=== PATIENT | female | born 1970 | race Caucasian/White ===

== ENCOUNTER → 2016-08-24 | Outpatient (CLI) | payer OTHER | LOC: M LAB 10:06 | PROVIDERS: ATTEND Nurse Practitioner Family | DX: E03.9 Hypothyroidism, unspecified (principal) ==

== ENCOUNTER → 2016-10-02 | Outpatient (CLI) | payer OTHER | LOC: M LAB 10:37 | PROVIDERS: ATTEND Nurse Practitioner Family | DX: L40.9 Psoriasis, unspecified (principal) ==

== ENCOUNTER → 2016-10-08 | Outpatient (CLI) | payer OTHER ==
[~2016-10-08] MED LIST: ATEN25TA PO; DULE200A INH; GASTROGRAFIN SOLUTION 30ML (Q9963) As Ordered ONE; HYDR25T PO; ISOVUE-370 76% 100ML VIAL (Q9967) As Ordered ONE; LEVO25TA5 PO; OMEP40CA2 PO; PROA1AER INH; VITA100037 PO; [UNRECOGNIZED DRUG - CODE] PO
--- NOTE | 2016-10-09 07:54 | REP ---
Clinical: Generalized abdominal pain. Technique axial contrast enhanced images from the lung bases to the pubic symphysis using oral and 100 ml Isovue 370 intravenous contrast material with precontrast and delayed images of the abdomen as well as coronal and sagittal re-formations. Findings: Lung bases clear. Visualized heart and pericardium normal. 9 mm hypodensity in the medial segment left lobe of the liver most compatible with cyst. Spleen, pancreas, bilateral adrenal glands and kidneys are normal. Cholelithiasis noted without CT evidence for acute cholecystitis. The enteric system is without obstruction or acute inflammatory process and a normal terminal ileum and appendix are identified in the right lower quadrant. Pelvis demonstrates normal bladder and evidence for prior hysterectomy bilateral groin and left inguinal lymph nodes are prominent but otherwise nonspecific as well as few lymph nodes in the anterior left eloy pelvis adjacent to the proximal sigmoid colon. No pelvic fluid/ascites. No free air. No retroperitoneal adenopathy. Vasculature is normal. Musculoskeletal structures are intact. Impression: 1. Bilateral groin and inguinal lymph nodes including prominent lymph nodes in the anterior left eloy pelvis adjacent to the sigmoid colon are otherwise nonspecific. Follow-up should be considered. 2. Cholelithiasis. Signed by Seth Friend MD 10/09/2016 07:45 A
== END ==
LOC: M RAD 15:20
PROVIDERS: ATTEND Physician Assistant Medical
DX: R10.84 Generalized abdominal pain (principal)

== ENCOUNTER → 2016-10-15 | Outpatient (CLI) | payer OTHER ==
[~2016-10-15] VITALS: Ht 167.6 cm; Wt 72.6 kg
[~2016-10-15] MED LIST changes: -GASTROGRAFIN SOLUTION 30ML (Q9963) As Ordered ONE; -ISOVUE-370 76% 100ML VIAL (Q9967) As Ordered ONE; +LIDOCAINE 2% INJ 100 MG/5 ML SDV (FOR ANES.) As Ordered ONE; +NS 1,000 ML IV SCH; +PROPOFOL 200 MG/20 ML VIAL As Ordered ONE
--- NOTE | 2016-10-15 16:07 | ROOR ---
Patient Name: Kaylan Lee Procedure Date: 10/15/2016 3:52 PM Date of : 1970 Age: 45 Room: [facility] Gender: Female Note Status: Finalized Procedure: Upper GI endoscopy Indications: Heartburn Providers: Johny FULTON MD Referring MD: Anila FERRER NP Requesting Provider: Medicines: Monitored Anesthesia Care Complications: No immediate complications. Procedure: Pre-Anesthesia Assessment: - The heart rate, respiratory rate, oxygen saturations, blood pressure, adequacy of pulmonary ventilation, and response to care were monitored throughout the procedure. The Endoscope was introduced through the mouth, and advanced to the second part of duodenum. The upper GI endoscopy was accomplished without difficulty. The patient tolerated the procedure well. Findings: Small Hiatal Hernia. The esophagus was normal. The stomach was normal. The examined duodenum was normal. Impression: - Small Hiatal Hernia. - Normal esophagus. - Normal stomach. - Normal examined duodenum. - No specimens collected. Recommendation: - Continue present medications. - Follow an antireflux regimen. Johny Fulton MD Johny FULTON MD 10/15/2016 4:06:51 PM This report has been signed electronically. Number of Addenda: 0 Note Initiated On: 10/15/2016 3:52 PM Estimated Blood Loss: Estimated blood loss: none.
--- NOTE | 2016-10-15 16:35 | ROOR ---
Patient Name: Kaylan Lee Procedure Date: 10/15/2016 3:53 PM Date of : 1970 Age: 45 Room: [facility] Gender: Female Note Status: Finalized Procedure: Colonoscopy Indications: Screening for colorectal malignant neoplasm Providers: Johny FULTON MD Referring MD: Anila FERRER NP Requesting Provider: Medicines: Monitored Anesthesia Care Complications: No immediate complications. Procedure: Pre-Anesthesia Assessment: - The heart rate, respiratory rate, oxygen saturations, blood pressure, adequacy of pulmonary ventilation, and response to care were monitored throughout the procedure. The Colonoscope was introduced through the anus and advanced to 8 cm into the ileum. The colonoscopy was performed without difficulty. The patient tolerated the procedure well. The quality of the bowel preparation was good. Findings: The perianal and digital rectal examinations were normal. A 20 mm polyp was found in the mid sigmoid colon. The polyp was pedunculated. An endoloop was maneuvered over the polyp stalk and closed at the mucosal attachment prior to removal in order to prevent bleeding. The polyp was removed with a hot snare. Resection and retrieval were complete. Three sessile polyps were found in the distal sigmoid colon. The polyps were diminutive in size. These polyps were removed with a cold snare. Resection and retrieval were complete. Three sessile polyps were found in the descending colon and splenic flexure. The polyps were 5 to 6 mm in size. These polyps were removed with a cold snare. Resection and retrieval were complete. The exam was otherwise without abnormality on direct and retroflexion views. The terminal ileum appeared normal. Impression: - One 20 mm polyp in the mid sigmoid colon, removed with a hot snare. Resected and retrieved. - Three diminutive polyps in the distal sigmoid colon, removed with a cold snare. Resected and retrieved. - Three 5 to 6 mm polyps in the descending colon and at the splenic flexure, removed with a cold snare. Resected and retrieved. - The examination was otherwise normal on direct and retroflexion views. - The examined portion of the ileum was normal. Recommendation: - Telephone endoscopist for pathology results in 2 weeks. - Repeat colonoscopy in 3 years for surveillance. Johny Fulton MD Johny FULTON MD 10/15/2016 4:35:13 PM This report has been signed electronically. Number of Addenda: 0 Note Initiated On: 10/15/2016 3:53 PM Estimated Blood Loss: Estimated blood loss: none.
[2016-10-15 16:59] VITALS: BP 112/58
== END | disposition home or self-care (01) ==
LOC: M OPP 12:14
PROVIDERS: ATTEND Internal Medicine Gastroenterology
DX: Z12.11 Encounter for screening for malignant neoplasm of colon (principal); D12.5 Benign neoplasm of sigmoid colon; D12.4 Benign neoplasm of descending colon; D12.3 Benign neoplasm of transverse colon; R12 Heartburn; K44.9 Diaphragmatic hernia without obstruction or gangrene; I10 Essential (primary) hypertension; E05.00 Thyrotoxicosis with diffuse goiter without thyrotoxic crisis or storm; F17.200 Nicotine dependence, unspecified, uncomplicated; J44.9 Chronic obstructive pulmonary disease, unspecified; M19.90 Unspecified osteoarthritis, unspecified site; K80.20 Calculus of gallbladder without cholecystitis without obstruction; Z79.899 Other long term (current) drug therapy

== ENCOUNTER → 2016-10-18 | Outpatient (REF) | payer OTHER ==
[~2016-10-18] MED LIST changes: -LIDOCAINE 2% INJ 100 MG/5 ML SDV (FOR ANES.) As Ordered ONE; -NS 1,000 ML IV SCH; -PROPOFOL 200 MG/20 ML VIAL As Ordered ONE
== END ==
LOC: M LAB REF 16:49
PROVIDERS: ATTEND Obstetrics & Gynecology
DX: Z12.4 Encounter for screening for malignant neoplasm of cervix (principal)

== ENCOUNTER → 2016-10-25 | Outpatient (REF) | payer OTHER | LOC: M LAB REF 12:43 | PROVIDERS: ATTEND Internal Medicine Medical Oncology | DX: C54.1 Malignant neoplasm of endometrium (principal) ==

== ENCOUNTER → 2016-11-07 | Outpatient (CLI) | payer OTHER ==
--- NOTE | 2016-11-07 18:58 | REP ---
PET/CT: History: Restaging carcinoma of the cervix. The patient is status post hysterectomy and bilateral salpingo-oophorectomy in May 2015. The patient status post radiation therapy January 2016. CT study showed a nonspecific lymph nodes in the pelvis and groin. Comparisons: CT study dated 10/08/2016. TECHNIQUE: 78 minutes following the intravenous injection of a 7.5 mCi dose of F-18 FDG, three-dimensional PET scintigraphy is acquired from the skull base to the proximal thighs. Triplanar noncontrast CT scanning is acquired through the same anatomic range for attenuation correction, and image registration with scan parameters optimized to minimize radiation exposure to the patient. PET scintigraphy and CT datasets were fused and displayed on a workstation with multiplanar and projection display capability. PET/CT Findings: The patients enlarged bilateral inguinal and distal external iliac chain lymph nodes are hypermetabolic. The most avid FDG accumulation is in the bilateral inguinal lymph nodes. Maximum standard uptake value in the right inguinal lymph node group is 6.7 and the maximum standard uptake value in the left is 4.9. There is a right external iliac lymph node with hypermetabolic uptake maximum SUV 2.8. A single very slightly enlarged left external iliac lymph node has a maximum SUV 2.5. No internal iliac adenopathy or hypermetabolic uptake is seen. No retroperitoneal hypermetabolic darin uptake is seen. No other abnormal hypermetabolic uptake is seen in the abdomen or pelvis. Gallstones are noted in the gallbladder. In the chest, there is no abnormal hypermetabolic uptake. No abnormal pulmonary mass or nodule is appreciated. The head and neck soft tissues are unremarkable. No other abnormal uptake is seen. Impression: Suspicious hypermetabolic uptake is seen in bilateral distal external iliac and bilateral inguinal lymphadenopathy. Signed by Graeme Morgan MD 11/07/2016 08:01 P
== END ==
LOC: M RAD 07:11
PROVIDERS: ATTEND Internal Medicine Medical Oncology
DX: C53.9 Malignant neoplasm of cervix uteri, unspecified (principal)

== ENCOUNTER → 2016-11-12 | Outpatient (REF) | payer OTHER ==
[2016-11-12 13:15] LABS: INR 0.88
== END ==
LOC: M LAB REF 12:35
PROVIDERS: ATTEND Internal Medicine Medical Oncology
DX: C53.9 Malignant neoplasm of cervix uteri, unspecified (principal)

== ENCOUNTER → 2016-11-20 | Outpatient (CLI) | payer OTHER ==
--- NOTE | 2016-11-22 09:18 | RADONC ---
RADIATION ONCOLOGY CONSULTATION NOTE DATE: 11/20/2016 CHART NUMBER: [id number] DIAGNOSIS: Cervix cancer. STAGE: IVB, TXN1M1, recurrent. ECOG PERFORMANCE STATUS: 0 CONSULTATION NOTE: Ms. Lee is a very pleasant 45-year-old white female with the diagnosis of what appears to be a recurrence of her cervical squamous cell carcinoma now with bilateral inguinal and external iliac lymph nodes. HISTORY OF PRESENT ILLNESS: The patient was in her usual state of health and apparently underwent a laparoscopic vaginal-assisted hysterectomy with bilateral salpingo-oophorectomy on 06/03/2015. Pathology revealed a well-differentiated keratinizing squamous cell carcinoma. The stromal invasion was 1 mm. Margins were uninvolved with invasive carcinoma. The tumor was listed as a [id number], FIGO stage. Lymph vascular invasion was found. Apparently, the patient subsequently underwent on 11/07/2015, further surgery. Further excision of the left vaginal margin as well as the upper vagina were undertaken. Bilateral lymph nodes were resected in the external iliac region, the common iliac region, and the obturator regions. Pathology revealed invasive squamous cell carcinoma in the upper vagina measuring 1.1 cm arising in a background of squamous carcinoma in situ. The parametria were negative for tumor involvement. The left vaginal margin was positive for squamous cell carcinoma in situ. The external iliac nodes on the right and left were negative for malignancy. The obturator nodes bilaterally were also negative for malignancy as were periaortic lymph nodes. The patient subsequently underwent external beam radiation therapy at [address] [place] [address] Oncology. A dose of 4500 cGy was delivered from 01/11/2016 through 02/15/2016 in 25 fractions over 35 elapsed days. The pelvis and pelvic lymph nodes were treated. The patient reports that she did not have any chemotherapy or other type of systemic therapy either. Apparently, the patient did well until PET scan done 11/07/2016, which now shows hypermetabolic uptake in the inguinal regions bilaterally as well as in the external iliac lymph nodes on the right. There is very slight uptake in the left external iliac lymph nodes as well. The patient is now presenting to me for discussion of any possible external beam radiation therapy. PAST MEDICAL HISTORY: The patient's past medical history is positive for hypertension, arthritis, hypothyroidism and COPD. SOCIAL HISTORY: The patient does not abuse alcohol. She had smokes approximately one pack of cigarettes per day for the last 30 years. ALLERGIES: The patient has no known drug allergies. FAMILY HISTORY: The patient's mother was diagnosed with lung cancer. She had a grandmother with ovarian cancer. REVIEW OF SYSTEMS: The patient's review of systems is positive for some migraines as well as psoriasis and weakness in her legs. It is otherwise noncontributory. She denies nausea, vomiting, fevers, chills, night sweats, diplopia, headaches, anxiety or depression, anorexia, weight loss, visual disturbances, chest pain, urinary or bowel difficulties, bone pain, or neurological problems. PHYSICAL EXAMINATION: The patient is a well-developed, well-nourished female in no acute distress. HEENT exam is normocephalic, atraumatic. Extraocular movements are intact. There is no palpable cervical, supraclavicular, infraclavicular, axillary, or inguinal lymphadenopathy present. Lungs are clear to auscultation and percussion. Heart has a regular rate and rhythm. Abdomen is benign with no hepatosplenomegaly, masses, or tenderness. Skeletal examination reveals no tenderness to pressure or percussion of the bony skeleton. Extremities reveal no clubbing, cyanosis, or edema. Neurologic exam is grossly intact, as is the remainder of the physical examination. COLLECTIONS SPECIALIST exam deferred. ASSESSMENT: I have personally reviewed the patient's PET/CT scan done on 11/07/2016 as well as her previous radiation therapy records. Unfortunately, if all the sites of hypermetabolic activity are truly malignant, then we have stage IV disease here. The inguinal nodes qualify as distant metastases. In addition, we cannot safely deliver a radiation dose to her inguinal nodes bilaterally as well as to her external iliac nodes without overlapping the previous mike and most likely causing severe damage to the patient's small bowels and other normal structures. I do not see, at this point, any role for radiation therapy in this patient with recurrent stage IV disease. I think we would cause her more injury than we would be of any benefit. Clearly, the role in the future for this woman is palliative in nature and, at the present time, she is having no problems with these areas and, therefore, there is nothing to palliate. I have recommended that she follow the instructions and expertise of Dr. Klein. I have great andre in Dr. Klein's ability to evaluate the situation and deliver the highest quality care to this very pleasant and unfortunate woman. I have not set her up for anything at this point. Should there be any future issue that requires palliation, we would be more than happy to see this woman at anytime. Pending the results of her biopsies of the inguinal nodes which are scheduled and any further recommendations from Dr. Klein, we are more than happy to see her as well in the future. We wish this very pleasant woman the best. cc: MD Anila Castellano, ADALGISA Fulton MD
== END ==
LOC: M ONCR 14:02
PROVIDERS: ATTEND Radiology Radiation Oncology
DX: C53.9 Malignant neoplasm of cervix uteri, unspecified (principal)

== ENCOUNTER → 2016-11-26 | Outpatient (CLI) | payer OTHER ==
[~2016-11-26] MED LIST changes: +LIDOCAINE 1% MDV 20ML VIAL As Ordered ONE
--- NOTE | 2016-11-26 16:39 | REP ---
ULTRASOUND GUIDED RIGHT GROIN LYMPH NODE BIOPSY: The procedure was performed under the direct supervision of Dr. Lim. The patient has a history of bilateral distal external iliac and bilateral inguinal lymphadenopathy which were seen as hypermetabolic on a previous PET scan dated 11/07/2016. The risks and benefits of the procedure were explained to the patient and informed consent was obtained. The most hyperbolic lymph node in the right groin was localized using ultrasound guidance. The skin was prepped and draped in a sterile fashion. 1% Xylocaine was used as a local anesthetic. Using ultrasound guidance a 19/20-gauge coaxial needle biopsy system was inserted and then advanced into the lymph node. 8 core biopsy samples were obtained and sent to the lab. The patient tolerated the procedure well and there were no immediate complications. After the appropriate amount of monitored convalesce the patient was discharged from the department. Reviewed by GERTRUDE Wong 11/26/2016 04:49 PEdited and Signed by Klever Lim MD 11/27/2016 04:27 P
== END ==
LOC: M RADPRO 08:49
PROVIDERS: ATTEND Internal Medicine Medical Oncology
DX: D21.9 Benign neoplasm of connective and other soft tissue, unspecified (principal); Z85.41 Personal history of malignant neoplasm of cervix uteri; I10 Essential (primary) hypertension; J44.9 Chronic obstructive pulmonary disease, unspecified; E03.9 Hypothyroidism, unspecified; Z72.0 Tobacco use; Z79.899 Other long term (current) drug therapy

== ENCOUNTER → 2016-12-10 | Outpatient (CLI) | payer OTHER ==
[~2016-12-10] MED LIST changes: -LIDOCAINE 1% MDV 20ML VIAL As Ordered ONE
[2016-12-10 08:36] LABS: ALBUMIN 3.4 GM/DL (3.2-5.2); ALBUMIN/GLOBULIN RATIO 0.92 (1.00-1.93); ALKALINE PHOSPHATASE 115 U/L (45-117); ALT/SGPT 20 U/L (12-78); ANION GAP 5 MEQ/L (8-16); AST/SGOT 17 U/L (15-37); BILIRUBIN,TOTAL 0.3 MG/DL (0.2-1.0); BLOOD UREA NITROGEN 10 MG/DL (7-18); CALCIUM LEVEL 8.8 MG/DL (8.5-10.1); CARBON DIOXIDE LEVEL 31 MEQ/L (21-32); CHLORIDE LEVEL 103 MEQ/L (98-107); CREATININE FOR GFR 0.55 MG/DL (0.55-1.02); GLOMERULAR FILTRATION RATE > 60.0 (>58); GLUCOSE, FASTING 102 MG/DL (70-105); POTASSIUM SERUM 3.9 MEQ/L (3.5-5.1); SODIUM LEVEL 139 MEQ/L (136-145); TOTAL PROTEIN 7.1 GM/DL (6.4-8.2); TRIGLYCERIDES LEVEL 122 MG/DL (<150)
== END ==
LOC: M LAB 07:37
PROVIDERS: ATTEND Dermatology
DX: Z79.899 Other long term (current) drug therapy (principal)

== ENCOUNTER → 2016-12-25 | Outpatient (CLI) | payer OTHER ==
[~2016-12-25] MED LIST changes: +ACIT1CAP2 PO; +COMBAER6 INH; +TYLE500T78 PO
--- NOTE | 2016-12-25 19:05 | ECGEPIP ---
Stationary ECG Study [facility] Test Date: 2016-12-25 Pat Name: JOSEPH COOL Department: Room: - Gender: F C Winforms Developer: GRAY : 1970 Requested By: Teo Odonnell Order Number: [id number] Reading MD: Corky Weber Measurements Intervals [place] Rate: 70 P: 65 OK: 159 QRS: 34 QRSD: 89 T: 63 QT: 407 QTc: 440 Interpretive Statements SINUS RHYTHM SIMILAR 07/18/16 Electronically Signed On 12-25-2016 19:05:32 EDT by Corky Weber
== END ==
LOC: M EKG 10:12
PROVIDERS: ATTEND Anesthesiology
DX: Z01.818 Encounter for other preprocedural examination (principal)

== ENCOUNTER → 2016-12-26 | Day surgery (SDC) | payer OTHER ==
[~2016-12-26] VITALS: Ht 167.6 cm; Wt 71.7 kg
[~2016-12-26] MED LIST changes: +KETAMINE HCL 200 MG/20 ML VIAL As Ordered ONE; +KETOROLAC 60 MG/2 ML VIAL (J1885) As Ordered ONE; +LIDOCAINE 2% INJ 100 MG/5 ML SDV (FOR ANES.) As Ordered ONE; +LIDOCAINE W/EPINEPHRINE 1% 20ML VIAL As Ordered ONE; +LR 1,000 ML IV ONE; +MIDAZOLAM INJ 2 MG/2 ML VIAL (J2250) As Ordered ONE; +NORCO, ANEXSIA 5/325MG TABLET (HYDROcodone/ACETAMINOPHEN) PO PRN; +ONDANSETRON 4MG/2ML VIAL (J2405) As Ordered ONE; +PROPOFOL 200 MG/20 ML VIAL As Ordered ONE; +fentaNYL 100 MCG/2 ML INJECTION (J3010) As Ordered ONE
[2016-12-26 13:45] VITALS: BP 105/71
--- NOTE | 2016-12-28 12:10 | RO ---
DATE OF PROCEDURE: 12/26/2016 PREOPERATIVE DIAGNOSIS: Right groin lymphadenopathy. POSTOPERATIVE DIAGNOSIS: Right groin lymphadenopathy. PROCEDURES: Right groin lymph node dissection. SURGEON: Dr. Nicole INDUSTRIAL PHOTOGRAPHER: None. ESTIMATED BLOOD LOSS: 5 mL. COMPLICATIONS: None. INDICATIONS FOR PROCEDURE: Patient is 46-year-old female with a history of cervical cancer found to have enlarged lymph nodes on CT scan that were confirmed to have increased activity on PET scan. She had a needle biopsy of the right groin lymph node that was negative; however, due to her history they recommended excision for further diagnosis. Recommendation was to proceed with excisional right groin lymph node biopsy. Risks and procedure, not limited, but including bleeding, infection, seroma and need for further procedures were discussed in detail with the patient. Informed consent was obtained and procedure was planned. DESCRIPTION OF PROCEDURE: The patient brought back to operating room #3. After sufficient sedation, the right groin was sterilely prepped and draped with Betadine. Next, a time-out was done to confirm proper patient and proper procedure. Following that, a 4 cm incision was made in the inguinal crease. Using combination of blunt and sharp dissection, the right groin was carefully dissected down to the level of the lymph nodes. There was a one large palpable lymph node just over a centimeter in size that was easily palpable. This was carefully dissected circumferentially and then it was elevated. #0 Vicryl suture was placed around the base of it to ligate the lymphatic ducts. It was then amputated using Metzenbaum scissors and sent for biopsy. The subcutaneous tissues were then reapproximated using #3-0 Vicryl interrupted sutures. Skin incision closed with #3-0 nylon interrupted sutures. The area was then cleaned and dried, 4x4 and tape were applied thus ending procedure.
== END | disposition home or self-care (01) ==
LOC: M SDC 09:12
PROVIDERS: ATTEND Surgery
DX: R59.0 Localized enlarged lymph nodes (principal); I10 Essential (primary) hypertension; J44.9 Chronic obstructive pulmonary disease, unspecified; E03.9 Hypothyroidism, unspecified; E05.00 Thyrotoxicosis with diffuse goiter without thyrotoxic crisis or storm; K21.9 Gastro-esophageal reflux disease without esophagitis; I45.19 Other right bundle-branch block; R29.898 Other symptoms and signs involving the musculoskeletal system; M12.9 Arthropathy, unspecified; L40.9 Psoriasis, unspecified; G43.909 Migraine, unspecified, not intractable, without status migrainosus; R06.83 Snoring; R06.09 Other forms of dyspnea; F17.290 Nicotine dependence, other tobacco product, uncomplicated; Z90.710 Acquired absence of both cervix and uterus; Z92.21 Personal history of antineoplastic chemotherapy; Z92.3 Personal history of irradiation
CPT/HCPCS: 38500; 88305; J0690; J1885; J2250; J2405; J3010

== ENCOUNTER → 2017-02-04 | Outpatient (CLI) | payer OTHER ==
[~2017-02-04] MED LIST changes: -KETAMINE HCL 200 MG/20 ML VIAL As Ordered ONE; -KETOROLAC 60 MG/2 ML VIAL (J1885) As Ordered ONE; -LIDOCAINE 2% INJ 100 MG/5 ML SDV (FOR ANES.) As Ordered ONE; -LIDOCAINE W/EPINEPHRINE 1% 20ML VIAL As Ordered ONE; -LR 1,000 ML IV ONE; -MIDAZOLAM INJ 2 MG/2 ML VIAL (J2250) As Ordered ONE; -NORCO, ANEXSIA 5/325MG TABLET (HYDROcodone/ACETAMINOPHEN) PO PRN; -ONDANSETRON 4MG/2ML VIAL (J2405) As Ordered ONE; -PROPOFOL 200 MG/20 ML VIAL As Ordered ONE; -fentaNYL 100 MCG/2 ML INJECTION (J3010) As Ordered ONE
[2017-02-04 09:23] LABS: ALBUMIN 3.5 GM/DL (3.2-5.2); ALBUMIN/GLOBULIN RATIO 1.13 (1.00-1.93); ALKALINE PHOSPHATASE 139 U/L (45-117); ALT/SGPT 22 U/L (12-78); ANION GAP 6 MEQ/L (8-16); AST/SGOT 15 U/L (15-37); BILIRUBIN,TOTAL 0.3 MG/DL (0.2-1.0); BLOOD UREA NITROGEN 14 MG/DL (7-18); CALCIUM LEVEL 8.4 MG/DL (8.5-10.1); CARBON DIOXIDE LEVEL 26 MEQ/L (21-32); CHLORIDE LEVEL 110 MEQ/L (98-107); CREATININE FOR GFR 0.66 MG/DL (0.55-1.02); GLOMERULAR FILTRATION RATE > 60.0 (>58); GLUCOSE, FASTING 97 MG/DL (70-105); SODIUM LEVEL 142 MEQ/L (136-145); TOTAL PROTEIN 6.6 GM/DL (6.4-8.2); TRIGLYCERIDES LEVEL 181 MG/DL (<150)
== END ==
LOC: M LAB 08:22
PROVIDERS: ATTEND Dermatology
DX: Z51.81 Encounter for therapeutic drug level monitoring (principal); Z79.899 Other long term (current) drug therapy

== ENCOUNTER → 2017-02-20 | Outpatient (REF) | payer OTHER ==
[~2017-02-20] MED LIST changes: +HYDR-3363 PO; -HYDR25T PO; -PROA1AER INH; +PROAAER10 INH; -VITA100037 PO; +VITA100067 PO
[2017-02-20 14:52] LABS: FREE T4 1.09 NG/DL (0.76-1.46)
== END ==
LOC: M LAB REF 12:28
PROVIDERS: ATTEND Nurse Practitioner Family
DX: E89.0 Postprocedural hypothyroidism (principal)

== ENCOUNTER → 2017-03-06 | Outpatient (REF) | payer OTHER | LOC: M LAB REF 13:32 | PROVIDERS: ATTEND Internal Medicine Medical Oncology | DX: C53.9 Malignant neoplasm of cervix uteri, unspecified (principal) ==

== ENCOUNTER → 2017-06-06 | Outpatient (REF) | payer OTHER | LOC: M LAB REF 13:42 | PROVIDERS: ATTEND Internal Medicine Medical Oncology | DX: C53.9 Malignant neoplasm of cervix uteri, unspecified (principal) ==

== ENCOUNTER → 2017-06-12 | Outpatient (CLI) | payer OTHER ==
--- NOTE | 2017-06-12 15:11 | REP ---
Whole body PET CT scan for restaging of cervical cancer. Comparison is the PET scan dated 11/07/2016. Whole-body scanning is performed from skull base to the upper thighs, as previously. Neck and supraclavicular areas: There is artifactual uptake in the vocal cords. There is artifactual uptake in lymphoid and salivary tissues. No hypermetabolic foci. Chest: There are no hypermetabolic foci. Abdomen, pelvis and upper thighs: There is uptake in external iliac nodes and in inguinal nodes bilaterally, similar to the prior study. There is uptake in a single right inguinal node with the maximal standard uptake value of 4.9. There is uptake in two left inguinal nodes with the maximal standard uptake value of the more posterior node measuring 4,7, and of the more anterior node 4.7. There is uptake in a single right external iliac node with a maximal standard uptake value of 3.6. There is uptake in a single left external iliac node with a maximal standard uptake value of 2.9. There is a new focus of intense uptake in the skin of the anterior abdominal wall to the right of midline just above the level of the umbilicus measuring approximate 2.5 cm in diameter with a maximal standard uptake value of 87. Impression: There is uptake in bilateral external iliac nodes and bilateral inguinal nodes, similar to the prior study. There is a new focus of intense uptake in the skin of the anterior abdominal wall to the right of midline just above the level of the umbilicus The study is performed with 10 mCi of F 18 FDG. Signed by Klever Gottlieb MD 06/12/2017 03:02 P
== END ==
LOC: M PLARAD 10:15
PROVIDERS: ATTEND Internal Medicine Medical Oncology
DX: R59.9 Enlarged lymph nodes, unspecified (principal); C53.9 Malignant neoplasm of cervix uteri, unspecified
CPT/HCPCS: 78815; A9552

== ENCOUNTER → 2017-07-30 | Outpatient (CLI) | payer OTHER ==
--- NOTE | 2017-07-30 13:37 | REPMRS ---
Patient History The patient states she has not had a clinical breast exam in over a year. Patient has history of endometrial cancer at age 44. Family history of ovarian cancer in maternal grandmother. Taking unspecified hormones. Digital Mammo Screening Bilat: July 30, 2017 - Exam #: [id number] Bilateral CC and MLO view(s) were taken. Technologist: Nithya Pederson, Technologist Prior study comparison: July 18, 2016, bilateral digital mammo screening bilat performed at [facility]. FINDINGS: There are scattered fibroglandular densities. There has been no change in the appearance of the mammogram from the prior studies. There is a mild amount of residual fibroglandular tissue which is fairly symmetric. There is no interval development of dominant mass, architectural distortion, or clustered microcalcification suggestive of malignancy. ASSESSMENT: BI-RADS/ACR category 1 mammogram. Negative. Recommendation Routine screening mammogram in 1 year (for women over age 40). This mammogram was interpreted with the aid of an FDA-approved computer-aided dectection system. Electronically Signed By: Klever Lim MD 07/30/17 [id number]
== END ==
LOC: M RAD 10:41
PROVIDERS: ATTEND Internal Medicine Medical Oncology
DX: Z12.31 Encounter for screening mammogram for malignant neoplasm of breast (principal); Z79.890 Hormone replacement therapy

== ENCOUNTER → 2017-08-16 | Outpatient (CLI) | payer OTHER ==
[2017-08-16 08:56] LABS: BASO # 0.1 10^3/uL (0.0-0.2); BASO % 1.2 % (0.0-1.0); EOS # 0.3 10^3/uL (0.0-0.50); EOS % 5.2 % (0.0-3.0); IMMATURE GRANULOCYTE % 0.2 % (0-0); LYMPH # 0.6 10^3/uL (1.5-4.5); LYMPH % 9.8 % (24.0-44.0); MEAN CORPUSCULAR HGB CONC 33.3 g/dl (32.0-36.5); MEAN CORPUSCULAR VOLUME 93.2 fl (80.0-96.0); MONO # 0.5 10^3/uL (0.0-0.8); MONO % 7.7 % (0.0-5.0); NEUTROPHILS # 4.5 10^3/uL (1.8-7.7); NEUTROPHILS % 75.9 % (36.0-66.0); PLATELET COUNT, AUTOMATED 316 10^3/uL (150-450); RED CELL DISTRIBUTION WIDTH 14.2 % (11.5-14.5); WHITE BLOOD COUNT 5.9 10^3/uL (4.0-10.0)
== END ==
LOC: M RAD 07:01
DX: Z13.89 Encounter for screening for other disorder (principal)
CPT/HCPCS: 76705

== ENCOUNTER → 2017-09-19 | Outpatient (CLI) | payer OTHER | LOC: M SMT 10:28 | DX: J44.9 Chronic obstructive pulmonary disease, unspecified (principal) | CPT/HCPCS: 71046 ==

== ENCOUNTER → 2017-10-02 | Outpatient (REF) | payer OTHER ==
[2017-10-02 18:05] LABS: CHOLESTEROL LEVEL 256 MG/DL (<200); CHOLESTEROL RISK RATIO 4.654 (<5); HDL CHOLESTEROL 55 MG/DL (>40); NON-HDL-C 201 MG/DL; TRIGLYCERIDES LEVEL 130 MG/DL (<150)
[2017-10-02 18:25] LABS: ESTIMATED AVERAGE GLUCOSE 114 MG/DL (60-110); HEMOGLOBIN A1c 5.6 %
== END ==
LOC: M LAB REF 16:43
DX: R07.9 Chest pain, unspecified (principal)

== ENCOUNTER → 2017-10-25 | Outpatient (REF) | payer OTHER, MEDICARE ==
[2017-10-25 14:26] LABS: CA 125 8.9 U/ML (<30.2)
== END ==
LOC: M LAB REF 13:20
DX: C53.9 Malignant neoplasm of cervix uteri, unspecified (principal)

== ENCOUNTER → 2017-11-14 | Outpatient (CLI) | payer OTHER ==
[2017-11-14 18:17] LABS: BASO % 0.6 % (0.0-1.0); EOS # 0.2 10^3/uL (0.0-0.50); EOS % 2.8 % (0.0-3.0); HEMATOCRIT 43.2 % (36.0-47.0); HEMOGLOBIN 14.5 g/dl (12.0-15.5); IMMATURE GRANULOCYTE % 0.4 % (0-3.0); LYMPH # 0.6 10^3/uL (1.5-4.5); LYMPH % 8.2 % (24.0-44.0); MEAN CORPUSCULAR HEMOGLOBIN 31.3 pg (27.0-33.0); MEAN CORPUSCULAR HGB CONC 33.6 g/dl (32.0-36.5); MEAN CORPUSCULAR VOLUME 93.3 fl (80.0-96.0); MONO # 0.4 10^3/uL (0.0-0.8); MONO % 6.2 % (0.0-5.0); NEUTROPHILS # 5.8 10^3/uL (1.8-7.7); NEUTROPHILS % 81.8 % (36.0-66.0); PLATELET COUNT, AUTOMATED 278 10^3/uL (150-450); RED BLOOD COUNT 4.63 10^6/uL (4.00-5.40); RED CELL DISTRIBUTION WIDTH 14.5 % (11.5-14.5); WHITE BLOOD COUNT 7.1 10^3/uL (4.0-10.0)
[2017-11-14 18:41] LABS: ALBUMIN 3.8 GM/DL (3.2-5.2); ALBUMIN/GLOBULIN RATIO 1.09 (1.00-1.93); ALKALINE PHOSPHATASE 122 U/L (45-117); ALT/SGPT 24 U/L (12-78); ANION GAP 8 MEQ/L (8-16); AST/SGOT 17 U/L (7-37); BILIRUBIN,TOTAL 0.4 MG/DL (0.2-1.0); BLOOD UREA NITROGEN 16 MG/DL (7-18); CALCIUM LEVEL 8.6 MG/DL (8.5-10.1); CARBON DIOXIDE LEVEL 26 MEQ/L (21-32); CHLORIDE LEVEL 104 MEQ/L (98-107); GLOMERULAR FILTRATION RATE > 60.0 (>58); GLUCOSE, FASTING 89 MG/DL (70-100); POTASSIUM SERUM 3.9 MEQ/L (3.5-5.1); RHEUMATOID FACTOR QUANT < 10.0 IU/ML (<15.0); SODIUM LEVEL 138 MEQ/L (136-145); TOTAL PROTEIN 7.3 GM/DL (6.4-8.2)
[2017-11-14 19:11] LABS: ERYTHROCYTE SEDIMENTATION RATE 5 mm/hr (0-20)
[2017-11-15 11:04] LABS: HEPATITIS B SURFACE ANTIGEN NEGATIVE (NEGATIVE)
[2017-11-15 11:16] LABS: HEPATITIS B CORE ANTIBODY IGM NEGATIVE (NEGATIVE)
[2017-11-15 14:45] LABS: HEPATITIS A ANTIBODY IGM INCONCLUSIVE (NEGATIVE)
[2017-11-16 15:19] LABS: QUANTIFERON GOLD TB Negative (Negative); TB Test (QFT) Antigen 0.03 IU/mL (.); TB Test (QFT) Antigen Minus Ni 0.01 IU/mL (.); TB Test (QFT) Mitogen 5.89 IU/mL (.); TB Test (QFT) Nil 0.02 IU/mL (.)
== END ==
LOC: M SMT 12:43
DX: L40.0 Psoriasis vulgaris (principal); L40.50 Arthropathic psoriasis, unspecified
CPT/HCPCS: 80053

== ENCOUNTER 2017-11-15 09:19 | Day surgery (SDC) | payer OTHER, MEDICAID ==
[2017-11-15] MEDS ORDERED: LIDOCAINE 1% MDV 20ML VIAL SQ (09:30)
[2017-11-15] MEDS: LR 1,000 ML IV ×2 (10:30→13:10)
[2017-11-15] MEDS ORDERED: ROCURONIUM BROMIDE 50 MG/5 ML VIAL As Ordered (11:17)
[2017-11-15] MEDS ORDERED: LIDOCAINE 2% INJ 100 MG/5 ML SDV (FOR ANES.) As Ordered (11:17)
[2017-11-15] MEDS ORDERED: fentaNYL 250 MCG/5 ML INJECTION (J3010) As Ordered (11:17)
[2017-11-15] MEDS ORDERED: PROPOFOL 200 MG/20 ML VIAL As Ordered (11:17)
[2017-11-15] MEDS ORDERED: MIDAZOLAM INJ 2 MG/2 ML VIAL (J2250) As Ordered (11:17)
[2017-11-15] MEDS ORDERED: BUPIVACAINE/EPIN 0.5% 30 ML VIAL As Ordered (11:48)
[2017-11-15] MEDS ORDERED: NEOSTIGMINE 10 MG/10 ML VIAL (J2710) As Ordered (12:32)
[2017-11-15] MEDS ORDERED: GLYCOPYRROLATE INJ 0.2 MG/ML 2 ML VIAL As Ordered (12:32)
[2017-11-15] MEDS ORDERED: ONDANSETRON 4MG/2ML VIAL (J2405) As Ordered (12:32)
[2017-11-15] MEDS ORDERED: dexameTHASONE 4 MG/ML 1ML VIAL (J1100) As Ordered ×2 (12:33)
[2017-11-15] MEDS ORDERED: KETOROLAC 60 MG/2 ML VIAL (J1885) As Ordered (12:33)
[2017-11-15] MEDS ORDERED: fentaNYL 100 MCG/2 ML INJECTION (J3010) IV (13:30)
[2017-11-15] MEDS ORDERED: NORCO, ANEXSIA 5/325MG TABLET (HYDROcodone/ACETAMINOPHEN) PO (13:30)
[2017-11-15] MEDS ORDERED: ONDANSETRON 4MG/2ML VIAL (J2405) IV (13:30)
[2017-11-15] MEDS ORDERED: ACETAMINOPHEN TAB 650MG DOSE (2X325MG) As Ordered (13:33)
[2017-11-15] MEDS: ACETAMINOPHEN TAB 650MG DOSE (2X325MG) PO (13:35)
== END 2017-11-15 16:55 | disposition home or self-care (01) ==
LOC: M SDC 09:19
DX: K80.12 Calculus of gallbladder with acute and chronic cholecystitis without obstruction (principal); I10 Essential (primary) hypertension; E05.00 Thyrotoxicosis with diffuse goiter without thyrotoxic crisis or storm; F41.9 Anxiety disorder, unspecified; F32.9 Major depressive disorder, single episode, unspecified; J44.9 Chronic obstructive pulmonary disease, unspecified; K21.9 Gastro-esophageal reflux disease without esophagitis; I45.10 Unspecified right bundle-branch block; E78.00 Pure hypercholesterolemia, unspecified; E03.9 Hypothyroidism, unspecified; M19.90 Unspecified osteoarthritis, unspecified site; L40.9 Psoriasis, unspecified; Z86.73 Personal history of transient ischemic attack (TIA), and cerebral infarction without residual deficits; Z85.41 Personal history of malignant neoplasm of cervix uteri; Z85.42 Personal history of malignant neoplasm of other parts of uterus; Z92.3 Personal history of irradiation; Z79.899 Other long term (current) drug therapy; Z79.51 Long term (current) use of inhaled steroids
CPT/HCPCS: 47562

== ENCOUNTER → 2018-01-09 | Outpatient (CLI) | payer OTHER ==
[2018-01-09 17:41] LABS: BASO % 0.5 % (0.0-1.0); EOS # 0.2 10^3/uL (0.0-0.50); EOS % 2.4 % (0.0-3.0); HEMATOCRIT 44.9 % (36.0-47.0); HEMOGLOBIN 15.1 g/dl (12.0-15.5); IMMATURE GRANULOCYTE % 0.3 % (0-3.0); LYMPH # 0.5 10^3/uL (1.5-4.5); LYMPH % 8.5 % (24.0-44.0); MEAN CORPUSCULAR HEMOGLOBIN 31.5 pg (27.0-33.0); MEAN CORPUSCULAR HGB CONC 33.6 g/dl (32.0-36.5); MEAN CORPUSCULAR VOLUME 93.5 fl (80.0-96.0); MONO # 0.4 10^3/uL (0.0-0.8); MONO % 5.6 % (0.0-5.0); NEUTROPHILS # 5.1 10^3/uL (1.8-7.7); NEUTROPHILS % 82.7 % (36.0-66.0); PLATELET COUNT, AUTOMATED 328 10^3/uL (150-450); RED CELL DISTRIBUTION WIDTH 14.1 % (11.5-14.5); WHITE BLOOD COUNT 6.2 10^3/uL (4.0-10.0)
[2018-01-09 17:46] LABS: ALBUMIN 3.7 GM/DL (3.2-5.2); ALT/SGPT 27 U/L (12-78); AST/SGOT 21 U/L (7-37); C REACTIVE PROTEIN QUANTITATIV 0.61 MG/DL (0.00-0.30); CREATININE FOR GFR 0.67 MG/DL (0.55-1.30); GLOMERULAR FILTRATION RATE > 60.0 (>58)
[2018-01-09 19:57] LABS: ERYTHROCYTE SEDIMENTATION RATE 6 mm/hr (0-20)
== END ==
LOC: M SMT 13:25
DX: Z51.81 Encounter for therapeutic drug level monitoring (principal); Z79.899 Other long term (current) drug therapy; L40.9 Psoriasis, unspecified; R59.1 Generalized enlarged lymph nodes
CPT/HCPCS: 86140

== ENCOUNTER → 2018-01-09 | Outpatient (CLI) | payer OTHER ==
[2018-01-09 17:50] LABS: ALBUMIN 3.7 GM/DL (3.2-5.2); ALBUMIN/GLOBULIN RATIO 0.97 (1.00-1.93); ALKALINE PHOSPHATASE 120 U/L (45-117); ALT/SGPT 26 U/L (12-78); ANION GAP 8 MEQ/L (8-16); AST/SGOT 19 U/L (7-37); BILIRUBIN,TOTAL 0.4 MG/DL (0.2-1.0); BLOOD UREA NITROGEN 13 MG/DL (7-18); CALCIUM LEVEL 8.4 MG/DL (8.5-10.1); CARBON DIOXIDE LEVEL 28 MEQ/L (21-32); CHLORIDE LEVEL 103 MEQ/L (98-107); CHOLESTEROL LEVEL 211 MG/DL (<200); CHOLESTEROL RISK RATIO 4.795 (<5); CREATININE FOR GFR 0.68 MG/DL (0.55-1.30); GLOMERULAR FILTRATION RATE > 60.0 (>58); GLUCOSE, FASTING 101 MG/DL (70-100); HDL CHOLESTEROL 44 MG/DL (>40); LDL CHOLESTEROL 140.8 MG/DL (<100); NON-HDL-C 167 MG/DL; SODIUM LEVEL 139 MEQ/L (136-145); TOTAL PROTEIN 7.5 GM/DL (6.4-8.2); TRIGLYCERIDES LEVEL 131 MG/DL (<150)
== END ==
LOC: M SMT 13:28
DX: I10 Essential (primary) hypertension (principal)
CPT/HCPCS: 84443

== ENCOUNTER → 2018-01-27 | Outpatient (REF) | payer OTHER, MEDICAID ==
[2018-01-28 08:57] LABS: CA 125 10.7 U/ML (<30.2)
== END ==
LOC: M LAB REF 13:32
DX: C53.9 Malignant neoplasm of cervix uteri, unspecified (principal)
CPT/HCPCS: 86304

== ENCOUNTER → 2018-01-28 | Outpatient (CLI) | payer OTHER ==
[~2018-01-28] MED LIST changes: -ACIT1CAP2 PO; -ATEN25TA PO; -COMBAER6 INH; -DULE200A INH; +GASTROGRAFIN SOLUTION 30ML (Q9963) As Ordered; -HYDR-3363 PO; +ISOVUE-370 76% 100ML VIAL (Q9967) As Ordered; -LEVO25TA5 PO; -OMEP40CA2 PO; -PROAAER10 INH; -TYLE500T78 PO; -VITA100067 PO; -[UNRECOGNIZED DRUG - CODE] PO
== END ==
LOC: M RAD 15:57
DX: C53.9 Malignant neoplasm of cervix uteri, unspecified (principal)
CPT/HCPCS: Q9963

== ENCOUNTER → 2018-05-15 | Outpatient (REF) | payer OTHER ==
[2018-05-16 10:51] LABS: CA 125 7.4 U/ML (<30.2)
== END ==
LOC: M LAB REF 13:37
DX: D53.9 Nutritional anemia, unspecified (principal)

== ENCOUNTER → 2018-05-26 | Outpatient (CLI) | payer OTHER | LOC: M RAD 12:30 | DX: M54.9 Dorsalgia, unspecified (principal); C53.9 Malignant neoplasm of cervix uteri, unspecified | CPT/HCPCS: 72110 ==

== ENCOUNTER → 2018-08-28 | Outpatient (CLI) | payer OTHER ==
[~2018-08-28] MED LIST changes: +ACIT1CAP2 PO; +ANOR1AER INH; +ARNU1INH3 INH; +ATEN25TA PO; +ATOR1TAB19 PO; +COMBAER6 INH; +DULE200A INH; -GASTROGRAFIN SOLUTION 30ML (Q9963) As Ordered; +GASTROGRAFIN SOLUTION 30ML (Q9963) As Ordered ONE; +HYDR-3363 PO; -ISOVUE-370 76% 100ML VIAL (Q9967) As Ordered; +ISOVUE-370 76% 100ML VIAL (Q9967) As Ordered ONE; +K-TA1TAB PO; +LEVO25TA5 PO; +METO1TAB7 PO; +OMEP40CA2 PO; +PROAAER10 INH; +TOPR100T13 PO; +TRIA1CR80 TOP; +TYLE500T78 PO; +VENTAER; +VITA100067 PO; +[UNRECOGNIZED DRUG - CODE] PO
--- NOTE | 2018-08-29 06:01 | REP ---
Clinical: History of cervical carcinoma. Technique: Axial contrast enhanced images from the lung bases to the pubic symphysis using oral (per protocol) and 100 ml Isovue 370 intravenous contrast material with precontrast and delayed images of the abdomen as well as coronal and sagittal re-formations. Comparison: 01/28/2018. Findings: Lung bases are clear. Visualized heart and pericardium normal. Subcentimeter hepatic cyst is again identified and unchanged. Liver, spleen, pancreas, bilateral adrenal glands and kidneys are otherwise normal. The enteric system is without obstruction or acute inflammatory process. Normal terminal ileum identified in the right lower quadrant. Pelvis demonstrates collapsed bladder and evidence of prior hysterectomy. Bilateral inguinal adenopathy is again noted and similar to prior examination. No ascites. No intraperitoneal or retroperitoneal adenopathy. No free air. No obvious recurrence or focal mass lesion. Abdominal aorta and vasculature without aneurysm or dissection. Osseous structures without focal abnormality. Small fat containing midline epigastric ventral hernia and periumbilical hernia again identified and essentially stable. Impression: 1. Evidence of prior cholecystectomy, hysterectomy and appendectomy. 2. Small fat containing epigastric ventral hernia and periumbilical hernia remains stable. 3. No acute abdominopelvic pathology appreciated. 4. Stable bilateral inguinal lymph nodes. Electronically Signed by Seth Friend MD 08/29/2018 05:52 A
--- NOTE | 2018-08-29 06:05 | REP ---
Clinical: History of cervical carcinoma with shortness of breath. Technique: Axial contrast enhanced images from the thoracic inlet to the upper abdomen with coronal and sagittal re-formations using 100 ml Isovue 370 intravenous contrast material. Comparison: None. (PET-CT dated 11/07/2016). Findings: The bilateral lung mike demonstrate few scattered predominate by apical bullae and blebs along with minimal parenchymal scarring. No acute consolidation, significant nodule, or mass lesion. No pleural effusion or pneumothorax. Tracheobronchial tree is patent. No adenopathy. Mediastinum demonstrates normal thoracic aorta, pulmonary vasculature and heart/pericardium. No pericardial effusion. Surrounding musculoskeletal structures are intact. Impression: Mild chronic changes primarily involving the bilateral apices. No acute mediastinal or pleuroparenchymal process. No evidence for metastatic disease. Electronically Signed by Seth Friend MD 08/29/2018 05:56 A
== END ==
LOC: M RAD 07:53
PROVIDERS: ATTEND Internal Medicine Medical Oncology
DX: K43.9 Ventral hernia without obstruction or gangrene (principal); K42.9 Umbilical hernia without obstruction or gangrene; Z85.41 Personal history of malignant neoplasm of cervix uteri; R06.02 Shortness of breath
CPT/HCPCS: 71260; 74177; Q9963; Q9967

== ENCOUNTER 2018-10-29 19:02 | Emergency (ER) | payer OTHER ==
[~2018-10-29] VITALS: Ht 167.6 cm; Wt 86.4 kg
[~2018-10-29 19:02] MED LIST changes: -GASTROGRAFIN SOLUTION 30ML (Q9963) As Ordered ONE; -ISOVUE-370 76% 100ML VIAL (Q9967) As Ordered ONE
--- NOTE | 2018-10-29 19:48 | REP ---
LEFT ELBOW COMPLETE: 10/29/2018. Clinical history: Trauma. Comparison left forearm today. Findings: Four views are provided. There is soft tissue swelling over the antecubital region and elbow. I do not see a definite joint effusion on the lateral view. The radial head shows a cortical step off on the lateral view with joint effusion difficult to identified. The olecranon and distal humerus are without fracture or avulsion. Impression: 1. There is soft tissue swelling about the elbow with cortical step off of the radial head representing acute fracture. Electronically Signed by Raman Nash MD 10/29/2018 07:40 P
--- NOTE | 2018-10-29 19:58 | REP ---
LEFT FOREARM SERIES, COMPLETE: 10/29/2018. Clinical history: Trauma. Comparison: Elbow series this date. Findings: AP and lateral views shows a cortical step off fracture of the radial head. I do not see other fracture or focal lesion. There is prominent soft tissue swelling in the antecubital fossa. Impression: 1. Intra-articular cortical step off radial head with the fracture seen on the AP view. Of interest, on the dedicated elbow series in the same projection that fracture is not visible although it is seen on the lateral view of the elbow series but not on this forearm series. Electronically Signed by Raman Nash MD 10/29/2018 10:09 P
[2018-10-29] MEDS ORDERED: NORCOTAB PO (21:11)
[2018-10-29] MEDS ORDERED: NORCO 5/325MG TABLET (BULK FOR ED) PO ONE (21:15)
[2018-10-29 21:19] VITALS: BP 142/86
== END 2018-10-29 21:26 | disposition home or self-care (01) ==
LOC: M ED 19:02
DX: S52.122A Displaced fracture of head of left radius, initial encounter for closed fracture (principal); W19.XXXA Unspecified fall, initial encounter; Y92.099 Unspecified place in other non-institutional residence as the place of occurrence of the external cause; Y93.9 Activity, unspecified; Y99.9 Unspecified external cause status; I10 Essential (primary) hypertension; E07.9 Disorder of thyroid, unspecified; L30.9 Dermatitis, unspecified; Z87.891 Personal history of nicotine dependence; Z79.899 Other long term (current) drug therapy; Z88.8 Allergy status to other drugs, medicaments and biological substances

== ENCOUNTER → 2018-11-18 | Outpatient (REF) | payer OTHER ==
[~2018-11-18] MED LIST changes: +HYDR-3715 PO; +TOPR100T PO; -TOPR100T13 PO
[2018-11-18 19:43] LABS: APPEARANCE, URINE HAZY (CLEAR); BACTERIA, URINE AUTO 1+ (NEGATIVE); BILIRUBIN, URINE AUTO NEGATIVE (NEGATIVE); BLOOD, URINE BLOOD 1+ (NEGATIVE); COLOR, URINE YELLOW (YELLOW); GLUCOSE, URINE (UA) AUTO NEGATIVE (NEGATIVE); KETONE, URINE AUTO NEGATIVE (NEGATIVE); LEUKOCYTE ESTERASE, URINE AUTO 1+ (NEGATIVE); NITRITE, URINE AUTO NEGATIVE (NEGATIVE); PROTEIN, URINE AUTO 1+ mg/dL (NEGATIVE); RBC, URINE AUTO 4 /HPF (0-3); SPECIFIC GRAVITY URINE AUTO 1.012 (1.002-1.035); SQUAMOUS EPITHELIAL CELL UR AU 1 /HPF (0-6); UROBILINOGEN, URINE AUTO 0.2 mg/dL (0.0-2.0); WBC, URINE AUTO 5 /HPF (0-3)
[2018-11-18 19:47] LABS: BASO # 0.1 10^3/uL (0.0-0.2); EOS # 0.3 10^3/uL (0.0-0.50); EOS % 5.2 % (0.0-3.0); HEMATOCRIT 44.5 % (36.0-47.0); HEMOGLOBIN 14.7 g/dl (12.0-15.5); LYMPH # 0.8 10^3/uL (1.5-4.5); LYMPH % 15.2 % (24.0-44.0); MEAN CORPUSCULAR HEMOGLOBIN 31.5 pg (27.0-33.0); MEAN CORPUSCULAR VOLUME 95.3 fl (80.0-96.0); MONO # 0.2 10^3/uL (0.0-0.8); MONO % 4.8 % (0.0-5.0); NEUTROPHILS # 3.7 10^3/uL (1.8-7.7); NEUTROPHILS % 73.6 % (36.0-66.0); PLATELET COUNT, AUTOMATED 307 10^3/uL (150-450); RED BLOOD COUNT 4.67 10^6/uL (4.00-5.40)
[2018-11-18 20:00] LABS: ALBUMIN 3.9 GM/DL (3.2-5.2); ALT/SGPT 22 U/L (12-78); BILIRUBIN,TOTAL 0.3 MG/DL (0.2-1.0); BLOOD UREA NITROGEN 7 MG/DL (7-18); CALCIUM LEVEL 8.6 MG/DL (8.5-10.1); CARBON DIOXIDE LEVEL 28 MEQ/L (21-32); CHLORIDE LEVEL 105 MEQ/L (98-107); CHOLESTEROL LEVEL 224 MG/DL (<200); CHOLESTEROL RISK RATIO 4.666 (<5); CREATININE FOR GFR 0.55 MG/DL (0.55-1.30); FREE T4 1.07 NG/DL (0.76-1.46); GLOMERULAR FILTRATION RATE > 60.0 (>58); GLUCOSE, FASTING 89 MG/DL (70-100); HDL CHOLESTEROL 48 MG/DL (>40); LDL CHOLESTEROL 141 MG/DL (<100); NON-HDL-C 176 MG/DL; POTASSIUM SERUM 3.1 MEQ/L (3.5-5.1); SODIUM LEVEL 141 MEQ/L (136-145); TOTAL 25(OH) VITAMIN D 14.1 NG/ML (30.0-100.0); TOTAL PROTEIN 7.7 GM/DL (6.4-8.2); TRIGLYCERIDES LEVEL 173 MG/DL (<150)
[2018-11-18 20:03] LABS: HEMOGLOBIN A1c 5.7 %
[2018-11-18 22:23] LABS: CHLAMYDIA DNA AMPLIFICATION NEGATIVE (NEGATIVE); GC DNA AMPLIFICATION NEGATIVE (NEGATIVE)
[2018-11-19 10:18] LABS: HEPATITIS B SURFACE ANTIGEN NEGATIVE (NEGATIVE)
[2018-11-19 10:44] LABS: HEPATITIS C VIRUS ABY INDEX 0.1 INDEX (<0.8)
[2018-11-19 10:45] LABS: HEPATITIS B CORE ANTIBODY IGM NEGATIVE (NEGATIVE)
[2018-11-19 10:46] LABS: HIV 1&2 SCREEN CENTAUR NEGATIVE (NEGATIVE)
[2018-11-19 14:20] LABS: HEPATITIS A ANTIBODY IGM EQUIVOCAL (NEGATIVE)
[2018-11-21 00:06] LABS: HSV IgM TYPES 1&2 <0.91 Ratio (0.00-0.90)
== END ==
LOC: M LAB REF 18:59
PROVIDERS: ATTEND Family Medicine
DX: Z11.3 Encounter for screening for infections with a predominantly sexual mode of transmission (principal); Z13.228 Encounter for screening for other metabolic disorders; Z20.5 Contact with and (suspected) exposure to viral hepatitis

== ENCOUNTER → 2018-12-11 | Outpatient (CLI) | payer OTHER ==
[~2018-12-11] MED LIST changes: +HUMI40KI2; +MOBI4TAB PO; +POTA1TAB14 PO; +VITA50005 PO
--- NOTE | 2018-12-11 10:03 | REPMRS ---
Patient History The patient states she has not had a clinical breast exam in over a year. Patient has history of endometrial cancer at age 44. Family history of ovarian cancer in maternal grandmother. Taking unspecified hormones for 10 years. 3D TOMOSYNTHESIS WAS PERFORMED. Digital Mammo Screening Bilat: December 11, 2018 - Exam #: [id number] Bilateral CC and MLO view(s) were taken. Technologist: Nithya Pederson, Technologist Prior study comparison: July 30, 2017, bilateral digital mammo screening bilat performed at [facility]. July 18, 2016, bilateral digital mammo screening bilat performed at [facility]. FINDINGS: There are scattered fibroglandular densities. There has been no change in the appearance of the mammogram from the prior studies. There is a mild amount of residual fibroglandular tissue which is fairly symmetric. There is no interval development of dominant mass, architectural distortion, or clustered microcalcification suggestive of malignancy. Assessment: BI-RADS/ACR category 1 mammogram. Negative Mammogram. Recommendation Routine screening mammogram in 1 year (for women over age 40). This mammogram was interpreted with the aid of an FDA-approved computer-aided dectection system. Electronically Signed By: Klever Lim MD 12/11/18 1002
== END ==
LOC: M RAD 09:02
PROVIDERS: ATTEND Family Medicine
DX: Z12.31 Encounter for screening mammogram for malignant neoplasm of breast (principal); Z79.890 Hormone replacement therapy; Z85.42 Personal history of malignant neoplasm of other parts of uterus

== ENCOUNTER → 2019-01-05 | Outpatient (REF) | payer OTHER ==
[~2019-01-05] MED LIST changes: +FLUC10TA PO
[2019-01-07 10:16] LABS: HEPATITIS B SURFACE ANTIBODY NEGATIVE (POSITIVE); HEPATITIS B SURFACE ANTIGEN NEGATIVE (NEGATIVE); HEPATITIS C VIRUS ABY INDEX 0.1 INDEX (<0.8); HIV 1&2 SCREEN CENTAUR NEGATIVE (NEGATIVE)
== END ==
LOC: M SFHCPLAZ 11:39
PROVIDERS: ATTEND Dermatology
DX: Z79.899 Other long term (current) drug therapy (principal)

== ENCOUNTER → 2019-01-12 | Outpatient (CLI) | payer OTHER ==
[2019-01-16 00:06] LABS: CHROMOGRANIN A <1 nmol/L (0-5); GASTRIN 51 pg/mL (0-115); TISSUE TRANSGLUTAMINASE IgA <2 U/mL (0-3)
== END ==
LOC: M LAB 07:47
PROVIDERS: ATTEND Internal Medicine Gastroenterology
DX: R19.7 Diarrhea, unspecified (principal)

== ENCOUNTER → 2019-01-20 | Outpatient (CLI) | payer OTHER ==
--- NOTE | 2019-01-22 16:30 | REP ---
HISTORY: History of cervical carcinoma. COMPARISON: PET scan 06/12/2017, 11/07/2016. Comparison CT exams, chest 08/28/2018, abdomen and pelvis 08/28/2018. After the intravenous administration of 9.08 mCi of FDG-18 triplane whole body PET/CT was performed from the skull base to the mid thigh. There is inguinal and pelvic sidewall adenopathy. These nodes show increased avidity for FDG-18, however, only a single enlarged right inguinal lymph node is borderline hypermetabolic with a maximal SUV of 2.46 (2.5 and greater being hypermetabolic). By size criteria alone, there has been improvement in the adenopathy compared to the CT of 08/28/2018. There has also been improvement from a metabolic criteria as multiple inguinal and pelvis sidewall lymph nodes were hypermetabolic. There are no new abnormal areas of abnormal hypermetabolic activity seen in the neck, chest, abdomen or pelvis. The focus of hypermetabolic activity seen along the skin surface of the right abdominal wall is no longer present. That likely represented an artifact on that prior exam. IMPRESSION: Improvement as described above. Electronically Signed by Billy Whyte DO 01/22/2019 04:55 P
== END ==
LOC: M PLARAD 12:17
PROVIDERS: ATTEND Internal Medicine Hematology & Oncology
DX: C53.9 Malignant neoplasm of cervix uteri, unspecified (principal); R63.4 Abnormal weight loss
CPT/HCPCS: 78815; A9552

== ENCOUNTER → 2019-01-26 | Outpatient (CLI) | payer OTHER ==
[~2019-01-26] MED LIST changes: +E-Z-PAQUE 96% w/w SUSP 176GM BTL As Ordered ONE
--- NOTE | 2019-01-26 11:36 | REP ---
SMALL BOWEL SERIES: [employer] Food [employer] Member film of the abdomen and pelvis is unremarkable. There are metallic clips in the right upper quadrant. Single contrast barium was ingested. Multiple images are obtained to visualize the small bowel. The stomach is well distended with no gross abnormality. Duodenal bulb demonstrates no contour abnormality or evidence of significant mucosal abnormality. The duodenum, jejunum and ileum display normal mucosal folds with no stricture or filling defect. There is normal passage through the small bowel into the colon. There is no abnormal displacement of small bowel loops. Terminal ileum appears normal. IMPRESSION: Negative small bowel series. 0.4 minutes fluoroscopy time utilized. Electronically Signed by Klever Lim MD 01/27/2019 11:32 A
== END ==
LOC: M RAD 08:05
PROVIDERS: ATTEND Internal Medicine Gastroenterology
DX: R19.7 Diarrhea, unspecified (principal)

== ENCOUNTER 2019-02-13 08:45 | Outpatient (RCR) | payer OTHER ==
[~2019-02-13 08:45] MED LIST changes: -E-Z-PAQUE 96% w/w SUSP 176GM BTL As Ordered ONE
[2019-02-16] MEDS ORDERED: STIO1AER INH (15:44)
[2019-02-16] MEDS ORDERED: VITAD1000T PO (15:44)
== END 2019-02-15 ==
LOC: M PT 08:45
PROVIDERS: ATTEND Dermatology
DX: L40.9 Psoriasis, unspecified (principal)

== ENCOUNTER 2019-02-21 03:00 | Emergency (ER) | payer OTHER ==
[~2019-02-21] VITALS: Ht 167.6 cm; Wt 68.2 kg
[~2019-02-21 03:00] MED LIST changes: +STIO1AER INH; +VITAD1000T PO
[2019-02-21 03:26] LABS: BASO % 0.8 % (0.0-1.0); EOS # 0.2 10^3/uL (0.0-0.50); HEMATOCRIT 44.4 % (36.0-47.0); LYMPH # 0.8 10^3/uL (1.5-4.5); LYMPH % 15.6 % (24.0-44.0); MEAN CORPUSCULAR HEMOGLOBIN 32.3 pg (27.0-33.0); MEAN CORPUSCULAR HGB CONC 33.8 g/dl (32.0-36.5); MEAN CORPUSCULAR VOLUME 95.7 fl (80.0-96.0); MONO # 0.3 10^3/uL (0.0-0.8); MONO % 6.4 % (0.0-5.0); PLATELET COUNT, AUTOMATED 267 10^3/uL (150-450); RED BLOOD COUNT 4.64 10^6/uL (4.00-5.40); WHITE BLOOD COUNT 5.3 10^3/uL (4.0-10.0)
[2019-02-21] MEDS ORDERED: KETOROLAC 30 MG/ML VIAL (J1885) IV ONE (03:45)
[2019-02-21] MEDS ORDERED: dexameTHASONE 20 MG/5 ML VIAL (J1100) IV ONE (03:45)
[2019-02-21 03:51] LABS: BLOOD UREA NITROGEN 13 MG/DL (7-18); CALCIUM LEVEL 8.2 MG/DL (8.5-10.1); CARBON DIOXIDE LEVEL 32 MEQ/L (21-32); CHLORIDE LEVEL 106 MEQ/L (98-107); CK-MB VALUE MASS 1.7 NG/ML (<3.6); CPK CREATINE PHOSPHOKINASE 124 U/L (26-192); CREATININE FOR GFR 0.76 MG/DL (0.55-1.30); GLOMERULAR FILTRATION RATE > 60.0 (>58); GLUCOSE, FASTING 141 MG/DL (70-100); MB/CK RELATIVE INDEX 1.37 (< OR =4); SODIUM LEVEL 144 MEQ/L (136-145); TROPONIN I < 0.02 NG/ML (< 0.10)
[2019-02-21] MEDS ORDERED: ISOVUE-370 76% 100ML VIAL (Q9967) As Ordered ONE (04:42)
[2019-02-21] MEDS ORDERED: POTASSIUM CHLORIDE 10 MEQ SR TABLET PO ONE (04:45)
--- NOTE | 2019-02-21 05:25 | REPVR ---
EXAM: CT Angiography Chest With Contrast EXAM DATE/TIME: 02/21/2019 4:36 AM CLINICAL HISTORY: 48 years old, female; Chest pain; Type not specified; Additional info: Cp TECHNIQUE: Imaging protocol: Axial computed tomographic angiography images of the chest with intravenous contrast using CT angiography protocol. Coronal and sagittal reformatted images were created and reviewed. 3D rendering: MIP reconstructed images were created and reviewed. Radiation optimization: All CT scans at this facility use at least one of these dose optimization techniques: automated exposure control; mA and/or kV adjustment per patient size (includes targeted exams where dose is matched to clinical indication); or iterative reconstruction. Contrast material: ISO; Contrast volume: 75 ml; Contrast route: AC; COMPARISON: CT Chest with contrast 08/28/2018 9:11 AM FINDINGS: Pulmonary arteries: Normal. No pulmonary emboli. Aorta: Unremarkable. No aortic aneurysm. No aortic dissection. Lungs: Paraseptal emphysematous changes seen in the upper lobes with multiple pleural-based blebs and bullae. Mild centrilobular cement changes are also seen. There is bronchial wall thickening with minimal atelectatic changes in the right lung base. Pleural space: Unremarkable. No pneumothorax. No pleural effusion. Heart: Unremarkable. No cardiomegaly. No pericardial effusion. Lymph nodes: There is an enlarged right hilar lymph node measuring 1.8 x 1.6 cm (axial image 88). Bones/joints: There is thoracic spine scoliosis. Soft tissues: Unremarkable. IMPRESSION: 1. No CT evidence of pulmonary embolism or right heart strain. 2. Paraseptal and centrilobular emphysematous changes. 3. Bronchial bolton thickening with minimal right basilar atelectatic changes suggestive of bronchitis. 4. 1.8 x 1.6 cm right hilar lymph node possibly reactive however followup is recommended. Electronically signed by: Ad Galan On 02/21/2019 05:24:41 AM
[2019-02-21 06:15] VITALS: BP 134/75
[2019-02-21] MEDS ORDERED: KETO10TAB PO (06:29)
[2019-02-21] MEDS ORDERED: PRED20TA PO (06:29)
--- NOTE | 2019-02-21 07:07 | REP ---
Clinical: Chest pain. Comparison: 09/19/2017 Findings: Mediastinum and cardiac silhouette normal. Lung mike clear and without consolidation, effusion, or pneumothorax. Skeletal structures intact. Impression: No acute cardiopulmonary process appreciated. Electronically Signed by Seth Friend MD 02/21/2019 06:58 A
--- NOTE | 2019-02-21 11:20 | ECGEPIP ---
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
--- NOTE | 2019-02-23 13:18 | ED PDOC ---
Post-Departure Follow-Up dr gastelum faxed formal report of cta chest for fu Randy Hutchinson MD Feb 23, 2019 13:18
== END 2019-02-21 06:37 | disposition home or self-care (01) ==
LOC: M ED 03:00
DX: J42 Unspecified chronic bronchitis (principal); I10 Essential (primary) hypertension; J44.9 Chronic obstructive pulmonary disease, unspecified; K21.9 Gastro-esophageal reflux disease without esophagitis; L40.9 Psoriasis, unspecified; Z79.899 Other long term (current) drug therapy; Z88.2 Allergy status to sulfonamides; Z88.8 Allergy status to other drugs, medicaments and biological substances; F17.210 Nicotine dependence, cigarettes, uncomplicated
CPT/HCPCS: 71045; 71275; 80048; 82550; 82553; 85025; 93005; 93041; 94760; 96374; 96375; 99285; J1100; J1885; Q9967

== ENCOUNTER 2019-03-02 08:54 | Day surgery (SDC) | payer OTHER ==
[~2019-03-02] VITALS: Ht 165.1 cm; Wt 75.7 kg
[~2019-03-02 08:54] MED LIST changes: +KETO10TAB PO; +LIDOCAINE 2% INJ 100 MG/5 ML SDV (FOR ANES.) As Ordered ONE; +NS 1,000 ML IV ONE; +PRED20TA PO; +PROPOFOL 200 MG/20 ML VIAL As Ordered ONE
--- NOTE | 2019-03-02 10:04 | ROOR ---
Patient Name: Kaylan Lee Procedure Date: 03/02/2019 9:52 AM Date of : 1970 Age: 48 Room: [facility] Gender: Female Note Status: Finalized Procedure: Upper GI endoscopy Indications: Diarrhea, Weight loss Providers: Johny FULTON MD Referring MD: Johny SHARMA MD Requesting Provider: Medicines: Monitored Anesthesia Care Complications: No immediate complications. Procedure: Pre-Anesthesia Assessment: - The heart rate, respiratory rate, oxygen saturations, blood pressure, adequacy of pulmonary ventilation, and response to care were monitored throughout the procedure. The Endoscope was introduced through the mouth, and advanced to the second part of duodenum. The upper GI endoscopy was accomplished without difficulty. The patient tolerated the procedure well. Findings: The examined esophagus was normal. Small Hiatal Hernia. The entire examined stomach was normal. The examined duodenum was normal. Biopsies for histology were taken with a cold forceps for evaluation of celiac disease. Impression: - Normal esophagus. - Small Hiatal Hernia. - Normal stomach. - Normal examined duodenum. Biopsied. Recommendation: - Await pathology results. - Telephone endoscopist for pathology results in 2 weeks. Johny Fulton MD Johny FULTON MD 03/02/2019 10:04:03 AM Electronically signed by Johny FULTON MD Number of Addenda: 0 Note Initiated On: 03/02/2019 9:52 AM Estimated Blood Loss: Estimated blood loss: none.
[2019-03-02] MEDS ORDERED: PROPOFOL 200 MG/20 ML VIAL As Ordered ONE (10:30)
--- NOTE | 2019-03-02 10:37 | ROOR ---
Patient Name: Kaylan Lee Procedure Date: 03/02/2019 9:55 AM Date of : 1970 Age: 48 Room: [facility] Gender: Female Note Status: Finalized Procedure: Colonoscopy Indications: Chronic diarrhea Providers: Johny FULTON MD Referring MD: Johny SHARMA MD Requesting Provider: Medicines: Monitored Anesthesia Care Complications: No immediate complications. Procedure: Pre-Anesthesia Assessment: - The heart rate, respiratory rate, oxygen saturations, blood pressure, adequacy of pulmonary ventilation, and response to care were monitored throughout the procedure. The Colonoscope was introduced through the anus and advanced to 15 cm into the ileum. The colonoscopy was performed without difficulty. The patient tolerated the procedure well. The quality of the bowel preparation was fair. Findings: The perianal and digital rectal examinations were normal. Small Internal Hemorrhoids. A single erosion was found at the ileocecal valve. This was biopsied with a cold forceps for histology. Two sessile polyps were found in the sigmoid colon. The polyps were diminutive in size. These polyps were removed with a cold snare. Resection and retrieval were complete. The mucosa vascular pattern in the entire colon was diffusely decreased. Biopsies for histology were taken with a cold forceps from the entire colon for evaluation of microscopic colitis. Impression: - Preparation of the colon was fair. - Small Internal Hemorrhoids. - The terminal ileum for 15 cm was normal. - A single 5 mm erosion at the ileocecal valve. Biopsied. - Two diminutive polyps in the sigmoid colon, removed with a cold snare. Resected and retrieved. - Decreased mucosa vascular pattern in the entire examined colon. - Biopsies were taken with a cold forceps from the entire colon for evaluation of microscopic colitis. Recommendation: - Await pathology results. - Telephone endoscopist for pathology results in 2 weeks. - start Imodium 2 tablets three times a day. - Discontinue Questran (cholestyramine). - Repeat colonoscopy in 2 years because the bowel preparation was suboptimal. Johny Fulton MD Johny FULTON MD 03/02/2019 10:37:09 AM Electronically signed by Johny FULTON MD Number of Addenda: 0 Note Initiated On: 03/02/2019 9:55 AM Estimated Blood Loss: Estimated blood loss: none.
[2019-03-02 10:55] VITALS: BP 131/88
== END 2019-03-02 10:50 | disposition home or self-care (01) ==
LOC: M OPP 08:54
PROVIDERS: ATTEND Internal Medicine Gastroenterology
DX: K63.3 Ulcer of intestine (principal); D12.5 Benign neoplasm of sigmoid colon; R63.4 Abnormal weight loss; R19.7 Diarrhea, unspecified; K46.9 Unspecified abdominal hernia without obstruction or gangrene; Z79.899 Other long term (current) drug therapy; Z88.8 Allergy status to other drugs, medicaments and biological substances

== ENCOUNTER 2019-03-16 09:22 | Outpatient (RCR) | payer OTHER ==
[~2019-03-16 09:22] MED LIST changes: -LIDOCAINE 2% INJ 100 MG/5 ML SDV (FOR ANES.) As Ordered ONE; -NS 1,000 ML IV ONE; -PROPOFOL 200 MG/20 ML VIAL As Ordered ONE
== END 2019-03-18 ==
LOC: M PT 09:22
PROVIDERS: ATTEND Dermatology
DX: L40.9 Psoriasis, unspecified (principal)

== ENCOUNTER → 2019-03-17 | Outpatient (REF) | payer OTHER, MEDICAID ==
[2019-03-17 12:03] LABS: BASO % 0.9 % (0.0-1.0); EOS # 0.2 10^3/uL (0.0-0.50); EOS % 4.1 % (0.0-3.0); LYMPH # 0.4 10^3/uL (1.5-4.5); LYMPH % 9.8 % (24.0-44.0); MEAN CORPUSCULAR HEMOGLOBIN 32.1 pg (27.0-33.0); MEAN CORPUSCULAR HGB CONC 33.3 g/dl (32.0-36.5); MEAN CORPUSCULAR VOLUME 96.4 fl (80.0-96.0); MONO # 0.3 10^3/uL (0.0-0.8); MONO % 5.7 % (0.0-5.0); NEUTROPHILS # 3.5 10^3/uL (1.8-7.7); NEUTROPHILS % 79.3 % (36.0-66.0); PLATELET COUNT, AUTOMATED 280 10^3/uL (150-450); RED BLOOD COUNT 4.98 10^6/uL (4.00-5.40); WHITE BLOOD COUNT 4.4 10^3/uL (4.0-10.0)
[2019-03-17 12:26] LABS: ALBUMIN 3.8 GM/DL (3.2-5.2); ALT/SGPT 19 U/L (12-78); BILIRUBIN,TOTAL 0.4 MG/DL (0.2-1.0); BLOOD UREA NITROGEN 20 MG/DL (7-18); CALCIUM LEVEL 9.2 MG/DL (8.5-10.1); CARBON DIOXIDE LEVEL 29 MEQ/L (21-32); CHLORIDE LEVEL 104 MEQ/L (98-107); CHOLESTEROL LEVEL 235 MG/DL (<200); CHOLESTEROL RISK RATIO 4.795 (<5); CREATININE FOR GFR 0.55 MG/DL (0.55-1.30); FREE T4 1.07 NG/DL (0.76-1.46); GLOMERULAR FILTRATION RATE > 60.0 (>58); GLUCOSE, FASTING 101 MG/DL (70-100); HDL CHOLESTEROL 49 MG/DL (>40); LDL CHOLESTEROL 160 MG/DL (<100); NON-HDL-C 186 MG/DL; POTASSIUM SERUM 3.9 MEQ/L (3.5-5.1); SODIUM LEVEL 141 MEQ/L (136-145); TOTAL 25(OH) VITAMIN D 49.1 NG/ML (30.0-100.0); TOTAL PROTEIN 7.3 GM/DL (6.4-8.2); TRIGLYCERIDES LEVEL 132 MG/DL (<150)
[2019-03-17 12:49] LABS: HEMOGLOBIN A1c 5.9 %
[2019-03-18 11:34] LABS: HEPATITIS B SURFACE ANTIGEN NEGATIVE (NEGATIVE)
[2019-03-18 12:01] LABS: HEPATITIS B CORE ANTIBODY IGM NEGATIVE (NEGATIVE); HEPATITIS C VIRUS ABY INDEX 0.1 INDEX (<0.8)
[2019-03-18 12:03] LABS: HIV 1&2 SCREEN CENTAUR NEGATIVE (NEGATIVE)
[2019-03-18 13:24] LABS: HEPATITIS A ANTIBODY IGM EQUIVOCAL (NEGATIVE)
[2019-03-19 00:06] LABS: HSV IgM TYPES 1&2 <0.91 Ratio (0.00-0.90)
== END ==
LOC: M LAB REF 11:40
PROVIDERS: ATTEND Family Medicine
DX: Z20.5 Contact with and (suspected) exposure to viral hepatitis (principal); Z13.228 Encounter for screening for other metabolic disorders

== ENCOUNTER → 2019-06-22 | Outpatient (REF) | payer OTHER, MEDICAID ==
[~2019-06-22] MED LIST changes: +ALBU83IN INH; +AUGM0.0534; +CHOL100029 PO; -OMEP40CA2 PO; +OMEP40CA97 PO; -VITAD1000T PO
[2019-06-22 14:15] LABS: ALBUMIN 3.7 GM/DL (3.2-5.2); ALT/SGPT 21 U/L (12-78); BILIRUBIN,TOTAL 0.3 MG/DL (0.2-1.0); BLOOD UREA NITROGEN 20 MG/DL (7-18); CALCIUM LEVEL 8.9 MG/DL (8.5-10.1); CARBON DIOXIDE LEVEL 30 MEQ/L (21-32); CHLORIDE LEVEL 101 MEQ/L (98-107); CHOLESTEROL LEVEL 183 MG/DL (<200); CREATININE FOR GFR 0.58 MG/DL (0.55-1.30); GLOMERULAR FILTRATION RATE > 60.0 (>58); GLUCOSE, FASTING 103 MG/DL (70-100); HDL CHOLESTEROL 57 MG/DL (>40); LDL CHOLESTEROL 110 MG/DL (<100); NON-HDL-C 126 MG/DL; POTASSIUM SERUM 3.8 MEQ/L (3.5-5.1); SODIUM LEVEL 140 MEQ/L (136-145); TOTAL PROTEIN 7.1 GM/DL (6.4-8.2); TRIGLYCERIDES LEVEL 79 MG/DL (<150)
[2019-06-22 15:25] LABS: HEMOGLOBIN A1c 5.9 %
== END ==
LOC: M LAB REF 12:39
PROVIDERS: ATTEND Family Medicine
DX: R73.03 Prediabetes (principal); E78.5 Hyperlipidemia, unspecified; E89.0 Postprocedural hypothyroidism

== ENCOUNTER → 2019-06-29 | Outpatient (REF) | payer OTHER, MEDICAID | LOC: M LAB REF 14:55 | PROVIDERS: ATTEND Family Medicine | DX: M25.50 Pain in unspecified joint (principal); L40.52 Psoriatic arthritis mutilans ==

== ENCOUNTER → 2019-07-17 | Outpatient (CLI) | payer OTHER, MEDICAID ==
--- NOTE | 2019-07-17 09:30 | REP ---
Clinical: Psoriasis. Technique: Single AP weightbearing view of the right and left knee. Findings: Osseous structures, joint spaces, and surrounding soft tissues are symmetric and normal. Impression: Normal weightbearing view of the right and left knee. Electronically Signed by Seth Friend MD 07/17/2019 09:22 A
--- NOTE | 2019-07-17 09:30 | REP ---
Clinical: Psoriasis. Technique: AP, lateral, bilateral oblique views of the right and left hand. Findings: Osseous structures, joint spaces, and surrounding soft tissues are essentially normal for age and symmetric. No overt osteoarthritic or inflammatory arthritic degenerative changes are appreciated. No acute fracture dislocation. Surrounding soft tissues unremarkable. Impression: Symmetric age-appropriate bilateral hand radiograph series. Electronically Signed by Seth Friend MD 07/17/2019 09:21 A
== END ==
LOC: M RAD 08:46
PROVIDERS: ATTEND Internal Medicine Rheumatology
DX: L40.9 Psoriasis, unspecified (principal)

== ENCOUNTER 2019-09-01 03:43 | Emergency (ER) | payer OTHER ==
[~2019-09-01] VITALS: Ht 167.6 cm; Wt 75.0 kg
[2019-09-01] MEDS ORDERED: TOBROPO OD (04:21)
[2019-09-01] MEDS ORDERED: NICOINH INH (04:21)
[2019-09-01] MEDS ORDERED: TOBRSUS8 OD (04:21)
[2019-09-01 05:14] LABS: BASO % 0.7 % (0.0-1.0); EOS # 0.2 10^3/uL (0.0-0.5); EOS % 3.4 % (0.0-3.0); HEMATOCRIT 48.2 % (36.0-47.0); HEMOGLOBIN 15.6 g/dl (12.0-15.5); LYMPH # 0.5 10^3/uL (1.5-5.0); LYMPH % 8.8 % (24.0-44.0); MEAN CORPUSCULAR HEMOGLOBIN 31.2 pg (27.0-33.0); MEAN CORPUSCULAR HGB CONC 32.4 g/dl (32.0-36.5); MEAN CORPUSCULAR VOLUME 96.4 fl (80.0-96.0); MONO # 0.4 10^3/uL (0.0-0.8); MONO % 7.1 % (0.0-5.0); NEUTROPHILS # 4.7 10^3/uL (1.5-8.5); NEUTROPHILS % 79.7 % (36.0-66.0); PLATELET COUNT, AUTOMATED 269 10^3/uL (150-450); WHITE BLOOD COUNT 5.9 10^3/uL (4.0-10.0)
--- NOTE | 2019-09-01 05:28 | REPVR ---
PROCEDURE INFORMATION: Exam: CT Head Without Contrast Exam date and time: 09/01/2019 4:31 AM Age: 48 years old Clinical indication: Injury or trauma; Fall; Initial encounter; Concussion / head injury; Consciousness not specified; Additional info: Syncope TECHNIQUE: Imaging protocol: Computed tomography of the head without contrast. Radiation optimization: All CT scans at this facility use at least one of these dose optimization techniques: automated exposure control; mA and/or kV adjustment per patient size (includes targeted exams where dose is matched to clinical indication); or iterative reconstruction. COMPARISON: No relevant prior studies available. FINDINGS: Brain: There is no evidence of intracranial hemorrhage. The cortical/white matter interfaces are preserved throughout the brain. Ventricles: The ventricular system is normal in size and configuration. Bones/joints: No acute fractures of the skull are identified. Sinuses: The visualized paranasal sinuses are clear. Mastoid air cells: The mastoid air cells are clear. Soft tissues: The soft tissues appear unremarkable. IMPRESSION: No evidence of acute intracranial injury. Electronically signed by: Nithya Enciso On 09/01/2019 05:28:05 AM
--- NOTE | 2019-09-01 05:32 | REPVR ---
PROCEDURE INFORMATION: Exam: CT Maxillofacial Without Contrast Exam date and time: 09/01/2019 4:31 AM Age: 48 years old Clinical indication: Injury or trauma; Fall; Initial encounter; Concussion /head injury; Loss of consciousness not known; Additional info: Trauma/syncope TECHNIQUE: Imaging protocol: Computed tomography images of the face without contrast. Radiation optimization: All CT scans at this facility use at least one of these dose optimization techniques: automated exposure control; mA and/or kV adjustment per patient size (includes targeted exams where dose is matched to clinical indication); or iterative reconstruction. COMPARISON: No relevant prior studies available. FINDINGS: Orbits: The globes are intact bilaterally. The intraconal fat and extraocular muscles appear normal bilaterally. The orbital rims are intact. Mastoid air cells: The mastoid air cells are clear. Sinuses: There is mild mucoperiosteal thickening in the base of the right maxillary sinus and there may be a trace of fluid in the right maxillary sinus as well. The paranasal sinuses are otherwise clear. Bones/joints: No suspicious osseous lesions. No acute fractures or dislocations. Dental: The patient is edentulous. Soft tissues: The soft tissues appear unremarkable. IMPRESSION: 1. No acute fractures identified. 2. Mild mucoperiosteal thickening with a possible trace of fluid in the right maxillary sinus, most consistent with mild sinusitis. Electronically signed by: Nithya Enciso On 09/01/2019 05:32:10 AM
--- NOTE | 2019-09-01 05:38 | REPVR ---
PROCEDURE INFORMATION: Exam: CT Cervical Spine Without Contrast Exam date and time: 09/01/2019 4:31 AM Age: 48 years old Clinical indication: Injury or trauma; Fall; Initial encounter; Concussion /head injury; Additional info: Syncope TECHNIQUE: Imaging protocol: Computed tomography images of the cervical spine without contrast. Radiation optimization: All CT scans at this facility use at least one of these dose optimization techniques: automated exposure control; mA and/or kV adjustment per patient size (includes targeted exams where dose is matched to clinical indication); or iterative reconstruction. COMPARISON: CR Spine, Cervical 06/18/2017 10:56 AM FINDINGS: Vertebrae: There is normal alignment of the visualized spine. Vertebral body heights are normal. There are mild facet degenerative changes. There is no evidence of acute fracture. Discs/Spinal canal/Neural foramina: There are disc space narrowing and endplate spurs at the C5-C6 level, and to a lesser extent at C6-C7. There is no significant central canal stenosis or foraminal stenosis. Prevertebral Space: The prevertebral soft tissues appear normal. Soft tissues: The paraspinous soft tissues appear unremarkable. Lungs: There is evidence of paraseptal emphysema in the visualized lung apices. IMPRESSION: 1. No acute fractures or subluxations. 2. Mild degenerative disc disease at C5-C6 and C6-C7. Electronically signed by: Nithya Enciso On 09/01/2019 05:38:22 AM
[2019-09-01 05:45] LABS: BLOOD UREA NITROGEN 14 MG/DL (7-18); CALCIUM LEVEL 8.3 MG/DL (8.5-10.1); CARBON DIOXIDE LEVEL 28 MEQ/L (21-32); CHLORIDE LEVEL 106 MEQ/L (98-107); CK-MB VALUE MASS 2.1 NG/ML (<3.6); CPK CREATINE PHOSPHOKINASE 119 U/L (26-192); CREATININE FOR GFR 0.73 MG/DL (0.55-1.30); ETHYL ALCOHOL (ETHANOL) < 0.003 % (0.000-0.010); GLOMERULAR FILTRATION RATE > 60.0 (>58); GLUCOSE, FASTING 87 MG/DL (70-100); MB/CK RELATIVE INDEX 1.76 (< OR =4); POTASSIUM SERUM 3.4 MEQ/L (3.5-5.1); SODIUM LEVEL 141 MEQ/L (136-145); TROPONIN I < 0.02 NG/ML (< 0.10)
[2019-09-01] MEDS ORDERED: LIDOCAINE 1% MDV 20ML VIAL SC ONE (07:30)
[2019-09-01] MEDS ORDERED: IPRATROPIUM 0.5MG/ALBUTEROL 2.5MG INH SOL UD 3ML (DUONEB)(J7620) NEB ONE (07:45)
[2019-09-01 11:47] LABS: CK-MB VALUE MASS 1.6 NG/ML (<3.6); CPK CREATINE PHOSPHOKINASE 102 U/L (26-192); MB/CK RELATIVE INDEX 1.57 (< OR =4); TROPONIN I < 0.02 NG/ML (< 0.10)
[2019-09-01 12:00] VITALS: BP 128/79
--- NOTE | 2019-09-02 09:58 | ECGEPIP ---
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
--- NOTE | 2019-09-02 10:00 | ECGEPIP ---
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
--- NOTE | 2019-09-02 10:03 | ECGEPIP ---
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
== END 2019-09-01 12:22 | disposition short-term general hospital (02) ==
LOC: M ED 03:43
DX: R55 Syncope and collapse (principal); J44.9 Chronic obstructive pulmonary disease, unspecified; I10 Essential (primary) hypertension; E78.5 Hyperlipidemia, unspecified; L40.9 Psoriasis, unspecified; Z79.899 Other long term (current) drug therapy; Z88.2 Allergy status to sulfonamides; Z88.8 Allergy status to other drugs, medicaments and biological substances; Z87.891 Personal history of nicotine dependence
CPT/HCPCS: 36415; 70450; 70486; 72125; 80048; 82550; 82553; 84443; 85025; 93005; 93041; 94640; 94760; 99285; G0480

== ENCOUNTER 2019-09-17 08:52 | Outpatient (RCR) | payer OTHER ==
[~2019-09-17 08:52] MED LIST changes: +NICOINH INH; +TOBROPO OD; +TOBRSUS8 OD
== END 2019-09-18 ==
LOC: M PT 08:52
PROVIDERS: ATTEND Dermatology
DX: L40.9 Psoriasis, unspecified (principal)

== ENCOUNTER 2019-10-15 09:30 | Outpatient (RCR) | payer OTHER | END 2019-10-17 | LOC: M PT 09:30 | PROVIDERS: ATTEND Dermatology | DX: L40.9 Psoriasis, unspecified (principal) ==

== ENCOUNTER → 2019-10-26 | Outpatient (CLI) | payer OTHER ==
[~2019-10-26] MED LIST changes: +AMIT-253 PO; +ARNU1INH3 PO; +GASTROGRAFIN SOLUTION 30ML (Q9963) As Ordered ONE; +ISOVUE-370 76% 100ML VIAL (Q9967) As Ordered ONE
--- NOTE | 2019-10-27 03:39 | REP ---
Clinical: History of cervical carcinoma. Restaging. Technique: Axial contrast enhanced images from the lung bases to the pubic symphysis using oral (per protocol) and 100 ml Isovue 370 intravenous contrast material. Precontrast and delayed images of the abdomen obtained along with coronal and sagittal re-formations. Comparison: 08/28/2018. Findings: Bilateral inguinal and anterior pelvic adenopathy appears relatively stable as compared to prior examination dated 08/28/2018. Liver includes stable 1 cm medial left lobe cyst without further acute process. Spleen, pancreas, bilateral adrenal glands and kidneys are normal. Evidence of prior cholecystectomy. The enteric system is without obstruction or acute inflammatory process. Pelvis demonstrates normal bladder and evidence for prior hysterectomy. No ascites. Abdominal aorta and vasculature appear normal. No retroperitoneal adenopathy noted. Lung bases demonstrate chronic-appearing changes without focal consolidation, nodule or effusion. Impression: 1. Relatively stable bilateral inguinal and anterior pelvic adenopathy as compared with prior examination. Correlation and continued follow up should be considered. 2. No new acute process appreciated. Electronically Signed by Seth Friend MD 10/27/2019 03:30 A
== END ==
LOC: M RAD 11:05
PROVIDERS: ATTEND Internal Medicine Hematology & Oncology
DX: R59.0 Localized enlarged lymph nodes (principal); C53.9 Malignant neoplasm of cervix uteri, unspecified
CPT/HCPCS: 74178; Q9963; Q9967

== ENCOUNTER → 2019-11-25 | Outpatient (REF) | payer OTHER ==
[~2019-11-25] MED LIST changes: -GASTROGRAFIN SOLUTION 30ML (Q9963) As Ordered ONE; -ISOVUE-370 76% 100ML VIAL (Q9967) As Ordered ONE
[2019-11-25 16:37] LABS: BASO % 0.6 % (0.0-1.0); EOS # 0.2 10^3/uL (0.0-0.5); EOS % 2.6 % (0.0-3.0); HEMATOCRIT 41.5 % (36.0-47.0); HEMOGLOBIN 14.1 g/dl (12.0-15.5); LYMPH # 0.6 10^3/uL (1.5-5.0); LYMPH % 8.8 % (24.0-44.0); MEAN CORPUSCULAR HEMOGLOBIN 32.3 pg (27.0-33.0); MONO # 0.4 10^3/uL (0.0-0.8); MONO % 5.9 % (0.0-5.0); NEUTROPHILS # 5.1 10^3/uL (1.5-8.5); NEUTROPHILS % 81.9 % (36.0-66.0); PLATELET COUNT, AUTOMATED 240 10^3/uL (150-450); RED BLOOD COUNT 4.37 10^6/uL (4.00-5.40); WHITE BLOOD COUNT 6.3 10^3/uL (4.0-10.0)
[2019-11-25 17:52] LABS: ERYTHROCYTE SEDIMENTATION RATE 7 mm/hr (0-20)
[2019-11-25 19:40] LABS: ALBUMIN 3.4 GM/DL (3.2-5.2); ALT/SGPT 20 U/L (12-78); BILIRUBIN,TOTAL 0.3 MG/DL (0.2-1.0); BLOOD UREA NITROGEN 13 MG/DL (7-18); C REACTIVE PROTEIN QUANTITATIV 0.51 MG/DL (0.00-0.30); CALCIUM LEVEL 8.8 MG/DL (8.5-10.1); CARBON DIOXIDE LEVEL 25 MEQ/L (21-32); CHLORIDE LEVEL 106 MEQ/L (98-107); CREATININE FOR GFR 0.62 MG/DL (0.55-1.30); GLOMERULAR FILTRATION RATE > 60.0 (>58); GLUCOSE, FASTING 97 MG/DL (70-100); POTASSIUM SERUM 3.8 MEQ/L (3.5-5.1); SODIUM LEVEL 140 MEQ/L (136-145); TOTAL PROTEIN 6.8 GM/DL (6.4-8.2)
== END ==
LOC: M SFHCRHEU 13:00
PROVIDERS: ATTEND Internal Medicine
DX: L40.0 Psoriasis vulgaris (principal)

== ENCOUNTER → 2019-11-26 | Outpatient (REF) | payer OTHER, MEDICAID ==
[2019-11-26 18:20] LABS: POTASSIUM RANDOM URINE 20.6 MEQ/L
== END ==
LOC: M LAB REF 16:47
PROVIDERS: ATTEND Family Medicine
DX: E87.6 Hypokalemia (principal)

== ENCOUNTER → 2019-12-08 | Outpatient (CLI) | payer OTHER ==
[2019-12-08 12:55] LABS: ALBUMIN 3.5 GM/DL (3.2-5.2); ALT/SGPT 22 U/L (12-78); BILIRUBIN,TOTAL 0.3 MG/DL (0.2-1.0); BLOOD UREA NITROGEN 15 MG/DL (7-18); CALCIUM LEVEL 8.9 MG/DL (8.5-10.1); CARBON DIOXIDE LEVEL 28 MEQ/L (21-32); CHLORIDE LEVEL 104 MEQ/L (98-107); CORTISOL AM 7.6 UG/DL (4.3-22.4); CREATININE FOR GFR 0.58 MG/DL (0.55-1.30); FREE T4 1.12 NG/DL (0.76-1.46); GLOMERULAR FILTRATION RATE > 60.0 (>51); GLUCOSE, FASTING 94 MG/DL (70-100); SODIUM LEVEL 138 MEQ/L (136-145); TOTAL PROTEIN 7.2 GM/DL (6.4-8.2); TOTAL T3 74.3 NG/DL (60.0-181.0)
== END ==
LOC: M LAB 10:41
PROVIDERS: ATTEND Family Medicine
DX: E87.6 Hypokalemia (principal)

== ENCOUNTER 2019-12-24 17:16 | Emergency (ER) | payer OTHER ==
[~2019-12-24] VITALS: Ht 162.6 cm; Wt 79.1 kg
[2019-12-24] MEDS ORDERED: SPIR-10 (17:32)
[2019-12-24] MEDS ORDERED: PRED10TA2 (17:32)
[2019-12-24 17:46] LABS: BASO % 0.2 % (0.0-1.0); EOS % 0.1 % (0.0-3.0); HEMATOCRIT 44.2 % (36.0-47.0); HEMOGLOBIN 14.6 g/dl (12.0-15.5); LYMPH # 0.4 10^3/uL (1.5-5.0); LYMPH % 3.5 % (24.0-44.0); MEAN CORPUSCULAR HEMOGLOBIN 31.3 pg (27.0-33.0); MEAN CORPUSCULAR VOLUME 94.6 fl (80.0-96.0); MONO # 0.2 10^3/uL (0.0-0.8); MONO % 1.8 % (0.0-5.0); NEUTROPHILS # 11.4 10^3/uL (1.5-8.5); NEUTROPHILS % 93.6 % (36.0-66.0); PLATELET COUNT, AUTOMATED 286 10^3/uL (150-450); RED BLOOD COUNT 4.67 10^6/uL (4.00-5.40); WHITE BLOOD COUNT 12.1 10^3/uL (4.0-10.0)
--- NOTE | 2019-12-24 18:07 | REP ---
Clinical: Chest pain . Comparison: 02/21/2019 . Findings: The mediastinum and cardiac silhouette are stable and within normal limits for portable technique. The no obvious consolidation although mild left basilar atelectasis cannot definitively be excluded. No effusion. No pneumothorax. Skeletal structures intact. Impression: No focal consolidation or effusion. Cannot exclude subtle left basilar atelectasis. Electronically Signed by Seth Friend MD 12/24/2019 05:58 P
[2019-12-24] MEDS ORDERED: KETOROLAC 30 MG/ML 1ML VIAL IV ONE (18:45)
--- NOTE | 2019-12-24 22:12 | ECGEPIP ---
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
[2019-12-24 23:01] VITALS: BP 129/60
--- NOTE | 2019-12-26 00:58 | ECGEPIP ---
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 RSR in V1/[address]/T abnormality Compared to prior tracings in the system, no significant changes Electronically Signed on 12-26-2019 0:58:11 EDT by Linus Morris
== END 2019-12-24 23:28 | disposition home or self-care (01) ==
LOC: M ED 17:16 → EDBD 17:16 → M ED 23:28
DX: R07.89 Other chest pain (principal); I10 Essential (primary) hypertension; J44.9 Chronic obstructive pulmonary disease, unspecified; E05.90 Thyrotoxicosis, unspecified without thyrotoxic crisis or storm; E78.5 Hyperlipidemia, unspecified; L40.9 Psoriasis, unspecified; K21.9 Gastro-esophageal reflux disease without esophagitis; M19.90 Unspecified osteoarthritis, unspecified site; M79.7 Fibromyalgia; Z79.899 Other long term (current) drug therapy; Z79.890 Hormone replacement therapy; Z88.2 Allergy status to sulfonamides; Z88.8 Allergy status to other drugs, medicaments and biological substances; Z87.891 Personal history of nicotine dependence
CPT/HCPCS: 71045; 85025; 93005; 93041; 94760; 96374; 99285; J1885

== ENCOUNTER → 2020-01-06 | Outpatient (REF) | payer OTHER ==
[~2020-01-06] MED LIST changes: +PRED10TA2; +SPIR-10
== END ==
LOC: M LAB REF 11:37
PROVIDERS: ATTEND Internal Medicine Gastroenterology
DX: K52.839 Microscopic colitis, unspecified (principal)

== ENCOUNTER 2020-02-01 09:58 | Outpatient (CLI) | payer OTHER ==
[2020-02-01] VITALS (9 sets, daily range): BP systolic 112–135; BP diastolic 58–78
[~2020-02-01] VITALS: Ht 166.4 cm; Wt 81.0 kg
[~2020-02-01 09:58] MED LIST changes: -SPIR-10; +SPIR-10 PO
[2020-02-01] MEDS ORDERED: diphenhydrAMINE 50MG/ML VIAL (J1200) IV PRN (10:15)
[2020-02-01] MEDS ORDERED: diphenhydrAMINE 25MG PO PRIOR TO INFUSION PO ONE (10:15)
[2020-02-01] MEDS ORDERED: INFLIXIMAB BIOSIMILAR 400 MG in NS 210 ML IV ONE (10:15)
[2020-02-01] MEDS ORDERED: EPINEPHrine INJ 1 MG/ML 1ML AMP IM PRN (10:15)
[2020-02-01] MEDS ORDERED: ALBUTEROL SULFATE 2.5 MG/0.5 ML INH NEB SOLN INH PRN (10:15)
[2020-02-01] MEDS ORDERED: ACETAMINOPHEN 650MG PO PRIOR TO INFUSION PO ONE (10:15)
[2020-02-01] MEDS ORDERED: methylPREDNISolone 125MG 2ML VIAL IV PRN (10:15)
[2020-02-01] MEDS ORDERED: INFL100I IV (10:31)
[2020-04-29] MEDS ORDERED: MIRT1TAB16 PO (11:13)
[2020-04-29] MEDS ORDERED: TOPI100T9 PO (11:13)
[2020-04-29] MEDS ORDERED: BUDE180INH INH (11:13)
[2020-06-22] MEDS ORDERED: FOLI1TAB11 PO (10:43)
[2020-06-22] MEDS ORDERED: METH2.5T48 PO (10:43)
[2020-06-22] MEDS ORDERED: TOPI200T7 PO (10:43)
== END 2020-02-01 13:00 | disposition home or self-care (01) ==
LOC: M INFU 09:58
PROVIDERS: ATTEND Internal Medicine
DX: L40.50 Arthropathic psoriasis, unspecified (principal)
CPT/HCPCS: 96413; 96415; Q5103

== ENCOUNTER 2020-02-12 15:48 | Emergency (ER) | payer OTHER ==
[~2020-02-12] VITALS: Ht 167.6 cm; Wt 77.4 kg
[2020-02-12] MEDS ORDERED: POTASSIUM CHLORIDE 10 MEQ SR TABLET PO ONE (17:45)
[2020-02-12 18:20] VITALS: BP 137/82
--- NOTE | 2020-02-12 20:54 | ECGEPIP ---
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
== END 2020-02-12 18:25 | disposition home or self-care (01) ==
LOC: M ED 15:48
DX: E83.51 Hypocalcemia (principal); E87.6 Hypokalemia; I10 Essential (primary) hypertension; J44.9 Chronic obstructive pulmonary disease, unspecified; E78.5 Hyperlipidemia, unspecified; K21.9 Gastro-esophageal reflux disease without esophagitis; L40.50 Arthropathic psoriasis, unspecified; Z79.899 Other long term (current) drug therapy; Z79.890 Hormone replacement therapy; Z88.2 Allergy status to sulfonamides; Z88.8 Allergy status to other drugs, medicaments and biological substances; F17.210 Nicotine dependence, cigarettes, uncomplicated

== ENCOUNTER → 2020-02-12 | Outpatient (CLI) | payer OTHER ==
[~2020-02-12] MED LIST changes: +INFL100I IV; +SPIR-10; -SPIR-10 PO
[2020-02-12 14:37] LABS: BASO # 0.1 10^3/uL (0.0-0.2); BASO % 0.9 % (0.0-1.0); EOS # 0.2 10^3/uL (0.0-0.5); EOS % 2.8 % (0.0-3.0); HEMATOCRIT 42.8 % (36.0-47.0); HEMOGLOBIN 14.3 g/dl (12.0-15.5); LYMPH % 16.1 % (24.0-44.0); MEAN CORPUSCULAR HEMOGLOBIN 31.3 pg (27.0-33.0); MEAN CORPUSCULAR HGB CONC 33.4 g/dl (32.0-36.5); MEAN CORPUSCULAR VOLUME 93.7 fl (80.0-96.0); MONO # 0.5 10^3/uL (0.0-0.8); MONO % 7.6 % (0.0-5.0); NEUTROPHILS # 4.7 10^3/uL (1.5-8.5); NEUTROPHILS % 72.3 % (36.0-66.0); PLATELET COUNT, AUTOMATED 247 10^3/uL (150-450); RED BLOOD COUNT 4.57 10^6/uL (4.00-5.40); WHITE BLOOD COUNT 6.5 10^3/uL (4.0-10.0)
[2020-02-12 15:14] LABS: ALBUMIN 3.5 GM/DL (3.2-5.2); ALT/SGPT 17 U/L (12-78); BILIRUBIN,TOTAL 0.3 MG/DL (0.2-1.0); BLOOD UREA NITROGEN 13 MG/DL (7-18); C REACTIVE PROTEIN QUANTITATIV < 0.30 MG/DL (0.00-0.30); CARBON DIOXIDE LEVEL 32 MEQ/L (21-32); CHLORIDE LEVEL 104 MEQ/L (98-107); CREATININE FOR GFR 0.65 MG/DL (0.55-1.30); GLOMERULAR FILTRATION RATE > 60.0 (>51); GLUCOSE, FASTING 101 MG/DL (70-100); POTASSIUM SERUM 2.9 MEQ/L (3.5-5.1); SODIUM LEVEL 140 MEQ/L (136-145); TOTAL PROTEIN 6.8 GM/DL (6.4-8.2)
[2020-02-12 15:19] LABS: ERYTHROCYTE SEDIMENTATION RATE 4 mm/hr (0-30)
== END ==
LOC: M LAB 13:36
PROVIDERS: ATTEND Internal Medicine
DX: L40.50 Arthropathic psoriasis, unspecified (principal)

== ENCOUNTER → 2020-02-22 | Outpatient (REF) | payer OTHER ==
[~2020-02-22] MED LIST changes: +BUDE180INH INH; +FOLI1TAB11 PO; +METH2.5T48 PO; +MIRT1TAB16 PO; -SPIR-10; +SPIR-10 PO; +TOPI100T9 PO; +TOPI200T7 PO
[2020-02-22 18:04] LABS: ALBUMIN 3.7 GM/DL (3.2-5.2); ALT/SGPT 18 U/L (12-78); BILIRUBIN,TOTAL 0.5 MG/DL (0.2-1.0); BLOOD UREA NITROGEN 10 MG/DL (7-18); CALCIUM LEVEL 8.4 MG/DL (8.5-10.1); CARBON DIOXIDE LEVEL 31 MEQ/L (21-32); CHLORIDE LEVEL 104 MEQ/L (98-107); CREATININE FOR GFR 0.56 MG/DL (0.55-1.30); GLOMERULAR FILTRATION RATE > 60.0 (>51); GLUCOSE, FASTING 72 MG/DL (70-100); POTASSIUM SERUM 3.8 MEQ/L (3.5-5.1); SODIUM LEVEL 143 MEQ/L (136-145); TOTAL PROTEIN 7.2 GM/DL (6.4-8.2)
[2020-02-22 18:12] LABS: TOTAL 25(OH) VITAMIN D 23.8 NG/ML (30.0-100.0)
== END ==
LOC: M LAB REF 16:37
PROVIDERS: ATTEND Family Medicine Addiction Medicine
DX: E87.6 Hypokalemia (principal); E83.51 Hypocalcemia

== ENCOUNTER 2020-02-29 10:17 | Outpatient (CLI) | payer OTHER ==
[2020-02-29] VITALS (7 sets, daily range): BP systolic 115–149; BP diastolic 59–82
[~2020-02-29] VITALS: Ht 166.4 cm; Wt 81.0 kg
[~2020-02-29 10:17] MED LIST changes: -BUDE180INH INH; -FOLI1TAB11 PO; -METH2.5T48 PO; -MIRT1TAB16 PO; -TOPI100T9 PO; -TOPI200T7 PO
[2020-02-29] MEDS ORDERED: NS 1,000 ML IV SCH (10:30)
[2020-02-29] MEDS ORDERED: INFLIXIMAB BIOSIMILAR 400 MG in NS 210 ML IV ONE (10:30)
[2020-02-29] MEDS ORDERED: ACETAMINOPHEN 650MG PO PRIOR TO INFUSION PO ONE (10:30)
[2020-02-29] MEDS ORDERED: diphenhydrAMINE 25MG PO PRIOR TO INFUSION PO ONE (10:30)
[2020-02-29] MEDS ORDERED: ALBUTEROL SULFATE 2.5 MG/0.5 ML INH NEB SOLN INH PRN (10:45)
[2020-02-29] MEDS ORDERED: diphenhydrAMINE 50MG/ML VIAL (J1200) IV PRN (10:45)
[2020-02-29] MEDS ORDERED: methylPREDNISolone 125MG 2ML VIAL IV PRN (10:45)
[2020-02-29] MEDS ORDERED: EPINEPHrine INJ 1 MG/ML 1ML AMP IM PRN (10:45)
[2020-04-29] MEDS ORDERED: MIRT1TAB16 PO (11:13)
[2020-04-29] MEDS ORDERED: BUDE180INH INH (11:13)
[2020-04-29] MEDS ORDERED: TOPI100T9 PO (11:13)
[2020-06-22] MEDS ORDERED: TOPI200T7 PO (10:43)
[2020-06-22] MEDS ORDERED: METH2.5T48 PO (10:43)
[2020-06-22] MEDS ORDERED: FOLI1TAB11 PO (10:43)
== END 2020-02-29 13:24 | disposition home or self-care (01) ==
LOC: M INFU 10:17
PROVIDERS: ATTEND Internal Medicine
DX: L40.50 Arthropathic psoriasis, unspecified (principal)
CPT/HCPCS: 96413; 96415; Q5103

== ENCOUNTER → 2020-04-13 | Outpatient (CLI) | payer OTHER ==
[~2020-04-13] MED LIST changes: +BUDE180INH INH; +FOLI1TAB11 PO; +METH2.5T48 PO; +MIRT1TAB16 PO; +TOPI100T9 PO; +TOPI200T7 PO
--- NOTE | 2020-04-14 07:23 | REPMRS ---
Patient History The patient states she had a clinical breast exam in March 2020.Family history of ovarian cancer in maternal grandmother. Taking unspecified hormones for 10 years. Digital Woman Screen Mammo: April 13, 2020 - Exam #: [id number] Bilateral CC and MLO view(s) were taken. Technologist: Nithya Pederson, Technologist Prior study comparison: December 11, 2018, bilateral digital mammo screening bilat, performed at [facility]. July 30, 2017, bilateral digital mammo screening bilat, performed at [facility]. July 18, 2016, bilateral digital mammo screening bilat, performed at [facility]. FINDINGS: There are scattered fibroglandular densities. The Volpara volumetric breast density category is:B. There has been no change in the appearance of the mammogram from the prior studies. There is a mild amount of scattered fibroglandular density which is fairly symmetric. There is no interval development of dominant mass, architectural distortion, or grouped microcalcification suggestive of malignancy. 3-D tomosynthesis shows no additional findings. Assessment: BI-RADS/ACR category 1 mammogram. Negative Mammogram. Recommendation Routine screening mammogram of both breasts in 1 year (for women over age 40). This patient's Lifetime Breast Cancer Risk is estimated at 10.2 %. This mammogram was interpreted with the aid of an FDA-approved computer-aided dectection system. Electronically Signed By: Carlos Alberto Morgan MD 04/14/20 0723
== END ==
LOC: M WHC 07:59
PROVIDERS: ATTEND Family Medicine Addiction Medicine
DX: Z12.31 Encounter for screening mammogram for malignant neoplasm of breast (principal); Z92.29 Personal history of other drug therapy

== ENCOUNTER 2020-04-26 09:54 | Outpatient (CLI) | payer OTHER ==
[~2020-04-26] VITALS: Ht 165.1 cm; Wt 81.0 kg
[2020-04-26] VITALS (7 sets, daily range): BP systolic 126–144; BP diastolic 68–82
[~2020-04-26 09:54] MED LIST changes: -BUDE180INH INH; -FOLI1TAB11 PO; -METH2.5T48 PO; -MIRT1TAB16 PO; -TOPI100T9 PO; -TOPI200T7 PO
[2020-04-26] MEDS ORDERED: diphenhydrAMINE 50MG/ML VIAL (J1200) IV PRN (10:00)
[2020-04-26] MEDS ORDERED: NS 1,000 ML IV SCH (10:00)
[2020-04-26] MEDS ORDERED: methylPREDNISolone 125MG 2ML VIAL IV PRN (10:00)
[2020-04-26] MEDS ORDERED: INFLIXIMAB BIOSIMILAR 400 MG in NS 210 ML IV ONE (10:00)
[2020-04-26] MEDS ORDERED: diphenhydrAMINE 25MG PO PRIOR TO INFUSION PO ONE (10:00)
[2020-04-26] MEDS ORDERED: ACETAMINOPHEN 650MG PO PRIOR TO INFUSION PO ONE (10:00)
[2020-04-26] MEDS ORDERED: EPINEPHrine INJ 1 MG/ML 1ML AMP IM PRN (10:00)
[2020-04-26] MEDS ORDERED: ALBUTEROL SULFATE 2.5 MG/0.5 ML INH NEB SOLN INH PRN (10:00)
[2020-04-26] MEDS ORDERED: diphenhydrAMINE 25MG CAP As Ordered ONE (10:22)
[2020-04-26] MEDS ORDERED: ACETAMINOPHEN TAB 650MG DOSE (2X325MG) As Ordered ONE (10:22)
[2020-04-29] MEDS ORDERED: TOPI100T9 PO (11:13)
[2020-04-29] MEDS ORDERED: MIRT1TAB16 PO (11:13)
[2020-04-29] MEDS ORDERED: BUDE180INH INH (11:13)
[2020-06-22] MEDS ORDERED: TOPI200T7 PO (10:43)
[2020-06-22] MEDS ORDERED: METH2.5T48 PO (10:43)
[2020-06-22] MEDS ORDERED: FOLI1TAB11 PO (10:43)
== END 2020-04-26 13:35 | disposition home or self-care (01) ==
LOC: M INFU 09:54
PROVIDERS: ATTEND Internal Medicine
DX: L40.50 Arthropathic psoriasis, unspecified (principal)
CPT/HCPCS: 96413; 96415; Q5103

== ENCOUNTER → 2020-04-27 | Outpatient (REF) | payer OTHER ==
[~2020-04-27] MED LIST changes: +BUDE180INH INH; +FOLI1TAB11 PO; +METH2.5T48 PO; +MIRT1TAB16 PO; +TOPI100T9 PO; +TOPI200T7 PO
[2020-04-27 20:12] LABS: CREATININE,RANDOM URINE 38.8 MG/DL; POTASSIUM RANDOM URINE 34.7 MEQ/L
== END ==
LOC: M LAB REF 16:46
PROVIDERS: ATTEND Internal Medicine Nephrology
DX: E87.6 Hypokalemia (principal)

== ENCOUNTER → 2020-05-02 | Outpatient (CLI) | payer OTHER ==
[~2020-05-02] MED LIST changes: +GASTROGRAFIN SOLUTION 30ML (Q9963) As Ordered ONE; +ISOVUE-370 76% 100ML VIAL As Ordered ONE
--- NOTE | 2020-05-02 13:15 | REPVR ---
PROCEDURE INFORMATION: Exam: CT Abdomen And Pelvis With Contrast Exam date and time: 05/02/2020 12:14 PM Age: 49 years old Clinical indication: Abdominal pain; Generalized; Additional info: Cervical CA TECHNIQUE: Imaging protocol: Computed tomography of the abdomen and pelvis with intravenous contrast. Radiation optimization: All CT scans at this facility use at least one of these dose optimization techniques: automated exposure control; mA and/or kV adjustment per patient size (includes targeted exams where dose is matched to clinical indication); or iterative reconstruction. Contrast material: ISOVUE 370; Contrast volume: 100 ml; Contrast route: INTRAVENOUS (IV); COMPARISON: CT ABD PELVIS W/O FOL BY WIT 10/26/2019 1:35 PM FINDINGS: Pleural space: Interstitial prominence without significant airspace or pleural disease. Liver: Fatty infiltration of the liver and stable 8 mm hepatic cyst. Gallbladder and bile ducts: Status post cholecystectomy. Pancreas: No pancreatic mass or ductal dilatation. Spleen: No splenomegaly. 12 mm accessory spleen. Adrenals: Unremarkable adrenals. Kidneys and ureters: Normal renal morphology. No hydronephrosis. Stomach and bowel: Mild gastric wall thickening. Mild jejunal dilatation without a focal transition zone. Prominent stool. Appendix: Appendix not visualized. Intraperitoneal space: No free fluid. Vasculature: Normal caliber of the abdominal aorta. Vascular calcification. Lymph nodes: Interval resolution of previously visualized pelvic lymphadenopathy, with remaining subcentimeter lymph nodes. Bladder: Normal bladder morphology. Reproductive: Status post hysterectomy. Soft tissue prominence in the cervical region, warranting correlation with gynecologic examination. Bones/joints: Osteopenia mild degenerative change. Soft tissues: Small fat containing umbilical hernia. IMPRESSION: 1. Soft tissue prominence in the cervical region, warranting correlation with gynecologic examination. 2. Interval resolution of previously visualized pelvic lymphadenopathy, with remaining subcentimeter lymph nodes. 3. Additional findings as described above. Electronically signed by: Ezekiel Kathleen On 05/02/2020 13:14:55 PM
== END ==
LOC: M RAD 10:33
PROVIDERS: ATTEND Internal Medicine Medical Oncology
DX: C53.9 Malignant neoplasm of cervix uteri, unspecified (principal)
CPT/HCPCS: 74177; Q9963; Q9967

== ENCOUNTER → 2020-05-16 | Outpatient (CLI) | payer OTHER ==
[~2020-05-16] MED LIST changes: -GASTROGRAFIN SOLUTION 30ML (Q9963) As Ordered ONE; -ISOVUE-370 76% 100ML VIAL As Ordered ONE
[2020-05-16 09:26] LABS: BASO % 0.6 % (0.0-1.0); EOS # 0.1 10^3/uL (0.0-0.5); HEMATOCRIT 47.9 % (36.0-47.0); HEMOGLOBIN 16.3 g/dl (12.0-15.5); LYMPH # 0.6 10^3/uL (1.5-5.0); LYMPH % 12.3 % (24.0-44.0); MEAN CORPUSCULAR HEMOGLOBIN 32.2 pg (27.0-33.0); MEAN CORPUSCULAR VOLUME 94.7 fl (80.0-96.0); MONO # 0.4 10^3/uL (0.0-0.8); NEUTROPHILS # 3.8 10^3/uL (1.5-8.5); NEUTROPHILS % 76.7 % (36.0-66.0); PLATELET COUNT, AUTOMATED 221 10^3/uL (150-450); RED BLOOD COUNT 5.06 10^6/uL (4.00-5.40); WHITE BLOOD COUNT 4.9 10^3/uL (4.0-10.0)
[2020-05-16 09:46] LABS: ERYTHROCYTE SEDIMENTATION RATE 3 mm/hr (0-30)
[2020-05-16 10:14] LABS: ALBUMIN 3.8 GM/DL (3.2-5.2); ALT/SGPT 27 U/L (12-78); BILIRUBIN,TOTAL 0.4 MG/DL (0.2-1.0); BLOOD UREA NITROGEN 16 MG/DL (7-18); C REACTIVE PROTEIN QUANTITATIV 0.64 MG/DL (0.00-0.30); CALCIUM LEVEL 9.2 MG/DL (8.5-10.1); CARBON DIOXIDE LEVEL 33 MEQ/L (21-32); CHLORIDE LEVEL 104 MEQ/L (98-107); CREATININE FOR GFR 0.68 MG/DL (0.55-1.30); GLOMERULAR FILTRATION RATE > 60.0 (>51); GLUCOSE, FASTING 103 MG/DL (70-100); POTASSIUM SERUM 3.8 MEQ/L (3.5-5.1); SODIUM LEVEL 139 MEQ/L (136-145); TOTAL PROTEIN 7.1 GM/DL (6.4-8.2)
== END ==
LOC: M LAB 08:52
PROVIDERS: ATTEND Internal Medicine
DX: L40.0 Psoriasis vulgaris (principal)

== ENCOUNTER 2020-06-27 10:25 | Outpatient (CLI) | payer OTHER ==
[~2020-06-27] VITALS: Ht 166.4 cm; Wt 82.0 kg
[2020-06-27] VITALS (7 sets, daily range): BP systolic 108–148; BP diastolic 54–75
[2020-06-27] MEDS ORDERED: diphenhydrAMINE 50MG/ML VIAL (J1200) IV PRN (10:30)
[2020-06-27] MEDS ORDERED: ACETAMINOPHEN 650MG PO PRIOR TO INFUSION PO ONE (10:30)
[2020-06-27] MEDS ORDERED: INFLIXIMAB BIOSIMILAR 400 MG in NS 210 ML IV ONE (10:30)
[2020-06-27] MEDS ORDERED: EPINEPHrine INJ 1 MG/ML 1ML AMP IM PRN (10:30)
[2020-06-27] MEDS ORDERED: methylPREDNISolone 125MG 2ML VIAL IV PRN (10:30)
[2020-06-27] MEDS ORDERED: ALBUTEROL SULFATE 2.5 MG/0.5 ML INH NEB SOLN INH PRN (10:30)
[2020-06-27] MEDS ORDERED: diphenhydrAMINE 25MG PO PRIOR TO INFUSION PO ONE (10:30)
[2020-06-27] MEDS ORDERED: NS 1,000 ML IV SCH (10:30)
== END 2020-06-27 13:10 | disposition home or self-care (01) ==
LOC: M INFU 10:25
PROVIDERS: ATTEND Internal Medicine
DX: L40.50 Arthropathic psoriasis, unspecified (principal); Z88.2 Allergy status to sulfonamides
CPT/HCPCS: 96365; 96366; Q5103

== ENCOUNTER → 2020-07-19 | Outpatient (CLI) | payer OTHER ==
[2020-07-19 10:08] LABS: BASO % 0.6 % (0.0-1.0); EOS # 0.2 10^3/uL (0.0-0.5); EOS % 3.1 % (0.0-3.0); HEMOGLOBIN 15.5 g/dl (12.0-15.5); LYMPH # 0.7 10^3/uL (1.5-5.0); LYMPH % 13.5 % (24.0-44.0); MEAN CORPUSCULAR HEMOGLOBIN 31.4 pg (27.0-33.0); MEAN CORPUSCULAR HGB CONC 32.3 g/dl (32.0-36.5); MEAN CORPUSCULAR VOLUME 97.4 fl (80.0-96.0); MONO # 0.5 10^3/uL (0.0-0.8); MONO % 9.2 % (0.0-5.0); NEUTROPHILS # 3.9 10^3/uL (1.5-8.5); NEUTROPHILS % 73.4 % (36.0-66.0); PLATELET COUNT, AUTOMATED 237 10^3/uL (150-450); RED BLOOD COUNT 4.93 10^6/uL (4.00-5.40); WHITE BLOOD COUNT 5.2 10^3/uL (4.0-10.0)
[2020-07-19 10:31] LABS: ALBUMIN 3.8 GM/DL (3.2-5.2); ALT/SGPT 18 U/L (12-78); BILIRUBIN,TOTAL 0.3 MG/DL (0.2-1.0); BLOOD UREA NITROGEN 14 MG/DL (7-18); CALCIUM LEVEL 8.9 MG/DL (8.5-10.1); CARBON DIOXIDE LEVEL 33 MEQ/L (21-32); CHLORIDE LEVEL 107 MEQ/L (98-107); CREATININE FOR GFR 0.73 MG/DL (0.55-1.30); GLOMERULAR FILTRATION RATE > 60.0 (>51); GLUCOSE, FASTING 93 MG/DL (70-100); POTASSIUM SERUM 3.9 MEQ/L (3.5-5.1); SODIUM LEVEL 142 MEQ/L (136-145); TOTAL PROTEIN 7.1 GM/DL (6.4-8.2)
[2020-07-19 10:42] LABS: ERYTHROCYTE SEDIMENTATION RATE 3 mm/hr (0-30)
== END ==
LOC: M LAB 09:17
PROVIDERS: ATTEND Internal Medicine
DX: L40.50 Arthropathic psoriasis, unspecified (principal)

== ENCOUNTER 2020-08-22 09:50 | Outpatient (CLI) | payer OTHER ==
[~2020-08-22] VITALS: Ht 166.4 cm; Wt 82.0 kg
[~2020-08-22 09:50] MED LIST changes: +ACETAMINOPHEN TAB 650MG DOSE (2X325MG) PO ONE; +ALBUTEROL SULFATE 2.5 MG/0.5 ML INH NEB SOLN INH PRN; +EPINEPHrine INJ 1 MG/ML 1ML AMP IM PRN; +diphenhydrAMINE 50MG/ML VIAL (J1200) IV PRN; +methylPREDNISolone 125MG 2ML VIAL IV PRN
[2020-08-22] MEDS ORDERED: diphenhydrAMINE 25MG PO PRIOR TO INFUSION PO ONE (10:00)
[2020-08-22] MEDS ORDERED: NS 1,000 ML IV SCH (10:00)
[2020-08-22] MEDS ORDERED: INFLIXIMAB BIOSIMILAR 400 MG in NS 210 ML IV ONE (10:00)
[2020-08-22] MEDS ORDERED: ACETAMINOPHEN TAB 650MG DOSE (2X325MG) PO ONE (10:15)
[2020-08-22 10:35] VITALS: BP 133/73
[2020-08-22 10:50] VITALS: BP 111/60
[2020-08-22 11:47] VITALS: BP 122/71
== END 2020-08-22 11:52 | disposition home or self-care (01) ==
LOC: M INFU 09:50
PROVIDERS: ATTEND Internal Medicine
DX: L40.50 Arthropathic psoriasis, unspecified (principal); Z88.8 Allergy status to other drugs, medicaments and biological substances
CPT/HCPCS: 96365; Q5103

== ENCOUNTER → 2020-08-30 | Outpatient (CLI) | payer OTHER ==
[~2020-08-30] MED LIST changes: -ACETAMINOPHEN TAB 650MG DOSE (2X325MG) PO ONE; -ALBUTEROL SULFATE 2.5 MG/0.5 ML INH NEB SOLN INH PRN; -EPINEPHrine INJ 1 MG/ML 1ML AMP IM PRN; +GASTROGRAFIN SOLUTION 30ML (Q9963) As Ordered ONE; +ISOVUE-370 76% 100ML VIAL As Ordered ONE; -diphenhydrAMINE 50MG/ML VIAL (J1200) IV PRN; -methylPREDNISolone 125MG 2ML VIAL IV PRN
--- NOTE | 2020-08-30 21:29 | REP ---
INDICATION: CERVICAL CA FOLLOW UP. COMPARISON: Multiple examinations between 05/02/2020 and 08/28/2018 TECHNIQUE: Axial contrast-enhanced images from the lung bases to the pubic symphysis using 100 cc Isovue 370 intravenous contrast material. Delayed images of the abdomen obtained along with coronal and sagittal reformations. This CT examination was performed using the following dose reduction techniques: Automated exposure control, adjustment of mA and/or kv according to the patient's size, and the use of iterative reconstruction technique. FINDINGS: Liver, spleen, pancreas, bilateral adrenal glands and left kidney are essentially normal. Two incidental benign hepatic cysts measuring 1 cm identified within the left lobe. Suggestion for 1.2 cm lower pole right renal cyst. The enteric system including stomach, small, and large bowel appears normal. No evidence for obstruction or acute inflammatory process. Normal terminal ileum and appendix are identified in the right lower quadrant. Pelvis demonstrates normal bladder and evidence for prior hysterectomy with prominent cervical tissue essentially unchanged from prior examination. Bilateral inguinal lymph nodes and few bilateral pelvic sidewall lymph nodes along the distal external iliac chain continue to be prominent and measure up to 14-15 mm but have progressively decreased in size when compared with multiple examinations dating through 08/28/2018. No new pelvic, retroperitoneal or intraperitoneal adenopathy is otherwise appreciated. No ascites. No free air. No mass lesion. Abdominal aorta and vasculature appear normal. Musculoskeletal structures are intact and without acute osseous abnormality. IMPRESSION: No acute abdominopelvic pathology appreciated. Stable hepatic and right renal cysts. Bilateral inguinal and anterior pelvic sidewall lymph nodes remain prominent but progressively decreased in size through the previous examinations. No new adenopathy, evidence for recurrence or metastatic disease otherwise noted. <Electronically signed by Seth Friend > 08/30/20 [id number]
== END ==
LOC: M RAD 10:46
PROVIDERS: ATTEND Internal Medicine Medical Oncology
DX: C53.9 Malignant neoplasm of cervix uteri, unspecified (principal)
CPT/HCPCS: 74177; Q9963; Q9967

== ENCOUNTER → 2020-10-07 | Outpatient (CLI) | payer OTHER ==
[~2020-10-07] MED LIST changes: -GASTROGRAFIN SOLUTION 30ML (Q9963) As Ordered ONE; -ISOVUE-370 76% 100ML VIAL As Ordered ONE
[2020-10-07 09:42] LABS: BASO % 0.4 % (0.0-1.0); EOS # 0.1 10^3/uL (0.0-0.5); HEMATOCRIT 47.2 % (36.0-47.0); HEMOGLOBIN 15.8 g/dl (12.0-15.5); LYMPH # 0.4 10^3/uL (1.5-5.0); LYMPH % 17.8 % (24.0-44.0); MEAN CORPUSCULAR HEMOGLOBIN 32.2 pg (27.0-33.0); MEAN CORPUSCULAR HGB CONC 33.5 g/dl (32.0-36.5); MEAN CORPUSCULAR VOLUME 96.1 fl (80.0-96.0); MONO # 0.2 10^3/uL (0.0-0.8); MONO % 9.7 % (2.0-8.0); NEUTROPHILS # 1.7 10^3/uL (1.5-8.5); NEUTROPHILS % 67.7 % (36.0-66.0); PLATELET COUNT, AUTOMATED 219 10^3/uL (150-450); RED BLOOD COUNT 4.91 10^6/uL (4.00-5.40); WHITE BLOOD COUNT 2.5 10^3/uL (4.0-10.0)
[2020-10-07 10:05] LABS: ERYTHROCYTE SEDIMENTATION RATE 5 mm/hr (0-30)
[2020-10-07 10:18] LABS: ALBUMIN 3.6 GM/DL (3.2-5.2); ALT/SGPT 27 U/L (12-78); BILIRUBIN,TOTAL 0.3 MG/DL (0.2-1.0); BLOOD UREA NITROGEN 13 MG/DL (7-18); C REACTIVE PROTEIN QUANTITATIV 0.72 MG/DL (0.00-0.30); CALCIUM LEVEL 8.9 MG/DL (8.5-10.1); CARBON DIOXIDE LEVEL 30 MEQ/L (21-32); CHLORIDE LEVEL 104 MEQ/L (98-107); CREATININE FOR GFR 0.61 MG/DL (0.55-1.30); GLOMERULAR FILTRATION RATE > 60.0 (>51); GLUCOSE, FASTING 94 MG/DL (70-100); SODIUM LEVEL 139 MEQ/L (136-145)
== END ==
LOC: M LAB 08:56
PROVIDERS: ATTEND Internal Medicine
DX: L40.9 Psoriasis, unspecified (principal)

== ENCOUNTER 2020-10-24 09:48 | Outpatient (CLI) | payer OTHER ==
[~2020-10-24] VITALS: Ht 165.1 cm; Wt 81.8 kg
[~2020-10-24 09:48] MED LIST changes: +ALBUTEROL SULFATE 2.5 MG/0.5 ML INH NEB SOLN INH PRN; +EPINEPHrine INJ 1 MG/ML 1ML AMP IM PRN; +diphenhydrAMINE 50MG/ML VIAL (J1200) IV PRN; +methylPREDNISolone 125MG 2ML VIAL IV PRN
[2020-10-24 09:50] VITALS: BP 165/78
[2020-10-24] MEDS ORDERED: diphenhydrAMINE 25MG PO PRIOR TO INFUSION PO ONE (10:00)
[2020-10-24] MEDS ORDERED: ACETAMINOPHEN 650MG PO PRIOR TO INFUSION PO ONE (10:00)
[2020-10-24] MEDS ORDERED: INFLIXIMAB BIOSIMILAR 400 MG in NS 210 ML IV ONE (10:00)
[2020-10-24 10:45] VITALS: BP 123/90
[2020-10-24 10:52] VITALS: BP 165/78
[2020-10-24 11:40] VITALS: BP 123/69
== END 2020-10-24 12:15 | disposition home or self-care (01) ==
LOC: M INFU 09:48
PROVIDERS: ATTEND Internal Medicine
DX: L40.50 Arthropathic psoriasis, unspecified (principal); Z88.8 Allergy status to other drugs, medicaments and biological substances
CPT/HCPCS: 96365; Q5103

== ENCOUNTER → 2020-10-26 | Outpatient (CLI) | payer OTHER ==
[~2020-10-26] MED LIST changes: -ALBUTEROL SULFATE 2.5 MG/0.5 ML INH NEB SOLN INH PRN; -EPINEPHrine INJ 1 MG/ML 1ML AMP IM PRN; -diphenhydrAMINE 50MG/ML VIAL (J1200) IV PRN; -methylPREDNISolone 125MG 2ML VIAL IV PRN
[2020-10-26 10:33] LABS: BASO % 0.8 % (0.0-1.0); EOS # 0.2 10^3/uL (0.0-0.5); EOS % 3.3 % (0.0-3.0); HEMATOCRIT 46.1 % (36.0-47.0); HEMOGLOBIN 15.4 g/dl (12.0-15.5); LYMPH # 0.7 10^3/uL (1.5-5.0); LYMPH % 15.2 % (24.0-44.0); MEAN CORPUSCULAR HEMOGLOBIN 32.3 pg (27.0-33.0); MEAN CORPUSCULAR HGB CONC 33.4 g/dl (32.0-36.5); MEAN CORPUSCULAR VOLUME 96.6 fl (80.0-96.0); MONO # 0.6 10^3/uL (0.0-0.8); MONO % 11.5 % (2.0-8.0); NEUTROPHILS # 3.3 10^3/uL (1.5-8.5); NEUTROPHILS % 68.8 % (36.0-66.0); PLATELET COUNT, AUTOMATED 253 10^3/uL (150-450); RED BLOOD COUNT 4.77 10^6/uL (4.00-5.40); WHITE BLOOD COUNT 4.8 10^3/uL (4.0-10.0)
[2020-10-26 11:00] LABS: ERYTHROCYTE SEDIMENTATION RATE 5 mm/hr (0-30)
[2020-10-26 12:42] LABS: ALBUMIN 3.6 GM/DL (3.2-5.2); ALT/SGPT 23 U/L (12-78); BILIRUBIN,TOTAL 0.3 MG/DL (0.2-1.0); BLOOD UREA NITROGEN 10 MG/DL (7-18); CALCIUM LEVEL 8.5 MG/DL (8.5-10.1); CARBON DIOXIDE LEVEL 31 MEQ/L (21-32); CHLORIDE LEVEL 107 MEQ/L (98-107); GLOMERULAR FILTRATION RATE > 60.0 (>51); GLUCOSE, FASTING 89 MG/DL (70-100); POTASSIUM SERUM 5.1 MEQ/L (3.5-5.1); SODIUM LEVEL 140 MEQ/L (136-145); TOTAL PROTEIN 6.8 GM/DL (6.4-8.2)
== END ==
LOC: M LAB 09:50
PROVIDERS: ATTEND Internal Medicine
DX: L40.9 Psoriasis, unspecified (principal)

== ENCOUNTER → 2020-11-02 | Outpatient (REF) | payer OTHER | LOC: M SFHCWAGY 10:30 | PROVIDERS: ATTEND Obstetrics & Gynecology | DX: Z12.72 Encounter for screening for malignant neoplasm of vagina (principal) ==

== ENCOUNTER 2020-12-05 11:45 | Outpatient (CLI) | payer OTHER ==
[~2020-12-05] VITALS: Ht 166.4 cm; Wt 81.2 kg
[~2020-12-05 11:45] MED LIST changes: +ALBUTEROL SULFATE 2.5 MG/0.5 ML INH NEB SOLN INH PRN; +EPINEPHrine INJ 1 MG/ML 1ML AMP IM PRN; +diphenhydrAMINE 50MG/ML VIAL (J1200) IV PRN; +methylPREDNISolone 125MG 2ML VIAL IV PRN
[2020-12-05] MEDS ORDERED: LEFL1TAB4 PO (11:57)
[2020-12-05] MEDS ORDERED: ROPI0.253 PO (11:57)
[2020-12-05] MEDS ORDERED: diphenhydrAMINE 25MG PO PRIOR TO INFUSION PO ONE (12:00)
[2020-12-05] MEDS ORDERED: ACETAMINOPHEN 650MG PO PRIOR TO INFUSION PO ONE (12:00)
[2020-12-05] MEDS ORDERED: NS 1,000 ML IV SCH (12:00)
[2020-12-05] MEDS ORDERED: INFLIXIMAB BIOSIMILAR 400 MG in NS 210 ML IV ONE (12:00)
[2020-12-05 12:22] VITALS: BP 146/70
[2020-12-05 12:37] VITALS: BP 132/72
[2020-12-05 13:35] VITALS: BP 143/85
== END 2020-12-05 13:35 | disposition home or self-care (01) ==
LOC: M INFU 11:45
PROVIDERS: ATTEND Internal Medicine
DX: L40.50 Arthropathic psoriasis, unspecified (principal)
CPT/HCPCS: 96365; Q5103

== ENCOUNTER → 2020-12-12 | Outpatient (REF) | payer OTHER ==
[~2020-12-12] MED LIST changes: -ALBUTEROL SULFATE 2.5 MG/0.5 ML INH NEB SOLN INH PRN; -EPINEPHrine INJ 1 MG/ML 1ML AMP IM PRN; +LEFL1TAB4 PO; +ROPI0.253 PO; -diphenhydrAMINE 50MG/ML VIAL (J1200) IV PRN; -methylPREDNISolone 125MG 2ML VIAL IV PRN
[2020-12-12 13:51] LABS: HEMOGLOBIN A1c 5.4 %
[2020-12-12 14:26] LABS: ALBUMIN 3.8 GM/DL (3.2-5.2); ALT/SGPT 22 U/L (12-78); BILIRUBIN,TOTAL 0.5 MG/DL (0.2-1.0); BLOOD UREA NITROGEN 13 MG/DL (7-18); CALCIUM LEVEL 9.1 MG/DL (8.5-10.1); CARBON DIOXIDE LEVEL 29 MEQ/L (21-32); CHLORIDE LEVEL 108 MEQ/L (98-107); CREATININE FOR GFR 0.63 MG/DL (0.55-1.30); GLOMERULAR FILTRATION RATE > 60.0 (>51); GLUCOSE, FASTING 98 MG/DL (70-100); POTASSIUM SERUM 3.9 MEQ/L (3.5-5.1); SODIUM LEVEL 142 MEQ/L (136-145); TOTAL PROTEIN 7.3 GM/DL (6.4-8.2)
== END ==
LOC: M LAB REF 12:06
PROVIDERS: ATTEND Family Medicine Addiction Medicine
DX: E55.9 Vitamin D deficiency, unspecified (principal); R73.03 Prediabetes; E03.9 Hypothyroidism, unspecified

== ENCOUNTER → 2021-01-03 | Outpatient (CLI) | payer OTHER ==
[2021-01-03 10:18] LABS: BASO # 0.1 10^3/uL (0.0-0.2); BASO % 1.6 % (0.0-1.0); EOS # 0.2 10^3/uL (0.0-0.5); EOS % 5.7 % (0.0-3.0); HEMATOCRIT 52.1 % (36.0-47.0); HEMOGLOBIN 17.1 g/dl (12.0-15.5); LYMPH # 0.5 10^3/uL (1.5-5.0); LYMPH % 16.6 % (24.0-44.0); MEAN CORPUSCULAR HEMOGLOBIN 31.8 pg (27.0-33.0); MEAN CORPUSCULAR HGB CONC 32.8 g/dl (32.0-36.5); MEAN CORPUSCULAR VOLUME 96.8 fl (80.0-96.0); MONO # 0.4 10^3/uL (0.0-0.8); MONO % 13.7 % (2.0-8.0); NEUTROPHILS % 62.1 % (36.0-66.0); PLATELET COUNT, AUTOMATED 238 10^3/uL (150-450); RED BLOOD COUNT 5.38 10^6/uL (4.00-5.40); WHITE BLOOD COUNT 3.1 10^3/uL (4.0-10.0)
[2021-01-03 10:42] LABS: ALBUMIN 3.9 GM/DL (3.2-5.2); ALT/SGPT 30 U/L (12-78); BILIRUBIN,TOTAL 0.4 MG/DL (0.2-1.0); BLOOD UREA NITROGEN 12 MG/DL (7-18); CALCIUM LEVEL 8.6 MG/DL (8.5-10.1); CARBON DIOXIDE LEVEL 32 MEQ/L (21-32); CHLORIDE LEVEL 104 MEQ/L (98-107); CREATININE FOR GFR 0.59 MG/DL (0.55-1.30); GLOMERULAR FILTRATION RATE > 60.0 (>51); GLUCOSE, FASTING 81 MG/DL (70-100); SODIUM LEVEL 141 MEQ/L (136-145); TOTAL PROTEIN 7.6 GM/DL (6.4-8.2)
== END ==
LOC: M LAB 08:45
PROVIDERS: ATTEND Internal Medicine
DX: L40.50 Arthropathic psoriasis, unspecified (principal)

== ENCOUNTER → 2021-01-10 | Outpatient (REF) | payer OTHER ==
[2021-01-10 17:54] LABS: PHOSPHORUS LEVEL 4.1 MG/DL (2.5-4.9)
== END ==
LOC: M SFHCRHEU 11:57
PROVIDERS: ATTEND Internal Medicine
DX: M79.7 Fibromyalgia (principal); L40.50 Arthropathic psoriasis, unspecified

== ENCOUNTER 2021-01-17 13:27 | Outpatient (CLI) | payer OTHER ==
[~2021-01-17] VITALS: Ht 166.4 cm; Wt 81.2 kg
[~2021-01-17 13:27] MED LIST changes: +ALBUTEROL SULFATE 2.5 MG/0.5 ML INH NEB SOLN INH PRN; +EPINEPHrine INJ 1 MG/ML 1ML AMP IM PRN; +diphenhydrAMINE 50MG/ML VIAL (J1200) IV PRN; +methylPREDNISolone 125MG 2ML VIAL IV PRN
[2021-01-17] MEDS ORDERED: INFLIXIMAB BIOSIMILAR 400 MG in NS 210 ML IV ONE (14:00)
[2021-01-17] MEDS ORDERED: ACETAMINOPHEN 650MG PO PRIOR TO INFUSION PO ONE (14:00)
[2021-01-17] MEDS ORDERED: NS 1,000 ML IV SCH (14:00)
[2021-01-17] MEDS ORDERED: diphenhydrAMINE 25MG PO PRIOR TO INFUSION PO ONE (14:00)
[2021-01-17 14:01] VITALS: BP 138/81
[2021-01-17 14:15] VITALS: BP 131/84
[2021-01-17 15:00] VITALS: BP 138/83
== END 2021-01-17 15:20 | disposition home or self-care (01) ==
LOC: M INFU 13:27
PROVIDERS: ATTEND Internal Medicine
DX: L40.50 Arthropathic psoriasis, unspecified (principal); Z88.8 Allergy status to other drugs, medicaments and biological substances
CPT/HCPCS: 96365; Q5103

== ENCOUNTER → 2021-02-22 | Outpatient (CLI) | payer OTHER ==
[~2021-02-22] MED LIST changes: -ALBUTEROL SULFATE 2.5 MG/0.5 ML INH NEB SOLN INH PRN; -EPINEPHrine INJ 1 MG/ML 1ML AMP IM PRN; +OMEP40CA4 PO; -OMEP40CA97 PO; -diphenhydrAMINE 50MG/ML VIAL (J1200) IV PRN; -methylPREDNISolone 125MG 2ML VIAL IV PRN
--- NOTE | 2021-02-23 14:49 | SLEEPHOME ---
DATE: 02/22/2021 ORDERED BY: Dr. Emilia Alonso, rheumatology Diagnostic home sleep testing was performed due to concern for the obstructive sleep apnea syndrome in this patient with a history of fatigue. For testing, a nocturnal T3 respiratory monitoring device was used. Continuous record was made of pulse, oxygen saturation, air flow, chest and abdominal strain, and body position. There was 10 hours and 45 minutes of data reviewed. There was 7 hours and 57 minutes marked as time in bed. During the interval marked time in bed, there were 93 respiratory events identified of 10 seconds in duration or greater for a respiratory event index of 11.7. The events were primarily obstructive. Eleven mixed and central apneas were seen. Baseline pulse rate 78. Pulse rate ranged 56-114. Baseline saturation was 90%. Saturations fell to 69%, and testing was performed in both the supine and nonsupine positions. IMPRESSION: Abnormal home sleep testing with repetitive respiratory events and oxygen desaturations to 69% with a respiratory event index of 11.7 is consistent with the obstructive sleep apnea syndrome. RECOMMENDATION: The patient should be encouraged to undergo formal sleep evaluation. MTDD
== END ==
LOC: M SLEEP HO 10:32
PROVIDERS: ATTEND Internal Medicine
DX: R53.83 Other fatigue (principal)

== ENCOUNTER 2021-02-28 12:00 | Outpatient (CLI) | payer OTHER ==
[~2021-02-28] VITALS: Ht 165.1 cm; Wt 81.2 kg
[~2021-02-28 12:00] MED LIST changes: +ACETAMINOPHEN 650MG PO PRIOR TO INFUSION PO ONE; +ALBUTEROL SULFATE 2.5 MG/0.5 ML INH NEB SOLN INH PRN; +EPINEPHrine INJ 1 MG/ML 1ML AMP IM PRN; +INFLIXIMAB BIOSIMILAR 400 MG in NS 210 ML IV ONE; +NS 1,000 ML IV SCH; +diphenhydrAMINE 25MG PO PRIOR TO INFUSION PO ONE; +diphenhydrAMINE 50MG/ML VIAL (J1200) IV PRN; +methylPREDNISolone 125MG 2ML VIAL IV PRN
[2021-02-28 12:47] VITALS: BP 107/73
[2021-02-28 13:19] VITALS: BP 107/73
[2021-02-28 14:10] VITALS: BP 135/73
== END 2021-02-28 14:10 | disposition home or self-care (01) ==
LOC: M INFU 12:00
PROVIDERS: ATTEND Internal Medicine
DX: L40.50 Arthropathic psoriasis, unspecified (principal); Z88.5 Allergy status to narcotic agent; Z88.8 Allergy status to other drugs, medicaments and biological substances
CPT/HCPCS: 96365; Q5103

== ENCOUNTER 2021-04-11 12:36 | Outpatient (CLI) | payer OTHER ==
[~2021-04-11] VITALS: Ht 152.4 cm; Wt 81.2 kg
[~2021-04-11 12:36] MED LIST changes: -NS 1,000 ML IV SCH
[2021-04-11 12:47] VITALS: BP 138/80
[2021-04-11 15:00] VITALS: BP 137/85
== END 2021-04-11 15:00 | disposition home or self-care (01) ==
LOC: M INFU 12:36
PROVIDERS: ATTEND Internal Medicine
DX: L40.50 Arthropathic psoriasis, unspecified (principal); Z88.8 Allergy status to other drugs, medicaments and biological substances
CPT/HCPCS: 96365; 96366; Q5103

== ENCOUNTER → 2021-04-17 | Outpatient (REF) | payer OTHER ==
[~2021-04-17] MED LIST changes: -ACETAMINOPHEN 650MG PO PRIOR TO INFUSION PO ONE; -ALBUTEROL SULFATE 2.5 MG/0.5 ML INH NEB SOLN INH PRN; -EPINEPHrine INJ 1 MG/ML 1ML AMP IM PRN; -INFLIXIMAB BIOSIMILAR 400 MG in NS 210 ML IV ONE; -diphenhydrAMINE 25MG PO PRIOR TO INFUSION PO ONE; -diphenhydrAMINE 50MG/ML VIAL (J1200) IV PRN; -methylPREDNISolone 125MG 2ML VIAL IV PRN
[2021-04-17 16:44] LABS: HEMOGLOBIN 14.8 g/dl (12.0-15.5); MEAN CORPUSCULAR HEMOGLOBIN 31.8 pg (27.0-33.0); MEAN CORPUSCULAR HGB CONC 32.9 g/dl (32.0-36.5); MEAN CORPUSCULAR VOLUME 96.8 fl (80.0-96.0); PLATELET COUNT, AUTOMATED 296 10^3/uL (150-450); RED BLOOD COUNT 4.65 10^6/uL (4.00-5.40); WHITE BLOOD COUNT 5.8 10^3/uL (4.0-10.0)
[2021-04-17 17:11] LABS: ALBUMIN 3.4 GM/DL (3.2-5.2); ALT/SGPT 20 U/L (12-78); BILIRUBIN,DIRECT < 0.1 MG/DL (0.0-0.2); BILIRUBIN,TOTAL 0.3 MG/DL (0.2-1.0); BLOOD UREA NITROGEN 10 MG/DL (7-18); C REACTIVE PROTEIN QUANTITATIV 4.95 MG/DL (0.00-0.30); CARBON DIOXIDE LEVEL 33 MEQ/L (21-32); CHLORIDE LEVEL 100 MEQ/L (98-107); CREATININE FOR GFR 0.53 MG/DL (0.55-1.30); GLOMERULAR FILTRATION RATE > 60.0 (>51); GLUCOSE, FASTING 80 MG/DL (70-100); POTASSIUM SERUM 4.2 MEQ/L (3.5-5.1); SODIUM LEVEL 137 MEQ/L (136-145); TOTAL PROTEIN 7.5 GM/DL (6.4-8.2)
[2021-04-17 17:12] LABS: TOTAL 25(OH) VITAMIN D 60.2 NG/ML (30.0-100.0)
[2021-04-17 17:29] LABS: BASOPHILS 1 % (0-1); EOSINOPHILS 2 % (0-3); LYMPHOCYTES 15 % (16-44); MONOCYTES 6 % (0-5); NEUTROPHILS 76 % (28-66)
[2021-04-17 17:30] LABS: PLATELET ESTIMATE NORMAL (NORMAL)
[2021-04-17 18:58] LABS: ERYTHROCYTE SEDIMENTATION RATE 20 mm/hr (0-30)
== END ==
LOC: M SFHCRHEU 12:10
PROVIDERS: ATTEND Internal Medicine
DX: L40.50 Arthropathic psoriasis, unspecified (principal); E55.9 Vitamin D deficiency, unspecified

== ENCOUNTER → 2021-04-26 | Outpatient (CLI) | payer OTHER ==
--- NOTE | 2021-04-26 15:38 | REP ---
INDICATION: TROCHANTERIC BURSITIS, TENDONITIS. COMPARISON: None. TECHNIQUE: Three views of the right shoulder are provided. FINDINGS: The right glenohumeral and acromioclavicular joints are normally aligned. Periarticular soft tissues are unremarkable. No soft tissue calcification is seen. No bony erosive changes seen. The visualized right rib cage is intact. There are surgical clips at the base of the neck bilaterally just above the thoracic inlet. IMPRESSION: Negative radiographs of the right shoulder. <Electronically signed by Carlos Alberto Morgan > 04/26/21 [id number]
--- NOTE | 2021-04-26 15:41 | REP ---
INDICATION: TROCHANTERIC BURSITIS, TENDONITIS. COMPARISON: Comparison study September 11, 2011. TECHNIQUE: AP view of the pelvis and AP and frogleg views of each hip are provided. Five views total. FINDINGS: Bony pelvic ring is intact. Sacrum and SI joints are unremarkable. The symphysis pubis is intact. There is mild right hip joint osteoarthritis with acetabular sclerosis and spur formation. There is femoral head spurring. There is also mild the left-sided osteophyte formation. The left hip is unchanged from the 07/08 prior exam. The right hip osteoarthritic changes are more pronounced. There is a soft tissue calcification adjacent to the greater trochanter of the left hip consistent with calcific tendinitis change. No erosive or destructive lesion seen. IMPRESSION: Bilateral hip osteoarthritis right greater than left. Right sided spurring more prominent than on 2012 prior studies. A Marcie trochanteric calcification is seen adjacent to the left greater trochanter. <Electronically signed by Carlos Alberto Morgan > 04/26/21 [id number]
== END ==
LOC: M RAD 14:43
PROVIDERS: ATTEND Internal Medicine
DX: M75.81 Other shoulder lesions, right shoulder (principal); M70.60 Trochanteric bursitis, unspecified hip; M16.0 Bilateral primary osteoarthritis of hip

== ENCOUNTER → 2021-04-26 | Outpatient (CLI) | payer OTHER ==
--- NOTE | 2021-05-01 11:28 | REP ---
INDICATION: OTHER MICROSCOPIC COLITIS OTHER RAD FROM OTHER DOCTOR. COMPARISON: None. TECHNIQUE: Single KUB identify Sitz markers FINDINGS: There are 2 Sitz markers in the left mid abdomen. The intestinal gas pattern is nonspecific. The organ silhouettes insofar as delineated are unremarkable. The osseous structures are within normal limits. There are bilateral hip chronic changes. IMPRESSION: Sitz markers as described above. <Electronically signed by Billy Whyte > 05/01/21 0768
== END ==
LOC: M RAD 14:37
PROVIDERS: ATTEND Internal Medicine Gastroenterology
DX: K52.838 Other microscopic colitis (principal)

== ENCOUNTER 2021-05-23 13:56 | Outpatient (CLI) | payer OTHER ==
[~2021-05-23] VITALS: Ht 165.1 cm; Wt 80.4 kg
[~2021-05-23 13:56] MED LIST changes: +ACETAMINOPHEN 650MG PO PRIOR TO INFUSION PO ONE; +ALBUTEROL SULFATE 2.5 MG/0.5 ML INH NEB SOLN INH PRN; +EPINEPHrine INJ 1 MG/ML 1ML AMP IM PRN; +INFLIXIMAB BIOSIMILAR 400 MG in NS 210 ML IV ONE; +diphenhydrAMINE 25MG PO PRIOR TO INFUSION PO ONE; +diphenhydrAMINE 50MG/ML VIAL (J1200) IV PRN; +methylPREDNISolone 125MG 2ML VIAL IV PRN
[2021-05-23 14:12] VITALS: BP 147/75
[2021-05-23 15:50] VITALS: BP 128/79
== END 2021-05-23 16:00 | disposition home or self-care (01) ==
LOC: M INFU 13:56
PROVIDERS: ATTEND Internal Medicine
DX: L40.50 Arthropathic psoriasis, unspecified (principal); Z88.8 Allergy status to other drugs, medicaments and biological substances; Z88.6 Allergy status to analgesic agent
CPT/HCPCS: 96365; Q5103

== ENCOUNTER → 2021-06-21 | Outpatient (CLI) | payer OTHER ==
[~2021-06-21] MED LIST changes: -ACETAMINOPHEN 650MG PO PRIOR TO INFUSION PO ONE; -ALBUTEROL SULFATE 2.5 MG/0.5 ML INH NEB SOLN INH PRN; -EPINEPHrine INJ 1 MG/ML 1ML AMP IM PRN; -INFLIXIMAB BIOSIMILAR 400 MG in NS 210 ML IV ONE; -diphenhydrAMINE 25MG PO PRIOR TO INFUSION PO ONE; -diphenhydrAMINE 50MG/ML VIAL (J1200) IV PRN; -methylPREDNISolone 125MG 2ML VIAL IV PRN
--- NOTE | 2021-06-21 08:59 | REP ---
INDICATION: NICOTINE DEP. COMPARISON: Multiple the latest 02/21/[address] angio chest TECHNIQUE: Axial noncontrast images from the thoracic inlet to the upper abdomen using low-dose lung screening technique (LDCT). As per the protocol only lung window images were sent to the read station for interpretation FINDINGS: There is biapical pleuroparenchymal scarring status quo. There are emphysematous changes status quo. There is Marcie bronchiolar wall thickening status quo. There is cylindrical bronchiectasis status quo. There is a new 5 mm size nodule in the right lower lobe. Grossly, the mediastinum and pulmonary vicente are unchanged. Grossly, the imaged upper abdomen and imaged osseous structures are unchanged. IMPRESSION: There is a new 5 mm size nodule in the right lower lobe. According to the revised Fleischner society criteria this represents a lung rads category 3 lesion for which a six-month follow-up CT is recommended. <Electronically signed by Billy Whyte > 06/21/21 [id number]
== END ==
LOC: M RAD 08:01
PROVIDERS: ATTEND Internal Medicine Pulmonary Disease
DX: R91.8 Other nonspecific abnormal finding of lung field (principal); F17.218 Nicotine dependence, cigarettes, with other nicotine-induced disorders

== ENCOUNTER → 2021-07-03 | Outpatient (REF) | payer OTHER | LOC: M SFHCRHEU 11:27 | PROVIDERS: ATTEND Internal Medicine | DX: Z53.20 Procedure and treatment not carried out because of patient's decision for unspecified reasons (principal) ==

== ENCOUNTER 2021-07-04 11:53 | Outpatient (CLI) | payer OTHER ==
[~2021-07-04] VITALS: Ht 170.2 cm; Wt 80.2 kg
[~2021-07-04 11:53] MED LIST changes: +ALBUTEROL SULFATE 2.5 MG/0.5 ML INH NEB SOLN INH PRN; +EPINEPHrine INJ 1 MG/ML 1ML AMP IM PRN; +diphenhydrAMINE 50MG/ML VIAL (J1200) IV PRN; +methylPREDNISolone 125MG 2ML VIAL IV PRN
[2021-07-04 12:20] VITALS: BP 146/67
[2021-07-04 12:30] LABS: HEMATOCRIT 46.6 % (36.0-47.0); HEMOGLOBIN 15.8 g/dl (12.0-15.5); MEAN CORPUSCULAR HEMOGLOBIN 31.7 pg (27.0-33.0); MEAN CORPUSCULAR HGB CONC 33.9 g/dl (32.0-36.5); MEAN CORPUSCULAR VOLUME 93.4 fl (80.0-96.0); PLATELET COUNT, AUTOMATED 298 10^3/uL (150-450); RED BLOOD COUNT 4.99 10^6/uL (4.00-5.40)
[2021-07-04] MEDS ORDERED: ACETAMINOPHEN 650MG PO PRIOR TO INFUSION PO ONE (12:30)
[2021-07-04] MEDS ORDERED: INFLIXIMAB BIOSIMILAR 400 MG in NS 210 ML IV ONE (12:30)
[2021-07-04] MEDS ORDERED: diphenhydrAMINE 25MG PO PRIOR TO INFUSION PO ONE (12:30)
[2021-07-04 12:57] LABS: ALBUMIN 3.4 GM/DL (3.2-5.2); ALT/SGPT 24 U/L (12-78); BILIRUBIN,DIRECT 0.1 MG/DL (0.0-0.2); BILIRUBIN,TOTAL 0.3 MG/DL (0.2-1.0); BLOOD UREA NITROGEN 12 MG/DL (7-18); C REACTIVE PROTEIN QUANTITATIV 1.72 MG/DL (0.00-0.30); CALCIUM LEVEL 9.2 MG/DL (8.5-10.1); CARBON DIOXIDE LEVEL 29 MEQ/L (21-32); CHLORIDE LEVEL 104 MEQ/L (98-107); CREATININE FOR GFR 0.65 MG/DL (0.55-1.30); GLOMERULAR FILTRATION RATE > 60.0 (>51); GLUCOSE, FASTING 100 MG/DL (70-100); POTASSIUM SERUM 4.2 MEQ/L (3.5-5.1); SODIUM LEVEL 137 MEQ/L (136-145); TOTAL PROTEIN 7.1 GM/DL (6.4-8.2)
[2021-07-04 13:19] LABS: ATYPICAL LYMPH 6 % (0-5); LYMPHOCYTES 11 % (16-44); MONOCYTES 7 % (0-5); NEUTROPHILS 76 % (28-66)
[2021-07-04 13:20] LABS: PLATELET ESTIMATE NORMAL (NORMAL)
[2021-07-04 13:53] VITALS: BP 117/77
[2021-07-04 15:35] LABS: ERYTHROCYTE SEDIMENTATION RATE 9 mm/hr (0-30)
== END 2021-07-04 13:50 | disposition home or self-care (01) ==
LOC: M INFU 11:53
PROVIDERS: ATTEND Internal Medicine
DX: L40.50 Arthropathic psoriasis, unspecified (principal); Z88.5 Allergy status to narcotic agent; Z88.2 Allergy status to sulfonamides
CPT/HCPCS: 36592; 80048; 80076; 85025; 85652; 86140; 96365; Q5103

== ENCOUNTER → 2021-07-17 | Outpatient (CLI) | payer OTHER ==
[~2021-07-17] MED LIST changes: -ALBUTEROL SULFATE 2.5 MG/0.5 ML INH NEB SOLN INH PRN; -EPINEPHrine INJ 1 MG/ML 1ML AMP IM PRN; +LEVO50TA5 PO; -VENTAER; +VENTAER INH; -diphenhydrAMINE 50MG/ML VIAL (J1200) IV PRN; -methylPREDNISolone 125MG 2ML VIAL IV PRN
== END ==
LOC: M LABSMTC 09:45
PROVIDERS: ATTEND Anesthesiology
DX: Z01.812 Encounter for preprocedural laboratory examination (principal); Z11.52 Encounter for screening for COVID-19

== ENCOUNTER 2021-07-21 08:47 | Day surgery (SDC) | payer OTHER ==
[~2021-07-21] VITALS: Ht 167.6 cm; Wt 87.9 kg
[~2021-07-21 08:47] MED LIST changes: +NS 1,000 ML IV ONE
--- OUTSIDE RECORDS SUMMARY | 2021-07-21 08:53 | CCD ---
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 Role Phone Emilia Alonso Unavailable PROBLEMS Type Condition ICD9-CM Code [id number] Code Onset Dates Condition S tatus W/U Status Risk SNOMED Code Notes Problem Psoriasis L40.9 Active confirmed 2575823 Problem Fibromyalgia M79.7 Active confirmed 0104680 05 Problem Psoriatic arthritis L40.50 Active confirmed 806745680 Problem Obstructive sleep apnea G47.33 Active confirmed 96151315 Problem High risk medication use Z79.899 Active confirmed 071397505311071 Problem Osteoarthritis of hip, unspe cified laterality, unspecified osteoarthritis type M16.9 Active confirmed 823229554 Problem Plaque psoriasis L40.0 Active confirmed 200 871859 Problem Leukopenia, unspecified type D72.819 Active confirm ed 18399714 Problem Osteoarthritis of hand, unsp ecified laterality, unspecified osteoarthritis type M19.049 Active confirmed 09450735 Problem Vitamin D deficiency E55.9 Active confirmed 87723936 ALLERGIES Allergen (clinical drug ingredient) Drug/Non Drug Allergy do cumented on EMR Reaction Allergy Type Onset Date Status Codeine Phosphate (For Allergies Use Only) Hives Drug Allergy Active methotrexate Methotrexate(ND Code:[address]-47) swelling Drug All ergy Active sulfasalazine Sulfasalazine(ND Code:[address]-21) Unknown Drug A llergy Active ENCOUNTERS from 1969 to 2021-07-04 Encounter Location Date Provider Diagnosis [facility] Rheumatology [address] [place] [address] [place] [address] 15 Jun, 2021 Emiliacandice Alonso Psoriatic arthritis L40.50 IMMUNIZATIONS Vaccine Route Administration Date Status Pneumococcal 0.5mL Prevnar 13 IM Intramuscular Jul 03, 2012 A dministered Influenza 6mo & up Fluzone IM Intramuscular Jul 03, 2012 Admi nistered SOCIAL HISTORY Tobacco Use: Social History Observation Description Date Details (start date - stop date) Current Smoker Sex Assigned At : Social History Observation Description Sex Assigned At Unknown Alcohol Screening: Question Answer Notes Did you have a drink containing alcohol in the past year? No Points 0 Interpretation Negative Tobacco Use: Question Answer Notes Are you a: current smoker How many cigarettes a day do you smoke? 5 or less Are you interested in quitting? Ready to quit REASON FOR REFERRAL No Information VITAL SIGNS Weight 193.2 lbs Jun, Weight-kg 87.63 kg Jun, Height 65.5 in Jun, BMI 31.66 kg/m2 Jun, MEDICATIONS Medication SIG (Take, Route, Frequency, Duration) Notes Start Da te End Date Status Stiolto Respimat 2.5-2.5 MCG/ACT 2 puffs Inhalation twice daily Active Triamcinolone Acetonide 0.1 % 1 application Externally Once a day to affected areas of trunk and extremities for 14 days Active Potassium Chloride ER 20 MEQ 1 capsule with food Orally Once a day for 7 day(s) Jan, Not-Taking Nicotrol 10 MG 1 cartridge as needed Inhalation 16 time(s) a day Active Budesonide 0.5 MG/2ML as directed Inhalation Active rOPINIRole HCl 0.25 MG TAKE ONE TABLET BY MOUTH AT BEDTIME FOR 1 WEEK THEN TAKE TWO TABLETS BY MOUTH AT BEDTIME Oral for 30 Active Folic Acid 1 MG 1 tablet Orally Once a day for 30 day(s) 0 1 May, 2020 Not-Taking Vitamin D (Ergocalciferol) 1.25 MG (06159 UT) 1 capsul e Orally Weekly for 30 day(s) December, Active Benadryl 25 MG 1 tablet Orally 30 minutes prior to Infusion Nov, Active Remicade 100 MG as directed Intravenous Active Albuterol Sulfate (2.5 MG/3ML) 0.083% as directed Inhalation twice da hipolito Active Fluocinonide 0.05 % 1 application Externally Twice a day for 14 days May, Active Voltaren 1 % apply 4 g of 1% gel to affec romy area Transdermal four times daily as needed for 30 days Active Omeprazole 40 mg 1 capsule Orally Once a day Nov, Active Topiramate 200 MG 1 tablet Orally Once a day Active hydrOXYzine HCl 25 MG TAKE ONE TABLET BY MOUTH NEEDED NIGHTLY Active Ventolin HFA 108 (90 Base) MCG/ACT 2 puffs Inhalation Once a day Active Acetaminophen 325 MG 2 tablets before infusion Orally 13 A 2019 Active Mirtazapine 30 MG 1 tablet at bedtime Orally Active Ketoconazole 2 % USE EVERY OTHER DAY TO LATHE R, THEN LET IT SIT THEN RINSE for 30 Active Atorvastatin Calcium 10 MG 1 tablet Orally Once a day for 30 day (s) Apr, Active Calcipotriene 0.005 % apply one application once a day to affected areas of body topically Externally Twice a day to affected area of trunk and extremities for 30 days Active Metoprolol Succinate ER 50 MG 1 tablet Orally Once a day Active Levothyroxine Sodium 50 MCG 1 tablet on an empty stoma ch in the morning Orally Once a day for 30 day(s) Active Betamethasone Dipropionate Aug 0.05 % 1 application to affected area Externally Twice a day to affected areas on scalp for 30 days Not-Taking Spironolactone 25 MG 1 tablet Orally Once a day Not-Taking Arnuity Ellipta 200 MCG/ACT 1 puff Inhalation twice daily Active PROCEDURES No Information RESULTS No Results REASON FOR VISIT [facility] Infusion Order MEDICAL (GENERAL) HISTORY Type Description Date Medical History COPD Medical History Hypertension Medical History Hypothyroidism Medical History GERD Medical History Rheumatoid arthritis Medical History Psoriasis Medical History Cervical cancer Medical History Chronic kidney disease Surgical History Thyroidectomy 2007 Surgical History BTL 2001 Surgical History 1987 Surgical History Cholecystectomy 2018 Surgical History Complete Hysterectomy 2014, 2015 Surgical History Endoscopy Surgical History Lymph node biopsy/removal Hospitalization History Surgery related Goals Section No Information Health Concerns No Information MEDICAL EQUIPMENT No Information MENTAL STATUS No Information FUNCTIONAL STATUS No Information ASSESSMENTS Encounter Date Diagnosis Assessment Notes Treatment Notes Treatm ent Clinical Notes Jun, Psoriatic arthritis (ICD-10 - L40.50) Give Acetaminophen Tablet, 325 mg, 2 tablets before infusion, orally Give Benadryl Tablet, 25 mg, 1 tablet 30 minutes prior to infusion, orally PLAN OF TREATMENT Treatment Notes Assessment Notes Clinical Notes Psoriatic arthritis Give Acetaminophen T ablet, 325 mg, 2 tablets before infusion, orallyGive Benadryl Tablet, 25 mg, 1 tablet 30 minutes prior to infusion, orally Next Appt Details Provider Name:Emilia Duc Alonso, 2021-10-03 09:45:00 AM, [address] [facility], , [place], [address], Provider Name:Michelle Juarez, 2021-12-04 09:15:00 AM, [address] [facility], , [place], [address], Insurance Providers Payer Name Payer Address Payer Phone Insured Name Patient Relati onship to Insured Coverage Start Date Coverage End Date [facility] [employer] [address] [facility] [phone] JOSEPH [employer]OL self
--- OUTSIDE RECORDS SUMMARY | 2021-07-21 08:53 | CCD ---
Author Author [facility] Organization 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 Role Phone Emilia Alonso Unavailable PROBLEMS Type Condition ICD9-CM Code RBH40-NS Code Onset Dates Condition S tatus W/U Status Risk SNOMED Code Notes Problem Psoriasis L40.9 Active confirmed 0194945 Problem Fibromyalgia M79.7 Active confirmed 2352588 05 Problem Psoriatic arthritis L40.50 Active confirmed 490432628 Problem Obstructive sleep apnea G47.33 Active confirmed 31668930 Problem High risk medication use Z79.899 Active confirmed 546989054484583 Problem Osteoarthritis of hip, unspe cified laterality, unspecified osteoarthritis type M16.9 Active confirmed 011597226 Problem Plaque psoriasis L40.0 Active confirmed 200 493310 Problem Leukopenia, unspecified type D72.819 Active confirm ed 14289037 Problem Osteoarthritis of hand, unsp ecified laterality, unspecified osteoarthritis type M19.049 Active confirmed 35991514 Problem Vitamin D deficiency E55.9 Active confirmed 32345637 ALLERGIES Allergen (clinical drug ingredient) Drug/Non Drug Allergy do cumented on EMR Reaction Allergy Type Onset Date Status Codeine Phosphate (For Allergies Use Only) Hives Drug Allergy Active methotrexate Methotrexate(ND Code:[address]-76) swelling Drug All ergy Active sulfasalazine Sulfasalazine(ND Code:[address]-94) Unknown Drug A llergy Active ENCOUNTERS from 1969 to 2021-07-04 Encounter Location Date Provider Diagnosis [facility] Rheumatology [address] [place] [address] [place] [address] 15 Jun, 2021 Emilia Alonso IMMUNIZATIONS Vaccine Route Administration Date Status Pneumococcal [...] REASON FOR REFERRAL No Information VITAL SIGNS No information MEDICATIONS Medication SIG (Take, Route, Frequency, Duration) [...] 2020 Not-Taking Vitamin D (Ergocalciferol) 1.25 MG (78339 UT) 1 capsul e Orally Weekly for [...] 2007 Surgical History BTL 2001 Surgical History 1986 Surgical History Cholecystectomy 2017 Surgical History Complete Hysterectomy 2014, 2015 Surgical History Endoscopy Surgical History Lymph node biopsy/removal Hospitalization History Surgery related Goals Section No Information Health Concerns No Information MEDICAL EQUIPMENT No Information MENTAL STATUS No Information FUNCTIONAL STATUS No Information ASSESSMENTS No Information PLAN OF TREATMENT Next Appt Details Provider Name:Emilia Alonso, 2021-10-03 09:45:00 AM, [address] [facility], , [place], [address], Provider Name:Michelle Juarez, 2021-12-04 09:15:00 AM, [address] [facility], [place], [place], [facility], Insurance Providers Payer Name Payer Address Payer Phone Insured Name Patient Relati onship to Insured Coverage Start Date Coverage End Date [facility] [address] [facility] [phone] JOSEPH [employer]OL self
--- OUTSIDE RECORDS SUMMARY | 2021-07-21 08:53 | CCD ---
Author Author [facility] Organization [facility] Address Unknown Phone Unavailable Care Team Providers Care Physical Therapy Manager Name Role Phone Emilia Alonso Unavailable PROBLEMS Type Condition ICD9-CM Code [id number] Code Onset Dates Condition S tatus W/U Status Risk SNOMED Code Notes Problem Psoriasis L40.9 Active confirmed 8601851 Problem Fibromyalgia M79.7 Active confirmed 4313700 05 Problem Psoriatic arthritis L40.50 Active confirmed 645371120 Problem Obstructive sleep apnea G47.33 Active confirmed 19165382 Problem High risk medication use Z79.899 Active confirmed [id number] Problem Osteoarthritis of hip, unspe cified laterality, unspecified osteoarthritis type M16.9 Active confirmed 155074910 Problem Plaque psoriasis L40.0 Active confirmed 200 637155 Problem Leukopenia, unspecified type D72.819 Active confirm ed 08600088 Problem Osteoarthritis of hand, unsp ecified laterality, unspecified osteoarthritis type M19.049 Active confirmed 17398221 Problem Vitamin D deficiency E55.9 Active confirmed 24127228 ALLERGIES Allergen (clinical drug ingredient) Drug/Non Drug Allergy do cumented on EMR Reaction Allergy Type Onset Date Status Codeine Phosphate (For Allergies Use Only) Hives Drug Allergy Active methotrexate Methotrexate(ND Code:[address]-78) swelling Drug All ergy Active sulfasalazine Sulfasalazine(ND Code:[address]-64) Unknown Drug A llergy Active ENCOUNTERS from 1969 to 2021-07-18 Encounter Location Date Provider Diagnosis [facility] Rheumatology [address] [place] [address] [place] [address] 15 Jun, 2021 Emilia Alonso Psoriatic arthritis L40.50 ; Osteoarthritis of hand, unspecified laterality, unspecified osteoarthritis type M19.049 ; Osteoarthritis of hip, unspecified laterality, unspecified osteoarthritis type M16.9 ; Right rotator cuff tendinitis M75.81 ; Trochanteric bursitis, unspecified laterality M70.60 ; Vitamin D deficiency E55.9 ; Obstructive sleep apnea G47.33 ; Psoriasis L40.9 and High risk medication use Z79.899 IMMUNIZATIONS Vaccine Route Administration Date Status Pneumococcal [...] quitting? Ready to quit REASON FOR REFERRAL from 1969 to 2021-07-18 Reason PT referral has been deferr ed to Primary Care Provider, given the insurance requirements Diagnosis 1 Right rotator cuff tendiniti s (M75.81) Diagnosis 2 Trochanteric bursitis, unspe cified laterality (M70.60) Referral Organization [facility] Rheumatology Referring Provider First Name Emilia Referring Provider Last Name Gavin Referring Provider Specialty Rheumatology Referred Provider [facility]) Referred Provider Specialty Physical Therapist Referral Priority Routine General Notes Emilia Alonso 07/18/2021 10: 45:26 AM > Will await the referral from the primary care provider, per insurance requirements Clinical Notes Emilia Alonso 07/18/2021 10: 38:33 AM > Please evaluate and treat right rotator cuff tendinitis and trochanteric bursitis, in need of strengthening and conditioning to improve the symptomatology. VITAL SIGNS Weight 193.2 lbs Jun, Weight-kg 87.63 kg Jun, Height 65.5 in Jun, BMI 31.66 kg/m2 Jun, Heart Rate 116 /min Jun, Respiratory Rate 20 /min Jun, Temperature 98.4 degrees Fahrenheit Jun, Oximetry 96 Jun, Blood pressure systolic 112 mm Hg Jun, Blood pressure diastolic 80 mm Hg Jun, MEDICATIONS Medication SIG (Take, Route, Frequency, Duration) Notes Start Da te End Date Status Folic Acid 1 MG 1 tablet Orally Once a day for 30 day(s) 0 1 May, 2020 Not-Taking Triamcinolone Acetonide 0.1 % 1 application Externally Once a day to affected areas of trunk and extremities for 14 days Active Stiolto Respimat 2.5-2.5 MCG/ACT 2 puffs Inhalation twice daily Active Nicotrol 10 MG 1 cartridge as needed Inhalation 16 time(s) a day Active Budesonide 0.5 MG/2ML as directed Inhalation Active rOPINIRole HCl 0.25 MG TAKE ONE TABLET BY MOUTH AT BEDTIME FOR 1 WEEK THEN TAKE TWO TABLETS BY MOUTH AT BEDTIME Oral for 30 Active hydrOXYzine HCl 25 MG TAKE ONE TABLET BY MOUTH EVERY NIGHT NEEDE D for 30 Active Vitamin D (Ergocalciferol) 1.25 MG (56287 UT) 1 capsul e Orally Weekly for 30 day(s) December, Active Benadryl 25 MG 1 tablet Orally 30 minutes prior to Infusion Nov, Active Remicade 100 MG as directed Intravenous Active Ventolin HFA 108 (90 Base) MCG/ACT 2 puffs Inhalation Once a day Active Albuterol Sulfate (2.5 MG/3ML) 0.083% as directed Inhalation twice da hipolito Active Voltaren 1 % apply 4 g of 1% gel to affec romy area Transdermal four times daily as needed for 30 days Active Atorvastatin Calcium 10 MG 1 tablet Orally Once a day for 30 day (s) Apr, Active Topiramate 200 MG 1 tablet Orally Once a day Active Calcipotriene 0.005 % apply one application once a day to affected areas of body topically Externally Twice a day to affected area of trunk and extremities for 30 days Active Omeprazole 40 mg 1 capsule Orally Once a day Nov, Active Acetaminophen 325 MG 2 tablets before infusion Orally 13 A 2019 Active Mirtazapine 30 MG 1 tablet at bedtime Orally Active Ketoconazole 2 % USE EVERY OTHER DAY TO LATHE R, THEN LET IT SIT THEN RINSE for 30 Active Potassium Chloride ER 20 MEQ 1 capsule with food Orally Once a day for 7 day(s) Jan, Not-Taking Fluocinonide 0.05 % 1 application Externally Twice a day for 14 days May, Active Metoprolol Succinate ER 50 MG 1 [...] twice daily Active PROCEDURES No Information RESULTS Component Value Reference Range CBC with Differential Reviewed date:07/11/2021 00:06:26 Interpretation: Performing Lab:[facility] [address] [place] [id number] , ,[place] [address] WHITE BLOOD COUNT 6.0 4.0-10.0 RED BLOOD COUNT 4.99 4.00-5.40 HEMOGLOBIN 15.8 12.0-15.5 HEMATOCRIT 46.6 36.0-47.0 MEAN CORPUSCULAR VOLUME 93.4 80.0-96.0 MEAN CORPUSCULAR HEMOGLOBIN 31.7 27.0-33.0 MEAN CORPUSCULAR HGB CONC 33.9 32.0-36.5 RED CELL DISTRIBUTION WIDTH 14.1 11.5-14.5 PLATELET COUNT, AUTOMATED 298 150-450 C REACTIVE PROTEIN QUANTITATIV (At [facility]) Reviewed date:07/11/2021 00:06:26 Interpretation: Performing Lab:[facility] [address] [place] [id number] , ,[place] [address] C REACTIVE PROTEIN QUANTITATIV 1.72 0.00-0.30 ERYTHROCYTE SEDIMENTATION RATE Reviewed date:07/11/2021 00:06:26 Interpretation: Performing Lab:[facility] [address] [facility] [address] , ,[place] [address] ERYTHROCYTE SEDIMENTATION RATE 9 0-30 LIVER PROFILE Reviewed date:07/11/2021 00:06:26 Interpretation: Performing Lab:[facility] [address] [place] [address] , ,[place] [address] AST/SGOT 18 7-37 ALT/SGPT 24 12-78 ALKALINE PHOSPHATASE 135 45-117 BILIRUBIN,TOTAL 0.3 0.2-1.0 BILIRUBIN,DIRECT 0.1 0.0-0.2 TOTAL PROTEIN 7.1 6.4-8.2 ALBUMIN 3.4 3.2-5.2 ALBUMIN/GLOBULIN RATIO 0.9 1.2-2.2 Basic Metabolic Profile (BMP) Reviewed date:07/11/2021 00:06:26 Interpretation: Performing Lab:[facility], [facility] [address] [facility] [id number] , ,[place] [address] GLUCOSE, FASTING 100 70-100 BLOOD UREA NITROGEN 12 7-18 CREATININE FOR GFR 0.65 0.55-1.30 GLOMERULAR FILTRATION RATE > 60.0 >51 SODIUM LEVEL 137 136-145 POTASSIUM SERUM 4.2 3.5-5.1 CHLORIDE LEVEL 104 98-107 CARBON DIOXIDE LEVEL 29 21-32 CALCIUM LEVEL 9.2 8.5-10.1 REASON FOR VISIT C/o bilateral knee and elbow pain aand stiffness. C/o joint pain in multiple sit es MEDICAL (GENERAL) HISTORY Type Description Date Medical [...] Notes Jun, Psoriatic arthritis (ICD-10 - L40.50) Clinical presentation consistent with Psoriatic Arthritis (psoriasis, synovitis, negative RF/CCP) in stable condition. - Informed the patient that we will perform labs to monitor medication toxicity today. - Continue Inflectra therapy - 400 mg every 6 weeks - no changes to the regimen, at this time. - Discussed the importance of a healthy, well balanced life style and making healthy choices. - Strongly encouraged lifestyle modifications (adequate sleep hygiene, well balanced diet/nutrition, physical activity and exercise (additional exercises provided, recommended starting to walk in place consistently), good mental health, emotional stability, stress management). - Will monitor the CBC w/ diff, LFT, BMP, and inflammatory markers (ESR, CRP). - She was agreeable and expressed understanding of the plan. All questions and concerns were addressed. Jun, Osteoarthritis of hand, unsp ecified laterality, unspecified osteoarthritis type (ICD-10 - M19.049) Clinical presentation consistent with bilateral osteoarthritis of the hands. Counseling provided on the disease course and symptomatology of the hand osteoarthritis. Information on hand exercises provided to the patient for further education. Recommended the performance of the hand exercises for 10 minutes daily and the use of voltaren gel OTC - four times/daily as needed (prescription printed and [employer] coupon provided for a discount). Jun, Osteoarthritis of hip, unspe cified laterality, unspecified osteoarthritis type (ICD-10 - M16.9) Symptomatic osteoarthritis is present in multiple joints. Counseling provided on the disease course, symptomatology, complications, and prognosis of osteoarthritis. Recommend participation in a consistent exercise regimen and weight management for pain relief associated with osteoarthritis, focusing on improvement in quality of life for pain relief associated with osteoarthritis. Reviewed the imaging (hips and pelvis x-rays) consistent w/ osteoarthritis of the hips. Expect improvement with a healthy, well balanced life style and making healthy choices. She was agreeable and expressed understanding of the plan. All questions and concerns were addressed. Jun, Right rotator cuff tendinitis (ICD-10 - M75.81) Right shoulder pain consistent w/ rotator cuff tendinitis. Exercises previously provided for home exercise program. The patient has failed the home exercise program. Reviewed x-rays of the right shoulder, which were unremarkable. Will proceed w/ physical therapy for strengthening, conditioning, and increased range of motion of joints in a supervised environment. Jun, Trochanteric bursitis, unspecified laterality (I CD-10 - M70.60) Clinical presentation consistent w/ trochanteric bursitis of the bilateral hips, with ongoing symptomatology. The patient has failed the home exercise program. Reviewed the x-rays of the hips and pelvis consistent w/ osteoarthritis of the hips (right more than left). Will proceed w/ physical therapy for improvement in the symptomatology. Jun, Vitamin D deficiency (ICD-10 - E55.9) 04/17/2021 Vitamin D 60.2 ng/mL (30-100) - improvement in vitamin D Deficiency s/p supplement vitamin D 50,000 units x 12 weeks. No change in therapy, at this time. Jun, Obstructive sleep apnea (ICD-10 - G47.33) The home sleep study was consistent with obstructive sleep apnea (abnormal home sleep testing with repetitive respiratory events and oxygen desaturations to 69% with a respiratory event index of *11.7 is consistent with the obstructive sleep apnea syndrome). Will defer to sleep medicine for further evaluation of the positive home sleep study. Jun, Psoriasis (ICD-10 - L40.9) Will coordinate with dermatology to optimize the patient's care. Jun, High risk medication use (ICD-10 - Z79.899) Inflectra: This medication is an immunosuppressant and considered a high risk medication, as there is increased potential for adverse reaction and significant toxicity. PLAN OF TREATMENT Medication Medication Name Sig Start Date Stop Date hydrOXYzine HCl 25 MG TAKE ONE TABLET BY MOUTH EVERY NIGHT NE EDED for 30 Treatment Notes Assessment Notes Clinical Notes Psoriatic arthritis Clinical presentatio n consistent with Psoriatic Arthritis (psoriasis, synovitis, negative RF/CCP) in stable condition.- Informed the patient that we will perform labs to monitor medication toxicity today.- Continue Inflectra therapy - 400 mg every 6 weeks - no changes to the regimen, at this time.- Discussed the importance of a healthy, well balanced life style and making healthy choices.- Strongly encouraged lifestyle modifications (adequate sleep hygiene, well balanced diet/nutrition, physical activity and exercise (additional exercises provided, recommended starting to walk in place consistently), good mental health, emotional stability, stress management).- Will monitor the CBC w/ diff, LFT, BMP, and inflammatory markers (ESR, CRP).- She was agreeable and expressed understanding of the plan. All questions and concerns were addressed. Osteoarthritis of hand, unspecified laterality, unspec ified osteoarthritis type Clinical presentation consistent with bi lateral osteoarthritis of the hands. Counseling provided on the disease course and symptomatology of the hand osteoarthritis. Information on hand exercises provided to the patient for further education. Recommended the performance of the hand exercises for 10 minutes daily and the use of voltaren gel OTC - four times/daily as needed (prescription printed and [employer] coupon provided for a discount). Osteoarthritis of hip, unspecified laterality, unspeci fied osteoarthritis type Symptomatic osteoarthritis is present in multiple joints. Counseling provided on the disease course, symptomatology, complications, and prognosis of osteoarthritis. Recommend participation in a consistent exercise regimen and weight management for pain relief associated with osteoarthritis, focusing on improvement in quality of life for pain relief associated with osteoarthritis. Reviewed the imaging (hips and pelvis x-rays) consistent w/ osteoarthritis of the hips. Expect improvement with a healthy, well balanced life style and making healthy choices. She was agreeable and expressed understanding of the plan. All questions and concerns were addressed. Right rotator cuff tendinitis Right shou lder pain consistent w/ rotator cuff tendinitis. Exercises previously provided for home exercise program. The patient has failed the home exercise program. Reviewed x-rays of the right shoulder, which were unremarkable. Will proceed w/ physical therapy for strengthening, conditioning, and increased range of motion of joints in a supervised environment. Trochanteric bursitis, unspecified laterality Clinical presentation consistent w/ trochanteric bursitis of the bilateral hips, with ongoing symptomatology. The patient has failed the home exercise program. Reviewed the x-rays of the hips and pelvis consistent w/ osteoarthritis of the hips (right more than left). Will proceed w/ physical therapy for improvement in the symptomatology. Vitamin D deficiency 04/17/2021 Vitamin D 60.2 ng/mL (30-100) - improvement in vitamin D Deficiency s/p supplement vitamin D 50,000 units x 12 weeks. No change in therapy, at this time. Obstructive sleep apnea The home sleep s tudy was consistent with obstructive sleep apnea (abnormal home sleep testing with repetitive respiratory events and oxygen desaturations to 69% with a respiratory event index of *11.7 is consistent with the obstructive sleep apnea syndrome). Will defer to sleep medicine for further evaluation of the positive home sleep study. Psoriasis Will coordinate with dermatology to optimize the patient's care. High risk medication use Inflectra: This medication is an immunosuppressant and considered a high risk medication, as there is increased potential for adverse reaction and significant toxicity. Referrals Referral Date Details PT referral has been deferr ed to Primary Care Provider, given the insurance requirements, Physical Therapy ([facility] Next Appt Details Provider Name:Emilia M Alonso, 2021-10-03 09:45:00 AM, [address] [place] [address], , [place], [address], Provider Name:Michelle Juarez, 2021-12-04 09:15:00 AM, [address] [facility], , [place], [address], Insurance Providers Payer Name Payer Address Payer Phone Insured Name Patient Relati onship to Insured Coverage Start Date Coverage End Date [facility] [address] [facility] [address] [phone] JOSEPH COOL self
--- OUTSIDE RECORDS SUMMARY | 2021-07-21 08:54 | CCD ---
Author Author [facility] Organization [facility] Address Unknown Phone Unavailable Care Team Providers Care Diagnostic Technologist Name Role Phone Emilia Alonso Unavailable PROBLEMS Type Condition ICD9-CM Code ICA49-UA Code Onset Dates Condition S tatus W/U Status Risk SNOMED Code Notes Problem High risk medication use Z79.899 Active confirmed [id number] Problem Psoriasis L40.9 Active confirmed 9784188 Problem Fibromyalgia M79.7 Active confirmed 6386263 05 Problem Vitamin D deficiency E55.9 Active confirmed 06690217 Problem Obstructive sleep apnea G47.33 Active confirmed 66542813 Problem Psoriatic arthritis L40.50 Active confirmed 689543798 Problem Plaque psoriasis L40.0 Active confirmed 200 934489 Problem Leukopenia, unspecified type D72.819 Active confirm ed 68263873 Problem Osteoarthritis of hand, unsp ecified laterality, unspecified osteoarthritis type M19.049 Active confirmed 93682918 ALLERGIES Allergen (clinical drug ingredient) Drug/Non Drug Allergy do cumented on EMR Reaction Allergy Type Onset Date Status Codeine Phosphate (For Allergies Use Only) Hives Drug Allergy Active methotrexate Methotrexate(NDC Code:[address]-01) swelling Drug All ergy Active sulfasalazine Sulfasalazine(ND Code:[address]-70) Unknown Drug A llergy Active ENCOUNTERS from 1970 to 2021-05-02 Encounter Location Date Provider Diagnosis [facility] Rheumatology [address] [place] [address] [place] [address] Apr, Emilia Alonso IMMUNIZATIONS Vaccine Route Administration Date [...] Notes Start Da te End Date Status rOPINIRole HCl 0.25 MG TAKE ONE TABLET BY MOUTH AT BEDTIME FOR 1 WEEK THEN TAKE TWO TABLETS BY MOUTH AT BEDTIME Oral for 30 Active Levothyroxine Sodium 50 MCG 1 tablet on an empty stoma ch in the morning Orally Once a day for 30 day(s) Active Benadryl 25 MG 1 tablet Orally 30 minutes prior to Infusion Nov, Active Voltaren 1 % apply 4 g of 1% gel to affec romy area Transdermal four times daily as needed for 30 days Active Budesonide 0.5 MG/2ML as directed Inhalation Active Calcipotriene 0.005 % APPLY ONE APPLICATION ONCE A DAY TO AFFECTED AREAS OF BODY TOPICALLY Externally Twice a day for 30 days Active Remicade 100 MG as directed Intravenous Active Metoprolol Succinate ER 50 MG 1 tablet Orally Once a day Active Triamcinolone Acetonide 0.1 % 1 application Externally Once a day to affected areas of trunk and extremities for 14 days Active Albuterol Sulfate (2.5 MG/3ML) 0.083% as directed Inhalation twice da hipolito Active Nicotrol 10 MG 1 cartridge as needed Inhalation 16 time(s) a day Active Potassium Chloride ER 20 MEQ 1 capsule with food Orally Once a day for 7 day(s) Jan, Not-Taking Acetaminophen 325 MG 2 tablets before infusion Orally 13 A 2019 Active Ketoconazole 2 % 5 ml Externally QOD, lather and let sit then rinse for 30 days Jan, Active Folic Acid 1 MG 1 tablet Orally Once a day for 30 day(s) 0 1 May, 2020 Not-Taking Ventolin HFA 108 (90 Base) MCG/ACT 2 puffs Inhalation Once a day Active hydrOXYzine HCl 25 MG TAKE ONE TABLET BY MOUTH NEEDED NIGHTLY for 30 Active Vitamin D (Ergocalciferol) 1.25 MG (45176 UT) 1 capsul e Orally Weekly for 30 day(s) December, Active Arnuity Ellipta 200 MCG/ACT 1 puff Inhalation twice daily Active Topiramate 200 MG 1 tablet Orally Once a day Active Mirtazapine 30 MG 1 tablet at bedtime Orally Active Stiolto Respimat 2.5-2.5 MCG/ACT 2 puffs Inhalation twice daily Active Omeprazole 40 mg 1 capsule Orally Once a day Nov, Active Atorvastatin Calcium 10 MG 1 tablet Orally Once a day for 30 day (s) Apr, Active Betamethasone Dipropionate Aug 0.05 % 1 application to affected area Externally Twice a day to affected areas on scalp for 30 days Not-Taking Spironolactone 25 MG 1 tablet Orally Once a day Not-Taking PROCEDURES No Information RESULTS No Results REASON FOR VISIT Vitamin D request from pharmacy MEDICAL (GENERAL) HISTORY Type Description Date Medical History COPD Medical History Hypertension Medical History Hypothyroidism Medical History GERD Medical History Rheumatoid arthritis Medical History Psoriasis Medical History Cervical cancer Medical History Chronic kidney disease Surgical History Thyroidectomy 2006 Surgical History BTL 2001 Surgical History 1986 Surgical History Cholecystectomy 2017 Surgical History Complete Hysterectomy 2014, 2015 Surgical History Endoscopy Surgical History Lymph node biopsy/removal Hospitalization History Surgery related Goals Section No Information Health Concerns No Information MEDICAL EQUIPMENT No Information MENTAL STATUS No Information FUNCTIONAL STATUS No Information ASSESSMENTS No Information PLAN OF TREATMENT Medication Medication Name Sig Start Date Stop Date Voltaren 1 % apply 4 g of 1% gel to affec romy area Transdermal four times daily as needed for 30 days Next Appt Details Provider Name:Michelle Juarez, 2021-06-05 08:15:00 AM, [address] [facility], , [place], [address], Provider Name:Emilia Alonso, 2021-07-03 10:15:00 AM, [address] [facility], , [place], [address], Insurance Providers Payer Name Payer Address Payer Phone Insured Name Patient Relati onship to Insured Coverage Start Date Coverage End Date REPLACED BY [facility] [address] [facility] [phone] JOSEPH COOL self
--- OUTSIDE RECORDS SUMMARY | 2021-07-21 08:54 | CCD | Continuity of Care Document ---
Author Organization Unknown Address Unknown Phone Unavailable Care Team Providers Care Lap Winding Machine Operator Name Role Phone Feroz Gutierrez MD AUTM [phone] Shayna Klein MD AUTM [phone] Marita De La Fuente MD AUTM [phone] Niko Watson MD AUTM [phone] Klever Nicole DO AUTM [phone] Breanna Lima AUTM [phone] Waldo Elizalde MD AUTM [phone] Roz Neumann MD AUTM [phone] Edenilson Campos MD AUTM [phone] Johny Fulton MD AUTM [phone] Problems Active Problems Provider Date Syncope and collapse KRISHNA Wade Onset: 09/10/2019 Essential hypertension KRISHNA Wade Onset: 0 Overweight KRISHAN Wade Onset: 09/10/2019 Dietary management surveillance KRISHNA Wade Onset: 09/10/2019 Electrocardiogram abnormal KRISHNA Ochoa Onset: 12/2020 Precordial pain KRISHNA Wade Onset: 04/15/2020 Dyspnea KRISHNA Wade Onset: 04/15/2020 Social History Type Date Description Comments Sex Unknown ETOH Use Does not consume alcohol Tobacco Use Start: Unknown Patient is a current smoker, smo kes every day currently 5 cigarettes daily; prior use of up to 1 ppd since age 15 Smoking Status Reviewed: 11/21/20 Patient is a current smoker, smokes every day currently 5 cigarettes daily; prior use of up to 1 ppd since age 15 Exercise Type/Frequency Does housework sporadica lly Exercise Limitations Shortness Of Breath Exercise Limitations Joint Pain Allergies and adverse reactions Active Allergies Criticality Reaction | Severity Comments Date Sulfasalazine Unable to assess criticality 09/09/2019 Methotrexate Unable to assess criticality 09/09/2019 Inactive Allergies NKDA Unable to assess criticality 10/09/2017 Medications Active Medications SIG Qnty Indications Ordering Provide r Date Leflunomide 10mg Tablets 1 by mouth every day Roz Neumann MD 11/20/2020 Remicade 100mg Solution Rec infuse 400 mg every 6 weeks via iv Roz Neumann MD 04/14 Mirtazapine 30mg Tablets 1 by mouth every night at bedtime Edenilson Campos MD 04/14/2020 Topiramate ER 200mg CS24 1 by mouth every day at bedtime Edenilson Campos MD 04/14/2020 Budesonide ER 9mg Tablets ER 24HR 1 by mouth daily Johny Fulton MD 04/14/2020 Metoprolol Succinate ER 50mg Tablets ER 24HR 1 by mouth every day 90tabs Haris Gutierrez MD 0 09/10/2019 Stiolto Respimat 2.5-2.5mcg/Act Ae rosol 1 puff twice daily Niko Watson MD 09/09/2019 Ipratropium [place]/Albuterol Sulfate 0.5-2.5(3)mg/3ML Solution 1 nebulizer treatment 4 times a day (wit h each meal and bedtime). Niko Watson MD 09/09/[address] 1 by mouth every day Johny Aleman MD 09/09/2019 Betamethasone Dipropionate 0.05% C ream apply to affected area twice a day Josep Elizalde MD 09/09/2019 Nicotrol 10mg Inhaler inhale 6-16 cartridges per day and gradually taper over 6-12 weeks Johny Aleman MD 09/09/2019 Atorvastatin Calcium 10mg Tablets Take One Tablet By Mouth AT Bedtime 30tabs E78.00 Johny Evangelista MD 10/11/2017 Levothyroxine Sodium 50mcg Tablets 1 by mouth every day Unknown 10/08/2017 Arnuity Ellipta 200mcg/Act Aerosol 1 puff daily Unknown 10/08/2017 Ventolin HFA 108(90Base) mcg/Act A erosol 2 puffs as needed Unknown 10/08/2017 Immunizations Description No Information Available Vital Signs Date Vital Result Comment 11/21/2020 1:07pm Weight 176.00 lb Height 66 inches 5'6" BMI (Body Mass Index) 28.4 kg/m2 Heart Rate 74 /min BP Systolic Sitting 128 mmHg Ra, large cuff BP Diastolic Sitting 80 mmHg Ra, large cuff 04/15/2020 1:46pm Weight 172.00 lb Height 66 inches 5'6" BMI (Body Mass Index) 27.8 kg/m2 Heart Rate 76 /min BP Systolic Sitting 104 mmHg large cuff, Ra BP Diastolic Sitting 70 mmHg large cuff, Ra Results Test Acquired Date Facility Test Result H/L Range Note Laboratory test finding 01/10/2021 [facility] - not interf aced (315)- - Magnesium Level 2.0 1.8-2.4 CBC without Differential 01/03/2021 [facility] - not inter faced (315)- - White Blood Count 3.1 Low 5.0-10.0 Red Blood Count 5.38 4.00-5.40 Platelets 238 172-450 Hemoglobin 17.1 Hematocrit 52.1 CMP 01/03/2021 [facility] - not interfaced (315)- - Albumin Serum/Plasma 3.9 Alt - SGPT 30 Calcium Ser/Plasma Mass/Vol 8.6 Carbon Dioxide Ser/Plasm 32 Chloride Serum/Plasma 104 Alkaline Phosphatase 125 Potassium 4.0 Protein Total 7.6 Sodium 141 Ast - Sgot 22 BUN - Urea Nitrogen 12 Glucose 81 Low 83-110 Creatinine For GFR 0.59 Procedures Date Code Description Status 11/21/2020 39983 Office/Outpatient Established Mo d MDM 30-39 Min Completed 11/21/2020 49796 ECG 12-Lead Completed Medical Devices Description No Information Available Encounters Type Date Location Provider Dx Diagnosis Office Visit 11/21/2020 1:00p Main Office KRISHNA Ochoa I10 Essential (primary) hypertension R55 Syncope and collapse R06.02 Shortness of breath R94.31 Abnormal electrocardiogram [ ECG] [EKG] E66.3 Overweight Z71.3 Dietary counseling and surve illance Assessments Date Code Description Provider 11/21/2020 I10 Essential (primary) hypertension KRISHNA Ochoa 11/21/2020 R55 Syncope and collapse KRISHNA Chandler 11/21/2020 R06.02 Shortness of breath KRISHNA Ochoa 11/21/2020 R94.31 Abnormal electrocardiogram [ECG] [EKG] KRISHNA Ochoa 11/21/2020 E66.3 Overweight KRISHNA Olea Cha, se 11/21/2020 Z71.3 Dietary counseling and surveilla nce KRISHNA Ochoa Plan of Treatment Future Appointment(s):* 05/23/2021 11:15 am - KRISHNA Ochoa at Main Office 11/21/2020 - KRISHNA Ochoa* I10 Essential (primary) hypertension* Recommendations:* Continue metoprolol at the current dosage Advised patient to please monitor blood pressures at home and to alert our office for readings > 140/>90 or <110/<60 * R55 Syncope and collapse* Recommendations:* No further evaluation is needed at this time * R06.02 Shortness of breath* Recommendations:* Continue inhalers and nebulizer as directed Advised patient to please seek medical attention with any worsening shortness of breath * R94.31 Abnormal electrocardiogram [ECG] [EKG]* Recommendations:* No further evaluation is needed at this time. * E66.3 Overweight * Z71.3 Dietary counseling and surveillance* Recommendations:* Recommended for patient to follow a more whole food diet. Advised patient to avoid overly processed foods and packaged foods. Advised patient to avoid sodas, juices and other liquid calories. Recommended at least 30 minutes of exercise 3 days a week. * All * Follow up:* Follow up in 6 months Functional Status Functional Condition Comment Date Status Independent with all ADL's Activ e Mental Status Description No Information Available Referrals Description No Information Available
--- OUTSIDE RECORDS SUMMARY | 2021-07-21 08:54 | CCD | Continuity of Care Document ---
Author Author Kaylan HANKS MD Organization Unknown Address [address] [place] [address] Phone [phone] Care Team Providers Care Photo Offset Printer Name Role Phone Feroz Gutierrez M.D. AUTM [phone] Emilia Alonso M.D. AUTM [phone] Problems Active Problems Provider Date Essential hypertension Cata Contreras, NISREEN-Kenji Onset: Eliza Nicole DO Onset: 09/12/2017 Social History Type Date Description Comments Sex Unknown ETOH Use Denies alcohol use Recreational Drug Use Denies Drug Use Tobacco Use Start: Unknown Patient is a current smoker, smo kes every day 1/2 ppd; down to 5 cigarettes daily Smoking Status Reviewed: 05/23/21 Patient is a current smoker, smokes every day 1/2 ppd; down to 5 cigarettes daily Exercise Type/Frequency Does not exercise Allergies and adverse reactions Active Allergies Criticality Reaction | Severity Comments Date Methotrexate Unable to assess criticality 04/28/2018 Inactive Allergies NKDA Unable to assess criticality 09/10/2016 Medications Active Medications SIG Qnty Indications Ordering Provide r Date Prednisone 10mg Tablets 40mg po qd x 4 days then 30mg qd x 4 days then 20mg qd x 4 days then 10mg qd x 4 days and stop 40tabs Niko Hanks MD 05/23/2021 Magnesium Citrate 1.745GM/30ML Yulia ution one 10 oz bottle green or clear only, use for additional prep at 2-3 days before procedure 296ml K52.838 Johny Fulton MD 04/12/2021 Miralax 17GM/Scoop Powder use as directed see dr fulton colon preparation instructions 510gm K52.838 Donta candice Fulton MD 04/12/2021 Albuterol Sulfate (2 .5mg/3ML) 0.083% Nebulizer Inhale 1 Vial Via Nebulizer Four Times A Day as Needed 375units Niko Hanks MD 01/02/2021 Budesonide 0.5mg/2ML Suspension Inhale 1 Vial Via Nebulizer Two Times A Day 120unnina perez MD 08/02/2020 Albuterol Sulfate HFA 108(90Base) mcg/Act Aerosol Inhale Two Puffs By Mouth Four Times A Day as Needed 18unnina Hanks MD 06/13/2020 Imodium A-D 2mg Tablets 2 tabs twice a day for diarrhea. You may ncrease to three times a day if necessary 180tabs Johny Fulton MD 03/02/2019 Stiolto Respimat 2.5-2.5mcg/Act Ae rosol Inhale 2 Puffs By Mouth Daily 4units Duc Alexander 04/28/2018 Arnuity Ellipta 200mcg/Act Aerosol Inhale One puff By Mouth Every Day 30units Niko Hanks MD 09/19/2017 Benadryl Allergy 25mg Tablets hs Unknown Remicade 100mg Solution Rec (psoriatic arthritis) Unknown Mirtazapine 30mg Tablets Dispers 1 hs Unknown Topiramate 50mg Tablets 4 tabs by mouth at bedtime Unknown Atorvastatin Calcium 10mg Tablets 1 tab by mouth everyday Unknown Ventolin HFA 108(90Base) mcg/Act A erosol inhale two puffs by mouth four times a day as needed 18unnina Hanks MD Metoprolol Succinate ER 50mg Tablets ER 24HR 1 tab by mouth every day Unknown Tylenol Extra Strength 500mg Table ts as needed Unknown Omeprazole 40mg Capsules DR 1 by mouth every day Unknown Levothyroxine Sodium 50mcg Tablets 1 by mouth every day Unknown Immunizations Description No Information Available Vital Signs Date Vital Result Comment 05/23/2021 9:19am BP Systolic 110 mmHg BP Diastolic 74 mmHg Heart Rate 97 /min O2 % BldC Oximetry 92 % Respiratory Rate 18 /min Height 66 inches 5'6" Weight 192.38 lb BMI (Body Mass Index) 31.0 kg/m2 [place] Body Weight 130 lb Weight 87.261 kg BSA (Body Surface Area) 1.97 m2 04/12/2021 9:03am BP Systolic 135 mmHg BP Diastolic 76 mmHg Height 66 inches 5'6" Weight 187.00 lb BMI (Body Mass Index) 30.2 kg/m2 [place] Body Weight 130 lb Weight 84.823 kg BSA (Body Surface Area) 1.94 m2 Results Test Acquired Date Facility Test Result H/L Range Note FVL/Irvin 05/23/2021 [facility] SEE IMAGE FVC-Pred 3.77 L FVC-Pre 1.97 L FVC-%Pred-Pre 52 L FVC-LLN 3.03 L Fev1-Pred 2.98 L Fev1-Pre 1.13 L Fev1-%Pred-Pre 37 L Fev1-LLN 2.35 L Fev6-Pred 3.66 L Fev6-Pre 1.95 L Fev6-%Pred-Pre 53 L Fev6-LLN 2.94 L Ldn1len-Cpro 80 % Hsm4czp-Xdu 57 % Pvl9jeb-%Pred-Pre 71 % Pet7jxx-PQE 70 % Aqe1kgg-Nwlh 97 % Pqr2gox-Dlv 99 % Gny7buz-%Pred-Pre 101 % FEFMax-Pred 7.01 L/E/sec FEFMax-Pre 2.76 L/E/sec FEFMax-%Pred-Pre 39 L/E/sec FEFMax-LLN 5.19 L/E/sec Duv7175-Ntsl 2.84 L/E/sec Jir3918-Sbj 0.56 L/E/sec Dds8880-%Pred-Pre 19 L/E/sec Uxz9319-FZT 1.52 L/E/sec ExpTime-Pre 8.66 sec Gii2vyb3-Ccpt 82 % Pow8eaz1-Jsp 58 % Nvk8pcc3-%Pred-Pre 70 % Cbp7ctn3-OHW 73 % Procedures Date Code Description Status 04/12/2021 45996 Office/Outpatient Established Mo d MDM 30-39 Min Completed Medical Devices Description No Information Available Encounters Type Date Location Provider Dx Diagnosis Office Visit 04/12/2021 9:00a [facility] Gastroenterology Pra ctice Johny Fulton MD K52.838 Other microscopic colitis R19.4 Change in bowel habit R14.0 Abdominal distension (gaseou s) Assessments Date Code Description Provider 05/23/2021 G47.33 Obstructive sleep apnea (adult) (pediatric) Niko Hanks MD 05/23/2021 J43.1 Panlobular emphysema Niko pompa MD 05/23/2021 J44.9 Chronic obstructive pulmonary di sease, unspecified Niko Hanks MD 05/23/2021 F17.218 Nicotine dependence, cigarettes, with other nicotine-induced disorders Niko Hanks MD 05/23/2021 Z79.899 Other chcf (current) drug t herapy Niko Hanks MD 04/12/2021 K52.838 Other microscopic colitis Johny Fulton MD 04/12/2021 R19.4 Change in bowel habit Johny duque MD 04/12/2021 R14.0 Abdominal distension (gaseous) D sherri Fulton MD Plan of Treatment Future Appointment(s):* 09/25/2021 9:30 am - Niko Hanks MD at [facility] Pulmonary/Thoracic * 08/01/2021 9:30 am - Niko Hanks MD at [facility] Pulmonary/Thoracic * 07/21/2021 2:00 am - Johny Fulton MD at [facility] Gastroenterology Practice 05/23/2021 - Niko Hanks MD* G47.33 Obstructive sleep apnea (adult) (pediatric) * J43.1 Panlobular emphysema * J44.9 Chronic obstructive pulmonary disease, unspecified * F17.218 Nicotine dependence, cigarettes, with other nicotine-induced disorders * Z79.899 Other rat exterminator (current) drug therapy * * New Orders:* New CPAP, Heated Humidifier, Ordered: 05/23/21 * Comments:* ~ At this point, given her insurance, we can get her an autotitratable for home. We will get her APAP 4-20 via full face mask. I will see her per protocol with a download.~ Will consider a noc ox in view of her oxygen desaturations as well.~ She warrants a prednisone taper. ~ She clearly needs to stop smoking, but I am not optimistic.~ She qualifies for low-dose CT scanning for lung cancer screening, and I will make those arrangements as well.~ She is up to date on her other medications.~ I will see her in return as outlined above and call her the results of her CT scan. She is to keep us apprised of any other changes in the interim. We await her return. * Follow up:* APAP 4-20...f/u per protocol LDCT...will call results 4 months with fvl Functional Status Description No Information Available Mental Status Description No Information Available Referrals Refer to Reason for Referral Status Appt Date Niko Hanks M.D. NORTH G47.33 Scheduled [facility] [address] [place], [place] [address] [phone] Johny Fulton M.D. K59.00-CONSTIPATION, UNSPECIFIED Scheduled 04/12/2021 [facility], Gastroenterology [address], [address] [place] [address] [phone]
--- OUTSIDE RECORDS SUMMARY | 2021-07-21 08:54 | CCD | Continuity of Care Document ---
Author Organization Unknown Address Unknown Phone Unavailable Care Team Providers Care Information Security Specialist Name Role Phone Feroz Gutierrez MD AUTM [phone] Shayna Klein MD AUTM [phone] Marita De La Fuente MD AUTM [phone] Niko Watson MD AUTM [phone] Klever Nicole DO AUTM [phone] Breanna Lima AUTM [phone] Waldo Elizalde MD AUTM [phone] Roz Neumann MD AUTM [phone] Edenilson Campos MD AUTM [phone] Johny Fulton MD AUTM [phone] Problems Active Problems Provider Date Syncope and collapse KRISHNA Wade Onset: 09/10/2019 Essential hypertension KRISHNA Wade Onset: 0 Overweight KRISHNA Wade Onset: 09/10/2019 Dietary management surveillance KRISHNA [...] twice daily Niko Watson MD 09/09/2019 Ipratropium [place]/Albuterol Sulfate 0.5-2.5(3)mg/3ML Solution 1 nebulizer treatment 4 [...] Date Facility Test Result H/L Range Note CBC without Differential 04/17/2021 [facility] - not inter faced (315)- - White Blood Count 5.8 5.0-10.0 Red Blood Count 4.65 4.00-5.40 Platelets 296 172-450 Hemoglobin 14.8 Hematocrit 45.0 CMP 04/17/2021 [facility] - not interfaced (315)- - Albumin Serum/Plasma 3.4 Alt - SGPT 20 Calcium Ser/Plasma Mass/Vol 9.0 Carbon Dioxide Ser/Plasm 33 Chloride Serum/Plasma 100 Alkaline Phosphatase 125 Potassium 4.2 Protein Total 7.5 Sodium 137 Ast - Sgot 11 BUN - Urea Nitrogen 10 Glucose 80 Low 83-110 Creatinine For GFR 0.53 Laboratory test finding 01/10/2021 [facility] - not interf aced (315)- - Magnesium Level 2.0 1.8-2.4 CBC without Differential 01/03/2021 [facility] - not inter faced (315)- - White Blood Count 3.1 Low 5.0-10.0 Red Blood Count 5.38 4.00-5.40 Platelets 238 172-450 Hemoglobin 17.1 Hematocrit 52.1 CMP 01/03/2021 [facility] - not interfaced (315)- - Albumin Serum/Plasma 3.9 Alt - SGPT 30 Calcium Ser/Plasma Mass/Vol 8.6 Carbon Dioxide Ser/Plasm 32 Chloride Serum/Plasma 104 Alkaline Phosphatase 125 Potassium 4.0 Protein Total 7.6 Sodium 141 Ast - Sgot 22 BUN - Urea Nitrogen 12 Glucose 81 Low 83-110 Creatinine For GFR 0.59 Procedures Date Code Description Status 11/21/2020 58353 Office/Outpatient Established Mo d MDM 30-39 Min Completed 11/21/2020 83942 ECG 12-Lead Completed Medical Devices Description No [...]
--- OUTSIDE RECORDS SUMMARY | 2021-07-21 08:54 | CCD | Continuity of Care Document ---
Author Author Kaylan HANKS MD Organization Unknown Address [address] [place] [address] Phone [phone] Care Team Providers Care Drupal Architect Name Role Phone Feroz Gutierrez M.D. AUTM [phone] Emilia Alonso M.D. AUTM [phone] Problems Active Problems Provider Date Essential hypertension [...] lb BMI (Body Mass Index) 31.0 kg/m2 [place] Body Weight 130 lb Weight 87.261 kg BSA (Body Surface Area) 1.97 m2 04/12/2021 9:03am BP Systolic 135 mmHg BP Diastolic 76 mmHg Height 66 inches 5'6" Weight 187.00 lb BMI (Body Mass Index) 30.2 kg/m2 [place] Body Weight 130 lb Weight 84.823 kg [...] L Fev6-%Pred-Pre 53 L Fev6-LLN 2.94 L Vtv4qmm-Rxqg 80 % Esh9iwk-Qhx 57 % Zfv1con-%Pred-Pre 71 % Yth8dex-BAQ 70 % Rwg5paq-Rxtk 97 % Kzy3wpw-Oar 99 % Mmb0mbw-%Pred-Pre 101 % FEFMax-Pred 7.01 L/E/sec FEFMax-Pre 2.76 L/E/sec FEFMax-%Pred-Pre 39 L/E/sec FEFMax-LLN 5.19 L/E/sec Iok4788-Tjnw 2.84 L/E/sec Mdj7371-Bjl 0.56 L/E/sec Wbf6559-%Pred-Pre 19 L/E/sec Agw3905-KEM 1.52 L/E/sec ExpTime-Pre 8.66 sec Xja9uex8-Hrhs 82 % Nts7tym1-Soj 58 % Dny7oqa5-%Pred-Pre 70 % Vxg5buh1-LGM 73 % Procedures Date Code Description Status 05/23/2021 22868 Office/Outpatient Established Mo d MDM 30-39 Min Completed 05/23/2021 05336 Spirometry Completed 04/12/2021 62019 Office/Outpatient Established Mo d MDM 30-39 Min Completed Medical Devices Description No Information Available Encounters Type Date Location Provider Dx Diagnosis Office Visit 05/23/2021 9:30a [facility] Pulmonary/Thoracic Lawrandres Hanks MD G47.33 Obstructive sleep apnea (adult) (pediatr ic) J43.1 Panlobular emphysema F17.218 Nicotine dependence, cigaret sarah beth, w oth disorders Z79.899 Other continuous churn buttermaker (current) dr ankit therapy Office Visit 04/12/2021 9:00a [facility] Gastroenterology Pra ctice Johny Fulton MD K52.838 Other microscopic colitis R19.4 Change in bowel habit R14.0 Abdominal distension (gaseou s) Assessments Date Code Description Provider 05/23/2021 G47.33 Obstructive sleep apnea (adult) (pediatric) Niko Hanks MD 05/23/2021 J43.1 Panlobular emphysema Niko pompa MD 05/23/2021 F17.218 Nicotine dependence, cigarettes, with other nicotine-induced disorders Niko Hanks MD 05/23/2021 Z79.899 Other continuous churn buttermaker (current) drug t herapy Niko Hanks MD 04/12/2021 K52.838 Other microscopic colitis Johny Fulton MD 04/12/2021 R19.4 Change in bowel habit Johny duque MD 04/12/2021 R14.0 Abdominal distension (gaseous) D sherri Fulton MD Plan of Treatment Future Appointment(s):* 09/25/2021 9:30 am - Niko Hanks MD at [facility] Pulmonary/Thoracic * 08/01/2021 9:30 am - Niko Hanks MD at [facility] Pulmonary/Thoracic * 07/21/2021 2:00 am - Johny Fulton MD at [facility] Gastroenterology Practice 05/23/2021 - Niko Hanks MD* G47.33 Obstructive sleep apnea (adult) (pediatric) * J43.1 Panlobular emphysema * F17.218 Nicotine dependence, cigarettes, with other nicotine-induced disorders * Z79.899 Other chcf (current) drug therapy * * New Orders:* [...] Date Niko Hanks M.D. NORTH G47.33 Scheduled [facility] [address] [place], [place] [address] [phone] Johny Fulton M.D. K59.00-CONSTIPATION, UNSPECIFIED Scheduled 04/12/2021 [facility], Gastroenterology [address], [address] [place] [address] [phone]
--- OUTSIDE RECORDS SUMMARY | 2021-07-21 08:54 | CCD | Continuity of Care Document ---
Author Author Kaylan HANKS MD Organization Unknown Address [address] [place] [address] Phone [phone] Care Team Providers Care Eyelet Operator Name Role Phone Feroz Gutierrez M.D. AUTM [phone] Emilia Alonso M.D. AUTM [phone] Problems Active Problems Provider Date Essential hypertension [...] Via Nebulizer Two Times A Day 120unnina preez MD 08/02/2020 Albuterol Sulfate HFA 108(90Base) mcg/Act [...] lb BMI (Body Mass Index) 31.0 kg/m2 [place] Body Weight 130 lb Weight 87.261 kg BSA (Body Surface Area) 1.97 m2 04/12/2021 9:03am BP Systolic 135 mmHg BP Diastolic 76 mmHg Height 66 inches 5'6" Weight 187.00 lb BMI (Body Mass Index) 30.2 kg/m2 [place] Body Weight 130 lb Weight 84.823 kg [...] L Fev6-%Pred-Pre 53 L Fev6-LLN 2.94 L Ege6uuc-Kjlo 80 % Ghd8bgp-Vli 57 % Ccl4wlf-%Pred-Pre 71 % Xqv5ncq-UKV 70 % Ulw1jyk-Wyvu 97 % Sjn5hyc-Hwx 99 % Mtx8ehy-%Pred-Pre 101 % FEFMax-Pred 7.01 L/E/sec FEFMax-Pre 2.76 L/E/sec FEFMax-%Pred-Pre 39 L/E/sec FEFMax-LLN 5.19 L/E/sec Qbc2000-Bqmd 2.84 L/E/sec Yjy7063-Jak 0.56 L/E/sec Uks7639-%Pred-Pre 19 L/E/sec Bke8866-GNH 1.52 L/E/sec ExpTime-Pre 8.66 sec Ngf4xbl4-Bgki 82 % Yzk6jzq8-Qyy 58 % Ckj2uee9-%Pred-Pre 70 % Nji2bmk9-FUB 73 % Procedures Date Code Description Status 04/12/2021 64430 Office/Outpatient Established Mo d MDM 30-39 Min Completed Medical Devices Description No Information Available Encounters Type Date Location Provider Dx Diagnosis Office Visit 04/12/2021 9:00a [facility] Gastroenterology Pra ctice Johny Fulton MD [...] disorders Niko Hanks MD 05/23/2021 Z79.899 Other retirement (current) drug t herapy Niko Hanks MD 04/12/2021 K52.838 Other microscopic colitis Johny Fulton MD 04/12/2021 R19.4 Change in bowel habit Johny duque MD 04/12/2021 R14.0 Abdominal distension (gaseous) D sherri Fulton MD Plan of Treatment Future Appointment(s):* 09/25/2021 9:30 am - Niko Hanks MD at [facility] Pulmonary/Thoracic * 08/01/2021 9:30 am - Niko Hanks MD at [facility] Pulmonary/Thoracic * 07/21/2021 2:00 am - Johny Fulton MD at [facility] Gastroenterology Practice 05/23/2021 - Niko Hanks MD* G47.33 Obstructive sleep apnea (adult) (pediatric) * J43.1 Panlobular emphysema * J44.9 Chronic obstructive pulmonary disease, unspecified * F17.218 Nicotine dependence, cigarettes, with other nicotine-induced disorders * Z79.899 Other terminal manager (current) drug therapy * * New Orders:* [...] Date Niko Hanks M.D. NORTH G47.33 Scheduled [facility] [address] [place], [place] [address] [phone] Johny Fulton M.D. K59.00-CONSTIPATION, UNSPECIFIED Scheduled 04/12/2021 [facility], Gastroenterology [address], [address] [place] [address] [phone]
--- OUTSIDE RECORDS SUMMARY | 2021-07-21 08:54 | CCD ---
Author Author [facility] Organization [facility] Address Unknown Phone Unavailable Care Team Providers Care Tieing Machine Operator Name Role Phone Michelle Juarez Unavailable PROBLEMS Type Condition ICD9-CM Code AQI90-SD Code Onset Dates Condition S tatus W/U Status Risk SNOMED Code Notes Problem High risk medication use Z79.899 Active confirmed 411099323446305 Problem Psoriasis L40.9 Active confirmed 4109116 Problem Fibromyalgia M79.7 Active confirmed 1974081 05 Problem Vitamin D deficiency E55.9 Active confirmed 56267017 Problem Obstructive sleep apnea G47.33 Active confirmed 03865714 Problem Psoriatic arthritis L40.50 Active confirmed 374648320 Problem Plaque psoriasis L40.0 Active confirmed 200 123429 Problem Leukopenia, unspecified type D72.819 Active confirm ed 76144969 Problem Osteoarthritis of hand, unsp ecified laterality, unspecified osteoarthritis type M19.049 Active confirmed 00070293 ALLERGIES Allergen (clinical drug ingredient) Drug/Non Drug Allergy do cumented on EMR Reaction Allergy Type Onset Date Status Codeine Phosphate (For Allergies Use Only) Hives Drug Allergy Active methotrexate Methotrexate(NDC Code:[address]-00) swelling Drug All ergy Active sulfasalazine Sulfasalazine(ND Code:[address]-90) Unknown Drug A llergy Active ENCOUNTERS from 1969 to 2021-06-06 Encounter Location Date Provider Diagnosis [facility] Dermatology [address] [place] [address] [place] [address] 18 May, 2021 Michelle Juarez Psoriasis L40.9 and Psoriati c arthritis L40.50 IMMUNIZATIONS Vaccine Route Administration Date [...] FOR REFERRAL No Information VITAL SIGNS Weight 196.6 lbs May, Weight-kg 89.18 kg May, Height 65.5 in May, BMI 32.21 kg/m2 May, Blood pressure systolic 120 mm Hg May, Blood pressure diastolic 84 mm Hg May, MEDICATIONS Medication SIG (Take, Route, Frequency, Duration) Notes Start Da te End Date Status Atorvastatin Calcium 10 MG 1 tablet Orally Once a day for 30 day (s) Apr, Active Levothyroxine Sodium 50 MCG 1 tablet on an empty stoma ch in the morning Orally Once a day for 30 day(s) Active Calcipotriene 0.005 % apply one application once a day to affected areas of body topically Externally Twice a day to affected area of trunk and extremities for 30 days Active Betamethasone Dipropionate Aug 0.05 % 1 application to affected area Externally Twice a day to affected areas on scalp for 30 days Not-Taking hydrOXYzine HCl 25 MG TAKE ONE TABLET BY MOUTH NEEDED NIGHTLY Active Arnuity Ellipta 200 MCG/ACT 1 puff Inhalation twice daily Active Fluocinonide 0.05 % 1 application Externally Twice a day for 14 days May, Active Spironolactone 25 MG 1 tablet Orally Once a day Not-Taking Omeprazole 40 mg 1 capsule Orally Once a day Nov, Active Folic Acid 1 MG 1 tablet Orally Once a day for 30 day(s) 0 1 May, 2020 Not-Taking Ketoconazole 2 % USE EVERY OTHER DAY TO LATHE R, THEN LET IT SIT THEN RINSE for 30 Active Mirtazapine 30 MG 1 tablet at bedtime Orally Active Acetaminophen 325 MG 2 tablets before infusion Orally 13 A 2019 Active Potassium Chloride ER 20 MEQ 1 capsule with food Orally Once a day for 7 day(s) Jan, Not-Taking Voltaren 1 % apply 4 g of 1% gel to affec romy area Transdermal four times daily as needed for 30 days Active Budesonide 0.5 MG/2ML as directed Inhalation Active Stiolto Respimat 2.5-2.5 MCG/ACT 2 puffs Inhalation twice daily Active Ventolin HFA 108 (90 Base) MCG/ACT 2 puffs Inhalation Once a day Active Metoprolol Succinate ER 50 MG 1 tablet Orally Once a day Active Benadryl 25 MG 1 tablet Orally 30 minutes prior to Infusion Nov, Active Triamcinolone Acetonide 0.1 % 1 application Externally Once a day to affected areas of trunk and extremities for 14 days Active Nicotrol 10 MG 1 cartridge as needed Inhalation 16 time(s) a day Active Topiramate 200 MG 1 tablet Orally Once a day Active rOPINIRole HCl 0.25 MG TAKE ONE TABLET BY MOUTH AT BEDTIME FOR 1 WEEK THEN TAKE TWO TABLETS BY MOUTH AT BEDTIME Oral for 30 Active Vitamin D (Ergocalciferol) 1.25 MG (72219 UT) 1 capsul e Orally Weekly for 30 day(s) December, Active Remicade 100 MG as directed Intravenous Active Albuterol Sulfate (2.5 MG/3ML) 0.083% as directed Inhalation twice da hipolito Active PROCEDURES No Information RESULTS No Results REASON FOR VISIT psoriasis f/u MEDICAL (GENERAL) HISTORY Type Description Date Medical History COPD Medical History Hypertension Medical History Hypothyroidism Medical History GERD Medical History Rheumatoid arthritis Medical History Psoriasis Medical History Cervical cancer Medical History Chronic kidney disease Surgical History Thyroidectomy 2007 Surgical History BTL 2001 Surgical History 1987 Surgical History Cholecystectomy 2017 Surgical History Complete Hysterectomy 2014, 2015 Surgical History Endoscopy Surgical History Lymph node biopsy/removal Hospitalization History Surgery related Goals Section No Information Health Concerns No Information MEDICAL EQUIPMENT No Information MENTAL STATUS No Information FUNCTIONAL STATUS No Information ASSESSMENTS Encounter Date Diagnosis Assessment Notes Treatment Notes Treatm ent Clinical Notes May, Psoriasis (ICD-10 - L40.9) May, Psoriatic arthritis (ICD-10 - L40.50) PLAN OF TREATMENT Medication Medication Name Sig Start Date Stop Date Triamcinolone Acetonide 0.1 % 1 application Externally Once a day to affected areas of trunk and extremities for 14 days Ketoconazole 2 % USE EVERY OTHER DAY TO LATHE R, THEN LET IT SIT THEN RINSE for 30 Fluocinonide 0.05 % 1 application Externally Twice a day for 14 days May, Calcipotriene 0.005 % apply one application once a day to affected areas of body topically Externally Twice a day to affected area of trunk and extremities for 30 days hydrOXYzine HCl 25 MG TAKE ONE TABLET BY MOUTH NEEDED NIGHTLY Next Appt Details 6 Months Reason:psoriasis f/u Provider Name:Emilia Alonso, 2021-07-03 10:15:00 AM, [address] [facility], , [place], [place], [facility], Provider Name:Michelle Juarez, 2021-12-04 09:15:00 AM, [address] [facility], , [place], [place], [facility], Follow Up:6 Monthspsoriasis f/u Insurance Providers Payer Name Payer Address Payer Phone Insured Name Patient Relati onship to Insured Coverage Start Date Coverage End Date [facility] COMMUN[facility] PLAN [facility] [address] [facility] [phone] JOSEPH COOL self
--- OUTSIDE RECORDS SUMMARY | 2021-07-21 08:54 | CCD | Continuity of Care Document ---
Author Organization Unknown Address Unknown Phone Unavailable Care Team Providers Care Wood Panel Inspector Name Role Phone Feroz Gutierrez MD AUTM [phone] Shayna Klein MD AUTM [phone] Marita De La Fuente MD AUTM [phone] Niko Watson MD AUTM [phone] Klever Nicole DO AUTM [phone] Breanna Lima AUTM [phone] Waldo Elizalde MD AUTM [phone] Roz Neumann MD AUTM [phone] Edenilson Campos MD AUTM [phone] Johny Fulton MD AUTM [phone] Problems Active Problems Provider Date Syncope and [...] twice daily Niko Watson MD 09/09/2019 Ipratropium [place]/Albuterol Sulfate 0.5-2.5(3)mg/3ML Solution 1 nebulizer treatment 4 [...] Result H/L Range Note CBC without Differential 01/03/2021 [facility] - not inter faced (315)- - White Blood Count 3.1 Low 5.0-10.0 Red Blood Count 5.38 4.00-5.40 Platelets 238 172-450 Hemoglobin 17.1 Hematocrit 52.1 CMP 01/03/2021 [facility] - not interfaced (315)- - Albumin Serum/Plasma 3.9 Alt - SGPT 30 Calcium Ser/Plasma Mass/Vol 8.6 Carbon Dioxide Ser/Plasm 32 Chloride Serum/Plasma 104 Alkaline Phosphatase 125 Potassium 4.0 Protein Total 7.6 Sodium 141 Ast - Sgot 22 BUN - Urea Nitrogen 12 Glucose 81 Low 83-110 Creatinine For GFR 0.59 Procedures Date Code Description Status 11/21/2020 60366 Office/Outpatient Established Mo d MDM 30-39 Min Completed 11/21/2020 46091 ECG 12-Lead Completed Medical Devices Description No [...] se 11/21/2020 Z71.3 Dietary counseling and surveilla jamiee KRISHNA Ochoa Plan of Treatment Future Appointment(s):* [...]
--- OUTSIDE RECORDS SUMMARY | 2021-07-21 08:54 | CCD | Continuity of Care Document ---
Author Author Kaylan SANCHEZ PA Organization Unknown Address [address] [place] [address] [place] [address] Phone [phone] Care Team Providers Care Die Welder Name Role Phone Feroz Gutierrez MD AUTM [phone] Shayna Klein MD AUTM [phone] Marita De La Fuente MD AUTM [phone] Niko Watson MD AUTM [phone] Klever Nicole DO AUTM [phone] Breanna Lima AUTM [phone] Waldo Elizalde MD AUTM [phone] Roz Neumann MD AUTM [phone] Edenilson Campos MD AUTM [phone] Johny Fulton MD AUTM [phone] Problems Active Problems Provider Date Syncope and [...] ppd since age 15 Smoking Status Reviewed: 05/23/21 Patient is a [...] SIG Qnty Indications Ordering Provide r Date Remicade 100mg Solution Rec infuse 400 mg [...] twice daily Niko Watson MD 09/09/2019 Ipratropium [place]/Albuterol Sulfate 0.5-2.5(3)mg/3ML Solution 1 nebulizer treatment 4 [...] Vital Signs Date Vital Result Comment 05/23/2021 11:19am Weight 186.00 lb Height 66 inches 5'6" BMI (Body Mass Index) 30.0 kg/m2 Heart Rate 91 /min BP Systolic Sitting 116 mmHg Ra, medium cuff BP Diastolic Sitting 72 mmHg Ra, medium cuff 11/21/2020 1:07pm Weight 176.00 lb Height 66 inches 5'6" BMI (Body Mass Index) 28.4 kg/m2 Heart Rate 74 /min BP Systolic Sitting 128 mmHg Ra, large cuff BP Diastolic Sitting 80 mmHg Ra, large cuff Results Test Acquired Date Facility Test Result H/L Range Note CBC without Differential 04/17/2021 [facility] - not inter faced (315)- - White Blood Count 5.8 5.0-10.0 Red Blood Count 4.65 4.00-5.40 Platelets 296 172-450 Hemoglobin 14.8 Hematocrit 45.0 CMP 04/17/2021 [facility] - not interfaced (315)- - Albumin Serum/Plasma 3.4 Alt - SGPT 20 Calcium Ser/Plasma Mass/Vol 9.0 Carbon Dioxide Ser/Plasm 33 Chloride Serum/Plasma 100 Alkaline Phosphatase 125 Potassium 4.2 Protein Total 7.5 Sodium 137 Ast - Sgot 11 BUN - Urea Nitrogen 10 Glucose 80 Low 83-110 Creatinine For GFR 0.53 Laboratory test finding 01/10/2021 [facility] - not interf aced (315)- - Magnesium Level 2.0 1.8-2.4 CBC without Differential 01/03/2021 [facility] - not inter faced (315)- - White Blood Count 3.1 Low 5.0-10.0 Red Blood Count 5.38 4.00-5.40 Platelets 238 172-450 Hemoglobin 17.1 Hematocrit 52.1 CMP 01/03/2021 [facility] - not interfaced (315)- - Albumin Serum/Plasma 3.9 Alt - SGPT 30 Calcium Ser/Plasma Mass/Vol 8.6 Carbon Dioxide Ser/Plasm 32 Chloride Serum/Plasma 104 Alkaline Phosphatase 125 Potassium 4.0 Protein Total 7.6 Sodium 141 Ast - Sgot 22 BUN - Urea Nitrogen 12 Glucose 81 Low 83-110 Creatinine For GFR 0.59 Procedures Date Code Description Status 05/23/2021 05690 Office/Outpatient Established Mo d MDM 30-39 Min Completed 05/23/2021 79369 ECG 12-Lead Completed Medical Devices Description No Information Available Encounters Type Date Location Provider Dx Diagnosis Office Visit 05/23/2021 11:15a Main Office KRISHNA Ochoa R06 .02 Shortness of breath R55 Syncope and collapse I10 Essential (primary) hyperten amadou R94.31 Abnormal electrocardiogram [ ECG] [EKG] Z71.3 Dietary counseling and surve illance Assessments Date Code Description Provider 05/23/2021 R06.02 Shortness of breath KRISHNA Ochoa 05/23/2021 R55 Syncope and collapse KRISHNA Chandler 05/23/2021 I10 Essential (primary) hypertension KRISHNA Ochoa 05/23/2021 R94.31 Abnormal electrocardiogram [ECG] [EKG] KRISHNA Ochoa 05/23/2021 Z71.3 Dietary counseling and surveilla nce KRISHNA Ochoa Plan of Treatment Future Appointment(s):* 11/22/2021 9:45 am - KRISHNA Ochoa at Main Office 05/23/2021 - KRISHNA Ochoa* R06.02 Shortness of breath* Recommendations:* Continue inhalers and nebulizer as directed Advised patient to please seek medical attention with any worsening shortness of breath * R55 Syncope and collapse* Recommendations:* No further evaluation is needed at this time Advised patient to seek medical attention with the onset of any additional episodes of syncope * I10 Essential (primary) hypertension* Recommendations:* Continue metoprolol at the current dosage Advised patient to please monitor blood pressures at home and to alert our office for readings >140/>90 or <110/<60 * R94.31 Abnormal electrocardiogram [ECG] [EKG]* Recommendations:* No further evaluation is needed at this time. * Z71.3 Dietary counseling and surveillance* Recommendations:* [...]
--- OUTSIDE RECORDS SUMMARY | 2021-07-21 08:54 | CCD ---
Author Author [facility] Organization [facility] Address Unknown Phone Unavailable Care Team Providers Care Law Clerk Name Role Phone Gavin, Emilia Unavailable PROBLEMS Type Condition ICD9-CM Code TPV19-AL Code Onset Dates Condition S tatus W/U Status Risk SNOMED Code Notes Problem High risk medication use Z79.899 Active confirmed 470446507591343 Problem Psoriasis L40.9 Active confirmed 7897578 Problem Fibromyalgia M79.7 Active confirmed 6443349 05 Problem Vitamin D deficiency E55.9 Active confirmed 11884827 Problem Obstructive sleep apnea G47.33 Active confirmed 99058358 Problem Psoriatic arthritis L40.50 Active confirmed 243680974 Problem Plaque psoriasis L40.0 Active confirmed 200 997457 Problem Leukopenia, unspecified type D72.819 Active confirm ed 80156598 Problem Osteoarthritis of hand, unsp ecified laterality, unspecified osteoarthritis type M19.049 Active confirmed 84183166 ALLERGIES Allergen (clinical drug ingredient) Drug/Non Drug Allergy do cumented on EMR Reaction Allergy Type Onset Date Status Codeine Phosphate (For Allergies Use Only) Hives Drug Allergy Active methotrexate Methotrexate(NDC Code:[address]-50) swelling Drug All ergy Active sulfasalazine Sulfasalazine(ND Code:[address]-60) Unknown Drug A llergy Active ENCOUNTERS from 1970 to 2021-04-28 Encounter Location Date Provider Diagnosis [facility] Rheumatology [address] [place] [address] [place] [address] Apr, Emilia Alonso IMMUNIZATIONS Vaccine Route Administration [...] 30 Active Vitamin D (Ergocalciferol) 1.25 MG (77450 UT) 1 capsul e Orally Weekly for [...] Information RESULTS No Results REASON FOR VISIT PA Diclofenac Sodium 1% gel MEDICAL (GENERAL) HISTORY Type Description Date Medical [...] Provider Name:Michelle Juarez, 2021-06-05 08:15:00 AM, [address] [facility], , [place], [address], Provider Name:Emilia Alonso, 2021-07-03 10:15:00 AM, [address] [facility], , [place], [address], Insurance Providers Payer Name Payer Address Payer Phone Insured Name Patient Relati onship to Insured Coverage Start Date Coverage End Date [facility] COMMUNITY PLAN [facility] [address] [facility] [phone] JOSEPH COOL self
--- OUTSIDE RECORDS SUMMARY | 2021-07-21 08:54 | CCD ---
Author Author [facility] Organization [facility] Address Unknown Phone Unavailable Care Team Providers Care Almond Grinder Name Role Phone Orly Alberto Unavailable PROBLEMS Type Condition ICD9-CM Code BRQ93-UW Code Onset Dates Condition S tatus W/U Status Risk SNOMED Code Notes Problem High risk medication use Z79.899 Active confirmed 227824315558250 Problem Psoriasis L40.9 Active confirmed 9289190 Problem Fibromyalgia M79.7 Active confirmed 7670311 05 Problem Vitamin D deficiency E55.9 Active confirmed 05022883 Problem Obstructive sleep apnea G47.33 Active confirmed 35611091 Problem Psoriatic arthritis L40.50 Active confirmed 823043152 Problem Plaque psoriasis L40.0 Active confirmed 200 976073 Problem Leukopenia, unspecified type D72.819 Active confirm ed 07073118 Problem Osteoarthritis of hand, unsp ecified laterality, unspecified osteoarthritis type M19.049 Active confirmed 97260515 ALLERGIES Allergen (clinical drug ingredient) Drug/Non Drug Allergy do cumented on EMR Reaction Allergy Type Onset Date Status Codeine Phosphate (For Allergies Use Only) Hives Drug Allergy Active methotrexate Methotrexate(NDC Code:[address]-01) swelling Drug All ergy Active sulfasalazine Sulfasalazine(NDC Code:[address]-97) Unknown Drug A llergy Active ENCOUNTERS from 1969 to 2021-05-16 Encounter Location Date Provider Diagnosis [facility] Rheumatology [address] [place] [address] [place] [id number] 28 Apr, 2021 Orly Alberto IMMUNIZATIONS Vaccine Route Administration Date Status Pneumococcal [...] 30 Active Vitamin D (Ergocalciferol) 1.25 MG (02785 UT) 1 capsul e Orally Weekly for [...] Information RESULTS No Results REASON FOR VISIT Mistake TE MEDICAL (GENERAL) HISTORY Type Description Date Medical History COPD Medical History Hypertension Medical History Hypothyroidism Medical History GERD Medical History Rheumatoid arthritis Medical History Psoriasis Medical History Cervical cancer Medical History Chronic kidney disease Surgical History Thyroidectomy 2006 Surgical History BTL 2001 Surgical History 1986 Surgical History Cholecystectomy 2017 Surgical History Complete Hysterectomy 2015 Surgical History Endoscopy Surgical History Lymph [...] Provider Name:Michelle Juarez, 2021-06-05 08:15:00 AM, [address] [facility], , [place], [address], Provider Name:Emilia Alonso, 2021-07-03 10:15:00 AM, [address] [facility], , [place], [address], Insurance Providers Payer Name Payer Address Payer Phone Insured Name Patient Relati onship to Insured Coverage Start Date Coverage End Date [facility] [employer] PLAN [facility] [address] [facility] [phone] JOSEPH COOL self
--- OUTSIDE RECORDS SUMMARY | 2021-07-21 08:54 | CCD ---
Author Organization Unknown Address [address] [place] [address] Phone [phone] Care Team Providers Care Instructor Bridge Name Role Phone [facility] 114 [phone] Allergies Code Code System Name Reaction Severity Status Onset 284594 RxNorm Chantix Active 11/27/2016 Medications Name Status Start Date Stop Date albuterol sulfate 2.5 mg/3 mL (0.083 %) solution for nebulization INHALE 1 VIAL VIA NEBULIZER FOUR TIMES A DAY NEEDED Active Not available albuterol sulfate HFA 90 mcg/actuation a erosol inhaler INHALE TWO PUFFS BY MOUTH FOUR TIMES A DAY NEEDED Active Not available Arnuity Ellipta 200 mcg/actuation powder for inhalation INHALE ONE PUFF BY MOUTH EVERY DAY Active Not available atorvastatin 10 mg tablet Active Not av ailable betamethasone, augmented 0.05 % topical cream APPLY TO BODY RASH TWO TIMES A DAY Active Not available betamethasone, augmented 0.05 % topical gel Active Not available betamethasone, augmented 0.05 % topical ointment APPLY TO AFFECTED AREA S WITH RASH TWO TIMES A DAY Active Not available budesonide 0.5 mg/2 mL suspension for nebulization Active Not available budesonide DR-ER 9 mg tablet,delayed and extended release Active Not available calcipotriene 0.005 % topical cream APPLY TOPICALLY TO AFFECTED AREA S TWO TIMES A DAY Active Not available ergocalciferol (vitamin D2) 1,250 mcg (5 0,000 unit) capsule TAKE ONE CAPSULE BY MOUTH ONCE WEEKLY Active N ot available folic acid 1 mg tablet TAKE ONE TABLET BY MOUTH EVERY DAY Completed 11/2020 hydroxyzine HCl 25 mg tablet TAKE ONE TABLET BY MOUTH EVERY NIGHT NEEDED Active Not available ketoconazole 2 % shampoo USE EVERY OTHER DAY TO LATHER THEN LET IT SIT THEN RINSE Active Not available leflunomide 10 mg tablet TAKE ONE TABLET BY MOUTH EVERY DAY Active Not available levothyroxine 50 mcg tablet TAKE ONE TABLET BY MOUTH ONCE A DAY ON AN EMPTY STOMACH Active Not available magnesium citrate oral solution USE FOR ADDITIONAL PREP AT 2 3 DAYS BEFORE PROCEDURE DIRECTED Active Not available methotrexate sodium 2.5 mg tablet TAKE FOUR TABLETS BY MOUTH ONCE WEEKLY DIRECTED Completed 12/20/2020 metoprolol succinate ER 50 mg tablet,ext ended release 24 hr TAKE ONE TABLET BY MOUTH EVERY DAY Active Not available mirtazapine 30 mg tablet Active Not ana rosa ilable Nicotrol 10 mg inhalation cartridge UAD Active Not available omeprazole 40 mg capsule,delayed release TAKE ONE CAPSULE BY MOUTH EVERY DAY 30 MINUTES BEFORE DINNER Active Not available polyethylene glycol 3350 17 gram/dose or al powder USE DIRECTED PER DR PALAFOX COLON PREPARATION INSTRUCTIONS Active Not available potassium chloride ER 20 mEq tablet,extended release Completed 12/20/2020 ropinirole 0.25 mg tablet Active Not av ailable spironolactone 25 mg tablet TAKE ONE TABLET BY MOUTH EVERY DAY Completed 11/2020 Stiolto Respimat 2.5 mcg-2.5 mcg/actuation solution for inhalati on Active Not available topiramate 200 mg tablet Active Not ana rosa ilable topiramate 50 mg tablet Completed 07/27/20 20 triamcinolone acetonide 0.1 % topical cr eam APPLY TO AFFECTED AREA S ONCE A DAY TO TRUNK AND EXTREMITIES FOR 14 DAYS Active Not available Problems Name Status Onset Date Source Malignant Tumor of Cervix Active 07/09/2016 Histor y Postoperative Hypothyroidism Active 07/09/2016 His tory Nicotine Dependence Active 07/09/2016 History Hypertensive Disorder Active 07/09/2016 History Right Bundle Branch Block Active 07/09/2016 Histor y Chronic Obstructive Lung Disease Active 07/09/2016 History Psoriasis Active 07/09/2016 History Screening for Disorder Active 07/09/2016 History Tobacco Use and Exposure - Finding Active 07/09/2016 History Finding of Esophagus Active 07/09/2016 History Procedure by Method Active 07/09/2016 History Breast Neoplasm Screening Status Active 07/09/2016 History Inflammatory Disorder of Digestive Tract Active 016 History Vitamin D Deficiency Active 07/23/2016 History Finding of Body Region Active 09/24/2016 History Bacterial Pneumonia Active 06/14/2017 History On Examination - Gallbladder Active 07/16/2017 His tory Chest Pain Active 10/02/2017 History Hypokalemia Active 11/18/2017 History Exposure to Viral Hepatitis Active 11/18/2018 Hist ory Endocrine/metabolic Screening Active 11/18/2018 Hi story Syphilis Test Finding Active 11/18/2018 History 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 tory Epithelial Ovarian Tumor, 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 History Hyperlipidemia Active 03/24/2019 History Acute Bronchitis Unknown 03/24/2019 History Prediabetes Active 03/24/2019 History Syncope and Collapse Active 09/03/2019 History Injury of Head Active 09/03/2019 History Pain in Thoracic Spine Active 10/02/2019 History Lumbosacral Radiculopathy Active 10/02/2019 Histor y Finding of Neck Region Active 10/02/2019 History Low Back Pain Active 11/26/2019 History Hypocalcemia Active 02/22/2020 History Hypothyroidism Active 07/27/2020 Procedures Date Name Performed by 05/22/2021 MAMMO, Screening, Digital, Bilateral Inf ormation not available Notes: Hysterectomy-may 2015, thyroidect jovanny-2005, needle bx and lymph node removal-11/02. , cholecystectomy october 2017 Results Lab Results Date Name Specimen Result Interpretation Description Value Range Status Address 01/03/2021 CMP, Serum or Plasma Normal Glucose, Fastin g 81 mg/dL 70-100 mg/dL [facility]: [address] 0 [facility] Normal Blood Urea Nitrogen 12 mg/dL 7-18 mg /dL [facility]: [address] [facility] Normal Creatinine for GFR 0.59 mg/dL 0.55-1 .30 mg/dL [facility]: [address] [facility] Normal Glomerular Filtration Rate > 60.0 >5 1 [facility]: [address] [facility] Normal Sodium Level 141 mEq/L 136-145 mEq/L [facility]: [address] [facility] Normal Potassium Serum 4.0 mEq/L 3.5-5.1 mE q/L [facility]: [address] [facility] Normal Chloride Level 104 mEq/L 98-107 mEq/ L [facility]: [address] [facility] Normal Carbon Dioxide Level 32 mEq/L 21-32 mEq/L [facility]: [address] [facility] Low Anion Gap 5 mEq/L 8-16 mEq/L [facility]: 0 [facility] Normal Calcium Level 8.6 mg/dL 8.5-10.1 mg/ dL [facility]: [address] [facility] Normal AST/SGOT 22 U/L 7-37 U/L [facility]: [address] [facility] Normal ALT/SGPT 30 U/L 12-78 U/L [facility]: 0 [facility] High Alkaline Phosphatase 125 U/L 45-117 U/L [facility]: 0 [facility] Normal Bilirubin,total 0.4 mg/dL 0.2-1.0 mg /dL [facility]: [address] [place] [address] Normal Total Protein 7.6 gm/dL 6.4-8.2 gm/d L [facility]: 0 [facility] Normal Albumin 3.9 gm/dL 3.2-5.2 gm/dL [facility]: 0 [facility] Low Albumin/globulin Ratio 1.1 1.2-2. 2 [facility]: [address] [place] [address] 01/03/2021 CBC W/ Auto Diff Low White Blood Count 3.1 10 4.0-10.0 10 [facility]: [address] [place] [address] Normal Red Blood Count 5.38 10 4.00-5.40 10 [facility]: [address] [place] [address] High Hemoglobin 17.1 g/dL 12.0-15.5 g/dL [facility]: [address] [place] [address] High Hematocrit 52.1 % 36.0-47.0 % [facility]: [address] [place] [address] High Mean Corpuscular Volume 96.8 fL 80.0 -96.0 fL [facility]: [address] [place] [address] Normal Mean Corpuscular Hemoglobin 31.8 pg 27.0-33.0 pg [facility]: [address] [place] [address] Normal Mean Corpuscular HGB Conc 32.8 g/dL 32.0-36.5 g/dL Final [facility]: [address] [facility] Normal Red Cell Distribution Width 13.2 % 1 1.5-14.5 % Final [facility]: [address] [place] [address] Normal Platelet Count, Automated 238 10 150 -450 10 [facility]: [address] [facility] Normal Neutrophils % 62.1 % 36.0-66.0 % [facility]: [address] [facility] Low Lymph % 16.6 % 24.0-44.0 % Final [facility]: [address] [facility] High [place] % 13.7 % 2.0-8.0 % Final [facility]: [address] [place] [address] High Eos % 5.7 % 0.0-3.0 % Final [facility]: [address] [place] [address] High Baso % 1.6 % 0.0-1.0 % Final [facility]: [address] [facility] Normal Immature Granulocyte % 0.3 % 0-3.0 % [facility]: 0 [facility] Normal Nucleated Red Blood Cell % 0.0 % 0- 0 % [facility]: [address] [facility] Normal Neutrophils # 2.0 10 1.5-8.5 10 [facility]: [address] [facility] Low Lymph # 0.5 10 1.5-5.0 10 [facility]: [address] [facility] Normal [place] # 0.4 10 0.0-0.8 10 [facility]: [address] [place] [address] Normal Eos # 0.2 10 0.0-0.5 10 Final [facility]: 0 [facility] Normal Baso # 0.1 10 0.0-0.2 10 [facility]: [address] [place] [address] 12/12/2020 HbA1C (Hemoglobin a1C), Blood Blood venous Normal Hemoglobin a1C 5.4 % [facility]: [address] [place] [address] Blood venous Normal Estimated Average Glucose 108 mg/dL 60-110 mg/dL [facility]: [address] [place] [address] 12/12/2020 CMP, Serum or Plasma Blood venous Normal Glu cose, Fasting 98 mg/dL 70-100 mg/dL [facility] nter: [address] [place] [address] Blood venous Normal Blood Urea Nitrogen 13 mg/dL 7-18 mg/dL [facility]: [address] [place] [address] Blood venous Normal Creatinine for GFR 0.63 mg/dL 0.55-1.30 mg/dL [facility]: [address] [place] [address] Blood venous Normal Glomerular Filtration Rate > 60.0 >51 [facility]: [address] [place] [address] Blood venous Normal Sodium Level 142 mEq/L 136-14 5 mEq/L [facility]: [address] [place] [address] Blood venous Normal Potassium Serum 3.9 mEq/L 3.5 -5.1 mEq/L [facility]: [address] [place] [address] Blood venous High Chloride Level 108 mEq/L 98-1 07 mEq/L [facility]: [address] [place] [address] Blood venous Normal Carbon Dioxide Level 29 mEq/L 21-32 mEq/L [facility]: [address] [place] [address] Blood venous Low Anion Gap 5 mEq/L 8-16 mEq/L [facility]: [address] [place] [address] Blood venous Normal Calcium Level 9.1 mg/dL 8.5-1 0.1 mg/dL [facility]: 0 [facility] Blood venous Normal AST/SGOT 19 U/L 7-37 U/L [facility]: [address] [place] [address] Blood venous Normal ALT/SGPT 22 U/L 12-78 U/L [facility]: [address] [place] [address] Blood venous High Alkaline Phosphatase 121 U/L 45-117 U/L [facility]: [address] [place] [address] Blood venous Normal Bilirubin,total 0.5 mg/dL 0.2 -1.0 mg/dL [facility]: [address] [place] [address] Blood venous Normal Total Protein 7.3 gm/dL 6.4-8 .2 gm/dL [facility]: [address] [place] [address] Blood venous Normal Albumin 3.8 gm/dL 3.2-5.2 gm/ dL [facility]: [address] [place] [address] Blood venous Low Albumin/globulin Ratio 1.1 1.2-2.2 [facility]: [address] [place] [address] 12/12/2020 TSH, Serum or Plasma Blood venous Normal Thyroid Stimulating Hormone 1.610 uIU/mL 0.358-3.740 uIU/mL [facility]: [address] [place] [address] 12/12/2020 Vitamin D, 25-Hydroxy, Total, Serum Blood venous Low Total 25(Oh) Vitamin D 19.0 NG/mL 30.0-100.0 NG/mL [facility]: [address] [place] [address] 10/26/2020 CBC W/ Auto Diff Normal White Blood Count 4.8 10 4.0-10.0 10 [facility]: [address] [place] [address] Normal Red Blood Count 4.77 10 4.00-5.40 10 [facility]: [address] [place] [address] Normal Hemoglobin 15.4 g/dL 12.0-15.5 g/dL [facility]: [address] [place] [address] Normal Hematocrit 46.1 % 36.0-47.0 % [facility]: [address] [place] [address] High Mean Corpuscular Volume 96.6 fL 80.0 -96.0 fL [facility]: [address] [place] [address] Normal Mean Corpuscular Hemoglobin 32.3 pg 27.0-33.0 pg [facility]: [address] [place] [address] Normal Mean Corpuscular HGB Conc 33.4 g/dL 32.0-36.5 g/dL [facility]: [address] [facility] Normal Red Cell Distribution Width 13.4 % 1 1.5-14.5 % [facility]: 0 [facility] Normal Platelet Count, Automated 253 10 150 -450 10 [facility]: [address] [facility] High Neutrophils % 68.8 % 36.0-66.0 % [facility]: [address] [facility] Low Lymph % 15.2 % 24.0-44.0 % Final [facility]: [address] [facility] High [place] % 11.5 % 2.0-8.0 % Final [facility]: [address] [place] [address] High Eos % 3.3 % 0.0-3.0 % [facility]: [address] [place] [address] Normal Baso % 0.8 % 0.0-1.0 % Final [facility]: [address] [place] [address] Normal Immature Granulocyte % 0.4 % 0-3.0 % [facility]: [address] [place] [address] Normal Nucleated Red Blood Cell % 0.0 % 0- 0 % [facility]: [address] [place] [address] Normal Neutrophils # 3.3 10 1.5-8.5 10 [facility]: 0 [facility] Low Lymph # 0.7 10 1.5-5.0 10 [facility]: 0 [facility] Normal [place] # 0.6 10 0.0-0.8 10 [facility]: 0 [facility] Normal Eos # 0.2 10 0.0-0.5 10 [facility]: [address] [place] [address] Normal Baso # 0.0 10 0.0-0.2 10 [facility]: [address] [place] [address] 10/26/2020 ESR (Erythrocyte Sedimentation Rate), Blood Nor mal Erythrocyte Sedimentation Rate 5 mm/HR 0-30 mm/HR Final [facility]: [address] [place] [address] 10/26/2020 CMP, Serum or Plasma Normal Glucose, Fastin g 89 mg/dL 70-100 mg/dL [facility]: 83 0 [facility] Normal Blood Urea Nitrogen 10 mg/dL 7-18 mg /dL [facility]: [address] [facility] Normal Creatinine for GFR 0.60 mg/dL 0.55-1 .30 mg/dL [facility]: [address] [facility] Normal Glomerular Filtration Rate > 60.0 >5 1 [facility]: [address] [facility] Normal Sodium Level 140 mEq/L 136-145 mEq/L [facility]: [address] [facility] Normal Potassium Serum 5.1 mEq/L 3.5-5.1 mE q/L [facility]: [address] [facility] Normal Chloride Level 107 mEq/L 98-107 mEq/ L [facility]: [address] [facility] Normal Carbon Dioxide Level 31 mEq/L 21-32 mEq/L [facility]: [address] [facility] Low Anion Gap 2 mEq/L 8-16 mEq/L [facility]: [address] [facility] Normal Calcium Level 8.5 mg/dL 8.5-10.1 mg/ dL [facility]: [address] [facility] Normal AST/SGOT 36 U/L 7-37 U/L [facility]: [address] [facility] Normal ALT/SGPT 23 U/L 12-78 U/L [facility]: [address] [facility] High Alkaline Phosphatase 119 U/L 45-117 U/L [facility]: [address] [facility] Normal Bilirubin,total 0.3 mg/dL 0.2-1.0 mg /dL [facility]: [address] [facility] Normal Total Protein 6.8 gm/dL 6.4-8.2 gm/d L [facility]: [address] [facility] Normal Albumin 3.6 gm/dL 3.2-5.2 gm/dL Rea l [facility]: [address] [place] [address] Low Albumin/globulin Ratio 1.1 1.2-2. 2 [facility]: [address] [place] [address] 10/26/2020 C Reactive Protein, QN, Serum or Plasma Normal C Reactive Protein Quantitativ 0.30 mg/dL 0.00-0.30 mg/dL [facility]: [address] [place] [address] 10/07/2020 CBC W/ Auto Diff Low White Blood Count 2.5 10 4.0-10.0 10 [facility]: [address] [place] [address] Normal Red Blood Count 4.91 10 4.00-5.40 10 [facility]: [address] [place] [address] High Hemoglobin 15.8 g/dL 12.0-15.5 g/dL [facility]: [address] [place] [address] High Hematocrit 47.2 % 36.0-47.0 % [facility]: [address] [place] [address] High Mean Corpuscular Volume 96.1 fL 80.0 -96.0 fL [facility]: [address] [place] [address] Normal Mean Corpuscular Hemoglobin 32.2 pg 27.0-33.0 pg [facility]: [address] [place] [address] Normal Mean Corpuscular HGB Conc 33.5 g/dL 32.0-36.5 g/dL [facility]: 0 [facility] Normal Red Cell Distribution Width 13.6 % 1 1.5-14.5 % [facility]: 0 [facility] Normal Platelet Count, Automated 219 10 150 -450 10 [facility]: 0 [facility] High Neutrophils % 67.7 % 36.0-66.0 % [facility]: 0 [facility] Low Lymph % 17.8 % 24.0-44.0 % [facility]: 0 [facility] High [place] % 9.7 % 2.0-8.0 % [facility]: [address] [facility] High Eos % 4.0 % 0.0-3.0 % [facility]: [address] [facility] Normal Baso % 0.4 % 0.0-1.0 % [facility]: [address] [facility] Normal Immature Granulocyte % 0.4 % 0-3.0 % [facility]: [address] [facility] Normal Nucleated Red Blood Cell % 0.0 % 0- 0 % [facility]: [address] [facility] Normal Neutrophils # 1.7 10 1.5-8.5 10 [facility]: [address] [facility] Low Lymph # 0.4 10 1.5-5.0 10 [facility]: [address] [facility] Normal [place] # 0.2 10 0.0-0.8 10 [facility]: [address] [facility] Normal Eos # 0.1 10 0.0-0.5 10 [facility]: [address] [facility] Normal Baso # 0.0 10 0.0-0.2 10 [facility]: [address] [facility] 10/07/2020 ESR (Erythrocyte Sedimentation Rate), Blood Nor mal Erythrocyte Sedimentation Rate 5 mm/HR 0-30 mm/HR [facility]: [address] [facility] 10/07/2020 CMP, Serum or Plasma Normal Glucose, Fastin g 94 mg/dL 70-100 mg/dL [facility]: 83 0 [facility] Normal Blood Urea Nitrogen 13 mg/dL 7-18 mg /dL [facility]: 0 [facility] Normal Creatinine for GFR 0.61 mg/dL 0.55-1 .30 mg/dL [facility]: 0 [facility] Normal Glomerular Filtration Rate > 60.0 >5 1 [facility]: [address] [facility] Normal Sodium Level 139 mEq/L 136-145 mEq/L [facility]: [address] [facility] Normal Potassium Serum 4.0 mEq/L 3.5-5.1 mE q/L [facility]: [address] [facility] Normal Chloride Level 104 mEq/L 98-107 mEq/ L [facility]: 0 [facility] Normal Carbon Dioxide Level 30 mEq/L 21-32 mEq/L [facility]: 0 [facility] Low Anion Gap 5 mEq/L 8-16 mEq/L [facility]: [address] [facility] Normal Calcium Level 8.9 mg/dL 8.5-10.1 mg/ dL [facility]: 0 [facility] Normal AST/SGOT 17 U/L 7-37 U/L [facility]: [address] [facility] Normal ALT/SGPT 27 U/L 12-78 U/L [facility]: 0 [facility] Normal Alkaline Phosphatase 112 U/L 45-117 U/L [facility]: 0 [facility] Normal Bilirubin,total 0.3 mg/dL 0.2-1.0 mg /dL [facility]: 0 [facility] Normal Total Protein 7.0 gm/dL 6.4-8.2 gm/d L [facility]: 0 [facility] Normal Albumin 3.6 gm/dL 3.2-5.2 gm/dL [facility]: [address] [place] [address] Low Albumin/globulin Ratio 1.1 1.2-2. 2 [facility]: [address] [place] [address] 10/07/2020 C Reactive Protein, QN, Serum or Plasma High C Reactive Protein Quantitativ 0.72 mg/dL 0.00-0.30 mg/dL [facility]: [address] [place] [address] 08/22/2020 CBC W/ Auto Diff Normal White Blood Count 5.6 10 4.0-10.0 10 [facility]: 0 [facility] Normal Red Blood Count 4.68 10 4.00-5.40 10 [facility]: [address] [facility] Normal Hemoglobin 14.9 g/dL 12.0-15.5 g/dL [facility]: [address] [facility] Normal Hematocrit 45.7 % 36.0-47.0 % [facility]: [address] [facility] High Mean Corpuscular Volume 97.6 fL 80.0 -96.0 fL [facility]: [address] [facility] Normal Mean Corpuscular Hemoglobin 31.8 pg 27.0-33.0 pg [facility]: [address] [facility] Normal Mean Corpuscular HGB Conc 32.6 g/dL 32.0-36.5 g/dL [facility]: 0 [facility] Normal Red Cell Distribution Width 14.5 % 1 1.5-14.5 % [facility]: [address] [facility] Normal Platelet Count, Automated 230 10 150 -450 10 [facility]: [address] [facility] High Neutrophils % 72.5 % 36.0-66.0 % [facility]: [address] [facility] Low Lymph % 13.3 % 24.0-44.0 % [facility]: [address] [facility] High [place] % 9.5 % 0.0-5.0 % [facility]: [address] [facility] High Eos % 3.4 % 0.0-3.0 % [facility]: [address] [facility] Normal Baso % 0.9 % 0.0-1.0 % [facility]: 0 [facility] Normal Immature Granulocyte % 0.4 % 0-3.0 % [facility]: [address] [facility] Normal Nucleated Red Blood Cell % 0.0 % 0- 0 % [facility]: 0 [facility] Normal Neutrophils # 4.1 10 1.5-8.[address] [facility]: [address] [facility] Low Lymph # 0.7 10 1.5-5.0 10 [facility]: [address] [facility] Normal [place] # 0.5 10 0.0-0.8 10 [facility]: [address] [facility] Normal Eos # 0.2 10 0.0-0.5 10 [facility]: [address] [facility] Normal Baso # 0.1 10 0.0-0.2 10 [facility]: [address] [facility] 08/22/2020 CMP, Serum or Plasma Normal Glucose, Fastin g 91 mg/dL 70-100 mg/dL [facility]: 83 0 [facility] Normal Blood Urea Nitrogen 13 mg/dL 7-18 mg /dL [facility]: 0 [facility] Normal Creatinine for GFR 0.63 mg/dL 0.55-1 .30 mg/dL [facility]: [address] [facility] Normal Glomerular Filtration Rate > 60.0 >5 1 [facility]: [address] [facility] Normal Sodium Level 140 mEq/L 136-145 mEq/L [facility]: 0 [facility] Normal Potassium Serum 4.1 mEq/L 3.5-5.1 mE q/L [facility]: [address] [facility] Normal Chloride Level 107 mEq/L 98-107 mEq/ L [facility]: [address] [facility] Normal Carbon Dioxide Level 28 mEq/L 21-32 mEq/L [facility]: [address] [facility] Low Anion Gap 5 mEq/L 8-16 mEq/L [facility]: 0 [facility] Low Calcium Level 8.4 mg/dL 8.5-10.1 mg/ dL [facility]: [address] [facility] Normal AST/SGOT 17 U/L 7-37 U/L [facility]: [address] [facility] Normal ALT/SGPT 21 U/L 12-78 U/L [facility]: [address] [place] [address] High Alkaline Phosphatase 132 U/L 45-117 U/L [facility]: [address] [place] [address] Normal Bilirubin,total 0.2 mg/dL 0.2-1.0 mg /dL [facility]: [address] [place] [address] Normal Total Protein 6.9 gm/dL 6.4-8.2 gm/d L [facility]: [address] [place] [address] Normal Albumin 3.7 gm/dL 3.2-5.2 gm/dL Rea l [facility]: [address] [place] [address] Normal Albumin/globulin Ratio 1.2 1.2-2. 2 [facility]: [address] [place] [address] 08/22/2020 Ca 125, Serum Normal Ca 125 7.8 U/mL <30.2 U/m L [facility]: [address] [place] [address] 06/22/2020 CBC W/ Auto Diff Normal White Blood Count 5.4 10 4.0-10.0 10 [facility]: [address] [place] [address] Normal Red Blood Count 4.67 10 4.00-5.40 10 [facility]: [address] [place] [address] Normal Hemoglobin 14.5 g/dL 12.0-15.5 g/dL [facility]: [address] [place] [address] Normal Hematocrit 44.6 % 36.0-47.0 % [facility]: [address] [place] [address] Normal Mean Corpuscular Volume 95.5 fL 80.0 -96.0 fL [facility]: [address] [place] [address] Normal Mean Corpuscular Hemoglobin 31.0 pg 27.0-33.0 pg [facility]: [address] [place] [address] Normal Mean Corpuscular HGB Conc 32.5 g/dL 32.0-36.5 g/dL [facility]: [address] [place] [address] Normal Red Cell Distribution Width 13.4 % 1 1.5-14.5 % [facility]: [address] [facility] Normal Platelet Count, Automated 308 10 150 -450 10 [facility]: [address] [facility] High Neutrophils % 74.6 % 36.0-66.0 % [facility]: [address] [facility] Low Lymph % 12.5 % 24.0-44.0 % Final [facility]: [address] [facility] High [place] % 8.5 % 0.0-5.0 % Final [facility]: [address] [facility] High Eos % 3.1 % 0.0-3.0 % [facility]: [address] [facility] Normal Baso % 0.6 % 0.0-1.0 % [facility]: [address] [facility] Normal Immature Granulocyte % 0.7 % 0-3.0 % [facility]: [address] [facility] Normal Nucleated Red Blood Cell % 0.0 % 0- 0 % [facility]: [address] [facility] Normal Neutrophils # 4.1 10 1.5-8.5 10 [facility]: [address] [facility] Low Lymph # 0.7 10 1.5-5.0 10 [facility]: [address] [facility] Normal [place] # 0.5 10 0.0-0.8 10 [facility]: [address] [facility] Normal Eos # 0.2 10 0.0-0.5 10 [facility]: [address] [facility] Normal Baso # 0.0 10 0.0-0.2 10 [facility]: 0 [facility] 06/22/2020 CMP, Serum or Plasma High Glucose, Fastin g 102 mg/dL 70-100 mg/dL [facility]: 83 [address] [facility] Normal Blood Urea Nitrogen 11 mg/dL 7-18 mg /dL [facility]: [address] [place] [address] Normal Creatinine for GFR 0.58 mg/dL 0.55-1 .30 mg/dL [facility]: [address] [place] [address] Normal Glomerular Filtration Rate > 60.0 >5 1 [facility]: [address] [place] [address] Normal Sodium Level 138 mEq/L 136-145 mEq/L [facility]: [address] [place] [address] Normal Potassium Serum 3.9 mEq/L 3.5-5.1 mE q/L [facility]: [address] [place] [address] Normal Chloride Level 104 mEq/L 98-107 mEq/ L [facility]: [address] [place] [address] Normal Carbon Dioxide Level 28 mEq/L 21-32 mEq/L [facility]: [address] [place] [address] Low Anion Gap 6 mEq/L 8-16 mEq/L [facility]: [address] [place] [address] Normal Calcium Level 9.1 mg/dL 8.5-10.1 mg/ dL [facility]: [address] [place] [address] Normal AST/SGOT 15 U/L 7-37 U/L [facility]: [address] [place] [address] Normal ALT/SGPT 19 U/L 12-78 U/L [facility]: [address] [place] [address] Normal Alkaline Phosphatase 107 U/L 45-117 U/L [facility]: [address] [place] [address] Normal Bilirubin,total 0.3 mg/dL 0.2-1.0 mg /dL [facility]: [address] [facility] Normal Total Protein 7.0 gm/dL 6.4-8.2 gm/d L [facility]: [address] [place] [address] Normal Albumin 3.4 gm/dL 3.2-5.2 gm/dL [facility]: [address] [place] [address] Low Albumin/globulin Ratio 0.9 1.2-2. 2 [facility]: [address] [place] [address] 06/22/2020 Ca 125, Serum Normal Ca 125 13.4 U/mL <30.2 U/ mL Final [facility]: [address] [facility] Past Encounters 05/22/2021 Breast Neoplasm Screening Status; Bilateral Hip Joint Pain; Pain of Right Shoulder Joint; Nicotine Dependence Feroz Gutierrez MD: [address] [place] [phone], Ph. 12/20/2020 Psoriatic Arthritis Mutilans; Chronic Obstructive Lung Disease Feroz Gutierrez MD: [address] [place] [phone], Ph. 12/12/2020 Feroz Gutierrez MD: [address] [place] [phone], Ph. 07/27/2020 Psoriatic Arthritis Mutilans; Chronic Obstructive Lung Disease; Hypokalemia; Hypothyroidism Feroz Gutierrez MD: [address] [place] [phone], Ph. Social History Tobacco Smoking Status Former Smoker Vaccine List None recorded. Plan of Care Reminders Provider Appointments None recorded. Lab None recorded. Referral None recorded. Procedures None recorded. Surgeries None recorded. Imaging None recorded. Vitals 05/22/2021 10:40AM ESTABLISHED [id number] Height Weight BMI Blood Pressure 66 in 192 lbs 6 oz 31 kg/m2 119/84 mm[Hg] 12/20/2020 01:20PM ESTABLISHED [id number] Height Weight BMI Blood Pressure 66 in 174 lbs 2 oz 28.1 kg/m2 114/80 mm[Hg] 12/12/2020 08:30AM NURSE LAB COLLECTION Height 66 in 07/27/2020 11:40AM TELEHEALTH 20 Height 66 in 03/24/2020 Height Weight BMI Blood Pressure 66 in 173 lbs 2.08 oz 28.04 kg/m2 114/77 mm[H g] 02/22/2020 Height Weight BMI Blood Pressure 66 in 172 lbs 27.86 kg/m2 151/105 mm[Hg] 12/11/2019 Height 66 in 11/26/2019 Height Weight BMI Blood Pressure 66 in 181 lbs 29.32 kg/m2 138/87 mm[Hg] 10/21/2019 Height Weight BMI Blood Pressure 66 in 176 lbs 28.51 kg/m2 142/97 mm[Hg] 10/02/2019 Height Weight BMI Blood Pressure 66 in 174 lbs 28.19 kg/m2 138/70 mm[Hg] 09/03/2019 Height Weight BMI Blood Pressure 66 in 178 lbs 12.8 oz 28.96 kg/m2 127/86 mm[H g] 06/29/2019 Height Weight BMI Blood Pressure 66 in 175 lbs 28.35 kg/m2 103/70 mm[Hg] 03/24/2019 Height Weight BMI Blood Pressure 66 in 165 lbs 7.04 oz 26.80 kg/m2 134/81 mm[H g] 12/22/2018 Height Weight BMI Blood Pressure 66 in 182 lbs 4 oz 29.52 kg/m2 141/87 mm[Hg] 11/18/2018 Height Weight BMI Blood Pressure 66 in 187 lbs 30.29 kg/m2 167/98 mm[Hg]
--- OUTSIDE RECORDS SUMMARY | 2021-07-21 08:54 | CCD | Continuity of Care Document ---
Author Author Kaylan SANCHEZ PA Organization Unknown Address [address] [place] [address] [place] [address] Phone [phone] Care Team Providers Care Quality Control Tester Name Role Phone Feroz Gutierrez MD AUTM [phone] Shayna Klein MD AUTM [phone] Marita De La Fuente MD AUTM [phone] Niko Watson MD AUTM [phone] Klever Nicole DO AUTM [phone] Breanna Lima AUTM [phone] Waldo Elizalde MD AUTM [phone] Roz Neumann MD AUTM [phone] Edenilson Campos MD AUTM [phone] Johny Fulton MD AUTM [phone] Problems Active Problems Provider Date Syncope and [...] twice daily Niko Watson MD 09/09/2019 Ipratropium Evangeline/Albuterol Sulfate 0.5-2.5(3)mg/3ML Solution 1 nebulizer treatment 4 times a day (wit h each meal and bedtime). Niko Watson MD 09/09/[address] 1 by mouth every day Johny Aleamn MD 09/09/2019 Betamethasone Dipropionate 0.05% C ream [...] Index) 30.0 kg/m2 Heart Rate 91 /min 11/21/2020 1:07pm Weight 176.00 lb Height 66 inches 5'6" BMI (Body Mass Index) 28.4 kg/m2 Heart Rate 74 /min BP Systolic Sitting 128 mmHg Ra, large cuff BP Diastolic Sitting 80 mmHg Ra, large cuff Results Test Acquired Date Facility Test Result H/L Range Note CBC without Differential 04/17/2021 [facility] - not inter faced (315)- - White Blood Count 5.8 5.0-10.0 Red Blood Count 4.65 4.00-5.40 Platelets 296 172-450 Hemoglobin 14.8 Hematocrit 45.0 CMP 04/17/2021 [facility] - not interfaced (315)- - Albumin Serum/Plasma 3.4 Alt - SGPT 20 Calcium Ser/Plasma Mass/Vol 9.0 Carbon Dioxide Ser/Plasm 33 Chloride Serum/Plasma 100 Alkaline Phosphatase 125 Potassium 4.2 Protein Total 7.5 Sodium 137 Ast - Sgot 11 BUN - Urea Nitrogen 10 Glucose 80 Low 83-110 Creatinine For GFR 0.53 Laboratory test finding 01/10/2021 [facility] - not interf aced (315)- - Magnesium Level 2.0 1.8-2.4 CBC without Differential 01/03/2021 [facility] - not inter faced (315)- - White Blood Count 3.1 Low 5.0-10.0 Red Blood Count 5.38 4.00-5.40 Platelets 238 172-450 Hemoglobin 17.1 Hematocrit 52.1 CMP 01/03/2021 [facility] - not interfaced (315)- - Albumin Serum/Plasma 3.9 Alt - SGPT 30 Calcium Ser/Plasma Mass/Vol 8.6 Carbon Dioxide Ser/Plasm 32 Chloride Serum/Plasma 104 Alkaline Phosphatase 125 Potassium 4.0 Protein Total 7.6 Sodium 141 Ast - Sgot 22 BUN - Urea Nitrogen 12 Glucose 81 Low 83-110 Creatinine For GFR 0.59 Procedures Date Code Description Status 05/23/2021 74344 Office/Outpatient Established Mo d MDM 30-39 Min Completed 05/23/2021 89488 ECG 12-Lead Completed Medical Devices Description No [...] 05/23/2021 - KRISHNA Ochoa* R06.02 Shortness of breath * R55 Syncope and collapse* [...]
--- OUTSIDE RECORDS SUMMARY | 2021-07-21 08:54 | CCD | Continuity of Care Document ---
Author Author Kaylan HANKS MD Organization Unknown Address [address] [place] [address] Phone [phone] Care Team Providers Care Bdr Name Role Phone Feroz Gutierrez M.D. AUTM [phone] Emilia Alonso M.D. AUTM [phone] Problems Active Problems Provider Date Essential hypertension [...] lb BMI (Body Mass Index) 31.0 kg/m2 [place] Body Weight 130 lb Weight 87.261 kg BSA (Body Surface Area) 1.97 m2 04/12/2021 9:03am BP Systolic 135 mmHg BP Diastolic 76 mmHg Height 66 inches 5'6" Weight 187.00 lb BMI (Body Mass Index) 30.2 kg/m2 [place] Body Weight 130 lb Weight 84.823 kg [...] L Fev6-%Pred-Pre 53 L Fev6-LLN 2.94 L Aiy8pta-Culc 80 % Dcl2xuj-Mkf 57 % Rpo8vsr-%Pred-Pre 71 % Hck7nfm-DKT 70 % Vqm7ykz-Ghql 97 % Abt9dku-Lgd 99 % Yhs1wnv-%Pred-Pre 101 % FEFMax-Pred 7.01 L/E/sec FEFMax-Pre 2.76 L/E/sec FEFMax-%Pred-Pre 39 L/E/sec FEFMax-LLN 5.19 L/E/sec Vcy0829-Hmsv 2.84 L/E/sec Jgj5274-Ytp 0.56 L/E/sec Ldt6705-%Pred-Pre 19 L/E/sec Niz5245-JJU 1.52 L/E/sec ExpTime-Pre 8.66 sec Qiu4xge3-Iido 82 % Azq2rld8-Iri 58 % Fkm5mft3-%Pred-Pre 70 % Nhv4uiy5-VMI 73 % Procedures Date Code Description Status 05/23/2021 16612 Office/Outpatient Established Mo d MDM 30-39 Min Completed 05/23/2021 61264 Spirometry Completed 04/12/2021 99150 Office/Outpatient Established Mo d MDM 30-39 Min Completed Medical Devices Description No Information Available Encounters Type Date Location Provider Dx Diagnosis Office Visit 05/23/2021 9:30a [facility] Pulmonary/Thoracic Lawradnres Hanks MD G47.33 Obstructive sleep apnea (adult) (pediatr ic) J43.1 Panlobular emphysema F17.218 Nicotine dependence, cigaret sarah beth, w oth disorders 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 Office Visit 04/12/2021 9:00a [facility] Gastroenterology Pra ctice Johny Fulton MD K52.838 Other microscopic colitis R19.4 Change in bowel habit R14.0 Abdominal distension (gaseou s) Assessments Date Code Description Provider 05/23/2021 G47.33 Obstructive sleep apnea (adult) (pediatric) Niko Hanks MD 05/23/2021 J43.1 Panlobular emphysema Niko pompa MD 05/23/2021 F17.218 Nicotine dependence, cigarettes, with other nicotine-induced disorders Niko Hanks MD 05/23/2021 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.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 NORTH G47.33 Scheduled [facility] [address] [place], [place] [address] [phone] Johny Fulton M.D. K59.00-CONSTIPATION, UNSPECIFIED Scheduled 04/12/2021 [facility], Gastroenterology [address], [address] [place] [address] [phone]
--- OUTSIDE RECORDS SUMMARY | 2021-07-21 08:55 | CCD | Continuity of Care Document ---
Author Author Kaylan FULTON MD Organization Unknown Address [address] [place] [phone] Phone [phone] Care Team Providers Care It Engineer Name Role Phone Feroz Gutierrez M.D. AUTM [phone] Emilia Alonso M.D. AUTM [phone] Problems Active Problems Provider Date Essential hypertension TI Leon Onset: Eliza Nicole DO Onset: 09/12/2017 Social History Type Date Description Comments Sex Unknown ETOH Use Denies alcohol use Recreational Drug Use Denies Drug Use Tobacco Use Start: Unknown Patient is a current smoker, smo kes every day 1/2 ppd; down to 5 cigarettes daily Smoking Status Reviewed: 11/07/20 Patient is a current smoker, smokes every day 1/2 ppd; down to 5 cigarettes daily Exercise Type/Frequency Does not exercise Allergies, Adverse Reactions, Alerts Active Allergies Criticality Reaction | Severity Comments Date Methotrexate Unable to assess criticality 04/28/2018 Inactive Allergies NKDA Unable to assess criticality 09/10/2016 Medications Active Medications SIG Qnty Indications Ordering Provide r Date Miralax 17GM/Scoop Powder use as directed see dr fulton colon preparation instructions 510gm K52.838 Donta candice Fulton MD 04/12/2021 Magnesium Citrate 1.745GM/30ML Yulia ution one 10 oz bottle green or clear only, use for additional prep at 2-3 days before procedure 296ml K52.838 Johny Fulton MD 04/12/2021 Albuterol Sulfate (2 .5mg/3ML) 0.083% Nebulizer Inhale 1 Vial Via Nebulizer Four Times A Day as Needed 375units Niko Watson MD 01/02/2021 Budesonide 0.5mg/2ML Suspension Inhale 1 Vial Via Nebulizer Two Times A Day 120units Grisel44.9 Niko perez MD 08/02/2020 Albuterol Sulfate HFA 108(90Base) mcg/Act Aerosol Inhale Two Puffs By Mouth Four Times A Day as Needed 18units J44.9 Niko Watson MD 06/13/2020 Imodium A-D 2mg Tablets 2 tabs twice a day for diarrhea. You may ncrease to three times a day if necessary 180tabs Johny Fulton MD 03/02/2019 Stiolto Respimat 2.5-2.5mcg/Act Ae rosol Inhale 2 Puffs By Mouth Daily 4units Duc Alexander 04/28/2018 Arnuity Ellipta 200mcg/Act Aerosol Inhale One puff By Mouth Every Day 30units Niko Watson MD 09/19/2017 Benadryl Allergy 25mg Tablets hs Unknown Remicade 100mg Solution Rec (psoriatic arthritis) Unknown Mirtazapine 30mg Tablets Dispers 1 hs Unknown Topiramate 50mg Tablets 4 tabs by mouth at bedtime Unknown Atorvastatin Calcium 10mg Tablets 1 tab by mouth everyday Unknown Ventolin HFA 108(90Base) mcg/Act A erosol inhale two puffs by mouth four times a day as needed 18units Niko Watson MD Metoprolol Succinate ER 100mg Tablets ER 24HR 1/2 tab by mouth everyday Unknown Tylenol Extra Strength 500mg Table ts as needed Unknown Omeprazole 40mg Capsules DR 1 by mouth every day Unknown Levothyroxine Sodium 50mcg Tablets 1 by mouth every day Unknown Immunizations Description No Information Available Vital Signs Date Vital Result Comment 04/12/2021 9:03am BP Systolic 135 mmHg BP Diastolic 76 mmHg Height 66 inches 5'6" Weight 187.00 lb BMI (Body Mass Index) 30.2 kg/m2 [place] Body Weight 130 lb Weight 84.823 kg BSA (Body Surface Area) 1.94 m2 11/07/2020 9:52am BP Systolic 110 mmHg BP Diastolic 78 mmHg Heart Rate 93 /min O2 % BldC Oximetry 98 % Room Air Height 66 inches 5'6" Weight 180.00 lb BMI (Body Mass Index) 29.0 kg/m2 [place] Body Weight 130 lb Weight 81.648 kg BSA (Body Surface Area) 1.91 m2 Results Test Acquired Date Facility Test Result H/L Range Note FVL/[place] 11/07/2020 [employer] PDFReport SEE IMAGE FVC-Pred 3.79 L FVC-Pre 2.04 L FVC-%Pred-Pre 53 L FVC-LLN 3.05 L Fev1-Pred 3.00 L Fev1-Pre 1.33 L Fev1-%Pred-Pre 44 L Fev1-LLN 2.37 L Fev6-Pred 3.69 L Fev6-Pre 2.04 L Fev6-%Pred-Pre 55 L Fev6-LLN 2.96 L Dqv6baj-Zcwr 80 % Bqy2fks-Rru 65 % Ijx0iqq-%Pred-Pre 81 % Xwm2jbv-VJB 70 % Ipn8fel-Euha 97 % Yus5lny-Dpw 100 % Haw9geb-%Pred-Pre 102 % FEFMax-Pred 7.05 L/E/sec FEFMax-Pre 2.66 L/E/sec FEFMax-%Pred-Pre 37 L/E/sec FEFMax-LLN 5.22 L/E/sec Nmx6677-Ontd 2.88 L/E/sec Rvh9125-Mtn 0.78 L/E/sec Apj7792-%Pred-Pre 27 L/E/sec Nst4858-SRE 1.56 L/E/sec ExpTime-Pre 5.61 sec Ilj6hum3-Irbj 82 % Fyr0ctv7-Okc 65 % Qkf4avi2-%Pred-Pre 78 % Orn6dik1-KAL 73 % Procedures Date Code Description Status 04/12/2021 41196 Office/Outpatient Established Mo d MDM 30-39 Min Completed 11/07/2020 92625 Office/Outpatient Established Mo d MDM 30-39 Min Completed 11/07/2020 62664 Spirometry Completed Medical Devices Description No Information Available Encounters Type Date Location Provider Dx Diagnosis Office Visit 04/12/2021 9:00a [facility] Gastroenterology Pra ctice Johny Fulton MD K52.838 Other microscopic colitis R19.4 Change in bowel habit R14.0 Abdominal distension (gaseou s) Office Visit 11/07/2020 10:00a [facility] Pulmonary/Thoracic Marietta Watson MD J43.1 Panlobular emphysema F17.218 Nicotine dependence, cigaret sarah beth, w oth disorders Z79.899 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 Assessments Date Code Description Provider 04/12/2021 K52.838 Other microscopic colitis Johny Fulton MD 04/12/2021 R19.4 Change in bowel habit Johny duque MD 04/12/2021 R14.0 Abdominal distension (gaseous) D sherri Fulton MD 11/07/2020 J43.1 Panlobular emphysema Niko pompa MD 11/07/2020 F17.218 Nicotine dependence, cigarettes, with other nicotine-induced Niko Watson MD 11/07/2020 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 needs repeat colonoscopyHer symptoms of bloating and loose foul stools persist. She will need repeat biopsy as well. not clear if her sx are related, or has other causes such as her numerous meds as cause.I have been assuming her bloating/diarrhea/symptoms are related to her possible colitis, however interesting is her poor prep for colonoscopy, her previous CT showing prominent stool--(i.e. she may not have a "diarrhea issue"...but may have constipation with overflow issue)---consideration may be given to a trial on a laxative(I note she is on remicade for her psoriatic arthritis) * Recommendations:* 1) colonoscopy--additional prep due to previous suboptimal prep. 2) will do a sitzmark test to assess her transit Functional Status Description No Information Available Mental Status Description No Information Available Referrals Refer to Reason for Referral Status Appt Date Niko Watson M.D. NORTH G47.33 Scheduled [facility] [address] [place], [place] [address] [phone] Johny Fulton M.D. K59.00-CONSTIPATION, UNSPECIFIED Scheduled 04/12/2021 [facility], Gastroenterology [address], [address] [place] [address] [phone]
--- OUTSIDE RECORDS SUMMARY | 2021-07-21 08:55 | CCD ---
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 Name Role Phone Emilia Alonso Unavailable PROBLEMS Type Condition ICD9-CM Code JPG18-CP Code Onset Dates Condition S tatus W/U Status Risk SNOMED Code Notes Problem High risk medication use Z79.899 Active confirmed 354556082878887 Problem Psoriasis L40.9 Active confirmed 9414501 Problem Fibromyalgia M79.7 Active confirmed 1775008 05 Problem Vitamin D deficiency E55.9 Active confirmed 84195594 Problem Obstructive sleep apnea G47.33 Active confirmed 84808492 Problem Psoriatic arthritis L40.50 Active confirmed 977320065 Problem Plaque psoriasis L40.0 Active confirmed 200 779766 Problem Leukopenia, unspecified type D72.819 Active confirm ed 56708512 Problem Osteoarthritis of hand, unsp ecified laterality, unspecified osteoarthritis type M19.049 Active confirmed 79595189 ALLERGIES Allergen (clinical drug ingredient) Drug/Non Drug Allergy do cumented on EMR Reaction Allergy Type Onset Date Status Codeine Phosphate (For Allergies Use Only) Hives Drug Allergy Active methotrexate Methotrexate(NDC Code:[address]-27) swelling Drug All ergy Active sulfasalazine Sulfasalazine(NDC Code:[address]-78) Unknown Drug A llergy Active ENCOUNTERS from 1969 to 2021-04-25 Encounter Location Date Provider Diagnosis [facility] Rheumatology [address] [place] [address] [place] [address] Mar, Emilia Alonso Psoriatic arthritis L40.50 ; Trochanteric bursitis, unspecified laterality M70.60 ; Right rotator cuff tendinitis M75.81 ; Vitamin D deficiency E55.9 ; Osteoarthritis of hand, unspecified laterality, unspecified osteoarthritis type M19.049 ; Obstructive sleep apnea G47.33 ; Fatigue, unspecified type R53.83 ; Fibromyalgia M79.7 ; Psoriasis L40.9 and High risk medication [...] quit REASON FOR REFERRAL from 1969 to 2021-04-25 Reason Please evaluate and treat ri ght rotator tendinitis and bilateral trochanteric bursitis Diagnosis 1 Right rotator cuff tendiniti s (M75.81) Diagnosis 2 Trochanteric bursitis, unspe cified laterality (M70.60) Referral Organization [facility] Rheumatology Referring Provider First Name Emilia Referring Provider Last Name Gavin Referring Provider Specialty Rheumatology Referred Provider [facility],Physical Therapy ([facility]) Referred Provider Specialty Physical Therapist Referral Priority Routine General Notes Rodolfo Duke 04/17/2021 3:57:54 PM > Referral has been fax with attachments.Orly Brown 04/21/2021 1:03:08 PM > Due to patient insurance being [employer], referral was rerouted to PCP. Clinical Notes Emilia Alonso 04/17/2021 12:0 3:02 PM > Please evaluate and treat right rotator tendinitis and bilateral trochanteric bursitis, in need of strengthening and conditioning. VITAL SIGNS Weight 183.4 lbs Mar, Weight-kg 83.19 kg Mar, Height 65.5 in Mar, BMI 30.05 kg/m2 Mar, Heart Rate 101 /min Mar, Respiratory Rate 20 /min Mar, Temperature 97.6 degrees Fahrenheit Mar, Oximetry 95 Mar, Blood pressure systolic 114 mm Hg Mar, Blood pressure diastolic 86 mm Hg Mar, MEDICATIONS Medication SIG (Take, Route, Frequency, Duration) [...] 30 Active Vitamin D (Ergocalciferol) 1.25 MG (11337 UT) 1 capsul e Orally Weekly for [...] a day Not-Taking PROCEDURES No Information RESULTS Component Value Reference Range CBC with Differential Reviewed date:04/20/2021 23:18:29 Interpretation: Performing Lab:[facility] [address] [address] , ,[place] [id number] WHITE BLOOD COUNT 5.8 4.0-10.0 RED BLOOD COUNT 4.65 4.00-5.40 HEMOGLOBIN 14.8 12.0-15.5 HEMATOCRIT 45.0 36.0-47.0 MEAN CORPUSCULAR VOLUME 96.8 80.0-96.0 MEAN CORPUSCULAR HEMOGLOBIN 31.8 27.0-33.0 MEAN CORPUSCULAR HGB CONC 32.9 32.0-36.5 RED CELL DISTRIBUTION WIDTH 13.3 11.5-14.5 PLATELET COUNT, AUTOMATED 296 150-450 C REACTIVE PROTEIN QUANTITATIV (At [facility]) Reviewed date:04/20/2021 23:18:29 Interpretation: Performing Lab:[facility] [address] [address] , ,[place] [address] C REACTIVE PROTEIN QUANTITATIV 4.95 0.00-0.30 ERYTHROCYTE SEDIMENTATION RATE Reviewed date:04/20/2021 23:18:29 Interpretation: Performing Lab:[facility] [address] [address] , ,[place] [address] ERYTHROCYTE SEDIMENTATION RATE 20 0-30 LIVER PROFILE Reviewed date:04/20/2021 23:18:29 Interpretation: Performing Lab:[facility] [address] [address] , ,[place] [address] AST/SGOT 11 7-37 ALT/SGPT 20 12-78 ALKALINE PHOSPHATASE 125 45-117 BILIRUBIN,TOTAL 0.3 0.2-1.0 BILIRUBIN,DIRECT < 0.1 0.0-0.2 TOTAL PROTEIN 7.5 6.4-8.2 ALBUMIN 3.4 3.2-5.2 ALBUMIN/GLOBULIN RATIO 0.8 1.2-2.2 Basic Metabolic Profile (BMP) Reviewed date:04/20/2021 23:18:29 Interpretation: Performing Lab:[facility] [address] [address] , ,[place] [address] GLUCOSE, FASTING 80 70-100 BLOOD UREA NITROGEN 10 7-18 CREATININE FOR GFR 0.53 0.55-1.30 GLOMERULAR FILTRATION RATE > 60.0 >51 SODIUM LEVEL 137 136-145 POTASSIUM SERUM 4.2 3.5-5.1 CHLORIDE LEVEL 100 98-107 CARBON DIOXIDE LEVEL 33 21-32 CALCIUM LEVEL 9.0 8.5-10.1 VITAMIN D 25-HYDROXY Reviewed date:04/20/2021 23:18:29 Interpretation: Performing Lab:[facility] [address] [id number] , ,[place] [address] TOTAL 25([place]) VITAMIN D 60.2 30.0-100.0 REASON FOR VISIT C/o joint pain and aches in multiple sites MEDICAL (GENERAL) HISTORY Type Description Date Medical History COPD Medical History Hypertension Medical History Hypothyroidism Medical History GERD Medical History Rheumatoid arthritis Medical History Psoriasis Medical History Cervical cancer Medical History Chronic kidney disease Surgical History Thyroidectomy 2006 Surgical History BTL 2001 Surgical History 1987 Surgical History Cholecystectomy 2017 Surgical History Complete Hysterectomy 2014, 2015 Surgical History Endoscopy Surgical History Lymph node biopsy/removal Hospitalization History Surgery related Goals Section No Information Health Concerns No Information MEDICAL EQUIPMENT No Information MENTAL STATUS No Information FUNCTIONAL STATUS No Information ASSESSMENTS Encounter Date Diagnosis Assessment Notes Treatment Notes Treatm ent Clinical Notes Mar, Psoriatic arthritis (ICD-10 - L40.50) Clinical presentation consistent with Psoriatic Arthritis (psoriasis, synovitis, negative RF/CCP) in stable condition. - Informed the patient that we will perform labs to monitor medication toxicity today. - Continue Inflectra therapy - 400 mg every 6 weeks - no changes to the regimen, at this time. Called the infusion center and addended the order, instructed no fast infusion rates, given the adverse side effects. - Discussed the importance of a healthy, well balanced life style and making healthy choices. - Strongly encouraged lifestyle modifications (adequate sleep hygiene, well balanced diet/nutrition, physical activity and exercise (additional exercises provided, recommended starting to walk in place consistently), good mental health, emotional stability, stress management). Mar, Trochanteric bursitis, unspecified laterality (I CD-10 - M70.60) Clinical presentation consistent w/ trochanteric bursitis of the bilateral hips, with ongoing symptomatology. The patient has failed the home exercise program. Will obtain x-rays of the hips and pelvis and proceed w/ physical therapy for improvement in the symptomatology. Mar, Right rotator cuff tendinitis (ICD-10 - M75.81) Right shoulder pain consistent w/ rotator cuff tendinitis. Exercises previously provided for home exercise program. The patient has failed the home exercise program. Will obtain x-rays of the right shoulder and proceed w/ physical therapy for strengthening, conditioning, and increased range of motion of joints in a supervised environment. Mar, Vitamin D deficiency (ICD-10 - E55.9) Vitamin D Deficiency is contributing to the fatigue s/p supplement vitamin D 50,000 units x 12 weeks. Will repeat the vitamin D level today. Discussed increasing food intake with high vitamin D levels (information will be provided). Mar, Osteoarthritis of hand, unsp ecified laterality, unspecified [...] four times/daily as needed (prescription printed and [employer] coupon provided for a discount). Mar, Obstructive sleep apnea (ICD-10 - G47.33) The home sleep study was consistent with obstructive sleep apnea (abnormal home sleep testing with repetitive respiratory events and oxygen desaturations to 69% with a respiratory event index of *11.7 is consistent with the obstructive sleep apnea syndrome). Will defer to sleep medicine for further evaluation of the positive home sleep study. Mar, Fatigue, unspecified type (ICD-10 - R53.83) Given the chronic fatigue and sleep symptomatology, the home sleep study was consistent with obstructive sleep apnea; expect improvement in fatigue with the treatment of NORTH. Mar, Fibromyalgia (ICD-10 - M79.7) Expect improvement the myalgia with the vitamin D deficiency and treatment of obstructive sleep apnea. Mar, Psoriasis (ICD-10 - L40.9) Will coordinate with dermatology to optimize the patient's care. Mar, High risk medication use (ICD-10 - Z79.899) Inflectra: This medication is an immunosuppressant and considered a high risk medication, as there is increased potential for adverse reaction and significant toxicity. Mar, Other Please perform the exercises for 10 minutes - 3x/week. The total time spent on the date of the encounter: 87 minutes PLAN OF TREATMENT Medication Medication Name Sig Start Date Stop Date Voltaren 1 % apply 4 g of 1% gel to affec romy area Transdermal four times daily as needed for 30 days Treatment Notes Assessment Notes Clinical Notes Psoriatic arthritis Clinical presentatio n consistent with Psoriatic Arthritis (psoriasis, synovitis, negative RF/CCP) in stable condition.- Informed the patient that we will perform labs to monitor medication toxicity today.- Continue Inflectra therapy - 400 mg every 6 weeks - no changes to the regimen, at this time. Called the infusion center and addended the order, instructed no fast infusion rates, given the adverse side effects.- Discussed the importance of a healthy, well balanced life style and making healthy choices.- Strongly encouraged lifestyle modifications (adequate sleep hygiene, well balanced diet/nutrition, physical activity and exercise (additional exercises provided, recommended starting to walk in place consistently), good mental health, emotional stability, stress management). Trochanteric bursitis, unspecified laterality Clinical presentation consistent w/ trochanteric bursitis of the bilateral hips, with ongoing symptomatology. The patient has failed the home exercise program. Will obtain x-rays of the hips and pelvis and proceed w/ physical therapy for improvement in the symptomatology. Right rotator cuff tendinitis Right shou lder pain consistent w/ rotator cuff tendinitis. Exercises previously provided for home exercise program. The patient has failed the home exercise program. Will obtain x-rays of the right shoulder and proceed w/ physical therapy for strengthening, conditioning, and increased range of motion of joints in a supervised environment. Vitamin D deficiency Vitamin D Deficienc y is contributing to the fatigue s/p supplement vitamin D 50,000 units x 12 weeks. Will repeat the vitamin D level today. Discussed increasing food intake with high vitamin D levels (information will be provided). Osteoarthritis of hand, unspecified laterality, unspec ified [...] four times/daily as needed (prescription printed and [employer] coupon provided for a discount). Obstructive sleep apnea The home sleep s tudy was consistent with obstructive sleep apnea (abnormal home sleep testing with repetitive respiratory events and oxygen desaturations to 69% with a respiratory event index of *11.7 is consistent with the obstructive sleep apnea syndrome). Will defer to sleep medicine for further evaluation of the positive home sleep study. 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 Fibromyalgia Expect improvement t he myalgia with the vitamin D deficiency and treatment of obstructive sleep apnea. Psoriasis Will coordinate with dermatology to optimize the patient's care. High risk medication use Inflectra: This medication is an immunosuppressant and considered a high risk medication, as there is increased potential for adverse reaction and significant toxicity. Treatment Notes Test Name Order Date [facility] HIPS BILAT 2 VIEW W/AP PELVIS 2021-04-17 [facility] Shoulder, complete 2021-04-17 Referrals Referral Date Details Please evaluate and treat ri ght rotator tendinitis and bilateral trochanteric bursitis, Physical Therapy ([place]) [facility] Next Appt Details Provider Name:Michelle Juarez, 2021-06-05 08:15:00 AM, [address] [facility], , [place], [address], Provider Name:Emilia Alonso, 2021-07-03 10:15:00 AM, [address] [facility], , [place], [address], Insurance Providers Payer Name Payer Address Payer Phone Insured Name Patient Relati onship to Insured Coverage Start Date Coverage End Date ON LICENSE OF [facility]AN [facility] [place] [address] [facility] [phone] JOSEPH COOL self
--- OUTSIDE RECORDS SUMMARY | 2021-07-21 08:55 | CCD ---
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 Name Role Phone Emilia Alonso Unavailable PROBLEMS Type Condition ICD9-CM Code MIU20-HU Code Onset Dates Condition S tatus W/U Status Risk SNOMED Code Notes Problem High risk medication use Z79.899 Active confirmed 433464187803097 Problem Psoriasis L40.9 Active confirmed 4379909 Problem Fibromyalgia M79.7 Active confirmed 9999756 05 Problem Vitamin D deficiency E55.9 Active confirmed 04476432 Problem Obstructive sleep apnea G47.33 Active confirmed 89851350 Problem Psoriatic arthritis L40.50 Active confirmed 252782685 Problem Plaque psoriasis L40.0 Active confirmed 200 386391 Problem Leukopenia, unspecified type D72.819 Active confirm ed 89211100 Problem Osteoarthritis of hand, unsp ecified laterality, unspecified osteoarthritis type M19.049 Active confirmed 79419559 ALLERGIES Allergen (clinical drug ingredient) Drug/Non Drug Allergy do cumented on EMR Reaction Allergy Type Onset Date Status Codeine Phosphate (For Allergies Use Only) Hives Drug Allergy Active methotrexate Methotrexate(NDC Code:[address]-98) swelling Drug All ergy Active sulfasalazine Sulfasalazine(ND Code:[address]-92) Unknown Drug A llergy Active ENCOUNTERS from 1970 to 2021-04-21 Encounter Location Date Provider Diagnosis [facility] Rheumatology [address] [place] [address] [place] [address] Apr, Emilia Alonso IMMUNIZATIONS Vaccine Route Administration [...] 30 Active Vitamin D (Ergocalciferol) 1.25 MG (80200 UT) 1 capsul e Orally Weekly for [...] Information RESULTS No Results REASON FOR VISIT [facility] Referral MEDICAL (GENERAL) HISTORY Type Description Date Medical [...] Provider Name:Michelle Juarez, 2021-06-05 08:15:00 AM, [address] [facility], , [place], [address], Provider Name:Emilia Alonso, 2021-07-03 10:15:00 AM, [address] [facility], , [place], [address], Insurance Providers Payer Name Payer Address Payer Phone Insured Name Patient Relati onship to Insured Coverage Start Date Coverage End Date [facility] [employer]AN [facility] [address] [facility] [phone] JOSEPH COOL self
--- OUTSIDE RECORDS SUMMARY | 2021-07-21 08:57 | CCD ---
Author Author [facility] Organization [facility] Address Unknown Phone Unavailable Care Team Providers Care Truss Builder Name Role Phone Abrahan Gutierrez MD Unavailable Unavailable Abrahan Gutierrez MD Unavailable Unavailable Abrahan Gutierrez MD Unavailable Unavailable Abrahan Gutierrez MD Unavailable Unavailable Abrahan Gutierrez MD Unavailable Unavailable Abrahan Gutierrez MD Unavailable Unavailable Abrahan Gutierrez MD Unavailable Unavailable Abrahan Gutierrez MD Unavailable Unavailable Abrahan Gutierrez MD Unavailable Unavailable Abrahan Gutierrez MD Unavailable Unavailable Abrahan Gutierrez MD Unavailable Unavailable Abrahan Gutierrez MD Unavailable Unavailable Abrahan Gutierrez MD Unavailable Unavailable Abrahan Gutierrez MD Unavailable Unavailable Abrahan Gutierrez MD Unavailable Unavailable Abrahan Gutierrez MD Unavailable Unavailable Abrahan Gutierrez MD Unavailable Unavailable Abrahan Gutierrez MD Unavailable Unavailable Abrahan Gutierrez MD Unavailable Unavailable Abrahan Gutierrez MD Unavailable Unavailable Abrahan Gutierrez MD Unavailable Unavailable Abrahan Gutierrez MD Unavailable Unavailable Abrahan Gutierrez MD Unavailable Unavailable Abrahan Gutierrez MD Unavailable Unavailable Abrahan Gutierrez MD Unavailable Unavailable Abrahan Gutierrez MD Unavailable Unavailable Abrahan Gutierrez MD Unavailable Unavailable Abrahan Gutierrez MD Unavailable Unavailable Abrahan Gutierrez MD Unavailable Unavailable Abrahan Gutierrez MD Unavailable Unavailable Abrahan Gutierrez MD Unavailable Unavailable Abrahan Gutierrez MD Unavailable Unavailable Abrahan Gutierrez MD Unavailable Unavailable Abrahan Gutierrez MD Unavailable Unavailable Abrahan Gutierrez MD Unavailable Unavailable Abrahan Gutierrez MD Unavailable Unavailable Abrahan Gutierrez MD Unavailable Unavailable Abrahan Gutierrez MD Unavailable Unavailable Abrahan Gutierrez MD Unavailable Unavailable Abrahan Gutierrez MD Unavailable Unavailable Abrahan Gutierrez MD Unavailable Unavailable Abrahan Gutierrez MD Unavailable Unavailable Abrahan Gutierrez MD Unavailable Unavailable Abrahan Gutierrez MD Unavailable Unavailable Abrahan Gutierrez MD Unavailable Unavailable Abrahan Gutierrez MD Unavailable Unavailable Abrahan Gutierrez MD Unavailable Unavailable Abrahan Gutierrez MD Unavailable Unavailable Abrahan Gutierrez MD Unavailable Unavailable Abrahan Gutierrez MD Unavailable Unavailable Abrahan Gutierrez MD Unavailable Unavailable Abrahan Gutierrez MD Unavailable Unavailable Abrahan Gutierrez MD Unavailable Unavailable Abrahan Gutierrez MD Unavailable Unavailable Abrahan Gutierrez MD Unavailable Unavailable Abrahan Gutierrez MD Unavailable Unavailable Abrahan Gutierrez MD Unavailable Unavailable Abrahan Gutierrez MD Unavailable Unavailable Abrahan Gutierrez MD Unavailable Unavailable Abrahan Gutierrez MD Unavailable Unavailable Abrahan Gutierrez MD Unavailable Unavailable Abrahan Gutierrez MD Unavailable Unavailable Abrahan Gutierrez MD Unavailable Unavailable Abrahan Gutierrez MD Unavailable Unavailable Abrahan Gutierrez MD Unavailable Unavailable Abrahan Gutierrez MD Unavailable Unavailable Abrahan Gutierrez MD Unavailable Unavailable Abrahan Gutierrez MD Unavailable Unavailable Abrahan Gutierrez MD Unavailable Unavailable Abrahan Gutierrez MD Unavailable Unavailable Abrahan Gutierrez MD Unavailable Unavailable Abrahan Gutierrez MD Unavailable Unavailable Abrahan Gutierrez MD Unavailable Unavailable Abrahan Gutierrez MD Unavailable Unavailable Abrahan Gutierrez MD Unavailable Unavailable Abrahan Gutierrez MD Unavailable Unavailable Abrahan Gutierrez MD Unavailable Unavailable Abrahan Gutierrez MD Unavailable Unavailable Abrahan Gutierrez MD Unavailable Unavailable Abrahan Gutierrez MD Unavailable Unavailable Abrahan Gutierrez MD Unavailable Unavailable Abrahan Gutierrez MD Unavailable Unavailable Abrahan Gutierrez MD Unavailable Unavailable Abrahan Gutierrez MD Unavailable Unavailable Abrahan Gutierrez MD Unavailable Unavailable Abrahan Gutierrez MD Unavailable Unavailable Abrahan Gutierrez MD Unavailable Unavailable Abrahan Gutierrez MD Unavailable Unavailable Abrahan Gutierrez MD Unavailable Unavailable Abrahan Gutierrez MD Unavailable Unavailable Abrahan Gutierrez MD Unavailable Unavailable Abrahan Gutierrez MD Unavailable Unavailable Abrahan Gutierrez MD Unavailable Unavailable Abrahan Gutierrez MD Unavailable Unavailable IGGY PALAFOX MD Unavailable Unavailable IGGY PALAFOX MD Unavailable Unavailable IGGY PALAFOX MD Unavailable Unavailable REINDL, IGGY LEONARD Unavailable Unavailable REINDL, IGGY LEONARD Unavailable Unavailable REINDL, IGGY LEONARD Unavailable Unavailable REINDL, IGGY LEONARD Unavailable Unavailable REINDL, IGGY LEONARD Unavailable Unavailable REINDL, IGGY LEONARD Unavailable Unavailable REINDL, IGGY LEONARD Unavailable Unavailable REINDL, IGGY LEONARD Unavailable Unavailable REINDL, IGGY LEONARD Unavailable Unavailable REINDL, IGGY LEONARD Unavailable Unavailable REINDL, IGGY LEONARD Unavailable Unavailable REINDL, IGGY LEONARD Unavailable Unavailable REINDL, IGGY LEONARD Unavailable Unavailable REINDL, IGGY LEONARD Unavailable Unavailable REINDL, IGGY LEONARD Unavailable Unavailable REINDL, IGGY LEONARD Unavailable Unavailable REINDL, IGGY LEONARD Unavailable Unavailable REINDL, IGGY LEONARD Unavailable Unavailable REINDL, IGGY LEONARD Unavailable Unavailable REINDL, IGGY LEONARD Unavailable Unavailable REINDL, IGGY LEONARD Unavailable Unavailable REINDL, IGGY LEONARD Unavailable Unavailable REINDL, IGGY LEONARD Unavailable Unavailable REINDL, IGGY LEONARD Unavailable Unavailable REINDL, IGGY LEONARD Unavailable Unavailable REINDL, IGGY LEONARD Unavailable Unavailable REINDL, IGGY LEONARD Unavailable Unavailable REINDL, IGGY LEONARD Unavailable Unavailable REINDL, IGGY LEONARD Unavailable Unavailable REINDL, IGGY LEONARD Unavailable Unavailable REINDL, IGGY LEONARD Unavailable Unavailable REINDL, IGGY LEONARD Unavailable Unavailable REINDL, IGGY LEONARD Unavailable Unavailable REINDL, IGGY LEONARD Unavailable Unavailable REINDL, IGGY LEONARD Unavailable Unavailable REINDL, IGGY LEONARD Unavailable Unavailable REINDL, IGGY LEONARD Unavailable Unavailable REINDL, IGGY LEONARD Unavailable Unavailable REINDL, IGGY LEONARD Unavailable Unavailable Edenilson Campos MD Unavailable Unavailable Edenilson Campos MD Unavailable Unavailable Edenilson Campos MD Unavailable Unavailable Edenilson Campos MD Unavailable Unavailable Edenilson Campos MD Unavailable Unavailable Edenilson Campos MD Unavailable Unavailable Edenilson Campos MD Unavailable Unavailable Edenilson Campos MD Unavailable Unavailable Edenilson Campos MD Unavailable Unavailable Edenilson Campos MD Unavailable Unavailable Edenilson Campos MD Unavailable Unavailable Edenilson Campos MD Unavailable Unavailable Edenilson Campos MD Unavailable Unavailable Edenilson Campos MD Unavailable Unavailable Edenilson Campos MD Unavailable Unavailable Edenilson Campos MD Unavailable Unavailable Edenilson Campos MD Unavailable Unavailable Edenilson Campos MD Unavailable Unavailable Edenilson Campos MD Unavailable Unavailable Edenilson Campos MD Unavailable Unavailable Edenilson Campos MD Unavailable Unavailable Edenilson Campos MD Unavailable Unavailable Edenilson Campos MD Unavailable Unavailable Edenilson Campos MD Unavailable Unavailable Edenilson Campos MD Unavailable Unavailable Edenilson Campos MD Unavailable Unavailable Edenilson Campos MD Unavailable Unavailable Edenilson Campos MD Unavailable Unavailable Edenilson Campos MD Unavailable Unavailable Edenilson Campos MD Unavailable Unavailable Edenilson Campos MD Unavailable Unavailable Edenilson Campos MD Unavailable Unavailable Edenilson Campos MD Unavailable Unavailable Edenilson Campos MD Unavailable Unavailable Edenilson Campos MD Unavailable Unavailable Edenilson Campos MD Unavailable Unavailable Edenilson Campos MD Unavailable Unavailable Edenilson Campos MD Unavailable Unavailable Edenilson Campos MD Unavailable Unavailable Edenilson Campos MD Unavailable Unavailable Edenilson Campos MD Unavailable Unavailable Edenilson Campos MD Unavailable Unavailable Edenilson Campos MD Unavailable Unavailable Edenilson Campos MD Unavailable Unavailable Edenilson Campos MD Unavailable Unavailable Edenilson Campos MD Unavailable Unavailable Edenilson Campos MD Unavailable Unavailable Edenilson Campso MD Unavailable Unavailable Edenilson Campos MD Unavailable Unavailable Edenilson Campos MD Unavailable Unavailable Edenilson Campos MD Unavailable Unavailable AliEdenilson MD Unavailable Unavailable DANIEL, L ROMERO PA Unavailable Unavailable DANIEL, L ROMERO PA Unavailable Unavailable DANIEL, L ROMERO PA Unavailable Unavailable DANIEL, L ROMERO PA Unavailable Unavailable DANIEL, L ROMERO PA Unavailable Unavailable DANIEL, L ROMERO PA Unavailable Unavailable DANIEL, L ROMERO PA Unavailable Unavailable DANIEL, L ROMERO PA Unavailable Unavailable DANIEL, L ROMERO PA Unavailable Unavailable DANIEL, L ROMERO PA Unavailable Unavailable DANIEL, L ROMERO PA Unavailable Unavailable DANIEL, L ROMERO PA Unavailable Unavailable DANIEL, L ROMERO PA Unavailable Unavailable DANIEL, L ROMERO PA Unavailable Unavailable DANIEL, L ROMERO PA Unavailable Unavailable DANIEL, L ROMERO PA Unavailable Unavailable Pramod Watson MD Unavailable Unavailable Pramod Watson MD Unavailable Unavailable Pramod Watson MD Unavailable Unavailable Pramod Watson MD Unavailable Unavailable Pramod Watson MD Unavailable Unavailable Pramod Watson MD Unavailable Unavailable Pramod Watson MD Unavailable Unavailable Pramod Watson MD Unavailable Unavailable Pramod Watson MD Unavailable Unavailable Pramod Watson MD Unavailable Unavailable Pramod Watson MD Unavailable Unavailable Pramod Watson MD Unavailable Unavailable Pramod Watson MD Unavailable Unavailable Pramod Watson MD Unavailable Unavailable Pramod Watson MD Unavailable Unavailable Pramod Watson MD Unavailable Unavailable Pramod Watson MD Unavailable Unavailable Pramod Watson MD Unavailable Unavailable Pramod Watson MD Unavailable Unavailable Pramod Watson MD Unavailable Unavailable Pramod Watson MD Unavailable Unavailable Pramod Watson MD Unavailable Unavailable Pramod Watson MD Unavailable Unavailable Pramod Watson MD Unavailable Unavailable Pramod Watson MD Unavailable Unavailable Pramod Watson MD Unavailable Unavailable Pramod Watson MD Unavailable Unavailable Pramod Watson MD Unavailable Unavailable Pramod Watson MD Unavailable Unavailable Pramod Watson MD Unavailable Unavailable Pramod Watson MD Unavailable Unavailable Pramod Watson MD Unavailable Unavailable WatsonPramod MD Unavailable Unavailable WatsonPramod MD Unavailable Unavailable WatsonPramod MD Unavailable Unavailable WatsonPramod MD Unavailable Unavailable WatsonPramod MD Unavailable Unavailable Watson, Pramod Pope MD Unavailable Unavailable Watson, Pramod Pope MD Unavailable Unavailable Watson, Pramod Pope MD Unavailable Unavailable WatsonPramod MD Unavailable Unavailable WatsonPramod MD Unavailable Unavailable WatsonPramod MD Unavailable Unavailable WatsonPramod MD Unavailable Unavailable WatsonPramod MD Unavailable Unavailable WatsonPramod MD Unavailable Unavailable Watson, Pramod Pope MD Unavailable Unavailable WatsonPramod MD Unavailable Unavailable Watson, Pramod Pope MD Unavailable Unavailable Watson, Pramod Pope MD Unavailable Unavailable WatsonPramod MD Unavailable Unavailable WatsonPramod MD Unavailable Unavailable WatsonPramod MD Unavailable Unavailable WatsonPramod MD Unavailable Unavailable Pramod Watson MD Unavailable Unavailable TOÑA MCINTOSH MD Unavailable Unavailable TOÑA MCINTOSH MD Unavailable Unavailable TOÑA MCINTOSH MD Unavailable Unavailable TOÑA MCINTOSH MD Unavailable Unavailable TOÑA MCINTOSH MD Unavailable Unavailable TOÑA MCINTOSH MD Unavailable Unavailable TOÑA MCINTOSH MD Unavailable Unavailable TOÑA MCINTOSH MD Unavailable Unavailable TOÑA MCINTOSH MD Unavailable Unavailable TOÑA MCINTOSH MD Unavailable Unavailable TOÑA MCINTOSH MD Unavailable Unavailable TOÑA MCINTOSH MD Unavailable Unavailable TOÑA MCINTOSH MD Unavailable Unavailable TOÑA MCINTOSH MD Unavailable Unavailable TOÑA MCINTSOH MD Unavailable Unavailable TOÑA MCINTOSH MD Unavailable Unavailable TOÑA MCINTOSH MD Unavailable Unavailable TOÑA MCINTOSH MD Unavailable Unavailable TOÑA MCINTOSH MD Unavailable Unavailable TOÑA MCINTOSH MD Unavailable Unavailable TOÑA MCINTOSH MD Unavailable Unavailable TOÑA MCINTOSH MD Unavailable Unavailable TOÑA MCINTOSH MD Unavailable Unavailable TOÑA MCINTOSH MD Unavailable Unavailable TOÑA MCINTOSH MD Unavailable Unavailable TOÑA MCINTOSH MD Unavailable Unavailable TOÑA MCINTOSH MD Unavailable Unavailable TOÑA MCINTOSH MD Unavailable Unavailable TÑOA MCINTOSH MD Unavailable Unavailable TOÑA MCINTOSH MD Unavailable Unavailable TOÑA MCINTOSH MD Unavailable Unavailable TOÑA MCINTOSH MD Unavailable Unavailable TOÑA MCINTOSH MD Unavailable Unavailable KHAIRALLAH, RAMZI MD Unavailable Unavailable KHAIRALLAH, RAMZI MD Unavailable Unavailable KHAIRALLAH, RAMZI MD Unavailable Unavailable KHAIRALLAH, RAMZI MD Unavailable Unavailable KHAIRALLAH, RAMZI MD Unavailable Unavailable KHAIRALLAH, RAMZI MD Unavailable Unavailable KHAIRALLAH, RAMZI MD Unavailable Unavailable KHAIRALLAH, RAMZI MD Unavailable Unavailable KHAIRALLAH, RAMZI MD Unavailable Unavailable KHAIRALLAH, RAMZI MD Unavailable Unavailable KHAIRALLAH, RAMZI MD Unavailable Unavailable KHAIRALLAH, RAMZI MD Unavailable Unavailable KHAIRALLAH, RAMZI MD Unavailable Unavailable KHAIRALLAH, RAMZI MD Unavailable Unavailable KHAIRALLAH, RAMZI MD Unavailable Unavailable KHAIRALLAH, RAMZI MD Unavailable Unavailable KHAIRALLAH, RAMZI MD Unavailable Unavailable KHAIRALLAH, RAMZI MD Unavailable Unavailable KHAIRALLAH, RAMZI MD Unavailable Unavailable KHAIRALLAH, RAMZI MD Unavailable Unavailable KHAIRALLAH, RAMZI MD Unavailable Unavailable KHAIRALLAH, RAMZI MD Unavailable Unavailable KHAIRALLAH, RAMZI MD Unavailable Unavailable KHAIRALLAH, RAMZI MD Unavailable Unavailable KHAIRALLAH, RAMZI MD Unavailable Unavailable KHAIRALLAH, RAMZI MD Unavailable Unavailable KHAIRALLAH, RAMZI MD Unavailable Unavailable KHAIRALLAH, RAMZI MD Unavailable Unavailable KHAIRALLAH, RAMZI MD Unavailable Unavailable KHAIRALLAH, RAMZI MD Unavailable Unavailable KHAIRALLAH, RAMZI MD Unavailable Unavailable KHAIRALLAH, RAMZI MD Unavailable Unavailable KHAIRALLAH, RAMZI MD Unavailable Unavailable KHAIRALLAH, RAMZI MD Unavailable Unavailable KHAIRALLAH, RAMZI MD Unavailable Unavailable KHAIRALLAH, RAMZI MD Unavailable Unavailable KHAIRALLAH, RAMZI MD Unavailable Unavailable KHAIRALLAH, RAMZI MD Unavailable Unavailable KHAIRALLAH, RAMZI MD Unavailable Unavailable KHAIRALLAH, RAMZI MD Unavailable Unavailable KHAIRALLAH, RAMZI MD Unavailable Unavailable KHAIRALLAH, RAMZI MD Unavailable Unavailable KHAIRALLAH, RAMZI MD Unavailable Unavailable KHAIRALLAH, RAMZI MD Unavailable Unavailable KHAIRALLAH, RAMZI MD Unavailable Unavailable KHAIRALLAH, RAMZI MD Unavailable Unavailable KHAIRALLAH, RAMZI MD Unavailable Unavailable KHAIRALLAH, RAMZI MD Unavailable Unavailable KHAIRALLAH, RAMZI MD Unavailable Unavailable KHAIRALLAH, RAMZI MD Unavailable Unavailable KHAIRALLAH, RAMZI MD Unavailable Unavailable KHAIRALLAH, RAMZI MD Unavailable Unavailable KHAIRALLAH, RAMZI MD Unavailable Unavailable KHAIRALLAH, RAMZI MD Unavailable Unavailable KHAIRALLAH, RAMZI MD Unavailable Unavailable KHAIRALLAH, RAMZI MD Unavailable Unavailable KHAIRALLAH, RAMZI MD Unavailable Unavailable Re-disclosure Warning The records that you are about to access may contain information from federally-assisted alcohol or drug abuse programs. If such information is present, then the following federally mandated warning applies: This information has been disclosed to you from records protected by federal confidentiality rules (42 CFR part 2). The federal rules prohibit you from making any further disclosure of this information unless further disclosure is expressly permitted by the written consent of the person to whom it pertains or as otherwise permitted by 42 CFR part 2. A general authorization for the release of medical or other information is NOT sufficient for this purpose. The Federal rules restrict any use of the information to criminally investigate or prosecute any alcohol or drug abuse patient.The records that you are about to access may contain highly sensitive health information, the redisclosure of which is protected by Article 27-F of the [facility] Public Health law. If you continue you may have access to information: Regarding HIV / AIDS; Provided by facilities licensed or operated by the [facility] Office of Mental Health; or Provided by the [facility] Office for People With Developmental Disabilities. If such information is present, then the following [facility] mandated warning applies: This information has been disclosed to you from confidential records which are protected by state law. State law prohibits you from making any further disclosure of this information without the specific written consent of the person to whom it pertains, or as otherwise permitted by law. Any unauthorized further disclosure in violation of state law may result in a fine or nursing home sentence or both. A general authorization for the release of medical or other information is NOT sufficient authorization for further disc losure. Allergies and Adverse Reactions Type Description Substance Reaction Status Data Source(s ) Propensity to adverse reactions Propensity to adverse reactions NKDA MEDENT ([facility]) Family History Family Member Name Family Member Gender Family Member Status Date o f Status Description Data Source(s) Unknown Male Problem MEDENT ([facility]) Unknown Unknown Problem MEDENT ([facility] ) Unknown Male Problem [facility] ([facility]) Unsure of age Unknown Male Problem [facility] ([facility] Encounters Encounter Providers Location Date Indications Data Source(s ) Outpatient [address] [facility] [id number] 07/03/2021 12:00:00 AM EST eCW1 ([facility]) Unknown [address] [facility] [id number] 07/03/2021 12:00:00 AM EST eCW1 ([facility]) (TV Rheum) Telephone Rheum [address] [place] [address] 07/03/2021 12:00:00 AM EST eCW1 ([facility]) Outpatient [address] [facility] [id number] 06/05/2021 12:00:00 AM EDT eCW1 ([facility]) Outpatient Attender: ROMERO KELLER Main Office 05/23/2021 1 1:15:00 AM EDT MEDENT ([facility]) Outpatient Attender: Niko Mix/Heriberto/Kip/Nithya brooks 05/23/2021 09:30:00 AM EDT MEDENT ([facility]) Feroz Gutierrez MD: [address] [place] [phone], Ph. Attender: Feroz Gutierrez MD [facility] Medical 05/22/2021 12:00:00 AM EDT DAVID ([facility]) Unknown [address] [facility] [id number] 05/16/2021 12:00:00 AM EDT eCW1 ([facility]) Unknown [address] [facility] [id number] 05/01/2021 12:00:00 AM EDT eCW1 ([facility]) Unknown [address] [facility] [id number] 04/27/2021 12:00:00 AM EDT eCW1 ([facility]) Unknown [address] [facility] [place] [address] 04/21/2021 12:00:00 AM EDT eCW1 ([facility]) Outpatient [address] [facility] [place] [address] 04/17/2021 12:00:00 AM EDT eCW1 ([facility]) Unknown [address] [facility] Y [address] 04/17/2021 12:00:00 AM EDT eCW1 ([facility]) Outpatient Attender: IGGY Mix/Heriberto/Kip/Tiera duque 04/12/2021 09:00:00 AM EDT MEDENT ([facility] Alex pare[facility], [place]) Unknown [address] [facility] [id number] 04/10/2021 12:00:00 AM EDT eCW1 ([facility]) Unknown [address] [facility] [address] 04/10/2021 12:00:00 AM EDT eCW1 ([facility]) Unknown [address] [facility] Y [address] 02/28/2021 12:00:00 AM EDT eCW1 ([facility]) Office Visit Attender: Edenilson Campos MD Main office - [place] 02/15/2021 02:45:00 PM EDT MEDENT ([facility] [place] [facility]) Unknown [address] [facility], [facility] [address] 01/31/2021 12:00:00 AM EDT eCW1 ([facility]) Outpatient [address] [facility] [place] [id number] 01/31/2021 12:00:00 AM EDT eCW1 ([facility]) Unknown [address] [facility] Y [address] 01/12/2021 12:00:00 AM EDT eCW1 ([facility]) (TV Rheum) Telephone Rheum [address] [place] [address] 01/10/2021 12:00:00 AM EDT eCW1 ([facility]) Outpatient [address] [facility] [id number] 01/10/2021 12:00:00 AM EDT [facility] Unknown [address] [facility] [address] [address] 01/10/2021 12:00:00 AM EDT [facility]CW1 [facility] Unknown [address] [facility] Y [address] 12/26/2020 12:00:00 AM EDT eCW1 ([facility]) Feroz Gutierrez MD: [address] [place] [phone], Ph. Attender: Feroz Gutierrez MD [facility] Medical 12/20/2020 12:00:00 AM EDT DAVID ([facility]) Outpatient [address] [facility] [address] [address] 12/20/2020 12:00:00 AM EDT eCW1 ([facility]) Feroz Gutierrez MD: [address] [place] [phone], Ph. Attender: Feroz Gutierrez MD [facility] Medical 12/20/2020 12:00:00 AM EDT DAVID ([facility]) Feroz Gutierrez MD: [address] [place] [phone], Ph. Attender: Feroz Gutierrez MD [facility] Medical 12/12/2020 12:00:00 AM EDT DAVID ([facility]) Feroz Gutierrez MD: [address] [place] [phone], Ph. Attender: Feroz Gutierrez MD [facility] Medical 12/12/2020 12:00:00 AM EDT DAVID ([facility]) Feroz Gutierrez MD: [address] [place] [phone], Ph. Attender: Feroz Gutierrez MD [facility] Medical 12/12/2020 12:00:00 AM EDT DAVID ([facility]) Outpatient Attender: Edenilson Campos MD Main office - [place] 11/22/2020 11:15:00 AM EDT MEDENT ([facility] ) Outpatient Attender: ROMERO KELLER Main Office 11/21/2020 0 1:00:00 PM EDT MEDENT ([facility]) Outpatient Attender: Niko Mix/Heriberto/Kip/Nithya brooks 11/07/2020 10:00:00 AM EDT MEDENT ([facility] Outpatient [address] [facility] [place] [address] 11/02/2020 12:00:00 AM EDT eCW1 ([facility]) TeleMedicine Phone E/M by Phys 5-10 Min [address] [place] [address] 11/02/2020 12:00:00 AM EDT eCW1 ([facility]) TeleMedicine Phone E/M by Phys 11-20 Min [address] [place] [address] 10/14/2020 12:00:00 AM EST eCW1 ([facility]) Unknown [address] [facility] [place] [address] 10/14/2020 12:00:00 AM EST eCW1 ([facility]) Unknown [address] [facility] [address] [address] 10/12/2020 12:00:00 AM EST eCW1 ([facility]) Attender: TOÑA MCINTOSH MD [facility] 08/30/2020 07:05:00 PM EST - 08/30/2020 07:05:00 PM EST NextGen ( [facility]) Feroz Gutierrez MD: [address] [place] [phone], Ph. Attender: Feroz Gutierrez MD [facility] [facility] 07/27/2020 12:00:00 AM EST DAVID ([facility]) Feroz Gutierrez MD: [address] [place] [phone], Ph. Attender: Feroz Gutierrez MD [facility] Medical 07/27/2020 12:00:00 AM EST DAVID ([facility]) Feroz Gutierrez MD: [address] [place] [phone], Ph. Attender: Feroz Gutierrez MD [facility] Medical 07/27/2020 12:00:00 AM EST DAVID ([facility]) Feroz Gutierrez MD: [address] [place] [phone], Ph. Attender: Feroz Gutierrez MD [facility] Medical 07/27/2020 12:00:00 AM EST DAVID ([facility]) ([facility] Rheum) Telephone Rheum [address] [place] [address] 07/25/2020 12:00:00 AM EST eCW1 ([facility]) Outpatient [address] [facility] [phone] 07/25/2020 12:00:00 AM EST eCW1 ([facility]) Unknown [address] [facility] [id number] 07/25/2020 12:00:00 AM EST eCW1 ([facility]) Unknown [address] [facility] [phone] 06/21/2020 12:00:00 AM EST eCW1 ([facility]) Unknown [address] [facility] [phone] 06/21/2020 12:00:00 AM EST eCW1 ([facility]) (TV Rheum) Telephone Rheum [address] [place] [address] 06/20/2020 12:00:00 AM EST eCW1 ([facility]) Outpatient Attender: Edenilson Campos MD Main office - [place] 06/17/2020 11:15:00 AM EDT MEDENT ([facility]) Medications Medication Brand Name Start Date Product Form Dose Route Admi nistrative Instructions Pharmacy Instructions Status Indications Reaction Description Data Source(s) 25 mg 07/06/2021 12:00:00 AM EST tablet 30 TAKE ONE TABLET BY MOUTH EVERY NIGHT NEEDED TAKE ONE TABLET BY MOUTH EVERY NIGHT NEEDED SOLD: [facility] Ketoconazole 20 MG/ML Medicated Shampoo KETOCONAZOLE 06/06/20 12:00:00 AM EDT shampoo 120 USE EVERY OTHER DAY TO LATHER, T HEN LET IT SIT, THEN RINSE USE EVERY OTHER DAY TO LATHER, THEN LET IT SIT, THEN RINSE SOLD: 07/11/2021 [facility] Ketoconazole 20 MG/ML Medicated Shampoo KETOCONAZOLE 06/06/20 12:00:00 AM EDT shampoo 120 USE EVERY OTHER DAY TO LATHER, T HEN LET IT SIT, THEN RINSE USE EVERY OTHER DAY TO LATHER, THEN LET IT SIT, THEN RINSE SOLD: 06/09/2021 [facility] Triamcinolone Acetonide 1 MG/ML Topical Cream 0.1 % TRIAMCIN OLONE ACETONIDE 06/05/2021 12:00:00 AM EDT cream 15 APPLY TO AFFECTED AREA(S) OF TRUNK AND EXTREMITIES FOR 14 DAYS APPLY TO AFFECTED AREA(S) OF TRUNK AND E XTREMITIES FOR 14 DAYS SOLD: 06/09/2021 [facility] Fluocinonide 0.5 MG/ML Topical Solution Fluocinonide 0.05 % Fluocinonide 0.05 % 06/05/2021 12:00:00 AM EDT 1.0 {application} [facility] Fluocinonide 0.05 % [facility] 0.05 % 06/05/2021 12:00:00 AM EDT solution 20 APPLY TOPICLLY TWO TIMES A DAY FOR 14 DAYS APPLY TOPICLLY TWO TIMES A DAY FOR 14 DAYS SOLD: 06/09/2021 [facility] 0.005 % 06/05/2021 12:00:00 AM EDT cream 60 APPLY TO AFFECTED AREA(S) ON TRUNK AND EXTREMITIES TWO TIMES A DAY APPLY TO AFFECTED AREA(S) ON TRUNK AND EXTREMITIES TWO TIMES A DAY SOLD: 07/03/2021 [facility] Fluocinonide 0.5 MG/ML Topical Solution Fluocinonide 0.05 % Fluocinonide 0.05 % 06/05/2021 12:00:00 AM EDT 1.0 {application} [facility] [place] Fluocinonide 0.05 % [facility]CW[facility] Fluocinonide 0.5 MG/ML Topical Solution Fluocinonide 0.05 % Fluocinonide 0.05 % 06/05/2021 12:00:00 AM EDT 1.0 {application} [facility] [place] Fluocinonide 0.05 % eCW1 ([facility]) 0.005 % 06/05/2021 12:00:00 AM EDT cream 60 APPLY TO AFFECTED AREA(S) ON TRUNK AND EXTREMITIES TWO TIMES A DAY APPLY TO AFFECTED AREA(S) ON TRUNK AND EXTREMITIES TWO TIMES A DAY SOLD: 06/09/2021 [facility] 0.005 % 06/05/2021 12:00:00 AM EDT cream 60 APPLY TO AFFECTED AREA(S) ON TRUNK AND EXTREMITIES TWO TIMES A DAY APPLY TO AFFECTED AREA(S) ON TRUNK AND EXTREMITIES TWO TIMES A DAY SOLD: 07/19/2021 [facility] Fluocinonide 0.5 MG/ML Topical Solution Fluocinonide 0.05 % Fluocinonide 0.05 % 06/05/2021 12:00:00 AM EDT 1.0 {application} [facility] [place] Fluocinonide 0.05 % [facility]CW[facility] 10 mg 05/24/2021 12:00:00 AM EDT tablet 40 TAKE FOUR TABLETS BY MOUTH EVERY DAY FOR 4 DAYS, THEN TAKE THREE TABLETS BY MOUTH EVERY DAY FOR 4 DAYS, THEN TAKE TWO TABLETS BY MOUTH EVERY DAY FOR 4 DAYS, THEN TAKE ONE TABLET BY MOUTH EVERY DAY FOR 4 DAYS, THEN STOP TAKE FOUR TABLETS BY MOUTH EVERY DAY FOR 4 DAYS, THEN TAKE THREE TABLETS BY MOUTH EVERY DAY FOR 4 DAYS, THEN TAKE TWO TABLETS BY MOUTH EVERY DAY FOR 4 DAYS, THEN TAKE ONE TABLET BY MOUTH EVERY DAY FOR 4 DAYS, THEN STOP SOLD: 05/24/2021 [facility] 40 mg 05/23/2021 12:00:00 AM EDT capsule,delayed release (DR/EC) 30 TAKE ONE CAPSULE BY MOUTH EVERY DAY - 30 MINUTES BEFORE DINNER TAKE ONE CAPSULE BY MOUTH EVERY DAY - 30 MINUTES BEFORE DINNER SOLD: 06/26/2021 [facility] Prednisone 10 MG Oral Tablet Prednisone 05/23/2021 12:00:00 AM EDT ORAL active MEDENT ([facility], ) 10 mg 05/23/2021 12:00:00 AM EDT cartridge 168 USE DIRECTED USE DIRECTED SOLD: 06/26/2021 [facility] 40 mg 05/23/2021 12:00:00 AM EDT capsule,delayed release (DR/EC) 30 TAKE ONE CAPSULE BY MOUTH EVERY DAY - 30 MINUTES BEFORE DINNER TAKE ONE CAPSULE BY MOUTH EVERY DAY - 30 MINUTES BEFORE DINNER SOLD: 05/24/2021 [facility] 10 mg 05/23/2021 12:00:00 AM EDT cartridge 168 USE DIRECTED USE DIRECTED SOLD: 05/24/2021 [facility] 60 ACTUAT olodaterol 0.0025 MG/ACTUAT / tiotropium 0.0025 MG/ACTUAT Metered Dose Inhaler [Stiolto] 2.5-2.5 mcg/actuation TIOTROPIUM BR/OLODATEROL HCL 05/22/2021 12:00:00 AM EDT mist 4 INHALE 2 PUFFS BY MOUTH D AILY INHALE 2 PUFFS BY MOUTH DAILY SOLD: 06/26/2021 [facility] 60 ACTUAT olodaterol 0.0025 MG/ACTUAT / tiotropium 0.0025 MG/ACTUAT Metered Dose Inhaler [Stiolto] 2.5-2.5 mcg/actuation TIOTROPIUM BR/OLODATEROL HCL 05/22/2021 12:00:00 AM EDT mist 4 INHALE 2 PUFFS BY MOUTH DAILY INHALE 2 PUFFS BY MOUTH DAILY SOLD: 05/24/2021 [facility] 1 % 05/19/2021 12:00:00 AM EDT gel 100 APPLY 4 GRAMS TO THE AFFECTED AREA FOUR TIMES A DAY NEEDED APPLY 4 GRAMS TO THE AFFECTED AREA FOUR TIMES A DAY NEEDED SOLD: 05/19/2021 [facility] 200 mcg/actuation 05/04/2021 12:00:00 AM EDT blister with de vice 30 INHALE ONE PUFF BY MOUTH EVERY DAY INHALE ONE PUFF BY MOUTH EVERY DAY SOLD: 05/04/2021 [facility] 200 mcg/actuation 05/04/2021 12:00:00 AM EDT blister with de vice 30 INHALE ONE PUFF BY MOUTH EVERY DAY INHALE ONE PUFF BY MOUTH EVERY DAY SOLD: 07/11/2021 [facility] 200 mcg/actuation 05/04/2021 12:00:00 AM EDT blister with de vice 30 INHALE ONE PUFF BY MOUTH EVERY DAY INHALE ONE PUFF BY MOUTH EVERY DAY SOLD: 06/09/2021 [facility] 17 gram/dose 04/27/2021 12:00:00 AM EDT powder [address] PALAFOX COLON PREPARATION INSTRUCTIONS USE DIRECTED PER DR PALAFOX COLON PREPARATION INSTRUCTIONS SOLD: 05/04/2021 [facility] MAGNESIUM CITRATE 04/13/2021 12:00:00 AM EDT solution 296 USE FOR ADDITIONAL PREP AT 2-3 DAYS BEFORE PROCEDURE DIRECTED USE FOR ADDITIONAL PREP AT 2-3 DAYS BEFORE PROCEDURE DIRECTED SOLD: 04/13/2021 [facility] magnesium citrate 58.2 MG/ML Oral Solution Magnesium Citrate 04/12/2021 12:00:00 AM EDT active MEDENT ([facility], ) POLYETHYLENE GLYCOL 3350 142 MG/ML Oral Solution [Miralax] M iralax 04/12/2021 12:00:00 AM EDT active M EDENT ([facility], ) 0.005 % 04/12/2021 12:00:00 AM EDT cream 60 APPLY TOPICALLY TO AFFECTED AREA(S) TWO TIMES A DAY APPLY TOPICALLY TO AFFECTED AREA(S) TWO TIMES A DAY SOLD: 06/26/2021 [facility] 0.005 % 04/12/2021 12:00:00 AM EDT cream 60 APPLY TOPICALLY TO AFFECTED AREA(S) TWO TIMES A DAY APPLY TOPICALLY TO AFFECTED AREA(S) TWO TIMES A DAY SOLD: 04/13/2021 [facility] 0.005 % 04/12/2021 12:00:00 AM EDT cream 60 APPLY TOPICALLY TO AFFECTED AREA(S) TWO TIMES A DAY APPLY TOPICALLY TO AFFECTED AREA(S) TWO TIMES A DAY SOLD: 05/16/2021 [facility] Triamcinolone Acetonide 1 MG/ML Topical Cream 0.1 % TRIAMCIN OLONE ACETONIDE 04/11/2021 12:00:00 AM EDT cream 15 APPLY TO AFFECTED AREA(S) ONCE A DAY TO TRUNK AND EXTREMITIES FOR 14 DAYS APPLY TO AFFECTED AREA(S) ONCE A DAY TO TRUNK AND EXTREMITIES FOR 14 DAYS SOLD: 04/13/2021 [facility] 50 mcg 03/10/2021 12:00:00 AM EDT tablet 30 TAKE ONE TABLET BY MOUTH ONCE A DAY ON AN EMPTY STOMACH TAKE ONE TABLET BY MOUTH ONCE A DAY ON AN EMPTY STOMAC H SOLD: 05/10/2021 [facility] 50 mcg 03/10/2021 12:00:00 AM EDT tablet 30 TAKE ONE TABLET BY MOUTH ONCE A DAY ON AN EMPTY STOMACH TAKE ONE TABLET BY MOUTH ONCE A DAY ON AN EMPTY STOMAC H SOLD: 03/11/2021 [facility] 50 mcg 03/10/2021 12:00:00 AM EDT tablet 30 TAKE ONE TABLET BY MOUTH ONCE A DAY ON AN EMPTY STOMACH TAKE ONE TABLET BY MOUTH ONCE A DAY ON AN EMPTY STOMAC H SOLD: 06/09/2021 [facility] 50 mcg 03/10/2021 12:00:00 AM EDT tablet 30 TAKE ONE TABLET BY MOUTH ONCE A DAY ON AN EMPTY STOMACH TAKE ONE TABLET BY MOUTH ONCE A DAY ON AN EMPTY STOMAC H SOLD: 04/11/2021 [facility] 50 mcg 03/10/2021 12:00:00 AM EDT tablet 30 TAKE ONE TABLET BY MOUTH ONCE A DAY ON AN EMPTY STOMACH TAKE ONE TABLET BY MOUTH ONCE A DAY ON AN EMPTY STOMAC H SOLD: 07/11/2021 [facility] 0.25 mg 02/20/2021 12:00:00 AM EDT tablet 60 TAKE TWO TABLETS BY MOUTH AT BEDTIME TAKE TWO TABLETS BY MOUTH AT BEDTIME SOLD: 02/22/2021 [facility] 0.25 mg 02/20/2021 12:00:00 AM EDT tablet 60 TAKE TWO TABLETS BY MOUTH AT BEDTIME TAKE TWO TABLETS BY MOUTH AT BEDTIME SOLD: 05/24/2021 [facility] 0.25 mg 02/20/2021 12:00:00 AM EDT tablet 60 TAKE TWO TABLETS BY MOUTH AT BEDTIME TAKE TWO TABLETS BY MOUTH AT BEDTIME SOLD: 03/26/2021 [facility] 0.25 mg 02/20/2021 12:00:00 AM EDT tablet 60 TAKE TWO TABLETS BY MOUTH AT BEDTIME TAKE TWO TABLETS BY MOUTH AT BEDTIME SOLD: 06/26/2021 [facility] 0.25 mg 02/20/2021 12:00:00 AM EDT tablet 60 TAKE TWO TABLETS BY MOUTH AT BEDTIME TAKE TWO TABLETS BY MOUTH AT BEDTIME SOLD: 04/25/2021 [facility] topiramate 200 MG Oral Tablet TOPIRAMATE 02/18/2021 12:00:00 AM EDT ta blet 30 TAKE ONE TABLET BY MOUTH AT BEDTIME TAKE ONE TABLET BY MOUTH AT BEDTIME SOLD: 02/22/2021 [facility] topiramate 200 MG Oral Tablet TOPIRAMATE 02/18/2021 12:00:00 AM EDT ta blet 30 TAKE ONE TABLET BY MOUTH AT BEDTIME TAKE ONE TABLET BY MOUTH AT BEDTIME SOLD: 05/24/2021 [facility] 30 mg 02/18/2021 12:00:00 AM EDT tablet 30 TAKE ONE TABLET BY MOUTH AT BEDTIME TAKE ONE TABLET BY MOUTH AT BEDTIME SOLD: 05/24/2021 [facility] topiramate 200 MG Oral Tablet TOPIRAMATE 02/18/2021 12:00:00 AM EDT ta blet 30 TAKE ONE TABLET BY MOUTH AT BEDTIME TAKE ONE TABLET BY MOUTH AT BEDTIME SOLD: 04/25/2021 [facility] topiramate 200 MG Oral Tablet TOPIRAMATE 02/18/2021 12:00:00 AM EDT ta blet 30 TAKE ONE TABLET BY MOUTH AT BEDTIME TAKE ONE TABLET BY MOUTH AT BEDTIME SOLD: 03/26/2021 [facility] topiramate 200 MG Oral Tablet TOPIRAMATE 02/18/2021 12:00:00 AM EDT ta blet 30 TAKE ONE TABLET BY MOUTH AT BEDTIME TAKE ONE TABLET BY MOUTH AT BEDTIME SOLD: 06/26/2021 [facility] 30 mg 02/18/2021 12:00:00 AM EDT tablet 30 TAKE ONE TABLET BY MOUTH AT BEDTIME TAKE ONE TABLET BY MOUTH AT BEDTIME SOLD: 04/25/2021 [facility] 30 mg 02/18/2021 12:00:00 AM EDT tablet 30 TAKE ONE TABLET BY MOUTH AT BEDTIME TAKE ONE TABLET BY MOUTH AT BEDTIME SOLD: 06/26/2021 [facility] 30 mg 02/18/2021 12:00:00 AM EDT tablet 30 TAKE ONE TABLET BY MOUTH AT BEDTIME TAKE ONE TABLET BY MOUTH AT BEDTIME SOLD: 02/22/2021 [facility] 30 mg 02/18/2021 12:00:00 AM EDT tablet 30 TAKE ONE TABLET BY MOUTH AT BEDTIME TAKE ONE TABLET BY MOUTH AT BEDTIME SOLD: 03/26/2021 [facility] 25 mg 02/12/2021 12:00:00 AM EDT tablet 30 TAKE ONE TABLET BY MOUTH EVERY NIGHT NEEDED TAKE ONE TABLET BY MOUTH EVERY NIGHT NEEDED SOLD: 021 [facility] 25 mg 02/12/2021 12:00:00 AM EDT tablet 30 TAKE ONE TABLET BY MOUTH EVERY NIGHT NEEDED TAKE ONE TABLET BY MOUTH EVERY NIGHT NEEDED SOLD: 021 [facility] 25 mg 02/12/2021 12:00:00 AM EDT tablet 30 TAKE ONE TABLET BY MOUTH EVERY NIGHT NEEDED TAKE ONE TABLET BY MOUTH EVERY NIGHT NEEDED SOLD: 021 [facility] 25 mg 02/12/2021 12:00:00 AM EDT tablet 30 TAKE ONE TABLET BY MOUTH EVERY NIGHT NEEDED TAKE ONE TABLET BY MOUTH EVERY NIGHT NEEDED SOLD: 021 [facility] 0.5 mg/2 mL 02/08/2021 12:00:00 AM EDT suspension for nebuli zation 120 INHALE 1 VIAL VIA NEBULIZER TWO TIMES A DAY INHALE 1 VIAL VIA NEBULIZER TWO TIMES A DAY SOLD: 03/26/2021 [facility] 0.5 mg/2 mL 02/08/2021 12:00:00 AM EDT suspension for nebuli zation 120 INHALE 1 VIAL VIA NEBULIZER TWO TIMES A DAY INHALE 1 VIAL VIA NEBULIZER TWO TIMES A DAY SOLD: 02/11/2021 [facility] 0.5 mg/2 mL 02/08/2021 12:00:00 AM EDT suspension for nebuli zation 120 INHALE 1 VIAL VIA NEBULIZER TWO TIMES A DAY INHALE 1 VIAL VIA NEBULIZER TWO TIMES A DAY SOLD: 04/25/2021 [facility] 0.5 mg/2 mL 02/08/2021 12:00:00 AM EDT suspension for nebuli zation 120 INHALE 1 VIAL VIA NEBULIZER TWO TIMES A DAY INHALE 1 VIAL VIA NEBULIZER TWO TIMES A DAY SOLD: 06/26/2021 [facility] 0.5 mg/2 mL 02/08/2021 12:00:00 AM EDT suspension for nebuli zation 120 INHALE 1 VIAL VIA NEBULIZER TWO TIMES A DAY INHALE 1 VIAL VIA NEBULIZER TWO TIMES A DAY SOLD: 05/24/2021 [facility] 0.005 % 02/06/2021 12:00:00 AM EDT cream 60 APPLY TO AFFECTED AREA(S) TOPICALLY ONCE DAILY APPLY TO AFFECTED AREA(S) TOPICALLY ONCE DAILY SOLD: 03/28/2021 [facility] 0.005 % 02/06/2021 12:00:00 AM EDT cream 60 APPLY TO AFFECTED AREA(S) TOPICALLY ONCE DAILY APPLY TO AFFECTED AREA(S) TOPICALLY ONCE DAILY SOLD: 02/06/2021 [facility] 0.005 % 02/06/2021 12:00:00 AM EDT cream 60 APPLY TO AFFECTED AREA(S) TOPICALLY ONCE DAILY APPLY TO AFFECTED AREA(S) TOPICALLY ONCE DAILY SOLD: 03/11/2021 [facility] Ketoconazole 20 MG/ML Medicated Shampoo KETOCONAZOLE 02/02/20 12:00:00 AM EDT shampoo 120 USE EVERY OTHER DAY TO LATHER, T MARCIA LET IT SIT THEN RINSE USE EVERY OTHER DAY TO LATHER, THEN LET IT SIT THEN RINSE SOLD: 02/06/2021 [facility] Ketoconazole 20 MG/ML Medicated Shampoo KETOCONAZOLE 02/02/20 12:00:00 AM EDT shampoo 120 USE EVERY OTHER DAY TO LATHER T MARCIA LET IT SIT THEN RINSE USE EVERY OTHER DAY TO LATHER, THEN LET IT SIT THEN RINSE SOLD: 03/11/2021 [facility] Ketoconazole 20 MG/ML Medicated Shampoo KETOCONAZOLE 02/02/20 12:00:00 AM EDT shampoo 120 USE EVERY OTHER DAY TO LATHER, T MARCIA LET IT SIT THEN RINSE USE EVERY OTHER DAY TO LATHER, THEN LET IT SIT THEN RINSE SOLD: 04/11/2021 [facility] Ketoconazole 20 MG/ML Medicated Shampoo KETOCONAZOLE 06/16/20 21 12:00:00 AM EDT shampoo 120 USE EVERY OTHER DAY TO LATHER, T HEN LET IT SIT THEN RINSE USE EVERY OTHER DAY TO LATHER, THEN LET IT SIT THEN RINSE SOLD: 05/10/2021 [facility] Ketoconazole 20 MG/ML Medicated Shampoo Ketoconazole 2 % Ket oconazole 2 % 01/31/2021 12:00:00 AM EDT 5.0 {ml} active Ketoconazole 2 % [facility] Ketoconazole 20 MG/ML Medicated Shampoo Ketoconazole 2 % Ket oconazole 2 % 01/31/2021 12:00:00 AM EDT 5.0 {ml} active Ketoconazole 2 % eCW1 ([facility] Ketoconazole 20 MG/ML Medicated Shampoo Ketoconazole 2 % Ket oconazole 2 % 01/31/2021 12:00:00 AM EDT 5.0 {ml} active Ketoconazole 2 % eCW1 ([facility] Ketoconazole 20 MG/ML Medicated Shampoo Ketoconazole 2 % Ket oconazole 2 % 01/31/2021 12:00:00 AM EDT 5.0 {ml} active Ketoconazole 2 % eCW1 ([facility] Ketoconazole 20 MG/ML Medicated Shampoo Ketoconazole 2 % Ket oconazole 2 % 01/31/2021 12:00:00 AM EDT 5.0 {ml} active Ketoconazole 2 % eCW1 ([facility]) Ketoconazole 20 MG/ML Medicated Shampoo Ketoconazole 2 % Ket oconazole 2 % 01/31/2021 12:00:00 AM EDT 5.0 {ml} active Ketoconazole 2 % eCW1 ([facility]) Ketoconazole 20 MG/ML Medicated Shampoo Ketoconazole 2 % Ket oconazole 2 % 01/31/2021 12:00:00 AM EDT 5.0 {ml} active Ketoconazole 2 % eCW1 ([facility]) Ketoconazole 20 MG/ML Medicated Shampoo Ketoconazole 2 % Ket oconazole 2 % 01/31/2021 12:00:00 AM EDT 5.0 {ml} active Ketoconazole 2 % eCW1 ([facility]) Ketoconazole 20 MG/ML Medicated Shampoo Ketoconazole 2 % Ket oconazole 2 % 01/31/2021 12:00:00 AM EDT 5.0 {ml} active Ketoconazole 2 % eCW1 ([facility]) Ketoconazole 20 MG/ML Medicated Shampoo Ketoconazole 2 % Ket oconazole 2 % 01/31/2021 12:00:00 AM EDT 5.0 {ml} active Ketoconazole 2 % eCW1 ([facility]) Ketoconazole 20 MG/ML Medicated Shampoo Ketoconazole 2 % Ket oconazole 2 % 01/31/2021 12:00:00 AM EDT 5.0 {ml} active Ketoconazole 2 % eCW1 ([facility]) Ketoconazole 20 MG/ML Medicated Shampoo Ketoconazole 2 % Ket oconazole 2 % 01/31/2021 12:00:00 AM EDT 5.0 {ml} active Ketoconazole 2 % eCW1 ([facility]) Ketoconazole 20 MG/ML Medicated Shampoo Ketoconazole 2 % Ket oconazole 2 % 01/31/2021 12:00:00 AM EDT 5.0 {ml} active Ketoconazole 2 % eCW1 ([facility]) Ketoconazole 20 MG/ML Medicated Shampoo Ketoconazole 2 % Ket oconazole 2 % 01/31/2021 12:00:00 AM EDT 5.0 {ml} active Ketoconazole 2 % [facility]CW1 ([facility]) 90 mcg/actuation 01/30/2021 12:00:00 AM EDT HFA aerosol inha ler 18 INHALE TWO PUFFS BY MOUTH FOUR TIMES A DAY NEEDED INHALE TWO PUFFS BY MOUTH FOUR TIMES A DAY NEEDED SOLD: 04/06/2021 [facility] 90 mcg/actuation 01/30/2021 12:00:00 AM EDT HFA aerosol inha ler 18 INHALE TWO PUFFS BY MOUTH FOUR TIMES A DAY NEEDED INHALE TWO PUFFS BY MOUTH FOUR TIMES A DAY NEEDED SOLD: 01/31/2021 [facility] 90 mcg/actuation 01/30/2021 12:00:00 AM EDT HFA aerosol inha ler 18 INHALE TWO PUFFS BY MOUTH FOUR TIMES A DAY NEEDED INHALE TWO PUFFS BY MOUTH FOUR TIMES A DAY NEEDED SOLD: 03/04/2021 [facility] 0.25 mg 01/24/2021 12:00:00 AM EDT tablet 60 TAKE ONE TABLET BY MOUTH AT BEDTIME FOR 1 WEEK THEN TAKE TWO TABLETS AT BEDTIME TAKE ONE TABLET BY MOUTH AT BEDTIME FOR 1 WEEK THEN TAKE TWO TABLETS AT BEDTIME SOLD: 01/31/2021 [facility] Ergocalciferol [id number] UNT Oral Capsule Vi tamin D (Ergocalciferol) 1.25 MG (52116 UT) Vitamin D (Ergocalciferol) 1.25 MG (17024 UT) 01/12/2021 12:00:0 0 AM EDT 1.0 {capsule} active Vitamin D (Ergocal ciferol) 1.25 MG (05057 UT) eCW1 ([facility]) 1,250 mcg (50,000 unit) 01/12/2021 12:00:00 AM EDT capsule 4 TAKE ONE CAPSULE BY MOUTH ONCE WEEKLY TAKE ONE CAPSULE BY MOUTH ONCE WEEKLY SOLD: 02/11/2021 [facility] Ergocalciferol 47874 UNT Oral Capsule Vi tamin D (Ergocalciferol) 1.25 MG (13460 UT) Vitamin D (Ergocalciferol) 1.25 MG (69758 UT) 01/12/2021 12:00:0 0 AM EDT 1.0 {capsule} active Vitamin D (Ergocal ciferol) 1.25 MG (78736 UT) eCW1 ([facility]) 1,250 mcg (50,000 unit) 01/12/2021 12:00:00 AM EDT capsule 4 TAKE ONE CAPSULE BY MOUTH ONCE WEEKLY TAKE ONE CAPSULE BY MOUTH ONCE WEEKLY SOLD: 01/12/2021 [facility] Ergocalciferol 93233 UNT Oral Capsule Vi tamin D (Ergocalciferol) 1.25 MG (15030 UT) Vitamin D (Ergocalciferol) 1.25 MG (02823 UT) 01/12/2021 12:00:0 0 AM EDT 1.0 {capsule} active Vitamin D (Ergocal ciferol) 1.25 MG (00926 UT) [facility] Ergocalciferol 85867 UNT Oral Capsule Vi tamin D (Ergocalciferol) 1.25 MG (29756 UT) Vitamin D (Ergocalciferol) 1.25 MG (39896 UT) 01/12/2021 12:00:0 0 AM EDT 1.0 {capsule} active Vitamin D (Ergocal ciferol) 1.25 MG (03005 UT) [facility] ([facility]) Ergocalciferol 93427 UNT Oral Capsule Vi tamin D (Ergocalciferol) 1.25 MG (78732 UT) Vitamin D (Ergocalciferol) 1.25 MG (81667 UT) 01/12/2021 12:00:0 0 AM EDT 1.0 {capsule} active Vitamin D (Ergocal ciferol) 1.25 MG (40150 UT) [facility]) Ergocalciferol 47997 UNT Oral Capsule Vi tamin D (Ergocalciferol) 1.25 MG (23026 UT) Vitamin D (Ergocalciferol) 1.25 MG (28955 UT) 01/12/2021 12:00:0 0 AM EDT 1.0 {capsule} active Vitamin D (Ergocal ciferol) 1.25 MG (10881 UT) [facility]) Ergocalciferol 81045 UNT Oral Capsule Vi tamin D (Ergocalciferol) 1.25 MG (01095 UT) Vitamin D (Ergocalciferol) 1.25 MG (49982 UT) 01/12/2021 12:00:0 0 AM EDT 1.0 {capsule} active Vitamin D (Ergocal ciferol) 1.25 MG (87307 UT) [facility]) Ergocalciferol 31532 UNT Oral Capsule Vi tamin D (Ergocalciferol) 1.25 MG (35088 UT) Vitamin D (Ergocalciferol) 1.25 MG (21477 UT) 01/12/2021 12:00:0 0 AM EDT 1.0 {capsule} active Vitamin D (Ergocal ciferol) 1.25 MG (44184 UT) [facility]) Ergocalciferol 15944 UNT Oral Capsule Vi tamin D (Ergocalciferol) 1.25 MG (46964 UT) Vitamin D (Ergocalciferol) 1.25 MG (06765 UT) 01/12/2021 12:00:0 0 AM EDT 1.0 {capsule} active Vitamin D (Ergocal ciferol) 1.25 MG (78856 UT) [facility] ([facility]) Ergocalciferol 51487 UNT Oral Capsule Vi tamin D (Ergocalciferol) 1.25 MG (21894 UT) Vitamin D (Ergocalciferol) 1.25 MG (60910 UT) 01/12/2021 12:00:0 0 AM EDT 1.0 {capsule} active Vitamin D (Ergocal ciferol) 1.25 MG (22797 UT) [facility] Ergocalciferol 17847 UNT Oral Capsule Vi tamin D (Ergocalciferol) 1.25 MG (64099 UT) Vitamin D (Ergocalciferol) 1.25 MG (47414 UT) 01/12/2021 12:00:0 0 AM EDT 1.0 {capsule} active Vitamin D (Ergocal ciferol) 1.25 MG (60435 UT) [facility]) Ergocalciferol 76079 UNT Oral Capsule Vi tamin D (Ergocalciferol) 1.25 MG (55698 UT) Vitamin D (Ergocalciferol) 1.25 MG (91689 UT) 01/12/2021 12:00:0 0 AM EDT 1.0 {capsule} active Vitamin D (Ergocal ciferol) 1.25 MG (02596 UT) [facility] ([facility]) Ergocalciferol [id number] UNT Oral Capsule Vi tamin D (Ergocalciferol) 1.25 MG (66244 UT) Vitamin D (Ergocalciferol) 1.25 MG (20123 UT) 01/12/2021 12:00:0 0 AM EDT 1.0 {capsule} active Vitamin D (Ergocal ciferol) 1.25 MG (37626 UT) [facility] ([facility]) Ergocalciferol 08921 UNT Oral Capsule Vi tamin D (Ergocalciferol) 1.25 MG (23781 UT) Vitamin D (Ergocalciferol) 1.25 MG (57092 UT) 01/12/2021 12:00:0 0 AM EDT 1.0 {capsule} active Vitamin D (Ergocal ciferol) 1.25 MG (04806 UT) [facility] ([facility]) Ergocalciferol 76187 UNT Oral Capsule Vi tamin D (Ergocalciferol) 1.25 MG (91328 UT) Vitamin D (Ergocalciferol) 1.25 MG (38465 UT) 01/12/2021 12:00:0 0 AM EDT 1.0 {capsule} active Vitamin D (Ergocal ciferol) 1.25 MG (32324 UT) [facility]) Ergocalciferol 51087 UNT Oral Capsule Vi tamin D (Ergocalciferol) 1.25 MG (02577 UT) Vitamin D (Ergocalciferol) 1.25 MG (96657 UT) 01/12/2021 12:00:0 0 AM EDT 1.0 {capsule} active Vitamin D (Ergocal ciferol) 1.25 MG (77359 UT) [facility]) Ergocalciferol 10409 UNT Oral Capsule Vi tamin D (Ergocalciferol) 1.25 MG (35050 UT) Vitamin D (Ergocalciferol) 1.25 MG (90435 UT) 01/12/2021 12:00:0 0 AM EDT 1.0 {capsule} active Vitamin D (Ergocal ciferol) 1.25 MG (90146 UT) [facility]) Ergocalciferol 80496 UNT Oral Capsule Vi tamin D (Ergocalciferol) 1.25 MG (71527 UT) Vitamin D (Ergocalciferol) 1.25 MG (01367 UT) 01/12/2021 12:00:0 0 AM EDT 1.0 {capsule} active Vitamin D (Ergocal ciferol) 1.25 MG (01719 UT) [facility] ([facility]) Ergocalciferol 26773 UNT Oral Capsule Vi tamin D (Ergocalciferol) 1.25 MG (97687 UT) Vitamin D (Ergocalciferol) 1.25 MG (95058 UT) 01/12/2021 12:00:0 0 AM EDT 1.0 {capsule} active Vitamin D (Ergocal ciferol) 1.25 MG (80895 UT) [facility] ([facility]) Ergocalciferol 49413 UNT Oral Capsule Vi tamin D (Ergocalciferol) 1.25 MG (81449 UT) Vitamin D (Ergocalciferol) 1.25 MG (02554 UT) 01/12/2021 12:00:0 0 AM EDT 1.0 {capsule} active Vitamin D (Ergocal ciferol) 1.25 MG (30624 UT) [facility] (Critical Access [facility] Ergocalciferol 80703 UNT Oral Capsule Vi tamin D (Ergocalciferol) 1.25 MG (93149 UT) Vitamin D (Ergocalciferol) 1.25 MG (13015 UT) 01/12/2021 12:00:0 0 AM EDT 1.0 {capsule} active Vitamin D (Ergocal ciferol) 1.25 MG (55064 UT) W1 ([facility]) Ergocalciferol 11437 UNT Oral Capsule Vi tamin D (Ergocalciferol) 1.25 MG (75993 UT) Vitamin D (Ergocalciferol) 1.25 MG (55673 UT) 01/12/2021 12:00:0 0 AM EDT 1.0 {capsule} active Vitamin D (Ergocal ciferol) 1.25 MG (16464 UT) eCW1 ([facility]) 1,250 mcg (50,000 unit) 01/12/2021 12:00:00 AM EDT capsule 4 TAKE ONE CAPSULE BY MOUTH ONCE WEEKLY TAKE ONE CAPSULE BY MOUTH ONCE WEEKLY SOLD: 03/26/2021 [facility] Voltaren 1 % UNK 01/10/2021 12:00:00 AM EDT activ e Voltaren 1 % eCW1 ([facility]) Diclofenac Sodium 0.01 MG/MG Topical Gel [Voltaren] Voltaren 1 % Voltaren 1 % 01/10/2021 12:00:00 AM EDT active Voltaren 1 % eCW1 ([facility]) Diclofenac Sodium 0.01 MG/MG Topical Gel [Voltaren] Voltaren 1 % Voltaren 1 % 01/10/2021 12:00:00 AM EDT active Voltaren 1 % eCW1 ([facility]) Diclofenac Sodium 0.01 MG/MG Topical Gel [Voltaren] Voltaren 1 % Voltaren 1 % 01/10/2021 12:00:00 AM EDT active Voltaren 1 % eCW1 ([facility]) Diclofenac Sodium 0.01 MG/MG Topical Gel [Voltaren] Voltaren 1 % Voltaren 1 % 01/10/2021 12:00:00 AM EDT active Voltaren 1 % eCW1 ([facility]) Diclofenac Sodium 0.01 MG/MG Topical Gel [Voltaren] Voltaren 1 % Voltaren 1 % 01/10/2021 12:00:00 AM EDT active Voltaren 1 % eCW1 ([facility]) Diclofenac Sodium 0.01 MG/MG Topical Gel [Voltaren] Voltaren 1 % Voltaren 1 % 01/10/2021 12:00:00 AM EDT active Voltaren 1 % eCW1 ([facility]) Diclofenac Sodium 0.01 MG/MG Topical Gel [Voltaren] Voltaren 1 % Voltaren 1 % 01/10/2021 12:00:00 AM EDT active Voltaren 1 % eCW1 ([facility]) Diclofenac Sodium 0.01 MG/MG Topical Gel [Voltaren] Voltaren 1 % Voltaren 1 % 01/10/2021 12:00:00 AM EDT active Voltaren 1 % eCW1 ([facility]) Albuterol 0.83 MG/ML Inhalant Solution Albuterol Sulfate 0 01/02/2021 12:00:00 AM EDT active MEDENT ([facility], ) 2.5 mg /3 mL (0.083 %) 01/02/2021 12:00:00 AM EDT solu tion for nebulization 375 INHALE 1 VIAL VIA NEBULIZER FOUR TIMES A DAY NEEDED INHALE 1 VIAL VIA NEBULIZER FOUR TIMES A DAY NEEDED SOLD: 04/06/2021 [facility] 2.5 mg /3 mL (0.083 %) 01/02/2021 12:00:00 AM EDT solu tion for nebulization 375 INHALE 1 VIAL VIA NEBULIZER FOUR TIMES A DAY NEEDED INHALE 1 VIAL VIA NEBULIZER FOUR TIMES A DAY NEEDED SOLD: 03/04/2021 [facility] 2.5 mg /3 mL (0.083 %) 01/02/2021 12:00:00 AM EDT solu tion for nebulization 375 INHALE 1 VIAL VIA NEBULIZER FOUR TIMES A DAY NEEDED INHALE 1 VIAL VIA NEBULIZER FOUR TIMES A DAY NEEDED SOLD: 01/31/2021 [facility] 2.5 mg /3 mL (0.083 %) 01/02/2021 12:00:00 AM EDT solu tion for nebulization 375 INHALE 1 VIAL VIA NEBULIZER FOUR TIMES A DAY NEEDED INHALE 1 VIAL VIA NEBULIZER FOUR TIMES A DAY NEEDED SOLD: 01/02/2021 [facility] topiramate 200 MG Oral Tablet TOPIRAMATE 12/24/2020 12:00:00 AM EDT ta blet 30 TAKE ONE TABLET BY MOUTH EVERY DAY AT BEDTIME TAKE ONE TABLET BY MOUTH EVERY DAY AT BEDTIME SOLD: 01/31/2021 [facility] 30 mg 12/24/2020 12:00:00 AM EDT tablet 30 TAKE ONE TABLET BY MOUTH EVERY DAY AT BEDTIME TAKE ONE TABLET BY MOUTH EVERY DAY AT BEDTIME SOLD: 12/28/2020 [facility] 30 mg 12/24/2020 12:00:00 AM EDT tablet 30 TAKE ONE TABLET BY MOUTH EVERY DAY AT BEDTIME TAKE ONE TABLET BY MOUTH EVERY DAY AT BEDTIME SOLD: 01/31/2021 [facility] topiramate 200 MG Oral Tablet TOPIRAMATE 12/24/2020 12:00:00 AM EDT ta blet 30 TAKE ONE TABLET BY MOUTH EVERY DAY AT BEDTIME TAKE ONE TABLET BY MOUTH EVERY DAY AT BEDTIME SOLD: 12/28/2020 [facility] 0.005 % 12/21/2020 12:00:00 AM EDT cream 60 APPLY ONE APPLICATION ONCE A DAY TO AFFECTED AREAS OF BODY TOPICALLY APPLY ONE APPLICATION ONCE A DAY TO AFFECTED AREAS OF BODY TOPICALLY SOLD: 01/23/2021 [facility] 0.005 % 12/21/2020 12:00:00 AM EDT cream 60 APPLY ONE APPLICATION ONCE A DAY TO AFFECTED AREAS OF BODY TOPICALLY APPLY ONE APPLICATION ONCE A DAY TO AFFECTED AREAS OF BODY TOPICALLY SOLD: 12/22/2020 [facility] 0.005 % 12/21/2020 12:00:00 AM EDT cream 60 APPLY ONE APPLICATION ONCE A DAY TO AFFECTED AREAS OF BODY TOPICALLY APPLY ONE APPLICATION ONCE A DAY TO AFFECTED AREAS OF BODY TOPICALLY SOLD: 02/22/2021 [facility] Hydroxyzine Hydrochloride 25 MG Oral Tablet HydrOXYzin e HCl 25 MG HydrOXYzine HCl 25 MG 12/20/2020 12:00:00 AM EDT 1.0 {tablet_as_needed} active HydrOXYzine HCl 25 MG eCW1 ([facility]) Hydroxyzine Hydrochloride 25 MG Oral Tablet HydrOXYzin e HCl 25 MG HydrOXYzine HCl 25 MG 12/20/2020 12:00:00 AM EDT 1.0 {tablet_as_needed} active HydrOXYzine HCl 25 MG eCW1 ([facility]) 25 mg 12/20/2020 12:00:00 AM EDT tablet 30 TAKE ONE TABLET BY MOUTH NEEDED NIGHTLY TAKE ONE TABLET BY MOUTH NEEDED NIGHTLY SOLD: 12/22/2020 [facility] Hydroxyzine Hydrochloride 25 MG Oral Tablet HydrOXYzin e HCl 25 MG HydrOXYzine HCl 25 MG 12/20/2020 12:00:00 AM EDT 1.0 {tablet_as_needed} active HydrOXYzine HCl 25 MG eCW1 ([facility]) calcipotriene 0.05 MG/ML Topical Cream Calcipotriene 0 .005 % Calcipotriene 0.005 % 12/20/2020 12:00:00 AM EDT 1.0 {application} active Calcipotriene 0.005 % eCW1 ([facility]) 25 mg 12/20/2020 12:00:00 AM EDT tablet 30 TAKE ONE TABLET BY MOUTH NEEDED NIGHTLY TAKE ONE TABLET BY MOUTH NEEDED NIGHTLY SOLD: 01/23/2021 [facility] 25 mg 12/20/2020 12:00:00 AM EDT tablet 30 TAKE ONE TABLET BY MOUTH NEEDED NIGHTLY TAKE ONE TABLET BY MOUTH NEEDED NIGHTLY SOLD: 03/11/2021 [facility] Hydroxyzine Hydrochloride 25 MG Oral Tablet HydrOXYzin e HCl 25 MG HydrOXYzine HCl 25 MG 12/20/2020 12:00:00 AM EDT 1.0 {tablet_as_needed} active HydrOXYzine HCl 25 MG eCW1 ([facility]) Triamcinolone Acetonide 1 MG/ML Topical Cream Triamcin olone Acetonide 0.1 % Triamcinolone Acetonide 0.1 % 12/20/2020 12:00:00 AM EDT 1.0 {appli cation} active Triamcinolone Acetonide 0 .1 % eCW1 ([facility]) Triamcinolone Acetonide 1 MG/ML Topical Cream Triamcin olone Acetonide 0.1 % Triamcinolone Acetonide 0.1 % 12/20/2020 12:00:00 AM EDT 1.0 {appli cation} active Triamcinolone Acetonide 0 .1 % eCW1 ([facility]) Hydroxyzine Hydrochloride 25 MG Oral Tablet HydrOXYzin e HCl 25 MG HydrOXYzine HCl 25 MG 12/20/2020 12:00:00 AM EDT 1.0 {tablet_as_needed} active HydrOXYzine HCl 25 MG eCW1 ([facility]) Triamcinolone Acetonide 1 MG/ML Topical Cream Triamcin olone Acetonide 0.1 % Triamcinolone Acetonide 0.1 % 12/20/2020 12:00:00 AM EDT 1.0 {appli cation} active Triamcinolone Acetonide 0 .1 % eCW1 ([facility]) Hydroxyzine Hydrochloride 25 MG Oral Tablet HydrOXYzin e HCl 25 MG HydrOXYzine HCl 25 MG 12/20/2020 12:00:00 AM EDT 1.0 {tablet_as_needed} active HydrOXYzine HCl 25 MG eCW1 ([facility]) Triamcinolone Acetonide 1 MG/ML Topical Cream Triamcin olone Acetonide 0.1 % Triamcinolone Acetonide 0.1 % 12/20/2020 12:00:00 AM EDT 1.0 {appli cation} active Triamcinolone Acetonide 0 .1 % eCW1 ([facility]) Triamcinolone Acetonide 1 MG/ML Topical Cream Triamcin olone Acetonide 0.1 % Triamcinolone Acetonide 0.1 % 12/20/2020 12:00:00 AM EDT 1.0 {appli cation} active Triamcinolone Acetonide 0 .1 % eCW1 ([facility]) calcipotriene 0.05 MG/ML Topical Cream Calcipotriene 0 .005 % Calcipotriene 0.005 % 12/20/2020 12:00:00 AM EDT 1.0 {application} active Calcipotriene 0.005 % eCW1 ([facility]) calcipotriene 0.05 MG/ML Topical Cream Calcipotriene 0 .005 % Calcipotriene 0.005 % 12/20/2020 12:00:00 AM EDT 1.0 {application} active Calcipotriene 0.005 % eCW1 ([facility]) calcipotriene 0.05 MG/ML Topical Cream Calcipotriene 0 .005 % Calcipotriene 0.005 % 12/20/2020 12:00:00 AM EDT 1.0 {application} active Calcipotriene 0.005 % eCW1 ([facility]) calcipotriene 0.05 MG/ML Topical Cream Calcipotriene 0 .005 % Calcipotriene 0.005 % 12/20/2020 12:00:00 AM EDT 1.0 {application} active Calcipotriene 0.005 % eCW1 ([facility]) Triamcinolone Acetonide 1 MG/ML Topical Cream Triamcin olone Acetonide 0.1 % Triamcinolone Acetonide 0.1 % 12/20/2020 12:00:00 AM EDT 1.0 {appli cation} active Triamcinolone Acetonide 0 .1 % eCW1 ([facility]) calcipotriene 0.05 MG/ML Topical Cream Calcipotriene 0 .005 % Calcipotriene 0.005 % 12/20/2020 12:00:00 AM EDT 1.0 {application} active Calcipotriene 0.005 % eCW1 ([facility]) atorvastatin 10 MG Oral Tablet ATORVASTATIN CALCIUM 12/08/2020 1 2:00:00 AM EDT tablet 30 TAKE ONE TABLET BY MOUTH AT BEDT JUN TAKE ONE TABLET BY MOUTH AT BEDTIME SOLD: 06/26/2021 [facility] atorvastatin 10 MG Oral Tablet ATORVASTATIN CALCIUM 12/08/2020 1 2:00:00 AM EDT tablet 30 TAKE ONE TABLET BY MOUTH AT BEDT JUN TAKE ONE TABLET BY MOUTH AT BEDTIME SOLD: 02/11/2021 [facility] atorvastatin 10 MG Oral Tablet ATORVASTATIN CALCIUM 12/08/2020 1 2:00:00 AM EDT tablet 30 TAKE ONE TABLET BY MOUTH AT BEDT JUN TAKE ONE TABLET BY MOUTH AT BEDTIME SOLD: 03/26/2021 [facility] atorvastatin 10 MG Oral Tablet ATORVASTATIN CALCIUM 12/08/2020 1 2:00:00 AM EDT tablet 30 TAKE ONE TABLET BY MOUTH AT BEDT JUN TAKE ONE TABLET BY MOUTH AT BEDTIME SOLD: 05/24/2021 [facility] atorvastatin 10 MG Oral Tablet ATORVASTATIN CALCIUM 12/08/2020 1 2:00:00 AM EDT tablet 30 TAKE ONE TABLET BY MOUTH AT BEDT JUN TAKE ONE TABLET BY MOUTH AT BEDTIME SOLD: 01/12/2021 [facility] atorvastatin 10 MG Oral Tablet ATORVASTATIN CALCIUM 12/08/2020 1 2:00:00 AM EDT tablet 30 TAKE ONE TABLET BY MOUTH AT BEDT JUN TAKE ONE TABLET BY MOUTH AT BEDTIME SOLD: 04/25/2021 [facility] 0.25 mg 11/22/2020 12:00:00 AM EDT tablet 60 TAKE ONE TABLET BY MOUTH AT BEDTIME FOR 1 WEEK THEN TAKE TWO TABLETS BY MOUTH AT BEDTIME TAKE ONE TABLET BY MOUTH AT BEDTIME FOR 1 WEEK THEN TAKE TWO TABLETS BY MOUTH AT BEDTIME SOLD: 12/28/2020 [facility] 0.25 mg 11/22/2020 12:00:00 AM EDT tablet 60 TAKE ONE TABLET BY MOUTH AT BEDTIME FOR 1 WEEK THEN TAKE TWO TABLETS BY MOUTH AT BEDTIME TAKE ONE TABLET BY MOUTH AT BEDTIME FOR 1 WEEK THEN TAKE TWO TABLETS BY MOUTH AT BEDTIME SOLD: 11/26/2020 [facility] ropinirole 0.25 MG Oral Tablet Ropinirole HCL 11/22/2020 12:00:00 AM EDT ORAL active MEDENT ([facility]) leflunomide 10 MG Oral Tablet Leflunomide 11/20/2020 12:00:00 AM EDT ORAL active MEDENT ([facility]) 40 mg 11/12/2020 12:00:00 AM EDT capsule,delayed release (DR/EC) 30 TAKE ONE CAPSULE BY MOUTH EVERY DAY 30 MINUTES BEFORE DINNER TAKE ONE CAPSULE BY MOUTH EVERY DAY 30 MINUTES BEFORE DINNER SOLD: 12/22/2020 [facility] 40 mg 11/12/2020 12:00:00 AM EDT capsule,delayed release (DR/EC) 30 TAKE ONE CAPSULE BY MOUTH EVERY DAY 30 MINUTES BEFORE DINNER TAKE ONE CAPSULE BY MOUTH EVERY DAY 30 MINUTES BEFORE DINNER SOLD: 11/15/2020 [facility] 40 mg 11/12/2020 12:00:00 AM EDT capsule,delayed release (DR/EC) 30 TAKE ONE CAPSULE BY MOUTH EVERY DAY 30 MINUTES BEFORE DINNER TAKE ONE CAPSULE BY MOUTH EVERY DAY 30 MINUTES BEFORE DINNER SOLD: 03/26/2021 [facility] 40 mg 11/12/2020 12:00:00 AM EDT capsule,delayed release (DR/EC) 30 TAKE ONE CAPSULE BY MOUTH EVERY DAY 30 MINUTES BEFORE DINNER TAKE ONE CAPSULE BY MOUTH EVERY DAY 30 MINUTES BEFORE DINNER SOLD: 04/25/2021 [facility] 40 mg 11/12/2020 12:00:00 AM EDT capsule,delayed release (DR/EC) 30 TAKE ONE CAPSULE BY MOUTH EVERY DAY 30 MINUTES BEFORE DINNER TAKE ONE CAPSULE BY MOUTH EVERY DAY 30 MINUTES BEFORE DINNER SOLD: 02/22/2021 [facility] 40 mg 11/12/2020 12:00:00 AM EDT capsule,delayed release (DR/EC) 30 TAKE ONE CAPSULE BY MOUTH EVERY DAY 30 MINUTES BEFORE DINNER TAKE ONE CAPSULE BY MOUTH EVERY DAY 30 MINUTES BEFORE DINNER SOLD: 01/23/2021 [facility] 60 ACTUAT olodaterol 0.0025 MG/ACTUAT / tiotropium 0.0025 MG/ACTUAT Metered Dose Inhaler [Stiolto] 2.5-2.5 mcg/actuation TIOTROPIUM BR/OLODATEROL HCL 11/05/2020 12:00:00 AM EDT mist 4 INHALE 2 PUFFS BY MOUTH DAILY INHALE 2 PUFFS BY MOUTH DAILY SOLD: 04/25/2021 [facility] 60 ACTUAT olodaterol 0.0025 MG/ACTUAT / tiotropium 0.0025 MG/ACTUAT Metered Dose Inhaler [Stiolto] 2.5-2.5 mcg/actuation TIOTROPIUM BR/OLODATEROL HCL 11/05/2020 12:00:00 AM EDT mist 4 INHALE 2 PUFFS BY MOUTH DAILY INHALE 2 PUFFS BY MOUTH DAILY SOLD: 02/11/2021 [facility] 60 ACTUAT olodaterol 0.0025 MG/ACTUAT / tiotropium 0.0025 MG/ACTUAT Metered Dose Inhaler [Stiolto] 2.5-2.5 mcg/actuation TIOTROPIUM BR/OLODATEROL HCL 11/05/2020 12:00:00 AM EDT mist 4 INHALE 2 PUFFS BY MOUTH DAILY INHALE 2 PUFFS BY MOUTH DAILY SOLD: 03/26/2021 [facility] 60 ACTUAT olodaterol 0.0025 MG/ACTUAT / tiotropium 0.0025 MG/ACTUAT Metered Dose Inhaler [Stiolto] 2.5-2.5 mcg/actuation TIOTROPIUM BR/OLODATEROL HCL 11/05/2020 12:00:00 AM EDT mist 4 INHALE 2 PUFFS BY MOUTH DAILY INHALE 2 PUFFS BY MOUTH DAILY SOLD: 01/12/2021 [facility] 2.5-2.5 mcg/actuation 11/05/2020 12:00:00 AM EDT mist 4 INHALE 2 PUFFS BY MOUTH DAILY INHALE 2 PUFFS BY MOUTH DAILY SOLD: 11/10/2020 [facility] 10 mg 11/03/2020 12:00:00 AM EDT tablet 30 TAKE ONE TABLET BY MOUTH EVERY DAY TAKE ONE TABLET BY MOUTH EVERY DAY SOLD: 11/04/2020 [facility] 10 mg 11/03/2020 12:00:00 AM EDT tablet 30 TAKE ONE TABLET BY MOUTH EVERY DAY TAKE ONE TABLET BY MOUTH EVERY DAY SOLD: 12/04/2020 [facility] leflunomide 10 MG Oral Tablet Leflunomide 10 MG Leflunomide 10 MG 11/02/2020 12:00:00 AM EDT 1.0 {tablet} active Le flunomide 10 MG eCW1 ([facility] leflunomide 10 MG Oral Tablet Leflunomide 10 MG Leflunomide 10 MG 11/02/2020 12:00:00 AM EDT 1.0 {tablet} active Le flunomide 10 MG eCW1 ([facility]) leflunomide 10 MG Oral Tablet Leflunomide 10 MG Leflunomide 10 MG 11/02/2020 12:00:00 AM EDT 1.0 {tablet} active Le flunomide 10 MG eCW1 ([facility]) leflunomide 10 MG Oral Tablet Leflunomide 10 MG Leflunomide 10 MG 11/02/2020 12:00:00 AM EDT 1.0 {tablet} active Le flunomide 10 MG eCW1 ([facility]) 200 mcg/actuation 10/17/2020 12:00:00 AM EST blister with de vice 30 INHALE ONE PUFF BY MOUTH EVERY DAY INHALE ONE PUFF BY MOUTH EVERY DAY SOLD: 11/26/2020 [facility] 200 mcg/actuation 10/17/2020 12:00:00 AM EST blister with de vice 30 INHALE ONE PUFF BY MOUTH EVERY DAY INHALE ONE PUFF BY MOUTH EVERY DAY SOLD: 12/28/2020 [facility] 200 mcg/actuation 10/17/2020 12:00:00 AM EST blister with de vice 30 INHALE ONE PUFF BY MOUTH EVERY DAY INHALE ONE PUFF BY MOUTH EVERY DAY SOLD: 10/24/2020 [facility] 200 mcg/actuation 10/17/2020 12:00:00 AM EST blister with de vice 30 INHALE ONE PUFF BY MOUTH EVERY DAY INHALE ONE PUFF BY MOUTH EVERY DAY SOLD: 01/31/2021 [facility] 200 mcg/actuation 10/17/2020 12:00:00 AM EST blister with de vice 30 INHALE ONE PUFF BY MOUTH EVERY DAY INHALE ONE PUFF BY MOUTH EVERY DAY SOLD: 03/04/2021 [facility] 200 mcg/actuation 10/17/2020 12:00:00 AM EST blister with de vice 30 INHALE ONE PUFF BY MOUTH EVERY DAY INHALE ONE PUFF BY MOUTH EVERY DAY SOLD: 04/06/2021 [facility] 10 mg 10/10/2020 12:00:00 AM EST cartridge 168 USE DIRECTED USE DIRECTED SOLD: 10/24/2020 [facility] 50 mg 09/26/2020 12:00:00 AM EST tablet extended release 24 hr 30 TAKE ONE TABLET BY MOUTH EVERY DAY TAKE ONE TABLET BY MOUTH EVERY DAY SOLD: 07/11/2021 [facility] 50 mg 09/26/2020 12:00:00 AM EST tablet extended release 24 hr 30 TAKE ONE TABLET BY MOUTH EVERY DAY TAKE ONE TABLET BY MOUTH EVERY DAY SOLD: 03/04/2021 [facility] 50 mg 09/26/2020 12:00:00 AM EST tablet extended release 24 hr 30 TAKE ONE TABLET BY MOUTH EVERY DAY TAKE ONE TABLET BY MOUTH EVERY DAY SOLD: 04/06/2021 [facility] 50 mg 09/26/2020 12:00:00 AM EST tablet extended release 24 hr 30 TAKE ONE TABLET BY MOUTH EVERY DAY TAKE ONE TABLET BY MOUTH EVERY DAY SOLD: 05/04/2021 [facility] 50 mg 09/26/2020 12:00:00 AM EST tablet extended release 24 hr 30 TAKE ONE TABLET BY MOUTH EVERY DAY TAKE ONE TABLET BY MOUTH EVERY DAY SOLD: 09/29/2020 [facility] 50 mg 09/26/2020 12:00:00 AM EST tablet extended release 24 hr 30 TAKE ONE TABLET BY MOUTH EVERY DAY TAKE ONE TABLET BY MOUTH EVERY DAY SOLD: 10/30/2020 [facility] 50 mg 09/26/2020 12:00:00 AM EST tablet extended release 24 hr 30 TAKE ONE TABLET BY MOUTH EVERY DAY TAKE ONE TABLET BY MOUTH EVERY DAY SOLD: 11/30/2020 [facility] 50 mg 09/26/2020 12:00:00 AM EST tablet extended release 24 hr 30 TAKE ONE TABLET BY MOUTH EVERY DAY TAKE ONE TABLET BY MOUTH EVERY DAY SOLD: 01/02/2021 [facility] 50 mg 09/26/2020 12:00:00 AM EST tablet extended release 24 hr 30 TAKE ONE TABLET BY MOUTH EVERY DAY TAKE ONE TABLET BY MOUTH EVERY DAY SOLD: 06/09/2021 [facility] 50 mg 09/26/2020 12:00:00 AM EST tablet extended release 24 hr 30 TAKE ONE TABLET BY MOUTH EVERY DAY TAKE ONE TABLET BY MOUTH EVERY DAY SOLD: 01/31/2021 [facility] 50 mcg 09/10/2020 12:00:00 AM EST tablet 30 TAKE ONE TABLET BY MOUTH ONCE DAILY ON AN EMPTY STOMACH TAKE ONE TABLET BY MOUTH ONCE DAILY ON A N EMPTY STOMACH SOLD: 10/09/2020 [facility] 50 mcg 09/10/2020 12:00:00 AM EST tablet 30 TAKE ONE TABLET BY MOUTH ONCE DAILY ON AN EMPTY STOMACH TAKE ONE TABLET BY MOUTH ONCE DAILY ON A N EMPTY STOMACH SOLD: 09/11/2020 [facility] 50 mcg 09/10/2020 12:00:00 AM EST tablet 30 TAKE ONE TABLET BY MOUTH ONCE DAILY ON AN EMPTY STOMACH TAKE ONE TABLET BY MOUTH ONCE DAILY ON A N EMPTY STOMACH SOLD: 11/10/2020 [facility] 50 mcg 09/10/2020 12:00:00 AM EST tablet 30 TAKE ONE TABLET BY MOUTH ONCE DAILY ON AN EMPTY STOMACH TAKE ONE TABLET BY MOUTH ONCE DAILY ON A N EMPTY STOMACH SOLD: 02/11/2021 [facility] 50 mcg 09/10/2020 12:00:00 AM EST tablet 30 TAKE ONE TABLET BY MOUTH ONCE DAILY ON AN EMPTY STOMACH TAKE ONE TABLET BY MOUTH ONCE DAILY ON A N EMPTY STOMACH SOLD: 01/12/2021 [facility] 2.5 mg 08/30/2020 12:00:00 AM EST tablet 16 TAKE FOUR TABLETS BY MOUTH ONCE WEEKLY DIRECTED TAKE FOUR TABLETS BY MOUTH ONCE WEEKLY DIRECTED ANIVAL [facility] 2.5 mg 08/30/2020 12:00:00 AM EST tablet 16 TAKE FOUR TABLETS BY MOUTH ONCE WEEKLY DIRECTED TAKE FOUR TABLETS BY MOUTH ONCE WEEKLY DIRECTED ANIVAL [facility] 2.5 mg 08/30/2020 12:00:00 AM EST tablet 16 TAKE FOUR TABLETS BY MOUTH ONCE WEEKLY DIRECTED TAKE FOUR TABLETS BY MOUTH ONCE WEEKLY DIRECTED ANIVAL [facility] 0.5 mg/2 mL 08/03/2020 12:00:00 AM EST suspension for nebuli zation 120 INHALE 1 VIAL VIA NEBULIZER TWO TIMES A DAY INHALE 1 VIAL VIA NEBULIZER TWO TIMES A DAY SOLD: 01/12/2021 [facility] 0.5 mg/2 mL 08/03/2020 12:00:00 AM EST suspension for nebuli zation 120 INHALE 1 VIAL VIA NEBULIZER TWO TIMES A DAY INHALE 1 VIAL VIA NEBULIZER TWO TIMES A DAY SOLD: 11/10/2020 [facility] 0.5 mg/2 mL 08/03/2020 12:00:00 AM EST suspension for nebuli zation 120 INHALE 1 VIAL VIA NEBULIZER TWO TIMES A DAY INHALE 1 VIAL VIA NEBULIZER TWO TIMES A DAY SOLD: 10/08/2020 [facility] 0.5 mg/2 mL 08/03/2020 12:00:00 AM EST suspension for nebuli zation 120 INHALE 1 VIAL VIA NEBULIZER TWO TIMES A DAY INHALE 1 VIAL VIA NEBULIZER TWO TIMES A DAY SOLD: 08/07/2020 [facility] Budesonide 0.25 MG/ML Inhalant Solution Budesonide 08/02/2020 12: 00:00 AM EST active MEDENT ([facility], ) topiramate 200 MG Oral Tablet TOPIRAMATE 07/19/2020 12:00:00 AM EST ta blet 30 TAKE ONE TABLET BY MOUTH EVERY DAY AT BEDTIME TAKE ONE TABLET BY MOUTH EVERY DAY AT BEDTIME SOLD: 09/24/2020 [facility] 30 mg 07/19/2020 12:00:00 AM EST tablet 30 TAKE ONE TABLET BY MOUTH EVERY DAY AT BEDTIME TAKE ONE TABLET BY MOUTH EVERY DAY AT BEDTIME SOLD: 10/24/2020 [facility] topiramate 200 MG Oral Tablet TOPIRAMATE 07/19/2020 12:00:00 AM EST ta blet 30 TAKE ONE TABLET BY MOUTH EVERY DAY AT BEDTIME TAKE ONE TABLET BY MOUTH EVERY DAY AT BEDTIME SOLD: 08/25/2020 [facility] 30 mg 07/19/2020 12:00:00 AM EST tablet 30 TAKE ONE TABLET BY MOUTH EVERY DAY AT BEDTIME TAKE ONE TABLET BY MOUTH EVERY DAY AT BEDTIME SOLD: 09/24/2020 [facility] topiramate 200 MG Oral Tablet TOPIRAMATE 07/19/2020 12:00:00 AM EST ta blet 30 TAKE ONE TABLET BY MOUTH EVERY DAY AT BEDTIME TAKE ONE TABLET BY MOUTH EVERY DAY AT BEDTIME SOLD: 11/26/2020 [facility] topiramate 200 MG Oral Tablet TOPIRAMATE 07/19/2020 12:00:00 AM EST ta blet 30 TAKE ONE TABLET BY MOUTH EVERY DAY AT BEDTIME TAKE ONE TABLET BY MOUTH EVERY DAY AT BEDTIME SOLD: 10/24/2020 [facility] 30 mg 07/19/2020 12:00:00 AM EST tablet 30 TAKE ONE TABLET BY MOUTH EVERY DAY AT BEDTIME TAKE ONE TABLET BY MOUTH EVERY DAY AT BEDTIME SOLD: 07/21/2020 [facility] 30 mg 07/19/2020 12:00:00 AM EST tablet 30 TAKE ONE TABLET BY MOUTH EVERY DAY AT BEDTIME TAKE ONE TABLET BY MOUTH EVERY DAY AT BEDTIME SOLD: 11/26/2020 [facility] topiramate 200 MG Oral Tablet TOPIRAMATE 07/19/2020 12:00:00 AM EST ta blet 30 TAKE ONE TABLET BY MOUTH EVERY DAY AT BEDTIME TAKE ONE TABLET BY MOUTH EVERY DAY AT BEDTIME SOLD: 07/21/2020 [facility] 30 mg 07/19/2020 12:00:00 AM EST tablet 30 TAKE ONE TABLET BY MOUTH EVERY DAY AT BEDTIME TAKE ONE TABLET BY MOUTH EVERY DAY AT BEDTIME SOLD: 08/25/2020 [facility] 25 mg 06/17/2020 12:00:00 AM EDT tablet 30 TAKE ONE TABLET BY MOUTH EVERY DAY TAKE ONE TABLET BY MOUTH EVERY DAY SOLD: 06/21/2020 [facility] 90 mcg/actuation 06/13/2020 12:00:00 AM EDT HFA aerosol inha ler 18 INHALE TWO PUFFS BY MOUTH FOUR TIMES A DAY NEEDED INHALE TWO PUFFS BY MOUTH FOUR TIMES A DAY NEEDED SOLD: 01/02/2021 [facility] 90 mcg/actuation 06/13/2020 12:00:00 AM EDT HFA aerosol inha ler 18 INHALE TWO PUFFS BY MOUTH FOUR TIMES A DAY NEEDED INHALE TWO PUFFS BY MOUTH FOUR TIMES A DAY NEEDED SOLD: 12/04/2020 [facility] 90 mcg/actuation 06/13/2020 12:00:00 AM EDT HFA aerosol inha ler 18 INHALE TWO PUFFS BY MOUTH FOUR TIMES A DAY NEEDED INHALE TWO PUFFS BY MOUTH FOUR TIMES A DAY NEEDED SOLD: 06/17/2020 [facility] 90 mcg/actuation 06/13/2020 12:00:00 AM EDT HFA aerosol inha ler 18 INHALE TWO PUFFS BY MOUTH FOUR TIMES A DAY NEEDED INHALE TWO PUFFS BY MOUTH FOUR TIMES A DAY NEEDED SOLD: 11/04/2020 [facility] 60 ACTUAT Albuterol 0.09 MG/ACTUAT Metered Dose Inhaler Albu terol Sulfate HFA 06/13/2020 12:00:00 AM EDT RESPIRATORY active [facility] ([facility], ) 90 mcg/actuation 06/13/2020 12:00:00 AM EDT HFA aerosol inha ler 18 INHALE TWO PUFFS BY MOUTH FOUR TIMES A DAY NEEDED INHALE TWO PUFFS BY MOUTH FOUR TIMES A DAY NEEDED SOLD: 10/03/2020 [facility] 2.5 mg /3 mL (0.083 %) 06/06/2020 12:00:00 AM EDT solu tion for nebulization 375 INHALE 1 VIAL VIA NEBULIZER FOUR TIMES A DAY NEEDED INHALE 1 VIAL VIA NEBULIZER FOUR TIMES A DAY NEEDED SOLD: 11/04/2020 [facility] 2.5 mg /3 mL (0.083 %) 06/06/2020 12:00:00 AM EDT solu tion for nebulization 375 INHALE 1 VIAL VIA NEBULIZER FOUR TIMES A DAY NEEDED INHALE 1 VIAL VIA NEBULIZER FOUR TIMES A DAY NEEDED SOLD: 07/03/2020 [facility] 2.5 mg /3 mL (0.083 %) 06/06/2020 12:00:00 AM EDT solu tion for nebulization 375 INHALE 1 VIAL VIA NEBULIZER FOUR TIMES A DAY NEEDED INHALE 1 VIAL VIA NEBULIZER FOUR TIMES A DAY NEEDED SOLD: 08/07/2020 [facility] 2.5 mg /3 mL (0.083 %) 06/06/2020 12:00:00 AM EDT solu tion for nebulization 375 INHALE 1 VIAL VIA NEBULIZER FOUR TIMES A DAY NEEDED INHALE 1 VIAL VIA NEBULIZER FOUR TIMES A DAY NEEDED SOLD: 12/04/2020 [facility] 2.5 mg /3 mL (0.083 %) 06/06/2020 12:00:00 AM EDT solu tion for nebulization 375 INHALE 1 VIAL VIA NEBULIZER FOUR TIMES A DAY NEEDED INHALE 1 VIAL VIA NEBULIZER FOUR TIMES A DAY NEEDED SOLD: 06/08/2020 [facility] 2.5 mg /3 mL (0.083 %) 06/06/2020 12:00:00 AM EDT solu tion for nebulization 375 INHALE 1 VIAL VIA NEBULIZER FOUR TIMES A DAY NEEDED INHALE 1 VIAL VIA NEBULIZER FOUR TIMES A DAY NEEDED SOLD: 10/03/2020 [facility] Augmented Betamethasone 0.0005 MG/MG Topical Ointment 0.05 % BETAMETHASONE DIPROPIONATE/PROPYLENE GLYCOL 06/02/2020 12:00:00 AM EDT ointment 15 APPLY TO AFFECTED AREA(S) WITH RASH TWO TIMES A DAY APPLY TO AFFECTED AREA(S) WITH RASH TWO TIMES A DAY SOLD: 10/03/2020 [facility] Betamethasone 0.0005 MG/MG Topical Ointment 0.05 % BETAMETHASONE DIPROPIONATE/PROPYLENE GLYCOL 06/02/2020 12:00:00 AM EDT ointment 15 APPLY TO AFFECTED AREA(S) WITH RASH TWO TIMES A DAY APPLY TO AFFECTED AREA(S) WITH RASH TWO TIMES A DAY SOLD: 06/02/2020 [facility] Betamethasone 0.0005 MG/MG Topical Ointment 0.05 % BETAMETHASONE DIPROPIONATE/PROPYLENE GLYCOL 06/02/2020 12:00:00 AM EDT ointment 15 APPLY TO AFFECTED AREA(S) WITH RASH TWO TIMES A DAY APPLY TO AFFECTED AREA(S) WITH RASH TWO TIMES A DAY SOLD: 07/05/2020 [facility] Aug[facility] Betamethasone 0.0005 MG/MG Topical Ointment 0.05 % BETAMETHASONE DIPROPIONATE/PROPYLENE GLYCOL 06/02/2020 12:00:00 AM EDT ointment 15 APPLY TO AFFECTED AREA(S) WITH RASH TWO TIMES A DAY APPLY TO AFFECTED AREA(S) WITH RASH TWO TIMES A DAY SOLD: 08/07/2020 [facility] Augmented Betamethasone 0.0005 MG/MG Topical Ointment 0.05 % BETAMETHASONE DIPROPIONATE/PROPYLENE GLYCOL 06/02/2020 12:00:00 AM EDT ointment 15 APPLY TO AFFECTED AREA(S) WITH RASH TWO TIMES A DAY APPLY TO AFFECTED AREA(S) WITH RASH TWO TIMES A DAY SOLD: 11/30/2020 [facility] 1 mg 05/19/2020 12:00:00 AM EDT tablet 30 TAKE ONE TABLET BY MOUTH EVERY DAY TAKE ONE TABLET BY MOUTH EVERY DAY SOLD: 06/02/2020 [facility] 1 mg 05/19/2020 12:00:00 AM EDT tablet 30 TAKE ONE TABLET BY MOUTH EVERY DAY TAKE ONE TABLET BY MOUTH EVERY DAY SOLD: 11/10/2020 [facility] 1 mg 05/19/2020 12:00:00 AM EDT tablet 30 TAKE ONE TABLET BY MOUTH EVERY DAY TAKE ONE TABLET BY MOUTH EVERY DAY SOLD: 07/05/2020 [facility] 1 mg 05/19/2020 12:00:00 AM EDT tablet 30 TAKE ONE TABLET BY MOUTH EVERY DAY TAKE ONE TABLET BY MOUTH EVERY DAY SOLD: 10/08/2020 [facility] 2.5 mg 05/19/2020 12:00:00 AM EDT tablet 16 TAKE FOUR TABLETS BY MOUTH ONCE WEEKLY DIRECTED TAKE FOUR TABLETS BY MOUTH ONCE WEEKLY DIRECTED ANIVAL [facility] 1 mg 05/19/2020 12:00:00 AM EDT tablet 30 TAKE ONE TABLET BY MOUTH EVERY DAY TAKE ONE TABLET BY MOUTH EVERY DAY SOLD: 08/07/2020 [facility] 1 mg 05/19/2020 12:00:00 AM EDT tablet 30 TAKE ONE TABLET BY MOUTH EVERY DAY TAKE ONE TABLET BY MOUTH EVERY DAY SOLD: 09/09/2020 [facility] 2.5 mg 05/19/2020 12:00:00 AM EDT tablet 16 TAKE FOUR TABLETS BY MOUTH ONCE WEEKLY DIRECTED TAKE FOUR TABLETS BY MOUTH ONCE WEEKLY DIRECTED ANIVAL [facility] 2.5 mg 05/19/2020 12:00:00 AM EDT tablet 16 TAKE FOUR TABLETS BY MOUTH ONCE WEEKLY DIRECTED TAKE FOUR TABLETS BY MOUTH ONCE WEEKLY DIRECTED ANIVAL [facility] 0.05 % 05/05/2020 12:00:00 AM EDT cream 15 APPLY TO BODY RASH TWO TIMES A DAY APPLY TO BODY RASH TWO TIMES A DAY SOLD: 07/05/2020 [facility] 0.05 % 05/05/2020 12:00:00 AM EDT cream 15 APPLY TO BODY RASH TWO TIMES A DAY APPLY TO BODY RASH TWO TIMES A DAY SOLD: 08/07/2020 [facility] 0.05 % 05/05/2020 12:00:00 AM EDT cream 15 APPLY TO BODY RASH TWO TIMES A DAY APPLY TO BODY RASH TWO TIMES A DAY SOLD: 11/10/2020 [facility] 0.05 % 05/05/2020 12:00:00 AM EDT cream 15 APPLY TO BODY RASH TWO TIMES A DAY APPLY TO BODY RASH TWO TIMES A DAY SOLD: 10/27/2020 [facility] 0.05 % 05/05/2020 12:00:00 AM EDT cream 15 APPLY TO BODY RASH TWO TIMES A DAY APPLY TO BODY RASH TWO TIMES A DAY SOLD: 06/08/2020 [facility] Augmented Betamethasone 0.5 MG/ML Topical Cream 0.05 % BETAMETHASONE/PROPYLENE GLYC 05/05/2020 12:00:00 AM EDT cream 15 APPLY TO BODY RASH TWO TIMES A DAY APPLY TO BODY RASH TWO TIMES A DAY SOLD: 12/01/2020 [facility] 0.05 % 05/05/2020 12:00:00 AM EDT cream 15 APPLY TO BODY RASH TWO TIMES A DAY APPLY TO BODY RASH TWO TIMES A DAY SOLD: 10/03/2020 [facility] 200 mcg/actuation 04/16/2020 12:00:00 AM EDT blister with de vice 30 INHALE ONE PUFF BY MOUTH EVERY DAY INHALE ONE PUFF BY MOUTH EVERY DAY SOLD: 06/17/2020 [facility] 200 mcg/actuation 04/16/2020 12:00:00 AM EDT blister with de vice 30 INHALE ONE PUFF BY MOUTH EVERY DAY INHALE ONE PUFF BY MOUTH EVERY DAY SOLD: 07/21/2020 [facility] 200 mcg/actuation 04/16/2020 12:00:00 AM EDT blister with de vice 30 INHALE ONE PUFF BY MOUTH EVERY DAY INHALE ONE PUFF BY MOUTH EVERY DAY SOLD: 08/20/2020 [facility] 200 mcg/actuation 04/16/2020 12:00:00 AM EDT blister with de vice 30 INHALE ONE PUFF BY MOUTH EVERY DAY INHALE ONE PUFF BY MOUTH EVERY DAY SOLD: 09/19/2020 [facility] 30 mg 04/11/2020 12:00:00 AM EDT tablet 30 TAKE ONE TABLET BY MOUTH EVERY DAY AT BEDTIME TAKE ONE TABLET BY MOUTH EVERY DAY AT BEDTIME SOLD: 06/17/2020 [facility] topiramate 200 MG Oral Tablet TOPIRAMATE 03/16/2020 12:00:00 AM EDT ta blet 30 TAKE ONE TABLET BY MOUTH EVERY DAY AT BEDTIME TAKE ONE TABLET BY MOUTH EVERY DAY AT BEDTIME SOLD: 06/17/2020 [facility] 2.5-2.5 mcg/actuation 03/07/2020 12:00:00 AM EDT mist 4 INHALE 2 PUFFS BY MOUTH DAILY INHALE 2 PUFFS BY MOUTH DAILY SOLD: 07/25/2020 [facility] 2.5-2.5 mcg/actuation 03/07/2020 12:00:00 AM EDT mist 4 INHALE 2 PUFFS BY MOUTH DAILY INHALE 2 PUFFS BY MOUTH DAILY SOLD: 06/17/2020 [facility] 2.5-2.5 mcg/actuation 03/07/2020 12:00:00 AM EDT mist 4 INHALE 2 PUFFS BY MOUTH DAILY INHALE 2 PUFFS BY MOUTH DAILY SOLD: 10/08/2020 [facility] 40 mg 03/01/2020 12:00:00 AM EDT capsule,delayed release (DR/EC) 30 TAKE ONE CAPSULE BY MOUTH ONCE DAILY 30 MINUTES BEFORE DINNER TAKE ONE CAPSULE BY MOUTH ONCE DAILY 30 MINUTES BEFORE DINNER SOLD: 10/08/2020 [facility] 50 mcg 03/01/2020 12:00:00 AM EDT tablet 30 TAKE ONE TABLET BY MOUTH ONCE DAILY ON AN EMPTY STOMACH TAKE ONE TABLET BY MOUTH ONCE DAILY ON A N EMPTY STOMACH SOLD: 06/08/2020 [facility] 40 mg 03/01/2020 12:00:00 AM EDT capsule,delayed release (DR/EC) 30 TAKE ONE CAPSULE BY MOUTH ONCE DAILY 30 MINUTES BEFORE DINNER TAKE ONE CAPSULE BY MOUTH ONCE DAILY 30 MINUTES BEFORE DINNER SOLD: 06/17/2020 [facility] 50 mcg 03/01/2020 12:00:00 AM EDT tablet 30 TAKE ONE TABLET BY MOUTH ONCE DAILY ON AN EMPTY STOMACH TAKE ONE TABLET BY MOUTH ONCE DAILY ON A N EMPTY STOMACH SOLD: 07/05/2020 [facility] 40 mg 03/01/2020 12:00:00 AM EDT capsule,delayed release (DR/EC) 30 TAKE ONE CAPSULE BY MOUTH ONCE DAILY 30 MINUTES BEFORE DINNER TAKE ONE CAPSULE BY MOUTH ONCE DAILY 30 MINUTES BEFORE DINNER SOLD: 07/21/2020 [facility] 50 mcg 03/01/2020 12:00:00 AM EDT tablet 30 TAKE ONE TABLET BY MOUTH ONCE DAILY ON AN EMPTY STOMACH TAKE ONE TABLET BY MOUTH ONCE DAILY ON A N EMPTY STOMACH SOLD: 08/07/2020 [facility] 10 mg 02/04/2020 12:00:00 AM EDT cartridge 168 USE 1 CARTRIDGE EVERY 4 TO 6 HOURS MAXIMUM DAILY DOSE = 4 USE 1 CARTRIDGE EVERY 4 TO 6 HOURS MAXIM UM DAILY DOSE = 4 SOLD: 08/20/2020 [facility] 10 mg 02/04/2020 12:00:00 AM EDT cartridge 168 USE 1 CARTRIDGE EVERY 4 TO 6 HOURS MAXIMUM DAILY DOSE = 4 USE 1 CARTRIDGE EVERY 4 TO 6 HOURS MAXIM UM DAILY DOSE = 4 SOLD: 06/17/2020 [facility] 0.05 % 01/31/2020 12:00:00 AM EDT gel 50 APPLY TO AFFECTED AREA(S) TWO TIMES A DAY ON SCALP APPLY TO AFFECTED AREA(S) TWO TIMES A DAY ON SCALP ANIVAL [facility] 0.5 mg/2 mL 11/26/2019 12:00:00 AM EDT suspension for nebuli zation 120 INHALE 1 VIAL VIA NEBULIZER TWO TIMES A DAY INHALE 1 VIAL VIA NEBULIZER TWO TIMES A DAY SOLD: 06/02/2020 [facility] 0.5 mg/2 mL 11/26/2019 12:00:00 AM EDT suspension for nebuli zation 120 INHALE 1 VIAL VIA NEBULIZER TWO TIMES A DAY INHALE 1 VIAL VIA NEBULIZER TWO TIMES A DAY SOLD: 07/05/2020 [facility] atorvastatin 10 MG Oral Tablet ATORVASTATIN CALCIUM 11/06/2019 1 2:00:00 AM EDT tablet 30 TAKE ONE TABLET BY MOUTH AT BEDT JUN TAKE ONE TABLET BY MOUTH AT BEDTIME SOLD: 07/21/2020 [facility] atorvastatin 10 MG Oral Tablet ATORVASTATIN CALCIUM 11/06/2019 1 2:00:00 AM EDT tablet 30 TAKE ONE TABLET BY MOUTH AT BEDT JUN TAKE ONE TABLET BY MOUTH AT BEDTIME SOLD: 10/08/2020 [facility] atorvastatin 10 MG Oral Tablet ATORVASTATIN CALCIUM 11/06/2019 1 2:00:00 AM EDT tablet 30 TAKE ONE TABLET BY MOUTH AT BEDT JUN TAKE ONE TABLET BY MOUTH AT BEDTIME SOLD: 11/10/2020 [facility] atorvastatin 10 MG Oral Tablet ATORVASTATIN CALCIUM 11/06/2019 1 2:00:00 AM EDT tablet 30 TAKE ONE TABLET BY MOUTH AT BEDT JUN TAKE ONE TABLET BY MOUTH AT BEDTIME SOLD: 06/17/2020 [facility] 50 mg 09/11/2019 12:00:00 AM EST tablet extended release 24 hr 90 TAKE ONE TABLET BY MOUTH EVERY DAY TAKE ONE TABLET BY MOUTH EVERY DAY SOLD: 06/17/2020 [facility] Spironolactone 25 MG Oral Tablet spirono lactone 25 mg tablet TAKE ONE TABLET BY MOUTH EVERY DAY spironolactone 25 mg tablet TAKE ONE TABLET BY MOUTH E VERY DAY completed spironolactone 25 MG Oral Tablet [facility] ([facility]) Methotrexate 2.5 MG Oral Tablet methotre xate sodium 2.5 mg tablet TAKE FOUR TABLETS BY MOUTH ONCE WEEKLY DIRECTED methotrexate sodium 2.5 mg tablet TAKE FOUR TABLETS BY MOUTH ONCE WEEKLY DIRECTED completed methotrexate 2.5 MG Oral Tablet [facility] ([facility]) Potassium Chloride 20 MEQ Extended Relea se Oral Tablet potassium chloride ER 20 mEq tablet,extended release potassium chloride ER 20 mEq tablet,exte nded release completed potassi um chloride 20 MEQ Extended Release Oral Tablet [facility] ([facility]) Folic Acid 1 MG Oral Tablet folic acid 1 mg tablet TAKE ONE TABLET BY MOUTH EVERY DAY folic acid 1 mg tablet TAKE ONE TABLET BY MOUTH EVERY DAY completed folic acid 1 MG Oral Tablet ATHE NA ([facility]) Spironolactone 25 MG Oral Tablet spirono lactone 25 mg tablet TAKE ONE TABLET BY MOUTH EVERY DAY spironolactone 25 mg tablet TAKE ONE TABLET BY MOUTH E VERY DAY completed spironolactone 25 MG Oral Tablet [facility] ([facility]) Methotrexate 2.5 MG Oral Tablet methotre xate sodium 2.5 mg tablet TAKE FOUR TABLETS BY MOUTH ONCE WEEKLY DIRECTED methotrexate sodium 2.5 mg tablet TAKE FOUR TABLETS BY MOUTH ONCE WEEKLY DIRECTED completed methotrexate 2.5 MG Oral Tablet [facility] ([facility]) topiramate 50 MG Oral Tablet topiramate 50 mg tablet topiramate 50 mg tablet completed topiramate 50 MG Oral Tablet [facility] ([facility]) topiramate 50 MG Oral Tablet topiramate 50 mg tablet topiramate 50 mg tablet completed topiramate 50 MG Oral Tablet [facility] ([facility]) Potassium Chloride 20 MEQ Extended Relea se Oral Tablet potassium chloride ER 20 mEq tablet,extended release potassium chloride ER 20 mEq tablet,exte nded release completed potassi um chloride 20 MEQ Extended Release Oral Tablet [facility] ([facility]) topiramate 50 MG Oral Tablet topiramate 50 mg tablet topiramate 50 mg tablet completed topiramate 50 MG Oral Tablet [facility] ([facility]) Folic Acid 1 MG Oral Tablet folic acid 1 mg tablet TAKE ONE TABLET BY MOUTH EVERY DAY folic acid 1 mg tablet TAKE ONE TABLET BY MOUTH EVERY DAY completed folic acid 1 MG Oral Tablet ATHE NA ([facility]) topiramate 50 MG Oral Tablet topiramate 50 mg tablet topiramate 50 mg tablet completed topiramate 50 MG Oral Tablet [facility] ([facility]) Insurance Providers Payer name Policy type / Coverage type Policy ID Covered republican ID Covered republican's relationship to alex Policy Alex Plan Information Medicaid S [id number] S [id number] [facility] COMMUNITY PLAN MCDHMO [id number] SP [id number] [facility] COMMUNITY PLAN MCDHMO [id number] SP [id number] Managed Care - Community Plan [facility] P [id number] S [id number] [facility] COMMUNITY PLAN MCDHMO [id number] SP [id number] UHC I [id number] Self [id number] UHC I [id number] Self [id number] Medicaid S [id number] S [id number] [facility] COMMUNITY PLAN MCDHMO [id number] SP [id number] [facility] COMMUNITY PLAN MCDHMO [id number] SP [id number] Managed Care - Community Plan [facility] P [id number] S [id number] [facility] COMMUNITY PLAN MCDHMO [id number] SP [id number] Medicaid S [id number] S [id number] [facility] COMMUNITY PLAN MCDHMO [id number] SP [id number] Managed Care - [facility] Community Plan P [id number] S [id number] [facility] COMMUNITY PLAN MCDHMO [id number] SP [id number] [facility] COMMUNITY PLAN MCDHMO [id number] SP [id number] [facility] Community Plan Commercial [id number] Self [id number] Managed Care - Community Plan [facility] P [id number] S [id number] Medicaid S [id number] S [id number] Managed Care - [facility] Community Plan P [id number] S [id number] Managed Care - [facility] Community Plan P [id number] S [id number] ANSI-Medicaid [id number] ANSI-Medicaid [id number] ANSI-Medicaid [id number] ANSI-Medicaid [id number] ANSI-Medicaid [id number] ANSI-Medicaid [id number] ANSI-Medicaid [id number] ANSI-Medicaid [id number] ANSI-Medicaid [id number] ANSI-Medicaid [id number] [facility] Health Maintenance Organization (HMO) [id number] Self [id number] [facility] Health Maintenance Organization ([facility]) [id number] Self [id number] [facility]OMERO [id number] SP [id number] MEDICARE [id number] SP [id number] SELF PAY UNAVAILABLE SP UNAVAILA BLE [employer] COMMUNITY PLAN MCDO [id number] SP [id number] MEDICAID M [id number] S [id number] [facility] Community Plan Commercial [id number] Self [id number] [facility]-Community Plan-[facility] Commercial [id number] Self [id number] [facility] O [id number] S [id number] MEDICAID [id number] SP [id number] [employer] COMMUNITY PLAN MCDO [id number] SP [id number] [facility](MCAID) O [id number] S [id number] [employer] COMMUNITY PLAN MCDO [id number] SP [id number] HC COMMUNITY PLAN MCDHMO [id number] SP [id number] [facility] Health Maintenance Organization ([facility]) [id number] Self UN COMMUNITY PLAN MCDO [id number] SP [id number] MEDICAID [id number] SP [id number] Problems, Conditions, and Diagnoses Code Display Name Description Problem Type Effective Dates Data Source(s) M16.9 [id number] Osteoarthritis of hi p, unspecified laterality, unspecified osteoarthritis type Problem 07/03/2021 12:00:00 AM EST eCW1 ([facility]) G47.33 [id number] Obstructive sleep apnea Problem 02/28/2021 1 2:00:00 AM EDT [facility] E55.9 [id number] Vitamin D deficiency Problem 01/12/2021 12:0 0:00 AM EDT eCW[facility]) M19.[address], unspecified laterality, unspecified osteoarthritis type Problem 01/10/2021 12:00:00 AM EDT eCW1 ([facility]) R94.31 Electrocardiogram abnormal Electrocardiogram abnormal Problem 11/21/2020 12:00:00 AM EDT [facility] ([facility]) D72.819 [id number] Leukopenia, unspecified type Problem 10/14/2020 12:00:00 AM EST eCW1 [facility]) 92028943 Hypothyroidism Hypothyroidism Problem 07/27/2020 12:00: 00 AM EST [place] ([facility]) 50779339 Hypothyroidism Hypothyroidism Problem 07/27/2020 12:00: 00 AM EST [place] ([facility]) 70828423 Hypothyroidism Hypothyroidism Problem 07/27/2020 12:00: 00 AM EST [place] ([facility]) 44697147 Hypothyroidism Hypothyroidism Problem 07/27/2020 12:00: 00 AM EST [place] ([facility]) G43.009 Migraine without aura, not refractory Mi graine without aura, not refractory Problem 06/17/2020 12:00:00 AM EDT MED[facility] ([facility]) 93087152 Acute bronchitis Acute Bronchitis Problem 019 12:00:00 AM EDT - 12/20/2020 12:00:00 AM EDT DAVID ([facility]) 47285467 Acute bronchitis Acute Bronchitis Problem 019 12:00:00 AM EDT - 12/20/2020 12:00:00 AM EDT DAV[facility] ([facility]) Surgeries/Procedures Procedure Description Date Indications Data Source(s) Spirometry 05/23/2021 [facility] OFFICE OUTPATIENT VISIT 25 MINUTES 05/23/2021 12:00:00 AM EDT [facility]) ECG ROUTINE ECG W/LEAST 12 LDS W/I&R 05/23/2021 12:00: 00 AM EDT [facility]) OFFICE OUTPATIENT VISIT 25 MINUTES 05/23/2021 12:00:00 AM EDT [facility]) MAMMO, screening, digital, bilateral 05/22/2021 12:00: 00 AM EDT DAVID ([facility]) OFFICE OUTPATIENT VISIT 25 MINUTES 04/12/2021 12:00:00 AM EDT [facility] ([facility]) PHYSICIAN TELEPHONE EVALUATION 11-20 MIN 02/15/2021 12 :00:00 AM EDT [facility] ([facility]) OFFICE OUTPATIENT VISIT 15 MINUTES 11/22/2020 12:00:00 AM EDT [facility]) ECG ROUTINE ECG W/LEAST 12 LDS W/I&R 11/21/2020 12:00: 00 AM EDT [facility] ([facility]) OFFICE OUTPATIENT VISIT 25 MINUTES 11/21/2020 12:00:00 AM EDT [facility] ([facility]) Spirometry 11/07/2020 12:00:[address] [facility] ([facility]) OFFICE OUTPATIENT VISIT 25 MINUTES 11/07/2020 12:00:00 AM EDT [facility] ([facility]) Results ID Date Data Source [id number] 07/17/2021 09:40:00 AM EST [facility] Name Value Range Interpretation Code Description Data Rona rce(s) Supporting Document(s) SARS-CoV-2 (COVID-19) RNA [Presence] in Respiratory specimen by JUDE with probe detection Not Detected [facility] This lab was ordered by [facility] and reported by [employer] ID Date Data Source Basic Metabolic Profile (BMP) 07/04/2021 12:00:00 AM EST eCW [facility] Name Value Range Interpretation Code Description Data Rona rce(s) Supporting Document(s) 0.65 0.55-1.30 CREATININE FOR GFR eCW1 ([facility]) 100 70-100 GLUCOSE, FASTING eCW1 ([facility]) 12 7-18 BLOOD UREA NITROGEN eCW1 ([facility]) 137 136-145 SODIUM LEVEL eCW1 ([facility]) 4.2 3.5-5.1 POTASSIUM SERUM eCW1 ([facility]) > 60.0 >51 GLOMERULAR FILTRATION RATE eCW 1 ([facility]) 29 21-32 CARBON DIOXIDE LEVEL eCW1 ([facility]) 9.2 8.5-10.1 CALCIUM LEVEL eCW1 ([facility]) 104 98-107 CHLORIDE LEVEL eCW1 ([facility]) ID Date Data Source LIVER PROFILE 07/04/2021 12:00:00 AM EST eCW1 ([facility]) Name Value Range Interpretation Code Description Data Rona rce(s) Supporting Document(s) 18 7-37 AST/SGOT eCW1 ([facility]) 24 12-78 ALT/SGPT eCW1 ([facility]) 135 45-117 ALKALINE PHOSPHATASE eCW1 ([facility]) 0.3 0.2-1.0 BILIRUBIN,TOTAL eCW1 ([facility]) 0.1 0.0-0.2 BILIRUBIN,DIRECT eCW1 ([facility]) 7.1 6.4-8.2 TOTAL PROTEIN eCW1 ([facility]) 0.9 1.2-2.2 ALBUMIN/GLOBULIN RATIO eCW1 ([facility]) 3.4 3.2-5.2 ALBUMIN eCW1 ([facility]) ID Date Data Source ERYTHROCYTE SEDIMENTATION RATE 07/04/2021 12:00:00 AM EST eC W1 ([facility]) Name Value Range Interpretation Code Description Data Rona rce(s) Supporting Document(s) 9 0-30 ERYTHROCYTE SEDIMENTATION RATE eCW1 ([facility]) ID Date Data Source C REACTIVE PROTEIN QUANTITATIV ([facility]) 07/04/2021 12:00 :00 AM EST eCW1 ([facility]) Name Value Range Interpretation Code Description Data Rona rce(s) Supporting Document(s) 1.72 0.00-0.30 C REACTIVE PROTEIN QUANTI TATIV eCW1 ([facility]) ID Date Data Source CBC with Differential 07/04/2021 12:00:00 AM EST eCW1 ([facility]) Name Value Range Interpretation Code Description Data Rona rce(s) Supporting Document(s) 6.0 4.0-10.0 WHITE BLOOD COUNT eCW1 ([facility]) 4.99 4.00-5.40 RED BLOOD COUNT eCW1 ([facility]) 15.8 12.0-15.5 HEMOGLOBIN eCW1 ([facility]) 31.7 27.0-33.0 MEAN CORPUSCULAR HEMOGLOB IN eCW1 ([facility]) 93.4 80.0-96.0 MEAN CORPUSCULAR VOLUME e CW1 ([facility]) 46.6 36.0-47.0 HEMATOCRIT eCW1 ([facility]) 14.1 11.5-14.5 RED CELL DISTRIBUTION WID TH eCW1 ([facility]) 33.9 32.0-36.5 MEAN CORPUSCULAR HGB CONC eCW1 ([facility]) 298 150-450 PLATELET COUNT, AUTOMATED eCW1 ([facility]) ID Date Data Source [id number] 05/23/2021 09:11:00 AM EDT [facility] ([facility], ) Name Value Range Interpretation Code Description Data Rona rce(s) Supporting Document(s) PDFReport Laboratory test result MEDENT ([facility], ) FVC-%Pred-Pre 52 L [facility] ([facility]) FVC-Pre 1.97 L [facility] ([facility], ) FVC-Pred 3.77 L [facility] ([facility]) FVC-LLN 3.03 L [facility] ([facility], ) Fev1-Pre 1.13 L [facility] ([facility], ) Fev1-Pred 2.98 L [facility] ([facility]) Fev1-%Pred-Pre 37 L [facility] ([facility]) Fev1-LLN 2.35 L [facility] ([facility], ) Fev6-Pred 3.66 L [facility] ([facility], ) Fev6-Pre 1.95 L [facility] ([facility], ) Fev6-%Pred-Pre 53 L [facility] ([facility]) Fev6-LLN 2.94 L [facility] ([facility]) Apq0qka-Llh 57 % [facility] ([facility]) Jhl8iin-Ijts 80 % [facility] ([facility]) Ezp3jof-%Pred-Pre 71 % [facility] ([facility]) Hxx3khb-DDM 70 % [facility] ([facility]) Ekl9agu-Eydo 97 % [facility] ([facility]) Zjh2iwh-Fam 99 % [facility] ([facility]) FEFMax-Pred 7.01 L/E/sec [facility] ([facility]) Cgx0lql-%Pred-Pre 101 % [facility] ([facility]) FEFMax-LLN 5.19 L/E/sec [facility] ([facility]) FEFMax-%Pred-Pre 39 L/E/sec [facility] ([facility]) FEFMax-Pre 2.76 L/E/sec [facility] ([facility]) Gtd9855-Lse 0.56 L/E/sec [facility] ([facility]) Uez0108-%Pred-Pre 19 L/E/sec [facility] ([facility]) Ixx4064-Defv 2.84 L/E/sec [facility] ([facility]) Ede2etp5-Uyye 82 % [facility] ([facility], ) ExpTime-Pre 8.66 sec [facility] ([facility]) Ozg5024-ADI 1.52 L/E/sec [facility] ([facility]) Fgo4swq5-%Pred-Pre 70 % [facility] ([facility]) Xcm7pye8-Cog 58 % [facility] ([facility]) Ccp2dak8-LDW 73 % [facility] ([facility]) ID Date Data Source [id number] 04/17/2021 12:11:00 PM EDT [facility] Name Value Range Interpretation Code Description Data Rona rce(s) Supporting Document(s) Albumin [Mass/volume] in Serum or Plasma 3.4 [facility] ([facility]) Alanine aminotransferase [Enzymatic activity/volume] in Serum or Pl asma 20 [facility] ([facility]) Calcium [Mass/volume] in Serum or Plasma 9.0 [facility] ([facility]) Carbon dioxide, total [Moles/volume] in Serum or Plasma 33 [facility] ([facility]) Alkaline phosphatase [Enzymatic activity/volume] in Serum or Plasma 1 25 [facility] ([facility]) Potassium [Moles/volume] in Serum or Plasma 4.2 [facility] ([facility]) Chloride [Moles/volume] in Serum or Plasma 100 [facility] ([facility]) Sodium 137 [facility] ([facility] Protein [Mass/volume] in Serum or Plasma 7.5 [facility] ([facility]) Aspartate aminotransferase [Enzymatic activity/volume] in Serum or Plasma 11 [facility] ([facility]) Urea nitrogen [Mass/volume] in Serum or Plasma 10 [facility] ([facility]) Creatinine For GFR 0.53 [facility] ([facility]) Glucose 80 83-110 [facility] ([facility]) ID Date Data Source [id number] 04/17/2021 12:11:00 PM EDT [facility] ([facility]) Name Value Range Interpretation Code Description Data Rona rce(s) Supporting Document(s) White Blood Count 5.8 5.0-10.0 [facility] ([facility]) Red Blood Count 4.65 4.00-5.40 [facility] ([facility]) Hemoglobin 14.8 [facility] ([facility]) Platelets 296 172-450 [facility] ([facility] Hematocrit 45.0 [facility] ([facility]) ID Date Data Source VITAMIN [id number] 04/17/2021 12:00:00 AM EDT eCW1 ([facility]) Name Value Range Interpretation Code Description Data Rona rce(s) Supporting Document(s) 60.2 30.0-100.0 TOTAL 25(OH) VITAMIN D eC W1 ([facility]) ID Date Data Source [id number] 01/10/2021 12:10:00 PM EDT [facility] ([facility]) Name Value Range Interpretation Code Description Data Rona rce(s) Supporting Document(s) Magnesium Level 2.0 1.8-2.4 [facility] ([facility]) ID Date Data Source QUANTIFERON TB GOLD TEST 01/10/2021 12:00:00 AM EDT eCW1 ([facility]) Name Value Range Interpretation Code Description Data Rona rce(s) Supporting Document(s) Laboratory studies (set) QUANTIFERON TB GOLD TEST eCW1 ([facility]) ID Date Data Source VITAMIN B12 LEVEL 01/10/2021 12:00:00 AM EDT eCW1 ([facility]) Name Value Range Interpretation Code Description Data Rona rce(s) Supporting Document(s) [id number] VITAMIN B12 LEVEL eCW1 ([facility]) ID Date Data Source PHOSPHOROUS LEVEL 01/10/2021 12:00:00 AM EDT eCW1 ([facility]) Name Value Range Interpretation Code Description Data Rona rce(s) Supporting Document(s) 4.1 2.5-4.9 PHOSPHORUS LEVEL eCW1 ([facility]) ID Date Data Source MAGNESIUM LEVEL 01/10/2021 12:00:00 AM EDT eCW1 ([facility]) Name Value Range Interpretation Code Description Data Rona rce(s) Supporting Document(s) 2.0 1.8-2.4 MAGNESIUM LEVEL eCW1 ([facility]) ID Date Data Source IRON (FE) 01/10/2021 12:00:00 AM EDT eCW1 ([facility]) Name Value Range Interpretation Code Description Data Rona rce(s) Supporting Document(s) [id number] [phone] IRON (FE) eCW1 ([facility]) ID Date Data Source [id number] 01/03/2021 12:09:00 PM EDT [facility] ([facility]) Name Value Range Interpretation Code Description Data Rona rce(s) Supporting Document(s) Red Blood Count 5.38 4.00-5.40 [facility] ([facility]) White Blood Count 3.1 5.0-10.0 [facility] ([facility]) Hematocrit 52.1 [facility] ([facility]) Platelets 238 172-450 [facility] ([facility] Hemoglobin 17.1 [facility] ([facility]) ID Date Data Source [id number] 01/03/2021 12:09:00 PM EDT [facility] ([facility]) Name Value Range Interpretation Code Description Data Rona rce(s) Supporting Document(s) Alanine aminotransferase [Enzymatic activity/volume] in Serum or Pl asma 30 [facility] ([facility]) Albumin [Mass/volume] in Serum or Plasma 3.9 [facility] ([facility]) Calcium [Mass/volume] in Serum or Plasma 8.6 [facility] ([facility]) Carbon dioxide, total [Moles/volume] in Serum or Plasma 32 [facility] ([facility]) Chloride [Moles/volume] in Serum or Plasma 104 [facility] ([facility]) Potassium [Moles/volume] in Serum or Plasma 4.0 [facility] ([facility]) Alkaline phosphatase [Enzymatic activity/volume] in Serum or Plasma 1 25 [facility] ([facility]) Aspartate aminotransferase [Enzymatic activity/volume] in Serum or Plasma 22 [facility] ([facility]) Protein [Mass/volume] in Serum or Plasma 7.6 [facility] Sodium 141 [facility] Urea nitrogen [Mass/volume] in Serum or Plasma 12 [facility] ([facility]) Glucose 81 83-110 [facility] Creatinine For GFR 0.59 [facility] ([facility]) ID Date Data Source [id number] 01/03/2021 09:02:00 AM EDT [place] ([facility]) Name Value Range Interpretation Code Description Data Rona rce(s) Supporting Document(s) white blood count 3.1 10 4.0-10.0 Below low normal White Blood Count [place] ([facility]) red blood count 5.38 10 4.00-5.40 Red Blood Count [facility] ([facility]) hemoglobin 17.1 g/dL 12.0-15.5 Above high normal Hemoglobin [place] ([facility]) hematocrit 52.1 % 36.0-47.0 Above high normal Hematocrit [place] ([facility]) mean corpuscular volume 96.8 fL 80.0-96.0 Above high normal Mean Corpuscular Volume DAVID ([facility]) mean corpuscular hemoglobin 31.8 pg 27.0-33.0 Mean Cor puscular Hemoglobin [place] ([facility]) red cell distribution width 13.2 % 11.5-14.5 Red Cell Distribution Width [place] ([facility]) mean corpuscular HGB conc 32.8 g/dL 32.0-36.5 Mean Corpu scular HGB Conc [place] ([facility]) platelet count, automated 238 10 150-450 Platelet C ount, Automated DAV[facility] ([facility]) neutrophils % 62.1 % 36.0-66.0 Neutrophils % [facility] ( [facility]) mono % 13.7 % 2.0-8.0 Above high normal [place] % [facility] ([facility]) lymph % 16.6 % 24.0-44.0 Below low normal Lymph % [facility] ( [facility]) eos % 5.7 % 0.0-3.0 Above high normal Eos % [facility] ([facility]) baso % 1.6 % 0.0-1.0 Above high normal Baso % [facility] ([facility]) immature granulocyte % 0.3 % 0-3.0 Immature Gran ulocyte % [facility] ([facility]) nucleated red blood cell % 0.0 % 0-0 Nucleated Red Blood Cell % [facility] ([facility]) neutrophils # 2.0 10 1.5-8.5 Neutrophils # [facility] ( [facility]) lymph # 0.5 10 1.5-5.0 Below low normal Lymph # [facility] ( [facility]) mono # 0.4 10 0.0-0.8 Cobb # [facility]ID ([facility]) eos # 0.2 10 0.0-0.5 Eos # [facility] ([facility]) baso # 0.1 10 0.0-0.2 Baso # [place] ([facility]) ID Date Data Source [id number] 01/03/2021 09:02:00 AM EDT [place] ([facility]) Name Value Range Interpretation Code Description Data Rona rce(s) Supporting Document(s) glucose, fasting 81 mg/dL 70-100 Glucose, Fasting AT [facility]) blood urea nitrogen 12 mg/dL 7-18 Blood Urea Nitro gen [place] ([facility]) creatinine for GFR 0.59 mg/dL 0.55-1.30 Creatinine for GF R [place] ([facility]) glomerular filtration rate > 60.0 >51 Glomerula r Filtration Rate [facility] ([facility]) potassium serum 4.0 mEq/L 3.5-5.1 Potassium Serum ATHE NA ([facility]) sodium level 141 mEq/L 136-145 Sodium Level [facility] ([facility]) chloride level 104 mEq/L 98-107 Chloride Level [facility] ([facility]) carbon dioxide level 32 mEq/L 21-32 Carbon Dioxide Level [place] ([facility]) anion gap 5 mEq/L 8-16 Below low normal Anion Gap [place] ( [facility]) calcium level 8.6 mg/dL 8.5-10.1 Calcium Level [facility] ( [facility]) AST/SGOT 22 U/L 7-37 AST/SGOT [facility] ([facility]) alkaline phosphatase 125 U/L 45-117 Above high normal Alkaline Phosphatase [facility] ([facility]) ALT/SGPT 30 U/L 12-78 ALT/SGPT [facility] ([facility]) bilirubin,total 0.4 mg/dL 0.2-1.0 Bilirubin,total AT[facility] NA ([facility]) total protein 7.6 gm/dL 6.4-8.2 Total Protein [facility] ( [facility]) albumin 3.9 gm/dL 3.2-5.2 Albumin [facility] ([facility]) albumin/globulin ratio 1.2-2.2 Below low normal Albumin /globulin Ratio [facility] ([facility]) ID Date Data Source [id number] 12/12/2020 08:43:00 AM EDT [place] ([facility]) Name Value Range Interpretation Code Description Data Rona rce(s) Supporting Document(s) total 25(oh) vitamin D 19.0 NG/mL 30.0-100.0 Below low normal T otal 25(Oh) Vitamin D [place] ([facility]) ID Date Data Source [id number] 12/12/2020 08:43:00 AM EDT [place] ([facility]) Name Value Range Interpretation Code Description Data Rona rce(s) Supporting Document(s) thyroid stimulating hormone 1.610 uIU/mL 0.358-3.740 Thyroid Stimulating Hormone [facility] ([facility]) ID Date Data Source [id number] 12/12/2020 08:43:00 AM EDT [facility]) Name Value Range Interpretation Code Description Data Rona rce(s) Supporting Document(s) blood urea nitrogen 13 mg/dL 7-18 Blood Urea Nitro gen [facility] ([facility]) glucose, fasting 98 mg/dL 70-100 Glucose, Fasting AT [place] ([facility]) creatinine for GFR 0.63 mg/dL 0.55-1.30 Creatinine for GF R [facility] ([facility]) glomerular filtration rate > 60.0 >51 Glomerula r Filtration Rate [facility] ([facility]) sodium level 142 mEq/L 136-145 Sodium Level [facility] ([facility]) potassium serum 3.9 mEq/L 3.5-5.1 Potassium Serum [facility] ([facility]) chloride level 108 mEq/L 98-107 Above high normal Chloride Level [facility] ([facility]) carbon dioxide level 29 mEq/L 21-32 Carbon Dioxide Level [facility] ([facility]) anion gap 5 mEq/L 8-16 Below low normal Anion Gap [facility] ( [facility]) calcium level 9.1 mg/dL 8.5-10.1 Calcium Level [facility] ( [facility]) ALT/SGPT 22 U/L 12-78 ALT/SGPT [facility] ([facility]) AST/SGOT 19 U/L 7-37 AST/SGOT [facility] ([facility]) alkaline phosphatase 121 U/L 45-117 Above high normal Alkaline Phosphatase [facility] ([facility]) bilirubin,total 0.5 mg/dL 0.2-1.0 Bilirubin,total [facility] ([facility]) total protein 7.3 gm/dL 6.4-8.2 Total Protein [facility] ( [facility]) albumin 3.8 gm/dL 3.2-5.2 Albumin [facility] ([facility]) albumin/globulin ratio 1.2-2.2 Below low normal Albumin /globulin Ratio [facility] ([facility]) ID Date Data Source [id number] 12/12/2020 08:43:00 AM EDT [place] ([facility]) Name Value Range Interpretation Code Description Data Rona rce(s) Supporting Document(s) Hemoglobin A1c/Hemoglobin.total in Blood 5.4 % Hemoglobin a1C [facility] ([facility]) estimated average glucose 108 mg/dL 60-110 Estimated Average Glucose [facility] ([facility]) ID Date Data Source [id number] 12/12/2020 08:43:00 AM EDT [facility]) Name Value Range Interpretation Code Description Data Rona rce(s) Supporting Document(s) total 25(oh) vitamin D 19.0 NG/mL 30.0-100.0 Below low normal T otal 25(Oh) Vitamin D [facility]) ID Date Data Source [id number] 12/12/2020 08:43:00 AM EDT [facility]) Name Value Range Interpretation Code Description Data Rona rce(s) Supporting Document(s) thyroid stimulating hormone 1.610 uIU/mL 0.358-3.740 Thyroid Stimulating Hormone [place] ([facility]) ID Date Data Source [id number] 12/12/2020 08:43:00 AM EDT [place] ([facility]) Name Value Range Interpretation Code Description Data Rona rce(s) Supporting Document(s) glucose, fasting 98 mg/dL 70-100 Glucose, Fasting AT [facility]) blood urea nitrogen 13 mg/dL 7-18 Blood Urea Nitro gen [place] ([facility]) creatinine for GFR 0.63 mg/dL 0.55-1.30 Creatinine for GF R [facility] ([facility]) sodium level 142 mEq/L 136-145 Sodium Level [place] ([facility]) glomerular filtration rate > 60.0 >51 Glomerula r Filtration Rate [place] ([facility]) potassium serum 3.9 mEq/L 3.5-5.1 Potassium Serum ATH NA [facility]) chloride level 108 mEq/L 98-107 Above high normal Chloride Level [place] ([facility]) carbon dioxide level 29 mEq/L 21-32 Carbon Dioxide Level [place] ([facility]) calcium level 9.1 mg/dL 8.5-10.1 Calcium Level [place] ( [facility]) anion gap 5 mEq/L 8-16 Below low normal Anion Gap [facility] ( [facility]) ALT/SGPT 22 U/L 12-78 ALT/SGPT [facility] ([facility]) AST/SGOT 19 U/L 7-37 AST/SGOT [facility] ([facility]) bilirubin,total 0.5 mg/dL 0.2-1.0 Bilirubin,total AT[place] NA ([facility]) alkaline phosphatase 121 U/L 45-117 Above high normal Alkaline Phosphatase [facility] ([facility]) albumin 3.8 gm/dL 3.2-5.2 Albumin [facility] ([facility]) total protein 7.3 gm/dL 6.4-8.2 Total Protein [facility] ( [facility]) albumin/globulin ratio 1.2-2.2 Below low normal Albumin /globulin Ratio [facility] ([facility]) ID Date Data Source [id number] 12/12/2020 08:43:00 AM EDT [place] ([facility]) Name Value Range Interpretation Code Description Data Rona rce(s) Supporting Document(s) Hemoglobin A1c/Hemoglobin.total in Blood 5.4 % Hemoglobin a1C [facility] ([facility]) estimated average glucose 108 mg/dL 60-110 Estimated Average Glucose [facility] ([facility]) ID Date Data Source [id number] 11/07/2020 09:49:00 AM EDT [facility] ([facility], ) Name Value Range Interpretation Code Description Data Rona rce(s) Supporting Document(s) PDFReport Laboratory test result MED[facility] ([facility], ) FVC-Pred 3.79 L [facility] ([facility], ) FVC-Pre 2.04 L [facility] ([facility], ) FVC-%Pred-Pre 53 L [facility] ([facility], ) FVC-LLN 3.05 L [facility] ([facility], ) Fev1-Pred 3.00 L [facility] ([facility], ) Fev1-Pre 1.33 L [facility] ([facility], ) Fev1-%Pred-Pre 44 L [facility] ([facility], ) Fev1-LLN 2.37 L [facility] ([facility]) Fev6-Pred 3.69 L [facility] ([facility]) Fev6-Pre 2.04 L [facility] ([facility]) Fev6-%Pred-Pre 55 L [facility] ([facility]) Fev6-LLN 2.96 L [facility] ([facility]) Nal9sor-Oyku 80 % MED[facility] ([facility]) Izi6cdx-Zpz 65 % [facility] ([facility]) Qmx2exi-%Pred-Pre 81 % [facility] ([facility]) Qsq1lie-UJR 70 % [facility] ([facility]) Upx3yht-Jxon 97 % [facility] ([facility]) Qct3wsr-Rav 100 % [facility] ([facility]) Nuz0eya-%Pred-Pre 102 % [facility] ([facility]) FEFMax-Pred 7.05 L/E/sec [facility] ([facility]) FEFMax-Pre 2.66 L/E/sec [facility] ([facility]) FEFMax-%Pred-Pre 37 L/E/sec [facility] ([facility]) FEFMax-LLN 5.22 L/E/sec [facility] ([facility]) Fgc7425-Daq 0.78 L/E/sec [facility] ([facility]) Aag2574-Qxiy 2.88 L/E/sec [facility] ([facility]) Cgr0414-%Pred-Pre 27 L/E/sec [facility] ([facility]) Pgr0947-GOS 1.56 L/E/sec [facility] ([facility]) ExpTime-Pre 5.61 sec [facility] ([facility]) Suo4ewh7-Pkz 65 % [facility] ([facility], ) Use6evq6-Vusb 82 % [facility] ([facility], ) Yhj3anv7-%Pred-Pre 78 % [facility] ([facility]) Tvs0fbk9-HWA 73 % [facility] ([facility]) ID Date Data Source PAP REQUEST FOR SERVICE 11/02/2020 12:00:00 AM EDT W ([facility]) Name Value Range Interpretation Code Description Data Rona rce(s) Supporting Document(s) PAP REQUEST FOR SERVICE [facility]CW1 ( [facility]) ID Date Data Source [id number] 10/26/2020 09:58:00 AM EST [place] ([facility]) Name Value Range Interpretation Code Description Data Rona rce(s) Supporting Document(s) C reactive protein quantitativ 0.30 mg/dL 0.00-0.30 C Reactive Protein Quantitativ [place] ([facility]) ID Date Data Source [id number] 10/26/2020 09:58:00 AM EST [place] ([facility]) Name Value Range Interpretation Code Description Data Rona rce(s) Supporting Document(s) blood urea nitrogen 10 mg/dL 7-18 Blood Urea Nitro gen [place] ([facility]) glucose, fasting 89 mg/dL 70-100 Glucose, Fasting AT [facility] ([facility]) creatinine for GFR 0.60 mg/dL 0.55-1.30 Creatinine for GF R [place] ([facility]) glomerular filtration rate > 60.0 >51 Glomerula r Filtration Rate [place] ([facility]) potassium serum 5.1 mEq/L 3.5-5.1 Potassium Serum [place] NA ([facility]) sodium level 140 mEq/L 136-145 Sodium Level [facility] (No [facility]) carbon dioxide level 31 mEq/L 21-32 Carbon Dioxide Level [facility] ([facility]) chloride level 107 mEq/L 98-107 Chloride Level [place] ([facility]) anion gap 2 mEq/L 8-16 Below low normal Anion Gap [facility] ( [facility]) calcium level 8.5 mg/dL 8.5-10.1 Calcium Level [place] ( [facility]) AST/SGOT 36 U/L 7-37 AST/SGOT [facility] ([facility]) alkaline phosphatase 119 U/L 45-117 Above high normal Alkaline Phosphatase [facility] ([facility]) ALT/SGPT 23 U/L 12-78 ALT/SGPT [facility] ([facility]) total protein 6.8 gm/dL 6.4-8.2 Total Protein [place] ( [facility]) bilirubin,total 0.3 mg/dL 0.2-1.0 Bilirubin,total [place] NA ([facility]) albumin 3.6 gm/dL 3.2-5.2 Albumin [facility] ([facility]) albumin/globulin ratio 1.2-2.2 Below low normal Albumin /globulin Ratio [facility] ([facility]) ID Date Data Source [id number] 10/26/2020 09:58:00 AM EST [place] ([facility]) Name Value Range Interpretation Code Description Data Rona rce(s) Supporting Document(s) erythrocyte sedimentation rate 5 mm/HR 0-30 Eryth rocyte Sedimentation Rate [facility] ([facility]) ID Date Data Source [id number] 10/26/2020 09:58:00 AM EST [place] ([facility]) Name Value Range Interpretation Code Description Data Rona rce(s) Supporting Document(s) white blood count 4.8 10 4.0-10.0 White Blood Count [place] ([facility]) hemoglobin 15.4 g/dL 12.0-15.5 Hemoglobin [facility] ([facility]) red blood count 4.77 10 4.00-5.40 Red Blood Count [place] NA ([facility]) hematocrit 46.1 % 36.0-47.0 Hematocrit [place] ([facility]) mean corpuscular volume 96.6 fL 80.0-96.0 Above high normal Mean Corpuscular Volume [facility] ([facility]) mean corpuscular hemoglobin 32.3 pg 27.0-33.0 Mean Cor puscular Hemoglobin [place] ([facility]) red cell distribution width 13.4 % 11.5-14.5 Red Cell Distribution Width [facility] ([facility]) mean corpuscular HGB conc 33.4 g/dL 32.0-36.5 Mean Corpu scular HGB Conc [place] ([facility]) platelet count, automated 253 10 150-450 Platelet C ount, Automated [place] ([facility]) neutrophils % 68.8 % 36.0-66.0 Above high normal Neutrophils % A [place] ([facility]) lymph % 15.2 % 24.0-44.0 Below low normal Lymph % [place] ( [facility]) mono % 11.5 % 2.0-8.0 Above high normal [place] % [facility] ([facility]) eos % 3.3 % 0.0-3.0 Above high normal Eos % [place] ([facility]) immature granulocyte % 0.4 % 0-3.0 Immature Gran ulocyte % [place] ([facility]) baso % 0.8 % 0.0-1.0 Baso % [facility] ([facility]) nucleated red blood cell % 0.0 % 0-0 Nucleated Red Blood Cell % [place] ([facility]) neutrophils # 3.3 10 1.5-8.5 Neutrophils # [place] ( [facility]) lymph # 0.7 10 1.5-5.0 Below low normal Lymph # [place] ( [facility]) eos # 0.2 10 0.0-0.5 Eos # [facility] ([facility]) mono # 0.6 10 0.0-0.8 [place] # [place] ([facility]) baso # 0.0 10 0.0-0.2 Baso # [facility] ([facility]) ID Date Data Source [id number] 10/26/2020 09:58:00 AM EST [place] ([facility]) Name Value Range Interpretation Code Description Data Rona rce(s) Supporting Document(s) C reactive protein quantitativ 0.30 mg/dL 0.00-0.30 C Reactive Protein Quantitativ [place] ([facility]) ID Date Data Source [id number] 10/26/2020 09:58:00 AM EST [place] ([facility]) Name Value Range Interpretation Code Description Data Rona rce(s) Supporting Document(s) blood urea nitrogen 10 mg/dL 7-18 Blood Urea Nitro gen [place] ([facility]) glucose, fasting 89 mg/dL 70-100 Glucose, Fasting AT [facility] ([facility]) glomerular filtration rate > 60.0 >51 Glomerula r Filtration Rate [place] ([facility]) creatinine for GFR 0.60 mg/dL 0.55-1.30 Creatinine for GF R [place] ([facility]) potassium serum 5.1 mEq/L 3.5-5.1 Potassium Serum ATHE NA ([facility]) sodium level 140 mEq/L 136-145 Sodium Level [facility] (No [facility]) carbon dioxide level 31 mEq/L 21-32 Carbon Dioxide Level [facility] ([facility]) chloride level 107 mEq/L 98-107 Chloride Level [place] ([facility]) anion gap 2 mEq/L 8-16 Below low normal Anion Gap [facility] ( [facility]) calcium level 8.5 mg/dL 8.5-10.1 Calcium Level [place] ( [facility]) AST/SGOT 36 U/L 7-37 AST/SGOT [facility] ([facility]) ALT/SGPT 23 U/L 12-78 ALT/SGPT [facility] ([facility]) alkaline phosphatase 119 U/L 45-117 Above high normal Alkaline Phosphatase [facility] ([facility]) bilirubin,total 0.3 mg/dL 0.2-1.0 Bilirubin,total ATHE NA ([facility]) total protein 6.8 gm/dL 6.4-8.2 Total Protein [place] ( [facility]) albumin/globulin ratio 1.2-2.2 Below low normal Albumin /globulin Ratio DAVID ([facility]) albumin 3.6 gm/dL 3.2-5.2 Albumin DAVID ([facility]) ID Date Data Source [id number] 10/26/2020 09:58:00 AM EST DAVID ([facility]) Name Value Range Interpretation Code Description Data Rona rce(s) Supporting Document(s) erythrocyte sedimentation rate 5 mm/HR 0-30 Eryth rocyte Sedimentation Rate DAVID ([facility]) ID Date Data Source [id number] 10/26/2020 09:58:00 AM EST DAVID ([facility]) Name Value Range Interpretation Code Description Data Rona rce(s) Supporting Document(s) white blood count 4.8 10 4.0-10.0 White Blood Count DAVID ([facility]) red blood count 4.77 10 4.00-5.40 Red Blood Count ATHE ([facility]) hematocrit 46.1 % 36.0-47.0 Hematocrit DAVID ([facility]) hemoglobin 15.4 g/dL 12.0-15.5 Hemoglobin DAVID ([facility]) mean corpuscular hemoglobin 32.3 pg 27.0-33.0 Mean Cor puscular Hemoglobin DAVID ([facility]) mean corpuscular volume 96.6 fL 80.0-96.0 Above high normal Mean Corpuscular Volume DAVID ([facility]) red cell distribution width 13.4 % 11.5-14.5 Red Cell Distribution Width DAVID ([facility]) mean corpuscular HGB conc 33.4 g/dL 32.0-36.5 Mean Corpu scular HGB Conc DAVID ([facility]) platelet count, automated 253 10 150-450 Platelet C ount, Automated DAVID ([facility]) neutrophils % 68.8 % 36.0-66.0 Above high normal Neutrophils % A THENA ([facility]) mono % 11.5 % 2.0-8.0 Above high normal [place] % DAVID ([facility]) lymph % 15.2 % 24.0-44.0 Below low normal Lymph % DAVID ( [facility]) eos % 3.3 % 0.0-3.0 Above high normal Eos % DAVID ([facility]) baso % 0.8 % 0.0-1.0 Baso % DAVID ([facility]) immature granulocyte % 0.4 % 0-3.0 Immature Gran ulocyte % DAVID ([facility]) nucleated red blood cell % 0.0 % 0-0 Nucleated Red Blood Cell % [place] ([facility]) neutrophils # 3.3 10 1.5-8.5 Neutrophils # [place] ( [facility]) lymph # 0.7 10 1.5-5.0 Below low normal Lymph # DAVID ( [facility]) mono # 0.6 10 0.0-0.8 [place] # DAVID ([facility]) eos # 0.2 10 0.0-0.5 Eos # DAVID ([facility]) baso # 0.0 10 0.0-0.2 Baso # DAVID ([facility]) ID Date Data Source [id number] 10/26/2020 09:58:00 AM EST DAVID ([facility]) Name Value Range Interpretation Code Description Data Rona rce(s) Supporting Document(s) C reactive protein quantitativ 0.30 mg/dL 0.00-0.30 C Reactive Protein Quantitativ [place] ([facility]) ID Date Data Source [id number] 10/26/2020 09:58:00 AM EST DAVID ([facility]) Name Value Range Interpretation Code Description Data Rona rce(s) Supporting Document(s) glucose, fasting 89 mg/dL 70-100 Glucose, Fasting AT [place] ([facility]) creatinine for GFR 0.60 mg/dL 0.55-1.30 Creatinine for GF R [place] ([facility]) blood urea nitrogen 10 mg/dL 7-18 Blood Urea Nitro gen DAVID ([facility]) glomerular filtration rate > 60.0 >51 Glomerula r Filtration Rate DAVID ([facility]) potassium serum 5.1 mEq/L 3.5-5.1 Potassium Serum ATHE NA ([facility]) sodium level 140 mEq/L 136-145 Sodium Level DAVID ([facility]) chloride level 107 mEq/L 98-107 Chloride Level DAVID ([facility]) carbon dioxide level 31 mEq/L 21-32 Carbon Dioxide Level DAVID ([facility]) AST/SGOT 36 U/L 7-37 AST/SGOT DAVID ([facility]) calcium level 8.5 mg/dL 8.5-10.1 Calcium Level DAVID ( [facility]) anion gap 2 mEq/L 8-16 Below low normal Anion Gap DAVID ( [facility]) alkaline phosphatase 119 U/L 45-117 Above high normal Alkaline Phosphatase DAVID ([facility]) ALT/SGPT 23 U/L 12-78 ALT/SGPT DAVID ([facility]) albumin 3.6 gm/dL 3.2-5.2 Albumin DAVID ([facility]) total protein 6.8 gm/dL 6.4-8.2 Total Protein DAV[place] ( [facility]) bilirubin,total 0.3 mg/dL 0.2-1.0 Bilirubin,total [place] ([facility]) albumin/globulin ratio 1.2-2.2 Below low normal Albumin /globulin Ratio DAVID ([facility]) ID Date Data Source [id number] 10/26/2020 09:58:00 AM EST DAVID ([facility]) Name Value Range Interpretation Code Description Data Rona rce(s) Supporting Document(s) erythrocyte sedimentation rate 5 mm/HR 0-30 Eryth rocyte Sedimentation Rate DAVID ([facility]) ID Date Data Source [id number] 10/26/2020 09:58:00 AM EST DAVID ([facility]) Name Value Range Interpretation Code Description Data Rona e(s) Supporting Document(s) white blood count 4.8 10 4.0-10.0 White Blood Count DAVID ([facility]) hemoglobin 15.4 g/dL 12.0-15.5 Hemoglobin DAVID ([facility]) red blood count 4.77 10 4.00-5.40 Red Blood Count ATHE NA ([facility]) hematocrit 46.1 % 36.0-47.0 Hematocrit DAVID ([facility]) mean corpuscular volume 96.6 fL 80.0-96.0 Above high normal Mean Corpuscular Volume DAVID ([facility]) mean corpuscular hemoglobin 32.3 pg 27.0-33.0 Mean Cor puscular Hemoglobin DAVID ([facility]) mean corpuscular HGB conc 33.4 g/dL 32.0-36.5 Mean Corpu scular HGB Conc DAVID ([facility]) red cell distribution width 13.4 % 11.5-14.5 Red Cell Distribution Width DAVID ([facility]) platelet count, automated 253 10 150-450 Platelet C ount, Automated DAVID ([facility]) neutrophils % 68.8 % 36.0-66.0 Above high normal Neutrophils % A THENA ([facility]) lymph % 15.2 % 24.0-44.0 Below low normal Lymph % [place] ( [facility]) mono % 11.5 % 2.0-8.0 Above high normal [place] % DAVID ([facility]) eos % 3.3 % 0.0-3.0 Above high normal Eos % DAVID ([facility]) baso % 0.8 % 0.0-1.0 Baso % DAVID ([facility]) nucleated red blood cell % 0.0 % 0-0 Nucleated Red Blood Cell % DAVID ([facility]) immature granulocyte % 0.4 % 0-3.0 Immature Gran ulocyte % DAVID ([facility]) lymph # 0.7 10 1.5-5.0 Below low normal Lymph # DAVID ( [facility]) neutrophils # 3.3 10 1.5-8.5 Neutrophils # DAVID ( [facility]) eos # 0.2 10 0.0-0.5 Eos # DAVID ([facility]) mono # 0.6 10 0.0-0.8 [place] # DAIVD ([facility]) baso # 0.0 10 0.0-0.2 Baso # DAVID ([facility]) ID Date Data Source [id number] 10/07/2020 09:19:00 AM EST [place] ([facility]) Name Value Range Interpretation Code Description Data Rona rce(s) Supporting Document(s) C reactive protein quantitativ 0.72 mg/dL 0.00-0.30 Above high normal C Reactive Protein Quantitativ [place] ([facility]) ID Date Data Source [id number] 10/07/2020 09:19:00 AM EST [place] ([facility]) Name Value Range Interpretation Code Description Data Rona rce(s) Supporting Document(s) glucose, fasting 94 mg/dL 70-100 Glucose, Fasting AT [facility]) blood urea nitrogen 13 mg/dL 7-18 Blood Urea Nitro gen [place] ([facility]) creatinine for GFR 0.61 mg/dL 0.55-1.30 Creatinine for GF R [place] ([facility]) potassium serum 4.0 mEq/L 3.5-5.1 Potassium Serum ATHE NA ([facility]) glomerular filtration rate > 60.0 >51 Glomerula r Filtration Rate DAVID ([facility]) sodium level 139 mEq/L 136-145 Sodium Level DAVID ([facility]) chloride level 104 mEq/L 98-107 Chloride Level DAVID ([facility]) carbon dioxide level 30 mEq/L 21-32 Carbon Dioxide Level [place] ([facility]) anion gap 5 mEq/L 8-16 Below low normal Anion Gap DAVID ( [facility]) calcium level 8.9 mg/dL 8.5-10.1 Calcium Level [place] ( [facility]) AST/SGOT 17 U/L 7-37 AST/SGOT DAVID ([facility]) ALT/SGPT 27 U/L 12-78 ALT/SGPT DAVID ([facility]) alkaline phosphatase 112 U/L 45-117 Alkaline Phosph atase DAVID ([facility]) bilirubin,total 0.3 mg/dL 0.2-1.0 Bilirubin,total ATHE NA ([facility]) albumin 3.6 gm/dL 3.2-5.2 Albumin DAVID ([facility]) total protein 7.0 gm/dL 6.4-8.2 Total Protein [place] ( [facility]) albumin/globulin ratio 1.2-2.2 Below low normal Albumin /globulin Ratio DAVID ([facility]) ID Date Data Source [id number] 10/07/2020 09:19:00 AM EST DAVID ([facility]) Name Value Range Interpretation Code Description Data Rona rce(s) Supporting Document(s) erythrocyte sedimentation rate 5 mm/HR 0-30 Eryth rocyte Sedimentation Rate DAVID ([facility]) ID Date Data Source [id number] 10/07/2020 09:19:00 AM EST DAVID ([facility]) Name Value Range Interpretation Code Description Data Rona rce(s) Supporting Document(s) white blood count 2.5 10 4.0-10.0 Below low normal White Blood Count DAVID ([facility]) red blood count 4.91 10 4.00-5.40 Red Blood Count ATHE NA ([facility]) hematocrit 47.2 % 36.0-47.0 Above high normal Hematocrit DAVID ([facility]) hemoglobin 15.8 g/dL 12.0-15.5 Above high normal Hemoglobin DAVID ([facility]) mean corpuscular volume 96.1 fL 80.0-96.0 Above high normal Mean Corpuscular Volume DAVID ([facility]) mean corpuscular hemoglobin 32.2 pg 27.0-33.0 Mean Cor puscular Hemoglobin DAVID ([facility]) mean corpuscular HGB conc 33.5 g/dL 32.0-36.5 Mean Corpu scular HGB Conc DAVID ([facility]) red cell distribution width 13.6 % 11.5-14.5 Red Cell Distribution Width DAVID ([facility]) platelet count, automated 219 10 150-450 Platelet C ount, Automated [place] ([facility]) neutrophils % 67.7 % 36.0-66.0 Above high normal Neutrophils % A THENA ([facility]) lymph % 17.8 % 24.0-44.0 Below low normal Lymph % [place] ( [facility]) mono % 9.7 % 2.0-8.0 Above high normal [place] % [place] ([facility]) eos % 4.0 % 0.0-3.0 Above high normal Eos % [place] ([facility]) baso % 0.4 % 0.0-1.0 Baso % [place] ([facility]) nucleated red blood cell % 0.0 % 0-0 Nucleated Red Blood Cell % DAVID ([facility]) immature granulocyte % 0.4 % 0-3.0 Immature Gran ulocyte % [place] ([facility]) lymph # 0.4 10 1.5-5.0 Below low normal Lymph # [place] ( [facility]) neutrophils # 1.7 10 1.5-8.5 Neutrophils # [place] ( [facility]) eos # 0.1 10 0.0-0.5 Eos # DAVID ([facility]) mono # 0.2 10 0.0-0.8 [place] # DAVID ([facility]) baso # 0.0 10 0.0-0.2 Baso # DAVID ([facility]) ID Date Data Source [id number] 10/07/2020 09:19:00 AM EST [place] ([facility]) Name Value Range Interpretation Code Description Data Rona rce(s) Supporting Document(s) C reactive protein quantitativ 0.72 mg/dL 0.00-0.30 Above high normal C Reactive Protein Quantitativ DAVID ([facility]) ID Date Data Source [id number] 10/07/2020 09:19:00 AM EST [place] ([facility]) Name Value Range Interpretation Code Description Data Rona rce(s) Supporting Document(s) glucose, fasting 94 mg/dL 70-100 Glucose, Fasting AT [place] ([facility]) blood urea nitrogen 13 mg/dL 7-18 Blood Urea Nitro gen DAVID ([facility]) sodium level 139 mEq/L 136-145 Sodium Level DAVID (No [facility]) glomerular filtration rate > 60.0 >51 Glomerula r Filtration Rate DAVID ([facility]) creatinine for GFR 0.61 mg/dL 0.55-1.30 Creatinine for GF R DAVID ([facility]) potassium serum 4.0 mEq/L 3.5-5.1 Potassium Serum AT[place] ([facility]) chloride level 104 mEq/L 98-107 Chloride Level DAVID ([facility]) carbon dioxide level 30 mEq/L 21-32 Carbon Dioxide Level DAVID ([facility]) calcium level 8.9 mg/dL 8.5-10.1 Calcium Level DAVID ( [facility]) anion gap 5 mEq/L 8-16 Below low normal Anion Gap DAVID ( [facility]) ALT/SGPT 27 U/L 12-78 ALT/SGPT DAVID ([facility]) AST/SGOT 17 U/L 7-37 AST/SGOT DAVID ([facility]) bilirubin,total 0.3 mg/dL 0.2-1.0 Bilirubin,total AT[place] ([facility]) alkaline phosphatase 112 U/L 45-117 Alkaline Phosph atase DAVID ([facility]) total protein 7.0 gm/dL 6.4-8.2 Total Protein DAV[place] ( [facility]) albumin 3.6 gm/dL 3.2-5.2 Albumin DAVID ([facility]) albumin/globulin ratio 1.2-2.2 Below low normal Albumin /globulin Ratio DAVID ([facility]) ID Date Data Source [id number] 10/07/2020 09:19:00 AM EST [place] ([facility]) Name Value Range Interpretation Code Description Data Rona rce(s) Supporting Document(s) erythrocyte sedimentation rate 5 mm/HR 0-30 Eryth rocyte Sedimentation Rate DAVID ([facility]) ID Date Data Source [id number] 10/07/2020 09:19:00 AM EST [place] ([facility]) Name Value Range Interpretation Code Description Data Rona rce(s) Supporting Document(s) white blood count 2.5 10 4.0-10.0 Below low normal White Blood Count DAVID ([facility]) red blood count 4.91 10 4.00-5.40 Red Blood Count AT[place] ([facility]) hematocrit 47.2 % 36.0-47.0 Above high normal Hematocrit DAVID ([facility]) hemoglobin 15.8 g/dL 12.0-15.5 Above high normal Hemoglobin DAVID ([facility]) mean corpuscular hemoglobin 32.2 pg 27.0-33.0 Mean Cor puscular Hemoglobin DAVID ([facility]) mean corpuscular volume 96.1 fL 80.0-96.0 Above high normal Mean Corpuscular Volume DAVID ([facility]) mean corpuscular HGB conc 33.5 g/dL 32.0-36.5 Mean Corpu scular HGB Conc DAVID ([facility]) red cell distribution width 13.6 % 11.5-14.5 Red Cell Distribution Width DVAID ([facility]) platelet count, automated 219 10 150-450 Platelet C ount, Automated [place] ([facility]) neutrophils % 67.7 % 36.0-66.0 Above high normal Neutrophils % A THENA ([facility]) lymph % 17.8 % 24.0-44.0 Below low normal Lymph % [place] ( [facility]) mono % 9.7 % 2.0-8.0 Above high normal [place] % DAVID ([facility]) eos % 4.0 % 0.0-3.0 Above high normal Eos % DAVID ([facility]) baso % 0.4 % 0.0-1.0 Baso % DAVID ([facility]) nucleated red blood cell % 0.0 % 0-0 Nucleated Red Blood Cell % DAVID ([facility]) immature granulocyte % 0.4 % 0-3.0 Immature Gran ulocyte % DAVID ([facility]) lymph # 0.4 10 1.5-5.0 Below low normal Lymph # DAVID ( [facility]) neutrophils # 1.7 10 1.5-8.5 Neutrophils # DAVID ( [facility]) mono # 0.2 10 0.0-0.8 [place] # DAVID ([facility]) baso # 0.0 10 0.0-0.2 Baso # DAVID ([facility]) eos # 0.1 10 0.0-0.5 Eos # DAVID ([facility]) ID Date Data Source [id number] 10/07/2020 09:19:00 AM EST [place] ([facility]) Name Value Range Interpretation Code Description Data Rona rce(s) Supporting Document(s) C reactive protein quantitativ 0.72 mg/dL 0.00-0.30 Above high normal C Reactive Protein Quantitativ [place] ([facility]) ID Date Data Source [id number] 10/07/2020 09:19:00 AM EST [place] ([facility]) Name Value Range Interpretation Code Description Data Rona rce(s) Supporting Document(s) glucose, fasting 94 mg/dL 70-100 Glucose, Fasting AT [facility] ([facility]) creatinine for GFR 0.61 mg/dL 0.55-1.30 Creatinine for GF R [place] ([facility]) glomerular filtration rate > 60.0 >51 Glomerula r Filtration Rate DAVID ([facility]) blood urea nitrogen 13 mg/dL 7-18 Blood Urea Nitro gen DAVID ([facility]) potassium serum 4.0 mEq/L 3.5-5.1 Potassium Serum ATHE NA ([facility]) sodium level 139 mEq/L 136-145 Sodium Level DAVID ([facility]) carbon dioxide level 30 mEq/L 21-32 Carbon Dioxide Level DAVID ([facility]) chloride level 104 mEq/L 98-107 Chloride Level DAVID ([facility]) anion gap 5 mEq/L 8-16 Below low normal Anion Gap DAVID ( [facility]) AST/SGOT 17 U/L 7-37 AST/SGOT DAVID ([facility]) ALT/SGPT 27 U/L 12-78 ALT/SGPT DAVID ([facility]) calcium level 8.9 mg/dL 8.5-10.1 Calcium Level DAVID ( [facility]) bilirubin,total 0.3 mg/dL 0.2-1.0 Bilirubin,total ATHE ([facility]) alkaline phosphatase 112 U/L 45-117 Alkaline Phosph atase DAVID ([facility]) albumin/globulin ratio 1.2-2.2 Below low normal Albumin /globulin Ratio DAVID ([facility]) albumin 3.6 gm/dL 3.2-5.2 Albumin DAVID ([facility]) total protein 7.0 gm/dL 6.4-8.2 Total Protein DAVID ( [facility]) ID Date Data Source [id number] 10/07/2020 09:19[facility]00 [facility] Name Value Range Interpretation Code Description Data Rona rce(s) Supporting Document(s) erythrocyte sedimentation rate 5 mm/HR 0-30 Eryth rocyte Sedimentation Rate DAVID ([facility]) ID Date Data Source [id number] 10/07/2020 09:19:00 AM EST [place] ([facility]) Name Value Range Interpretation Code Description Data Rona rce(s) Supporting Document(s) white blood count 2.5 10 4.0-10.0 Below low normal White Blood Count DAVID ([facility]) red blood count 4.91 10 4.00-5.40 Red Blood Count ATHE NA ([facility]) hematocrit 47.2 % 36.0-47.0 Above high normal Hematocrit DAVID ([facility]) hemoglobin 15.8 g/dL 12.0-15.5 Above high normal Hemoglobin DAVID ([facility]) mean corpuscular volume 96.1 fL 80.0-96.0 Above high normal Mean Corpuscular Volume DAVID ([facility]) mean corpuscular HGB conc 33.5 g/dL 32.0-36.5 Mean Corpu scular HGB Conc DAVID ([facility]) mean corpuscular hemoglobin 32.2 pg 27.0-33.0 Mean Cor puscular Hemoglobin DAVID ([facility]) platelet count, automated 219 10 150-450 Platelet C ount, Automated [place] ([facility]) red cell distribution width 13.6 % 11.5-14.5 Red Cell Distribution Width DAVID ([facility]) lymph % 17.8 % 24.0-44.0 Below low normal Lymph % DAV[place] ( [facility]) neutrophils % 67.7 % 36.0-66.0 Above high normal Neutrophils % A THENA ([facility]) mono % 9.7 % 2.0-8.0 Above high normal [place] % DAVID ([facility]) baso % 0.4 % 0.0-1.0 Baso % DAVID ([facility]) eos % 4.0 % 0.0-3.0 Above high normal Eos % DAVID ([facility]) immature granulocyte % 0.4 % 0-3.0 Immature Gran ulocyte % DAVID ([facility]) nucleated red blood cell % 0.0 % 0-0 Nucleated Red Blood Cell % DAVID ([facility]) lymph # 0.4 10 1.5-5.0 Below low normal Lymph # DAVID ( [facility]) mono # 0.2 10 0.0-0.8 [place] # DAVID ([facility]) neutrophils # 1.7 10 1.5-8.5 Neutrophils # DAVID ( [facility]) eos # 0.1 10 0.0-0.5 Eos # DAVID ([facility]) baso # 0.0 10 0.0-0.2 Baso # DAVID ([facility]) ID Date Data Source [id number] 08/22/2020 09:40:00 AM EST [place] ([facility]) Name Value Range Interpretation Code Description Data Rona rce(s) Supporting Document(s) Ca 125 7.8 U/mL <30.2 Ca 125 [place] ([facility]) ID Date Data Source [id number] 08/22/2020 09:40:00 AM EST [place] ([facility]) Name Value Range Interpretation Code Description Data Rona rce(s) Supporting Document(s) glucose, fasting 91 mg/dL 70-100 Glucose, Fasting AT [facility]) glomerular filtration rate > 60.0 >51 Glomerula r Filtration Rate DAVID ([facility]) blood urea nitrogen 13 mg/dL 7-18 Blood Urea Nitro gen [place] ([facility]) creatinine for GFR 0.63 mg/dL 0.55-1.30 Creatinine for GF R [place] ([facility]) potassium serum 4.1 mEq/L 3.5-5.1 Potassium Serum ATH NA ([facility]) chloride level 107 mEq/L 98-107 Chloride Level [place] ([facility]) sodium level 140 mEq/L 136-145 Sodium Level DAVID ([facility]) anion gap 5 mEq/L 8-16 Below low normal Anion Gap DAVID ( [facility]) carbon dioxide level 28 mEq/L 21-32 Carbon Dioxide Level DAVID ([facility]) calcium level 8.4 mg/dL 8.5-10.1 Below low normal Calcium Level AT [facility]) alkaline phosphatase 132 U/L 45-117 Above high normal Alkaline Phosphatase DAVID ([facility]) ALT/SGPT 21 U/L 12-78 ALT/SGPT [place] ([facility]) AST/SGOT 17 U/L 7-37 AST/SGOT DAVID ([facility]) bilirubin,total 0.2 mg/dL 0.2-1.0 Bilirubin,total ATHE NA ([facility]) albumin 3.7 gm/dL 3.2-5.2 Albumin DAVID ([facility]) albumin/globulin ratio 1.2-2.2 Albumin/globu zhang Ratio DAVID ([facility]) total protein 6.9 gm/dL 6.4-8.2 Total Protein DAVID ( [facility]) ID Date Data Source [id number] 08/22/2020 09:40:00 AM EST [place] ([facility]) Name Value Range Interpretation Code Description Data Rona rce(s) Supporting Document(s) white blood count 5.6 10 4.0-10.0 White Blood Count DAVID ([facility]) red blood count 4.68 10 4.00-5.40 Red Blood Count ATHE NA ([facility]) hematocrit 45.7 % 36.0-47.0 Hematocrit DAVID ([facility]) hemoglobin 14.9 g/dL 12.0-15.5 Hemoglobin DAVID ([facility]) mean corpuscular hemoglobin 31.8 pg 27.0-33.0 Mean Cor puscular Hemoglobin DAVID ([facility]) mean corpuscular volume 97.6 fL 80.0-96.0 Above high normal Mean Corpuscular Volume DAVID ([facility]) red cell distribution width 14.5 % 11.5-14.5 Red Cell Distribution Width DAVID ([facility]) mean corpuscular HGB conc 32.6 g/dL 32.0-36.5 Mean Corpu scular HGB Conc DAVID ([facility]) platelet count, automated 230 10 150-450 Platelet C ount, Automated DAVID ([facility]) neutrophils % 72.5 % 36.0-66.0 Above high normal Neutrophils % Owen THENA ([facility]) lymph % 13.3 % 24.0-44.0 Below low normal Lymph % DAVID ( [facility]) eos % 3.4 % 0.0-3.0 Above high normal Eos % DAVID ([facility]) mono % 9.5 % 0.0-5.0 Above high normal [place] % DAVID ([facility]) nucleated red blood cell % 0.0 % 0-0 Nucleated Red Blood Cell % DAVID ([facility]) immature granulocyte % 0.4 % 0-3.0 Immature Gran ulocyte % DAVID ([facility]) baso % 0.9 % 0.0-1.0 Baso % DAVID ([facility]) lymph # 0.7 10 1.5-5.0 Below low normal Lymph # DAVID ( [facility]) neutrophils # 4.1 10 1.5-8.5 Neutrophils # DAVID ( [facility]) mono # 0.5 10 0.0-0.8 [place] # DAVID ([facility]) baso # 0.1 10 0.0-0.2 Baso # DAVID ([facility]) eos # 0.2 10 0.0-0.5 Eos # DAVID ([facility]) ID Date Data Source [id number] 08/22/2020 09:40:00 AM EST DAVID ([facility]) Name Value Range Interpretation Code Description Data Rona rce(s) Supporting Document(s) Ca 125 7.8 U/mL <30.2 Ca 125 [place] ([facility]) ID Date Data Source [id number] 08/22/2020 09:40:00 AM EST DAVID ([facility]) Name Value Range Interpretation Code Description Data Rona rce(s) Supporting Document(s) glucose, fasting 91 mg/dL 70-100 Glucose, Fasting AT [facility] ([facility]) blood urea nitrogen 13 mg/dL 7-18 Blood Urea Nitro gen DAVID ([facility]) glomerular filtration rate > 60.0 >51 Glomerula r Filtration Rate DAVID ([facility]) creatinine for GFR 0.63 mg/dL 0.55-1.30 Creatinine for GF R DAVID ([facility]) sodium level 140 mEq/L 136-145 Sodium Level DAVID ([facility]) chloride level 107 mEq/L 98-107 Chloride Level DAVID ([facility]) potassium serum 4.1 mEq/L 3.5-5.1 Potassium Serum ATHE NA ([facility]) carbon dioxide level 28 mEq/L 21-32 Carbon Dioxide Level DAVID ([facility]) anion gap 5 mEq/L 8-16 Below low normal Anion Gap DAVID ( [facility]) calcium level 8.4 mg/dL 8.5-10.1 Below low normal Calcium Level AT [facility] ([facility]) AST/SGOT 17 U/L 7-37 AST/SGOT DAVID ([facility]) ALT/SGPT 21 U/L 12-78 ALT/SGPT DAVID ([facility]) total protein 6.9 gm/dL 6.4-8.2 Total Protein DAVID ( [facility]) alkaline phosphatase 132 U/L 45-117 Above high normal Alkaline Phosphatase DAVID ([facility]) bilirubin,total 0.2 mg/dL 0.2-1.0 Bilirubin,total ATHE ([facility]) albumin 3.7 gm/dL 3.2-5.2 Albumin DAVID ([facility]) albumin/globulin ratio 1.2-2.2 Albumin/globu zhang Ratio DAVID ([facility]) ID Date Data Source [id number] 08/22/2020 09:40:00 AM EST DAVID ([facility]) Name Value Range Interpretation Code Description Data Rona rce(s) Supporting Document(s) white blood count 5.6 10 4.0-10.0 White Blood Count DAVID ([facility]) red blood count 4.68 10 4.00-5.40 Red Blood Count ATHE ([facility]) hemoglobin 14.9 g/dL 12.0-15.5 Hemoglobin DAVID ([facility]) mean corpuscular hemoglobin 31.8 pg 27.0-33.0 Mean Cor puscular Hemoglobin DAVID ([facility]) mean corpuscular volume 97.6 fL 80.0-96.0 Above high normal Mean Corpuscular Volume DAVID ([facility]) hematocrit 45.7 % 36.0-47.0 Hematocrit DAVID ([facility]) platelet count, automated 230 10 150-450 Platelet C ount, Automated DAVID ([facility]) red cell distribution width 14.5 % 11.5-14.5 Red Cell Distribution Width DAVID ([facility]) mean corpuscular HGB conc 32.6 g/dL 32.0-36.5 Mean Corpu scular HGB Conc DAVID ([facility]) neutrophils % 72.5 % 36.0-66.0 Above high normal Neutrophils % A THENA ([facility]) lymph % 13.3 % 24.0-44.0 Below low normal Lymph % DAVID ( [facility]) baso % 0.9 % 0.0-1.0 Baso % DAVID ([facility]) eos % 3.4 % 0.0-3.0 Above high normal Eos % DAVID ([facility]) mono % 9.5 % 0.0-5.0 Above high normal [place] % DAVID ([facility]) immature granulocyte % 0.4 % 0-3.0 Immature Gran ulocyte % DAVID ([facility]) nucleated red blood cell % 0.0 % 0-0 Nucleated Red Blood Cell % DAVID ([facility]) neutrophils # 4.1 10 1.5-8.5 Neutrophils # DAVID ( [facility]) lymph # 0.7 10 1.5-5.0 Below low normal Lymph # DAVID ( [facility]) mono # 0.5 10 0.0-0.8 [place] # DAVID ([facility]) eos # 0.2 10 0.0-0.5 Eos # DAVID ([facility]) baso # 0.1 10 0.0-0.2 Baso # DAVID ([facility]) ID Date Data Source [id number] 08/22/2020 09:40:00 AM EST DAVID ([facility]) Name Value Range Interpretation Code Description Data Rona rce(s) Supporting Document(s) Ca 125 7.8 U/mL <30.2 Ca 125 DAV[place] ([facility]) ID Date Data Source [id number] 08/22/2020 09:40:00 AM EST DAVID ([facility]) Name Value Range Interpretation Code Description Data Rona rce(s) Supporting Document(s) glucose, fasting 91 mg/dL 70-100 Glucose, Fasting AT [facility]) blood urea nitrogen 13 mg/dL 7-18 Blood Urea Nitro gen [place] ([facility]) creatinine for GFR 0.63 mg/dL 0.55-1.30 Creatinine for GF R [place] ([facility]) glomerular filtration rate > 60.0 >51 Glomerula r Filtration Rate DAVID ([facility]) sodium level 140 mEq/L 136-145 Sodium Level DAVID ([facility]) chloride level 107 mEq/L 98-107 Chloride Level DAVID ([facility]) potassium serum 4.1 mEq/L 3.5-5.1 Potassium Serum ATHE ([facility]) calcium level 8.4 mg/dL 8.5-10.1 Below low normal Calcium Level AT [facility]) carbon dioxide level 28 mEq/L 21-32 Carbon Dioxide Level DAVID ([facility]) anion gap 5 mEq/L 8-16 Below low normal Anion Gap DAVID ( [facility]) AST/SGOT 17 U/L 7-37 AST/SGOT DAVID ([facility]) alkaline phosphatase 132 U/L 45-117 Above high normal Alkaline Phosphatase DAVID ([facility]) ALT/SGPT 21 U/L 12-78 ALT/SGPT DAVID ([facility]) bilirubin,total 0.2 mg/dL 0.2-1.0 Bilirubin,total ATHE ([facility]) albumin 3.7 gm/dL 3.2-5.2 Albumin DAVID ([facility]) total protein 6.9 gm/dL 6.4-8.2 Total Protein DAVID ( [facility]) albumin/globulin ratio 1.2-2.2 Albumin/globu zhang Ratio DAVID ([facility]) ID Date Data Source [id number] 08/22/2020 09:40:00 AM EST DAVID ([facility]) Name Value Range Interpretation Code Description Data Rona rce(s) Supporting Document(s) red blood count 4.68 10 4.00-5.40 Red Blood Count ATHE NA ([facility]) white blood count 5.6 10 4.0-10.0 White Blood Count DAVID ([facility]) hematocrit 45.7 % 36.0-47.0 Hematocrit DAVID ([facility]) hemoglobin 14.9 g/dL 12.0-15.5 Hemoglobin DAVID ([facility]) mean corpuscular volume 97.6 fL 80.0-96.0 Above high normal Mean Corpuscular Volume DAVID ([facility]) mean corpuscular hemoglobin 31.8 pg 27.0-33.0 Mean Cor puscular Hemoglobin DAVID ([facility]) mean corpuscular HGB conc 32.6 g/dL 32.0-36.5 Mean Corpu scular HGB Conc DAVID ([facility]) red cell distribution width 14.5 % 11.5-14.5 Red Cell Distribution Width DAVID ([facility]) platelet count, automated 230 10 150-450 Platelet C ount, Automated DAVID ([facility]) mono % 9.5 % 0.0-5.0 Above high normal [place] % DAVID ([facility]) neutrophils % 72.5 % 36.0-66.0 Above high normal Neutrophils % A THENA ([facility]) lymph % 13.3 % 24.0-44.0 Below low normal Lymph % DAVID ( [facility]) eos % 3.4 % 0.0-3.0 Above high normal Eos % DAVID ([facility]) immature granulocyte % 0.4 % 0-3.0 Immature Gran ulocyte % DAVID ([facility]) baso % 0.9 % 0.0-1.0 Baso % DAVID ([facility]) nucleated red blood cell % 0.0 % 0-0 Nucleated Red Blood Cell % DAVID ([facility]) neutrophils # 4.1 10 1.5-8.5 Neutrophils # DAVID ( [facility]) lymph # 0.7 10 1.5-5.0 Below low normal Lymph # DAVID ( [facility]) eos # 0.2 10 0.0-0.5 Eos # DAVID ([facility]) baso # 0.1 10 0.0-0.2 Baso # DAVID ([facility]) mono # 0.5 10 0.0-0.8 [place] # DAVID ([facility]) ID Date Data Source [id number] 06/22/2020 10:29:00 AM EST DAVID ([facility]) Name Value Range Interpretation Code Description Data Rona rce(s) Supporting Document(s) Ca 125 13.4 U/mL <30.2 Ca 125 [place] ([facility]) ID Date Data Source [id number] 06/22/2020 10:29:00 AM EST DAVID ([facility]) Name Value Range Interpretation Code Description Data Rona rce(s) Supporting Document(s) glucose, fasting 102 mg/dL 70-100 Above high normal Glucose, Fas ting DAVID ([facility]) glomerular filtration rate > 60.0 >51 Glomerula r Filtration Rate DAVID ([facility]) creatinine for GFR 0.58 mg/dL 0.55-1.30 Creatinine for GF R DAVID ([facility]) sodium level 138 mEq/L 136-145 Sodium Level DAVID (No [facility]) blood urea nitrogen 11 mg/dL 7-18 Blood Urea Nitro gen DAVID ([facility]) anion gap 6 mEq/L 8-16 Below low normal Anion Gap DAVID ( [facility]) chloride level 104 mEq/L 98-107 Chloride Level DAVID ([facility]) carbon dioxide level 28 mEq/L 21-32 Carbon Dioxide Level DAVID ([facility]) potassium serum 3.9 mEq/L 3.5-5.1 Potassium Serum ATHE ([facility]) calcium level 9.1 mg/dL 8.5-10.1 Calcium Level DAVID ( [facility]) ALT/SGPT 19 U/L 12-78 ALT/SGPT DAVID ([facility]) AST/SGOT 15 U/L 7-37 AST/SGOT DAVID ([facility]) bilirubin,total 0.3 mg/dL 0.2-1.0 Bilirubin,total ATHE ([facility]) alkaline phosphatase 107 U/L 45-117 Alkaline Phosph atase DAVID ([facility]) total protein 7.0 gm/dL 6.4-8.2 Total Protein DAVID ( [facility]) albumin 3.4 gm/dL 3.2-5.2 Albumin DAVID ([facility]) albumin/globulin ratio 1.2-2.2 Below low normal Albumin /globulin Ratio DAVID ([facility]) ID Date Data Source [id number] 06/22/2020 10:29:00 AM EST DAVID ([facility]) Name Value Range Interpretation Code Description Data Rona rce(s) Supporting Document(s) white blood count 5.4 10 4.0-10.0 White Blood Count DAVID ([facility]) red blood count 4.67 10 4.00-5.40 Red Blood Count ATHE ([facility]) hemoglobin 14.5 g/dL 12.0-15.5 Hemoglobin DAVID ([facility]) mean corpuscular volume 95.5 fL 80.0-96.0 Mean Corpusc ular Volume DAVID ([facility]) hematocrit 44.6 % 36.0-47.0 Hematocrit DAVID ([facility]) red cell distribution width 13.4 % 11.5-14.5 Red Cell Distribution Width DAVID ([facility]) mean corpuscular HGB conc 32.5 g/dL 32.0-36.5 Mean Corpu scular HGB Conc DAVID ([facility]) mean corpuscular hemoglobin 31.0 pg 27.0-33.0 Mean Cor puscular Hemoglobin DAVID ([facility]) platelet count, automated 308 10 150-450 Platelet C ount, Automated DAVID ([facility]) lymph % 12.5 % 24.0-44.0 Below low normal Lymph % DAVID ( [facility]) neutrophils % 74.6 % 36.0-66.0 Above high normal Neutrophils % A THENA ([facility]) baso % 0.6 % 0.0-1.0 Baso % DAVID ([facility]) mono % 8.5 % 0.0-5.0 Above high normal [place] % DAVID ([facility]) eos % 3.1 % 0.0-3.0 Above high normal Eos % DAVID ([facility]) immature granulocyte % 0.7 % 0-3.0 Immature Gran ulocyte % DAVID ([facility]) nucleated red blood cell % 0.0 % 0-0 Nucleated Red Blood Cell % DAVID ([facility]) neutrophils # 4.1 10 1.5-8.5 Neutrophils # DAVID ( [facility]) eos # 0.2 10 0.0-0.5 Eos # DAVID ([facility]) mono # 0.5 10 0.0-0.8 [place] # DAVID ([facility]) lymph # 0.7 10 1.5-5.0 Below low normal Lymph # DAVID ( [facility]) baso # 0.0 10 0.0-0.2 Baso # DAVID ([facility]) ID Date Data Source [id number] 06/22/2020 10:29:00 AM EST [place] ([facility]) Name Value Range Interpretation Code Description Data Rona rce(s) Supporting Document(s) Ca 125 13.4 U/mL <30.2 Ca 125 [place] ([facility]) ID Date Data Source [id number] 06/22/2020 10:29:00 AM EST [place] ([facility]) Name Value Range Interpretation Code Description Data Rona rce(s) Supporting Document(s) blood urea nitrogen 11 mg/dL 7-18 Blood Urea Nitro gen DAVID ([facility]) glucose, fasting 102 mg/dL 70-100 Above high normal Glucose, Fas ting DAVID ([facility]) glomerular filtration rate > 60.0 >51 Glomerula r Filtration Rate DAVID ([facility]) creatinine for GFR 0.58 mg/dL 0.55-1.30 Creatinine for GF R DAV[place] ([facility]) sodium level 138 mEq/L 136-145 Sodium Level DAVID ([facility]) potassium serum 3.9 mEq/L 3.5-5.1 Potassium Serum ATHE NA ([facility]) anion gap 6 mEq/L 8-16 Below low normal Anion Gap DAVID ( [facility]) chloride level 104 mEq/L 98-107 Chloride Level DAVID ([facility]) calcium level 9.1 mg/dL 8.5-10.1 Calcium Level DAVID ( [facility]) carbon dioxide level 28 mEq/L 21-32 Carbon Dioxide Level DAVID ([facility]) AST/SGOT 15 U/L 7-37 AST/SGOT [facility] ([facility]) ALT/SGPT 19 U/L 12-78 ALT/SGPT DAVID ([facility]) alkaline phosphatase 107 U/L 45-117 Alkaline Phosph atase DAVID ([facility]) total protein 7.0 gm/dL 6.4-8.2 Total Protein DAVID ( [facility]) albumin 3.4 gm/dL 3.2-5.2 Albumin DAVID ([facility]) bilirubin,total 0.3 mg/dL 0.2-1.0 Bilirubin,total ATHE NA ([facility]) albumin/globulin ratio 1.2-2.2 Below low normal Albumin /globulin Ratio DAVID ([facility]) ID Date Data Source [id number] 06/22/2020 10:29:00 AM EST DAVID ([facility]) Name Value Range Interpretation Code Description Data Rona rce(s) Supporting Document(s) white blood count 5.4 10 4.0-10.0 White Blood Count DAVID ([facility]) hematocrit 44.6 % 36.0-47.0 Hematocrit DAVID ([facility]) hemoglobin 14.5 g/dL 12.0-15.5 Hemoglobin DAVID ([facility]) red blood count 4.67 10 4.00-5.40 Red Blood Count ATHE ([facility]) mean corpuscular volume 95.5 fL 80.0-96.0 Mean Corpusc ular Volume DAVID ([facility]) mean corpuscular hemoglobin 31.0 pg 27.0-33.0 Mean Cor puscular Hemoglobin DAVID ([facility]) mean corpuscular HGB conc 32.5 g/dL 32.0-36.5 Mean Corpu scular HGB Conc DAVID ([facility]) platelet count, automated 308 10 150-450 Platelet C ount, Automated DAVID ([facility]) red cell distribution width 13.4 % 11.5-14.5 Red Cell Distribution Width DAVID ([facility]) neutrophils % 74.6 % 36.0-66.0 Above high normal Neutrophils % A THENA ([facility]) lymph % 12.5 % 24.0-44.0 Below low normal Lymph % [place] ( [facility]) eos % 3.1 % 0.0-3.0 Above high normal Eos % DAVID ([facility]) mono % 8.5 % 0.0-5.0 Above high normal [place] % DAVID ([facility]) baso % 0.6 % 0.0-1.0 Baso % DAVID ([facility]) nucleated red blood cell % 0.0 % 0-0 Nucleated Red Blood Cell % ADVID ([facility]) lymph # 0.7 10 1.5-5.0 Below low normal Lymph # DAVID ( [facility]) immature granulocyte % 0.7 % 0-3.0 Immature Gran ulocyte % DAVID ([facility]) neutrophils # 4.1 10 1.5-8.5 Neutrophils # DAVID ( [facility]) eos # 0.2 10 0.0-0.5 Eos # DAVID ([facility]) baso # 0.0 10 0.0-0.2 Baso # DAVID ([facility]) mono # 0.5 10 0.0-0.8 [place] # DAVID ([facility]) ID Date Data Source [id number] 06/22/2020 10:29:00 AM EST [place] ([facility]) Name Value Range Interpretation Code Description Data Rona rce(s) Supporting Document(s) Ca 125 13.4 U/mL <30.2 Ca 125 [place] ([facility]) ID Date Data Source [id number] 06/22/2020 10:29:00 AM EST [place] ([facility]) Name Value Range Interpretation Code Description Data Rona rce(s) Supporting Document(s) glucose, fasting 102 mg/dL 70-100 Above high normal Glucose, Fas ting [place] ([facility]) blood urea nitrogen 11 mg/dL 7-18 Blood Urea Nitro gen [place] ([facility]) glomerular filtration rate > 60.0 >51 Glomerula r Filtration Rate [place] ([facility]) creatinine for GFR 0.58 mg/dL 0.55-1.30 Creatinine for GF R DAVID ([facility]) sodium level 138 mEq/L 136-145 Sodium Level DAVID ([facility]) chloride level 104 mEq/L 98-107 Chloride Level [place] ([facility]) anion gap 6 mEq/L 8-16 Below low normal Anion Gap [place] ( [facility]) potassium serum 3.9 mEq/L 3.5-5.1 Potassium Serum ATHE NA ([facility]) carbon dioxide level 28 mEq/L 21-32 Carbon Dioxide Level [place] ([facility]) AST/SGOT 15 U/L 7-37 AST/SGOT DAVID ([facility]) bilirubin,total 0.3 mg/dL 0.2-1.0 Bilirubin,total ATHE NA ([facility]) ALT/SGPT 19 U/L 12-78 ALT/SGPT DAV[facility] ([facility]) calcium level 9.1 mg/dL 8.5-10.1 Calcium Level DAVID ( [facility]) alkaline phosphatase 107 U/L 45-117 Alkaline Phosph atase DAVID ([facility]) total protein 7.0 gm/dL 6.4-8.2 Total Protein DAVID ( [facility]) albumin 3.4 gm/dL 3.2-5.2 Albumin DAVID ([facility]) albumin/globulin ratio 1.2-2.2 Below low normal Albumin /globulin Ratio DAVID ([facility]) ID Date Data Source [id number] 06/22/2020 10:29:00 AM EST [place] ([facility]) Name Value Range Interpretation Code Description Data Rona rce(s) Supporting Document(s) red blood count 4.67 10 4.00-5.40 Red Blood Count ATHE ([facility]) white blood count 5.4 10 4.0-10.0 White Blood Count DAVID ([facility]) hemoglobin 14.5 g/dL 12.0-15.5 Hemoglobin DAVID ([facility]) hematocrit 44.6 % 36.0-47.0 Hematocrit DAV[facility] ([facility]) mean corpuscular volume 95.5 fL 80.0-96.0 Mean Corpusc ular Volume DAVID ([facility]) red cell distribution width 13.4 % 11.5-14.5 Red Cell Distribution Width DAVID ([facility]) mean corpuscular HGB conc 32.5 g/dL 32.0-36.5 Mean Corpu scular HGB Conc DAVID ([facility]) platelet count, automated 308 10 150-450 Platelet C ount, Automated [facility] ([facility]) mean corpuscular hemoglobin 31.0 pg 27.0-33.0 Mean Cor puscular Hemoglobin DAVID ([facility]) mono % 8.5 % 0.0-5.0 Above high normal [place] % DAVID ([facility]) lymph % 12.5 % 24.0-44.0 Below low normal Lymph % DAVID ( [facility]) neutrophils % 74.6 % 36.0-66.0 Above high normal Neutrophils % A THENA ([facility]) eos % 3.1 % 0.0-3.0 Above high normal Eos % DAVID ([facility]) immature granulocyte % 0.7 % 0-3.0 Immature Gran ulocyte % DAVID ([facility]) nucleated red blood cell % 0.0 % 0-0 Nucleated Red Blood Cell % DAVID ([facility]) baso % 0.6 % 0.0-1.0 Baso % DAVID ([facility]) mono # 0.5 10 0.0-0.8 [place] # DAVID ([facility]) lymph # 0.7 10 1.5-5.0 Below low normal Lymph # DAVID ( [facility]) eos # 0.2 10 0.0-0.5 Eos # DAVID ([facility]) neutrophils # 4.1 10 1.5-8.5 Neutrophils # DAVID ( [facility]) baso # 0.0 10 0.0-0.2 Baso # DAVID ([facility]) ID Date Data Source [id number] 06/22/2020 10:29:00 AM EST [place] ([facility]) Name Value Range Interpretation Code Description Data Rona rce(s) Supporting Document(s) Ca 125 13.4 U/mL <30.2 Ca 125 [place] ([facility]) ID Date Data Source [id number] 06/22/2020 10:29:00 AM EST [place] ([facility]) Name Value Range Interpretation Code Description Data Rona rce(s) Supporting Document(s) glucose, fasting 102 mg/dL 70-100 Above high normal Glucose, Fas ting [facility] ([facility]) creatinine for GFR 0.58 mg/dL 0.55-1.30 Creatinine for GF R [place] ([facility]) blood urea nitrogen 11 mg/dL 7-18 Blood Urea Nitro gen [facility] ([facility]) chloride level 104 mEq/L 98-107 Chloride Level DAVID ([facility]) potassium serum 3.9 mEq/L 3.5-5.1 Potassium Serum ATHE NA ([facility]) glomerular filtration rate > 60.0 >51 Glomerula r Filtration Rate DAVID ([facility]) sodium level 138 mEq/L 136-145 Sodium Level DAVID (No [facility]) anion gap 6 mEq/L 8-16 Below low normal Anion Gap DAVID ( [facility]) ALT/SGPT 19 U/L 12-78 ALT/SGPT [facility] ([facility]) carbon dioxide level 28 mEq/L 21-32 Carbon Dioxide Level DAV[facility] ([facility]) AST/SGOT 15 U/L 7-37 AST/SGOT [facility] ([facility]) calcium level 9.1 mg/dL 8.5-10.1 Calcium Level DAVID ( [facility]) alkaline phosphatase 107 U/L 45-117 Alkaline Phosph atase DAV[facility] ([facility]) albumin/globulin ratio 1.2-2.2 Below low normal Albumin /globulin Ratio [facility] ([facility]) albumin 3.4 gm/dL 3.2-5.2 Albumin [facility] ([facility]) bilirubin,total 0.3 mg/dL 0.2-1.0 Bilirubin,total ATHE NA ([facility]) total protein 7.0 gm/dL 6.4-8.2 Total Protein DAVID ( [facility]) ID Date Data Source [id number] 06/22/2020 10:29:00 AM EST [place] ([facility]) Name Value Range Interpretation Code Description Data Rona rce(s) Supporting Document(s) red blood count 4.67 10 4.00-5.40 Red Blood Count ATHE NA ([facility]) hemoglobin 14.5 g/dL 12.0-15.5 Hemoglobin DAVID ([facility]) white blood count 5.4 10 4.0-10.0 White Blood Count DAVID ([facility]) mean corpuscular HGB conc 32.5 g/dL 32.0-36.5 Mean Corpu scular HGB Conc DAVID ([facility]) hematocrit 44.6 % 36.0-47.0 Hematocrit DAVID ([facility]) mean corpuscular hemoglobin 31.0 pg 27.0-33.0 Mean Cor puscular Hemoglobin DAVID ([facility]) mean corpuscular volume 95.5 fL 80.0-96.0 Mean Corpusc ular Volume DAVID ([facility]) red cell distribution width 13.4 % 11.5-14.5 Red Cell Distribution Width DAVID ([facility]) neutrophils % 74.6 % 36.0-66.0 Above high normal Neutrophils % A THENA ([facility]) platelet count, automated 308 10 150-450 Platelet C ount, Automated DAVID ([facility]) lymph % 12.5 % 24.0-44.0 Below low normal Lymph % [place] ( [facility]) immature granulocyte % 0.7 % 0-3.0 Immature Gran ulocyte % DAVID ([facility]) eos % 3.1 % 0.0-3.0 Above high normal Eos % DAVID ([facility]) baso % 0.6 % 0.0-1.0 Baso % DAVID ([facility]) mono % 8.5 % 0.0-5.0 Above high normal [place] % DAVID ([facility]) neutrophils # 4.1 10 1.5-8.5 Neutrophils # DAVID ( [facility]) mono # 0.5 10 0.0-0.8 [place] # DAVID ([facility]) lymph # 0.7 10 1.5-5.0 Below low normal Lymph # DAVID ( [facility]) nucleated red blood cell % 0.0 % 0-0 Nucleated Red Blood Cell % DAVID ([facility]) eos # 0.2 10 0.0-0.5 Eos # DAVID ([facility]) baso # 0.0 10 0.0-0.2 Baso # DAVID ([facility]) Procedure Social History Code Duration Value Status Description Data Source(s ) Smoking 07/03/2021 12:00:00 AM EST Current Smoker completed Curre nt Smoker [facility] Smoking 07/03/2021 12:00:00 AM EST Current Smoker completed Curre nt Smoker eCW1 ([facility]) Smoking 07/03/2021 12:00:00 AM EST Current Smoker completed Curre nt Smoker eCW1 ([facility]) Smoking 06/05/2021 12:00:00 AM EDT Current Smoker completed Curre nt Smoker eCW1 ([facility]) Smoking 04/17/2021 12:00:00 AM EDT Current Smoker completed Curre nt Smoker eCW1 ([facility]) Smoking 04/17/2021 12:00:00 AM EDT Current Smoker completed Curre nt Smoker eCW1 ([facility]) Smoking 04/17/2021 12:00:00 AM EDT Current Smoker completed Curre nt Smoker eCW1 ([facility]) Smoking 04/17/2021 12:00:00 AM EDT Current Smoker completed Curre nt Smoker eCW1 ([facility]) Smoking 04/17/2021 12:00:00 AM EDT Current Smoker completed Curre nt Smoker eCW1 ([facility]) Smoking 04/17/2021 12:00:00 AM EDT Current Smoker completed Curre nt Smoker eCW1 ([facility]) Smoking 04/17/2021 12:00:00 AM EDT Current Smoker completed Curre nt Smoker eCW1 ([facility]) Smoking 04/17/2021 12:00:00 AM EDT Current Smoker completed Curre nt Smoker eCW1 ([facility]) Smoking 04/17/2021 12:00:00 AM EDT Current Smoker completed Curre nt Smoker eCW1 ([facility]) Smoking 01/31/2021 12:00:00 AM EDT Current Smoker completed Curre nt Smoker eCW1 ([facility]) Smoking 01/31/2021 12:00:00 AM EDT Current Smoker completed Curre nt Smoker eCW1 ([facility]) Smoking 01/31/2021 12:00:00 AM EDT Current Smoker completed Curre nt Smoker eCW1 ([facility]) Smoking 01/31/2021 12:00:00 AM EDT Current Smoker completed Curre nt Smoker eCW1 ([facility]) Smoking 01/31/2021 12:00:00 AM EDT Current Smoker completed Curre nt Smoker eCW1 ([facility]) Smoking 01/10/2021 12:00:00 AM EDT Current Smoker completed Curre nt Smoker eCW1 ([facility]) Smoking 01/10/2021 12:00:00 AM EDT Current Smoker completed Curre nt Smoker eCW1 ([facility]) Smoking 01/10/2021 12:00:00 AM EDT Current Smoker completed Curre nt Smoker eCW1 ([facility]) Smoking 01/10/2021 12:00:00 AM EDT Current Smoker completed Curre nt Smoker eCW1 ([facility]) Smoking 12/20/2020 12:00:00 AM EDT Current Smoker completed Curre nt Smoker eCW1 ([facility]) Smoking 12/20/2020 12:00:00 AM EDT Current Smoker completed Curre nt Smoker eCW1 ([facility]) Smoking 11/02/2020 12:00:00 AM EDT Current Smoker completed Curre nt Smoker eCW1 ([facility]) Smoking 11/02/2020 12:00:00 AM EDT Current Smoker completed Curre nt Smoker eCW1 ([facility]) Smoking 10/14/2020 12:00:00 AM EST Current Smoker completed Curre nt Smoker eCW1 ([facility]) Smoking 10/14/2020 12:00:00 AM EST Current Smoker completed Curre nt Smoker eCW1 ([facility]) Smoking 10/14/2020 12:00:00 AM EST Current Smoker completed Curre nt Smoker eCW1 ([facility]) Smoking 07/25/2020 12:00:00 AM EST Current Smoker completed Curre nt Smoker eCW1 ([facility]) Smoking 07/25/2020 12:00:00 AM EST Current Smoker completed Curre nt Smoker eCW1 ([facility]) Smoking 07/25/2020 12:00:00 AM EST Current Smoker completed Curre nt Smoker eCW1 ([facility]) Smoking 06/21/2020 12:00:00 AM EST Current Smoker completed Curre nt Smoker eCW1 ([facility]) Smoking 06/21/2020 12:00:00 AM EST Current Smoker completed Curre nt Smoker eCW1 ([facility]) Vital Signs ID Date Data Source UNK Name Value Range Interpretation Code Description Data Source(s) Body weight 193.2 [lb_av] 193.2 [lb_av] eCW1 ([facility]) Body weight 87.63 kg 87.63 kg W1 ([facility]) Body height 65.5 [in_i] 65.5 [in_i] eCW1 ([facility]) Body mass index (BMI) [Ratio] 31.66 kg/m2 31.66 kg/m2 W1 ([facility]) Body weight 193.2 [lb_av] 193.2 [lb_av] eCW1 ([facility]) Body weight 87.63 kg 87.63 kg eCW1 ([facility]) Body height 65.5 [in_i] 65.5 [in_i] eCW1 ([facility]) Body mass index (BMI) [Ratio] 31.66 kg/m2 31.66 kg/m2 W1 ([facility]) Body temperature 98.4 [degF] 98.4 [degF] W1 ( [facility]) Systolic blood pressure 112 mm[Hg] 112 mm[Hg] e CW1 ([facility]) Diastolic blood pressure 80 mm[Hg] 80 mm[Hg] eCW1 ([facility]) Heart rate 116 /min 116 /min W1 ([facility]) Respiratory rate 20 /min 20 /min eCW1 ([facility]) Body weight 196.6 [lb_av] 196.6 [lb_av] eCW1 ([facility]) Body weight 89.18 kg 89.18 kg eCW1 ([facility]) Body height 65.5 [in_i] 65.5 [in_i] eCW1 ([facility]) Body mass index (BMI) [Ratio] 32.21 kg/m2 32.21 kg/m2 eCW1 ([facility]) Systolic blood pressure 120 mm[Hg] 120 mm[Hg] e CW1 ([facility]) Diastolic blood pressure 84 mm[Hg] 84 mm[Hg] eCW1 ([facility]) Diastolic blood pressure--sitting 72 mm[Hg] 72 mm[Hg] MEDENT ([facility]) Ra, medium cuff Body weight 186.00 [lb_av] 186.00 [lb_av] MEDEN T ([facility]) Body height 66 [in_i] 66 [in_i] MEDENT ([facility]) 5'6" Body mass index (BMI) [Ratio] 30.0 kg/m2 30.0 k g/m2 MEDENT ([facility]) Heart rate 91 /min 91 /min MEDENT ([facility]) Systolic blood pressure--sitting 116 mm[Hg] 116 mm[Hg] MEDENT ([facility]) Ra, medium cuff Body mass index (BMI) [Ratio] 31.0 kg/m2 31.0 k g/m2 MEDENT ([facility], ) Park body weight 130 [lb_av] 130 [lb_av] MEDEN T ([facility], ) Body weight 192.38 [lb_av] 192.38 [lb_av] MEDEN T ([facility], ) Systolic blood pressure 110 mm[Hg] 110 mm[Hg] M EDENT ([facility], ) Diastolic blood pressure 74 mm[Hg] 74 mm[Hg] MEDENT ([facility], ) Heart rate 97 /min 97 /min [facility]) Oxygen saturation in Arterial blood by Pulse oximetry 92 % 92 % [facility] ([facility] Respiratory rate 18 /min 18 /min [facility] ( [facility]) Body height 66 [in_i] 66 [in_i] [facility] ([facility]) 5'6" Body weight 87.261 kg 87.261 kg [facility] ([facility]) Body surface area Derived from formula 1.97 m2 1.97 m2 [facility] ([facility]) Diastolic blood pressure 84 mm[Hg] 84 mm[Hg] DAVID ([facility]) Body height 66 [in_i] 66 [in_i] DAVID ([facility]) Body mass index (BMI) [Ratio] 31 kg/m2 31 kg/ m2 DAVID ([facility]) Systolic blood pressure 119 mm[Hg] 119 mm[Hg] A THENA ([facility]) Body weight 3078 [oz_av] 3078 [oz_av] DAVID ([facility]) Body weight 183.4 [lb_av] 183.4 [lb_av] eCW1 ([facility]) Body weight 83.19 kg 83.19 kg W1 ([facility]) Body height 65.5 [in_i] 65.5 [in_i] eCW1 ([facility]) Body mass index (BMI) [Ratio] 30.05 kg/m2 30.05 kg/m2 eCW1 ([facility]) Heart rate 101 /min 101 /min eCW1 ([facility]) Respiratory rate 20 /min 20 /min eCW1 ([facility]) Body temperature 97.6 [degF] 97.6 [degF] eCW1 ( [facility]) Systolic blood pressure 114 mm[Hg] 114 mm[Hg] e CW1 ([facility]) Diastolic blood pressure 86 mm[Hg] 86 mm[Hg] eCW1 ([facility]) Body weight 187.00 [lb_av] 187.00 [lb_av] WINSOTNEN T ([facility]) Body mass index (BMI) [Ratio] 30.2 kg/m2 30.2 k g/m2 [facility] ([facility]) Park body weight 130 [lb_av] 130 [lb_av] MEDEN T ([facility]) Body weight 84.823 kg 84.823 kg [facility] ([facility]) Body surface area Derived from formula 1.94 m2 1.94 m2 MEDENT ([facility]) Systolic blood pressure 135 mm[Hg] 135 mm[Hg] M EDENT ([facility]) Diastolic blood pressure 76 mm[Hg] 76 mm[Hg] MEDENT ([facility]) Body height 66 [in_i] 66 [in_i] [facility] ([facility]) 5'6" Systolic blood pressure 128 mm[Hg] 128 mm[Hg] e CW1 ([facility]) Diastolic blood pressure 72 mm[Hg] 72 mm[Hg] eCW1 ([facility]) Body weight 183.8 [lb_av] 183.8 [lb_av] eCW1 ([facility]) Body height 65.5 [in_i] 65.5 [in_i] W1 ([facility]) Body mass index (BMI) [Ratio] 30.12 kg/m2 30.12 kg/m2 W1 ([facility]) Body weight 177.0 [lb_av] 177.0 [lb_av] eCW1 ([facility]) Body height 65.5 [in_i] 65.5 [in_i] eCW1 ([facility]) Body mass index (BMI) [Ratio] 29.00 kg/m2 29.00 kg/m2 W1 ([facility]) Body weight 177.0 [lb_av] 177.0 [lb_av] eCW1 ([facility]) Body height 65.5 [in_i] 65.5 [in_i] W1 ([facility]) Body mass index (BMI) [Ratio] 29.00 kg/m2 29.00 kg/m2 eCW1 ([facility]) Body weight 177.0 [lb_av] 177.0 [lb_av] eCW1 ([facility]) Body temperature 99.3 [degF] 99.3 [degF] eCW1 ( [facility]) Body weight 80.3 kg 80.3 kg eCW1 ([facility]) Body height 65.5 [in_i] 65.5 [in_i] eCW1 ([facility]) Body mass index (BMI) [Ratio] 29.00 kg/m2 29.00 kg/m2 eCW1 ([facility]) Heart rate /min eCW1 ([facility]) Systolic blood pressure 134 mm[Hg] 134 mm[Hg] e CW1 ([facility]) Diastolic blood pressure 84 mm[Hg] 84 mm[Hg] eCW1 ([facility]) Respiratory rate 20 /min 20 /min eCW1 ([facility]) Body temperature 99.3 [degF] 99.3 [degF] eCW1 ( [facility]) Body weight 177.0 [lb_av] 177.0 [lb_av] eCW1 ([facility]) Body weight 80.3 kg 80.3 kg eCW1 ([facility]) Body height 65.5 [in_i] 65.5 [in_i] eCW1 ([facility]) Body mass index (BMI) [Ratio] 29.00 kg/m2 29.00 kg/m2 eCW1 ([facility]) Heart rate /min eCW1 ([facility]) Respiratory rate 20 /min 20 /min eCW1 ([facility]) Systolic blood pressure 134 mm[Hg] 134 mm[Hg] e CW1 ([facility]) Diastolic blood pressure 84 mm[Hg] 84 mm[Hg] eCW1 ([facility]) Body weight 175.0 [lb_av] 175.0 [lb_av] eCW1 ([facility]) Body height 65.5 [in_i] 65.5 [in_i] eCW1 ([facility]) Body mass index (BMI) [Ratio] 28.68 kg/m2 28.68 kg/m2 eCW1 ([facility]) Systolic blood pressure 138 mm[Hg] 138 mm[Hg] e CW1 ([facility]) Diastolic blood pressure 80 mm[Hg] 80 mm[Hg] eCW1 ([facility]) Diastolic blood pressure 80 mm[Hg] 80 mm[Hg] DAVID ([facility]) Body height 66 [in_i] 66 [in_i] DAVID ([facility]) Body mass index (BMI) [Ratio] 28.1 kg/m2 28.1 k g/m2 DAVID ([facility]) Systolic blood pressure 114 mm[Hg] 114 mm[Hg] A MONIQUE ([facility]) Body weight 2786 [oz_av] 2786 [oz_av] DAVID ([facility]) Diastolic blood pressure 80 mm[Hg] 80 mm[Hg] DAVID ([facility]) Body height 66 [in_i] 66 [in_i] DAVID ([facility]) Body mass index (BMI) [Ratio] 28.1 kg/m2 28.1 k g/m2 DAVID ([facility]) Systolic blood pressure 114 mm[Hg] 114 mm[Hg] A MONIQUEA ([facility]) Body weight 2786 [oz_av] 2786 [oz_av] DAVID ([facility]) Body height 66 [in_i] 66 [in_i] DAVID ([facility]) Body height 66 [in_i] 66 [in_i] DAVID ([facility]) Body height 66 [in_i] 66 [in_i] DAVID ([facility]) Body weight 176.00 [lb_av] 176.00 [lb_av] NADINE Casey ([facility]) Body height 66 [in_i] 66 [in_i] [place] ([facility] 5'6" Body mass index (BMI) [Ratio] 28.4 kg/m2 28.4 k g/m2 MEDENT ([facility]) Heart rate 74 /min 74 /min MEDENT ([facility]) Systolic blood pressure--sitting 128 mm[Hg] 128 mm[Hg] MEDENT ([facility]) Ra, large cuff Diastolic blood pressure--sitting 80 mm[Hg] 80 mm[Hg] MEDENT ([facility]) Ra, large cuff Systolic blood pressure 110 mm[Hg] 110 mm[Hg] M EDENT ([facility]) Diastolic blood pressure 78 mm[Hg] 78 mm[Hg] [facility] ([facility]) Heart rate 93 /min 93 /min [facility] ([facility]) Oxygen saturation in Arterial blood by Pulse oximetry 98 % 98 % [facility] ([facility]) Room Air Body height 66 [in_i] 66 [in_i] [facility] ([facility]) 5'6" Body weight 180.00 [lb_av] 180.00 [lb_av] [facility] Body mass index (BMI) [Ratio] 29.0 kg/m2 29.0 k g/m2 [facility] ([facility]) Park body weight 130 [lb_av] 130 [lb_av] [facility] Body weight 81.648 kg 81.648 kg [facility] ([facility]) Body surface area Derived from formula 1.91 m2 1.91 m2 [facility] ([facility]) Body weight 170 [lb_av] 170 [lb_av] eCW1 ([facility]) Body height 65.5 [in_i] 65.5 [in_i] eCW1 ([facility]) Body mass index (BMI) [Ratio] 27.86 kg/m2 27.86 kg/m2 [facility] Systolic blood pressure 128 mm[Hg] 128 mm[Hg] e CW1 ([facility]) Diastolic blood pressure 88 mm[Hg] 88 mm[Hg] eCW1 ([facility]) Body height 66 [in_i] 66 [in_i] DAVID ([facility]) Body height 66 [in_i] 66 [in_i] DAVID ([facility]) Body height 66 [in_i] 66 [in_i] DAVID ([facility]) Body height 66 [in_i] 66 [in_i] DAVID ([facility]) Body weight 81.2 kg 81.2 kg eCW1 ([facility]) Body height 65.5 [in_i] 65.5 [in_i] eCW1 ([facility]) Body weight 179.2 [lb_av] 179.2 [lb_av] eCW1 ([facility]) Heart rate 105 /min 105 /min eCW1 ([facility]) Body mass index (BMI) [Ratio] 29.36 kg/m2 29.36 kg/m2 eCW1 ([facility]) Body temperature 97.7 [degF] 97.7 [degF] eCW1 ( [facility]) Respiratory rate 18 /min 18 /min eCW1 ([facility]) Systolic blood pressure 124 mm[Hg] 124 mm[Hg] e CW1 ([facility]) Diastolic blood pressure 68 mm[Hg] 68 mm[Hg] eCW1 ([facility]) Patient Treatment Plan of Care Planned Activity Planned Date Details Description Data Source (s) Fluocinonide 0.5 MG/ML Topical Solution 06/05/2021 12:00:00 AM EDT eCW1 ([facility]) Ketoconazole 20 MG/ML Medicated Shampoo 01/31/2021 12:00:00 AM EDT eCW1 ([facility]) Ketoconazole 20 MG/ML Medicated Shampoo 01/31/2021 12:00:00 AM EDT eCW1 ([facility]) Ketoconazole 20 MG/ML Medicated Shampoo 01/31/2021 12:00:00 AM EDT eCW1 ([facility]) Ketoconazole 20 MG/ML Medicated Shampoo 01/31/2021 12:00:00 AM EDT eCW1 ([facility]) Ketoconazole 20 MG/ML Medicated Shampoo 01/31/2021 12:00:00 AM EDT eCW1 ([facility]) Ergocalciferol [id number] UNT Oral Capsule 01/12/2021 12:00:00 AM EDT eCW1 ([facility]) Ergocalciferol [id number] UNT Oral Capsule 01/12/2021 12:00:00 AM EDT eCW1 ([facility]) Ergocalciferol [id number] UNT Oral Capsule 01/12/2021 12:00:00 AM EDT eCW1 ([facility]) Ergocalciferol [id number] UNT Oral Capsule 01/12/2021 12:00:00 AM EDT eCW1 ([facility]) Hydroxyzine Hydrochloride 25 MG Oral Tablet 12/20/2020 12:00:00 AM EDT eCW1 ([facility]) Triamcinolone Acetonide 1 MG/ML Topical Cream 12/20/2020 12:00:00 A M EDT eCW1 ([facility]) calcipotriene 0.05 MG/ML Topical Cream 12/20/2020 12:00:00 AM EDT eCW1 ([facility]) Hydroxyzine Hydrochloride 25 MG Oral Tablet 12/20/2020 12:00:00 AM EDT eCW1 ([facility]) Triamcinolone Acetonide 1 MG/ML Topical Cream 12/20/2020 12:00:00 A M EDT eCW1 ([facility]) calcipotriene 0.05 MG/ML Topical Cream 12/20/2020 12:00:00 AM EDT eCW1 ([facility]) leflunomide 10 MG Oral Tablet 11/02/2020 12:00:00 AM EDT eCW1 ([facility]) leflunomide 10 MG Oral Tablet 11/02/2020 12:00:00 AM EDT eCW1 ([facility]) Potassium Chloride 20 MEQ Extended Release Oral Tablet DAVID ([facility]) Methotrexate 2.5 MG Oral Tablet DAVID ([facility]) Folic Acid 1 MG Oral Tablet DAVID ([facility]) topiramate 50 MG Oral Tablet DAVID ([facility]) Spironolactone 25 MG Oral Tablet DAVID ([facility]) topiramate 50 MG Oral Tablet DAVID ([facility]) Spironolactone 25 MG Oral Tablet DAVID ([facility]) Potassium Chloride 20 MEQ Extended Release Oral Tablet DAVID ([facility]) Methotrexate 2.5 MG Oral Tablet DAVID ([facility]) Folic Acid 1 MG Oral Tablet DAVID ([facility]) topiramate 50 MG Oral Tablet DAVID ([facility]) topiramate 50 MG Oral Tablet DAVID ([facility])
[2021-07-21] MEDS ORDERED: LIDOCAINE 2% 100MG/5ML SDV (FOR ANES.) As Ordered ONE (10:40)
[2021-07-21] MEDS ORDERED: propofoL 200 MG/20 ML VIAL As Ordered ONE ×2 (10:40→11:44)
[2021-07-21] MEDS ORDERED: ALBUTEROL SULFATE 2.5 MG/0.5 ML INH NEB SOLN INH ONE (10:45)
[2021-07-21] MEDS ORDERED: PHENYLephrine 500MCG 5ML (100MCG/ML) SYRINGE As Ordered ONE (11:56)
--- NOTE | 2021-07-21 12:02 | ROOR ---
Patient Name: Kaylan Lee Procedure Date: 07/21/2021 11:32 AM Date of : 1970 Age: 50 Room: [facility] Gender: Female Note Status: Finalized Procedure: Colonoscopy Indications: High risk colon cancer surveillance: Personal history of colonic polyps Providers: Johny Fulton MD Referring MD: Feroz HELLER MD Requesting Provider: Medicines: Monitored Anesthesia Care Complications: No immediate complications. Procedure: Pre-Anesthesia Assessment: - The heart rate, respiratory rate, oxygen saturations, blood pressure, adequacy of pulmonary ventilation, and response to care were monitored throughout the procedure. The Colonoscope was introduced through the anus and advanced to the terminal ileum, with identification of the appendiceal orifice and IC valve. The colonoscopy was performed without difficulty. The patient tolerated the procedure well. The quality of the bowel preparation was adequate and fair. Findings: The perianal and digital rectal examinations were normal. Three sessile polyps were found in the sigmoid colon, splenic flexure and cecum. The polyps were diminutive in size. These polyps were removed with a cold snare. Resection and retrieval were complete. Mild sigmoid diverticulosis and small internal hemorrhoids. The exam was otherwise without abnormality on direct and retroflexion views. Biopsies for histology were taken with a cold forceps from the entire colon for evaluation of microscopic colitis. Impression: - Preparation of the colon was fair. - Three diminutive polyps in the sigmoid colon, at the splenic flexure and in the cecum, removed with a cold snare. Resected and retrieved. - Mild sigmoid diverticulosis and small internal hemorrhoids. - The colon and terminal ileum are otherwise normal on direct and retroflexion views. - Biopsies were taken with a cold forceps from the entire colon for evaluation of microscopic colitis. Recommendation: - Repeat colonoscopy in 5 years for surveillance. Procedure Code(s): --- Professional --- 85979, Colonoscopy, flexible; with removal of tumor(s), polyp(s), or other lesion(s) by snare technique 06482, 59, Colonoscopy, flexible; with biopsy, single or multiple Diagnosis Code(s): --- Professional --- K63.5, Polyp of colon Z86.010, Personal history of colonic polyps CPT copyright 2019 [employer]. All rights reserved. The codes documented in this report are preliminary and upon floatman review may be revised to meet current compliance requirements. Johny Fulton MD Johny Fulton MD 07/21/2021 12:01:54 PM Electronically signed by Johny Fulton MD Number of Addenda: 0 Note Initiated On: 07/21/2021 11:32 AM Estimated Blood Loss: Estimated blood loss: none.
[2021-07-21 12:50] VITALS: BP 126/70
== END 2021-07-21 12:52 | disposition home or self-care (01) ==
LOC: M OPP 08:47
PROVIDERS: ATTEND Internal Medicine Gastroenterology
DX: Z12.11 Encounter for screening for malignant neoplasm of colon (principal); Z86.010 Personal history of colon polyps; D12.0 Benign neoplasm of cecum; D12.3 Benign neoplasm of transverse colon; D12.5 Benign neoplasm of sigmoid colon; K64.8 Other hemorrhoids; K57.30 Diverticulosis of large intestine without perforation or abscess without bleeding; Z79.899 Other long term (current) drug therapy; Z88.8 Allergy status to other drugs, medicaments and biological substances
CPT/HCPCS: 45380; 45385; 88305; J2370

== ENCOUNTER → 2021-08-01 | Outpatient (CLI) | payer OTHER ==
[~2021-08-01] MED LIST changes: -NS 1,000 ML IV ONE
--- NOTE | 2021-08-01 12:21 | REPMRS ---
Patient History The patient states she has not had a clinical breast exam in over a year. Patient has history of endometrial cancer at age 44. Family history of ovarian cancer in maternal grandmother. Took unspecified hormones for 10 years. No breast complaints today Patient signed the MRS sheet No vaccine Priors on PACS Patient Identification Verified Digital Woman Screen Mammo: August 01, 2021 - Exam #: [id number] Bilateral CC and MLO view(s) were taken. Technologist: Kia Montejo, Technologist Prior study comparison: April 13, 2020, bilateral digital woman screen mammo performed at [facility]. December 11, 2018, bilateral digital mammo screening bilat, performed at [facility]. FINDINGS: There are scattered fibroglandular densities. Screening. Digital screening (2D) mammography was performed bilaterally in the CC and MLO projections. Additionally, breast tomosynthesis (3D mammography) was performed bilaterally in the CC and MLO projections. Todays exam was compared to the prior exam/exams. By history, the patient has no complaints of a palpable breast abnormality or other significant breast complaints. The breasts are unchanged in size and shape. There are no fior-soft tissue densities or spiculated masses. There is no internal architectural distortion. There are no suspicious fior-calcific clusters. Skin thickening or nipple retraction is not present. IMPRESSION: BI-RADS Category 2- Benign Findings. There is no evidence of malignant alteration of the breasts. Followup examination recommended in one year. The Volpara volumetric breast density category is B, there are scattered areas of fibroglandular densities. This mammogram was read with the assistance of [facility] [employer],an FDA approved computer aided detection system for mammography. The lifetime Tyrer-Cuzick score is 10 % Negative x-ray reports should not delay surgical consultation if a dominant or clinically suspicious mass is present. Not all breast cancers can be identified by mammography. Therefore, we recommend that you continue to perform regular breast self-examination and physical examination and then promptly contact your physician of any concerns or changes. Adenosis and dense breasts may obscure an underlying neoplasm. Assessment: BI-RADS/ACR category 2 mammogram. Benign Findings. Recommendation Routine screening mammogram of both breasts in 1 year. Electronically Signed By: Billy Whyte DO 08/01/21 [id number]
== END ==
LOC: M WHC 09:39
PROVIDERS: ATTEND Family Medicine Addiction Medicine
DX: Z12.31 Encounter for screening mammogram for malignant neoplasm of breast (principal); Z85.89 Personal history of malignant neoplasm of other organs and systems; Z80.41 Family history of malignant neoplasm of ovary; Z92.29 Personal history of other drug therapy

== ENCOUNTER 2021-08-15 12:02 | Outpatient (CLI) | payer OTHER ==
[~2021-08-15] VITALS: Ht 170.2 cm; Wt 80.2 kg
[~2021-08-15 12:02] MED LIST changes: +ALBUTEROL SULFATE 2.5 MG/0.5 ML INH NEB SOLN INH PRN; +EPINEPHrine INJ 1 MG/ML 1ML AMP IM PRN; +diphenhydrAMINE 50MG/ML VIAL (J1200) IV PRN; +methylPREDNISolone 125MG 2ML VIAL IV PRN
[2021-08-15] MEDS ORDERED: ACETAMINOPHEN 650MG PO PRIOR TO INFUSION PO ONE (12:30)
[2021-08-15] MEDS ORDERED: INFLIXIMAB BIOSIMILAR 400 MG in NS 210 ML IV ONE (12:30)
[2021-08-15] MEDS ORDERED: diphenhydrAMINE 25MG PO PRIOR TO INFUSION PO ONE (12:30)
[2021-08-15 14:31] VITALS: BP 145/78
== END 2021-08-15 14:33 | disposition home or self-care (01) ==
LOC: M INFU 12:02
PROVIDERS: ATTEND Internal Medicine
DX: L40.50 Arthropathic psoriasis, unspecified (principal); Z88.8 Allergy status to other drugs, medicaments and biological substances
CPT/HCPCS: 96365; 96366; Q5103

== ENCOUNTER → 2021-09-22 | Outpatient (CLI) | payer OTHER ==
[~2021-09-22] MED LIST changes: -ALBUTEROL SULFATE 2.5 MG/0.5 ML INH NEB SOLN INH PRN; -EPINEPHrine INJ 1 MG/ML 1ML AMP IM PRN; -diphenhydrAMINE 50MG/ML VIAL (J1200) IV PRN; -methylPREDNISolone 125MG 2ML VIAL IV PRN
== END ==
LOC: M PLAIMG 09:15
PROVIDERS: ATTEND Internal Medicine Pulmonary Disease
DX: R91.1 Solitary pulmonary nodule (principal); J43.1 Panlobular emphysema

== ENCOUNTER 2021-09-26 12:30 | Outpatient (CLI) | payer OTHER ==
[~2021-09-26] VITALS: Ht 165.1 cm; Wt 87.6 kg
[~2021-09-26 12:30] MED LIST changes: +ACETAMINOPHEN 650MG PO PRIOR TO INFUSION PO ONE; +ALBUTEROL SULFATE 2.5 MG/0.5 ML INH NEB SOLN INH PRN; +EPINEPHrine INJ 1 MG/ML 1ML AMP IM PRN; +INFLIXIMAB BIOSIMILAR 400 MG in NS 210 ML IV ONE; +diphenhydrAMINE 25MG PO PRIOR TO INFUSION PO ONE; +diphenhydrAMINE 50MG/ML VIAL (J1200) IV PRN; +methylPREDNISolone 125MG 2ML VIAL IV PRN
[2021-09-26 12:37] VITALS: BP 120/74
[2021-09-26 13:50] VITALS: BP 124/70
[2021-09-26 14:42] VITALS: BP 120/69
== END 2021-09-26 14:50 | disposition home or self-care (01) ==
LOC: M INFU 12:30
PROVIDERS: ATTEND Internal Medicine
DX: L40.50 Arthropathic psoriasis, unspecified (principal); Z88.8 Allergy status to other drugs, medicaments and biological substances
CPT/HCPCS: 96365; Q5103

== ENCOUNTER → 2021-10-03 | Outpatient (REF) | payer OTHER ==
[~2021-10-03] MED LIST changes: -ACETAMINOPHEN 650MG PO PRIOR TO INFUSION PO ONE; -ALBUTEROL SULFATE 2.5 MG/0.5 ML INH NEB SOLN INH PRN; -EPINEPHrine INJ 1 MG/ML 1ML AMP IM PRN; -INFLIXIMAB BIOSIMILAR 400 MG in NS 210 ML IV ONE; -diphenhydrAMINE 25MG PO PRIOR TO INFUSION PO ONE; -diphenhydrAMINE 50MG/ML VIAL (J1200) IV PRN; -methylPREDNISolone 125MG 2ML VIAL IV PRN
[2021-10-03 12:28] LABS: BASO # 0.1 10^3/uL (0.0-0.2); BASO % 0.8 % (0.0-1.0); EOS # 0.2 10^3/uL (0.0-0.5); EOS % 3.7 % (0.0-3.0); HEMATOCRIT 47.4 % (36.0-47.0); HEMOGLOBIN 15.6 g/dl (12.0-15.5); MEAN CORPUSCULAR HEMOGLOBIN 31.3 pg (27.0-33.0); MEAN CORPUSCULAR HGB CONC 32.9 g/dl (32.0-36.5); MONO # 0.4 10^3/uL (0.0-0.8); MONO % 7.2 % (2.0-8.0); NEUTROPHILS # 4.3 10^3/uL (1.5-8.5); NEUTROPHILS % 71.8 % (36.0-66.0); PLATELET COUNT, AUTOMATED 299 10^3/uL (150-450); RED BLOOD COUNT 4.99 10^6/uL (4.00-5.40)
[2021-10-03 12:54] LABS: ALBUMIN 3.6 GM/DL (3.2-5.2); ALT/SGPT 23 U/L (12-78); BILIRUBIN,DIRECT < 0.1 MG/DL (0.0-0.2); BILIRUBIN,TOTAL 0.2 MG/DL (0.2-1.0); BLOOD UREA NITROGEN 14 MG/DL (7-18); C REACTIVE PROTEIN QUANTITATIV 0.76 MG/DL (0.00-0.30); CARBON DIOXIDE LEVEL 28 MEQ/L (21-32); CHLORIDE LEVEL 106 MEQ/L (98-107); CREATININE FOR GFR 0.66 MG/DL (0.55-1.30); GLOMERULAR FILTRATION RATE > 60.0 (>51); GLUCOSE, FASTING 86 MG/DL (70-100); POTASSIUM SERUM 4.3 MEQ/L (3.5-5.1); SODIUM LEVEL 139 MEQ/L (136-145); TOTAL PROTEIN 7.4 GM/DL (6.4-8.2)
[2021-10-03 13:00] LABS: ERYTHROCYTE SEDIMENTATION RATE 6 mm/hr (0-30)
== END ==
LOC: M SFHCRHEU 11:04
PROVIDERS: ATTEND Internal Medicine
DX: L40.50 Arthropathic psoriasis, unspecified (principal); R74.8 Abnormal levels of other serum enzymes

== ENCOUNTER → 2021-11-07 | Outpatient (CLI) | payer OTHER ==
[~2021-11-07] VITALS: Ht 166.4 cm; Wt 87.6 kg
[~2021-11-07] MED LIST changes: +ACETAMINOPHEN 650MG PO PRIOR TO INFUSION PO ONE; +ALBUTEROL SULFATE 2.5 MG/0.5 ML INH NEB SOLN INH PRN; +EPINEPHrine INJ 1 MG/ML 1ML AMP IM PRN; +INFLIXIMAB BIOSIMILAR 400 MG in NS 210 ML IV ONE; +diphenhydrAMINE 25MG PO PRIOR TO INFUSION PO ONE; +diphenhydrAMINE 50MG/ML VIAL (J1200) IV PRN; +methylPREDNISolone 125MG 2ML VIAL IV PRN
== END ==
LOC: M INFU 12:27
PROVIDERS: ATTEND Internal Medicine
DX: Z53.9 Procedure and treatment not carried out, unspecified reason (principal)

== ENCOUNTER 2021-11-10 14:41 | Outpatient (CLI) | payer OTHER ==
[~2021-11-10] VITALS: Ht 166.4 cm; Wt 87.6 kg
[~2021-11-10 14:41] MED LIST changes: -ACETAMINOPHEN 650MG PO PRIOR TO INFUSION PO ONE; -ALBUTEROL SULFATE 2.5 MG/0.5 ML INH NEB SOLN INH PRN; -EPINEPHrine INJ 1 MG/ML 1ML AMP IM PRN; -INFLIXIMAB BIOSIMILAR 400 MG in NS 210 ML IV ONE; -diphenhydrAMINE 25MG PO PRIOR TO INFUSION PO ONE; -diphenhydrAMINE 50MG/ML VIAL (J1200) IV PRN; -methylPREDNISolone 125MG 2ML VIAL IV PRN
[2021-11-10] MEDS ORDERED: ACETAMINOPHEN 650MG PO PRIOR TO INFUSION PO ONE (15:00)
[2021-11-10] MEDS ORDERED: NS 1,000 ML IV SCH (15:00)
[2021-11-10] MEDS ORDERED: INFLIXIMAB BIOSIMILAR 400 MG in NS 210 ML IV ONE (15:00)
[2021-11-10] MEDS ORDERED: diphenhydrAMINE 25MG PO PRIOR TO INFUSION PO ONE (15:00)
[2021-11-10 15:06] VITALS: BP 143/86
[2021-11-10 15:51] VITALS: BP 112/69
[2021-11-10 16:45] VITALS: BP 134/68
== END 2021-11-10 16:45 | disposition home or self-care (01) ==
LOC: M INFU 14:41
PROVIDERS: ATTEND Internal Medicine
DX: L40.50 Arthropathic psoriasis, unspecified (principal); Z88.2 Allergy status to sulfonamides; Z88.6 Allergy status to analgesic agent
CPT/HCPCS: 96413; Q5103

== ENCOUNTER 2021-12-19 12:39 | Outpatient (CLI) | payer OTHER ==
[~2021-12-19] VITALS: Ht 166.4 cm; Wt 87.0 kg
[~2021-12-19 12:39] MED LIST changes: +ACET500T15 PO; +ACETAMINOPHEN 650MG PO PRIOR TO INFUSION PO ONE; -ALBU83IN INH; +ALBU83IN NEB; +ALBUTEROL SULFATE 2.5 MG/0.5 ML INH NEB SOLN INH PRN; -ARNU1INH3 PO; +BUDE0.5S6 INH; +CALC0.009 TOP; +CEFD300C41 PO; +DOXY100T PO; +EPINEPHrine INJ 1 MG/ML 1ML AMP IM PRN; +INFLIXIMAB BIOSIMILAR 400 MG in NS 210 ML IV ONE; +KETO2SHA8 TOP; +MIRT-60 PO; +NITR0.4S14 SL; +PRED10TA2 PO; +diphenhydrAMINE 25MG PO PRIOR TO INFUSION PO ONE; +diphenhydrAMINE 50MG/ML VIAL (J1200) IV PRN; +methylPREDNISolone 125MG 2ML VIAL IV PRN
[2021-12-19 13:03] VITALS: BP 128/77
[2021-12-19 14:45] VITALS: BP 119/75
== END 2021-12-19 14:45 | disposition home or self-care (01) ==
LOC: M INFU 12:39
PROVIDERS: ATTEND Internal Medicine
DX: L40.50 Arthropathic psoriasis, unspecified (principal); Z88.2 Allergy status to sulfonamides; Z88.6 Allergy status to analgesic agent
CPT/HCPCS: 96413; Q5103

== ENCOUNTER → 2022-01-01 | Outpatient (REF) | payer OTHER ==
[~2022-01-01] MED LIST changes: -ACETAMINOPHEN 650MG PO PRIOR TO INFUSION PO ONE; -ALBUTEROL SULFATE 2.5 MG/0.5 ML INH NEB SOLN INH PRN; -EPINEPHrine INJ 1 MG/ML 1ML AMP IM PRN; -INFLIXIMAB BIOSIMILAR 400 MG in NS 210 ML IV ONE; -diphenhydrAMINE 25MG PO PRIOR TO INFUSION PO ONE; -diphenhydrAMINE 50MG/ML VIAL (J1200) IV PRN; -methylPREDNISolone 125MG 2ML VIAL IV PRN
[2022-01-01 12:34] LABS: BASO % 0.4 % (0.0-1.0); EOS % 0.2 % (0.0-3.0); HEMATOCRIT 42.9 % (36.0-47.0); HEMOGLOBIN 14.2 g/dl (12.0-15.5); LYMPH # 0.5 10^3/uL (1.5-5.0); LYMPH % 5.2 % (24.0-44.0); MEAN CORPUSCULAR HEMOGLOBIN 30.8 pg (27.0-33.0); MEAN CORPUSCULAR HGB CONC 33.1 g/dl (32.0-36.5); MEAN CORPUSCULAR VOLUME 93.1 fl (80.0-96.0); MONO # 0.3 10^3/uL (0.0-0.8); MONO % 2.8 % (2.0-8.0); NEUTROPHILS # 9.2 10^3/uL (1.5-8.5); NEUTROPHILS % 90.4 % (36.0-66.0); PLATELET COUNT, AUTOMATED 252 10^3/uL (150-450); RED BLOOD COUNT 4.61 10^6/uL (4.00-5.40); WHITE BLOOD COUNT 10.2 10^3/uL (4.0-10.0)
[2022-01-01 13:10] LABS: ALBUMIN 3.5 GM/DL (3.2-5.2); ALT/SGPT 24 U/L (12-78); BILIRUBIN,DIRECT 0.1 MG/DL (0.0-0.2); BILIRUBIN,TOTAL 0.5 MG/DL (0.2-1.0); BLOOD UREA NITROGEN 11 MG/DL (7-18); CALCIUM LEVEL 7.6 MG/DL (8.5-10.1); CARBON DIOXIDE LEVEL 35 MEQ/L (21-32); CHLORIDE LEVEL 101 MEQ/L (98-107); GLOMERULAR FILTRATION RATE > 60.0 (>51); GLUCOSE, FASTING 105 MG/DL (70-100); POTASSIUM SERUM 3.7 MEQ/L (3.5-5.1); SODIUM LEVEL 141 MEQ/L (136-145); TOTAL PROTEIN 6.6 GM/DL (6.4-8.2)
[2022-01-01 13:40] LABS: ERYTHROCYTE SEDIMENTATION RATE 4 mm/hr (0-30)
== END ==
LOC: M SFHCRHEU 11:26
PROVIDERS: ATTEND Internal Medicine
DX: L40.50 Arthropathic psoriasis, unspecified (principal)

== ENCOUNTER → 2022-01-25 | Outpatient (CLI) | payer OTHER ==
[~2022-01-25] MED LIST changes: +ALBU2.5V10 NEB; -ALBU83IN NEB
== END ==
LOC: M SLEEP HO 13:29
PROVIDERS: ATTEND Internal Medicine Pulmonary Disease
DX: G47.33 Obstructive sleep apnea (adult) (pediatric) (principal)

== ENCOUNTER → 2022-03-08 | Outpatient (CLI) | payer OTHER | LOC: M PLAIMG 09:51 | PROVIDERS: ATTEND Internal Medicine Pulmonary Disease | DX: R91.8 Other nonspecific abnormal finding of lung field (principal) ==

== ENCOUNTER 2022-04-14 14:45 | Emergency (ER) | payer OTHER ==
[~2022-04-14] VITALS: Ht 167.6 cm; Wt 88.6 kg
[2022-04-14 15:44] LABS: BASO % 0.3 % (0.0-1.0); EOS % 0.4 % (0.0-3.0); HEMATOCRIT 47.5 % (36.0-47.0); HEMOGLOBIN 15.7 g/dl (12.0-15.5); LYMPH # 0.7 10^3/uL (1.5-5.0); LYMPH % 6.7 % (24.0-44.0); MEAN CORPUSCULAR HEMOGLOBIN 30.3 pg (27.0-33.0); MEAN CORPUSCULAR HGB CONC 33.1 g/dl (32.0-36.5); MEAN CORPUSCULAR VOLUME 91.7 fl (80.0-96.0); MONO # 0.6 10^3/uL (0.0-0.8); MONO % 5.9 % (2.0-8.0); NEUTROPHILS % 86.4 % (36.0-66.0); PLATELET COUNT, AUTOMATED 228 10^3/uL (150-450); RED BLOOD COUNT 5.18 10^6/uL (4.00-5.40); WHITE BLOOD COUNT 10.4 10^3/uL (4.0-10.0)
[2022-04-14] MEDS ORDERED: NS 1,000 ML IV ONE (16:25)
[2022-04-14] MEDS ORDERED: MORPHINE 4 MG/ML 1ML VIAL/SYRINGE IV ONE (16:25)
[2022-04-14] MEDS ORDERED: ONDANSETRON 4MG 2ML VIAL IV ONE (16:25)
[2022-04-14 16:27] LABS: ALBUMIN 3.4 GM/DL (3.2-5.2); BILIRUBIN,DIRECT 0.2 MG/DL (0.0-0.2); BILIRUBIN,TOTAL 0.5 MG/DL (0.2-1.0); TOTAL PROTEIN 7.2 GM/DL (6.4-8.2)
[2022-04-14] MEDS ORDERED: ISOVUE-370 76% 100ML VIAL As Ordered ONE (16:36)
[2022-04-14 19:15] LABS: BACTERIA, URINE NONE SEEN; HYALINE CAST, URINE NONE SEEN /lpf (0-1); RBC, URINE 0-1 /hpf (0-3); SQUAMOUS EPITHELIAL CELL URINE LARGE AMOUNT /hpf (SMALL AMT)
[2022-04-14] MEDS ORDERED: DICYCLOMINE 10 MG CAP PO ONE (19:30)
[2022-04-14] MEDS ORDERED: KETOROLAC 30 MG/ML 1ML VIAL IV ONE (19:30)
[2022-04-14] MEDS ORDERED: ONDA4TAB6 PO (19:54)
[2022-04-14] MEDS ORDERED: DICY10CA13 PO (19:54)
[2022-04-14 20:16] VITALS: BP 114/77
== END 2022-04-14 20:21 | disposition home or self-care (01) ==
LOC: M ED 14:45
DX: R10.30 Lower abdominal pain, unspecified (principal); R11.2 Nausea with vomiting, unspecified; I10 Essential (primary) hypertension; J44.9 Chronic obstructive pulmonary disease, unspecified; N18.9 Chronic kidney disease, unspecified; L40.9 Psoriasis, unspecified; M79.7 Fibromyalgia; Z86.73 Personal history of transient ischemic attack (TIA), and cerebral infarction without residual deficits; Z88.2 Allergy status to sulfonamides; Z88.5 Allergy status to narcotic agent; Z88.8 Allergy status to other drugs, medicaments and biological substances; Z79.899 Other long term (current) drug therapy; Z79.890 Hormone replacement therapy; F17.200 Nicotine dependence, unspecified, uncomplicated
CPT/HCPCS: 74177; 80047; 80076; 81000; 81015; 83690; 85025; 96374; 96375; 99284; J1885; J2270; J2405; Q9967

== ENCOUNTER → 2022-04-24 | Outpatient (CLI) | payer OTHER ==
[~2022-04-24] MED LIST changes: +DICY10CA13 PO; -DULE200A INH; +MOME13HF7 INH; +ONDA4TAB6 PO
== END ==
LOC: M RAD 09:23
PROVIDERS: ATTEND Internal Medicine Pulmonary Disease
DX: J90 Pleural effusion, not elsewhere classified (principal); R91.8 Other nonspecific abnormal finding of lung field

== ENCOUNTER → 2022-05-15 | Outpatient (CLI) | payer OTHER | LOC: M RAD 13:13 | PROVIDERS: ATTEND Internal Medicine Pulmonary Disease | DX: R91.8 Other nonspecific abnormal finding of lung field (principal) ==

== ENCOUNTER → 2022-06-07 | Outpatient (REF) | payer OTHER ==
[~2022-06-07] MED LIST changes: +APRE1TAB PO; -[UNRECOGNIZED DRUG - CODE] PO
[2022-06-07 17:17] LABS: BASO # 0.1 10^3/uL (0.0-0.2); EOS # 0.4 10^3/uL (0.0-0.5); EOS % 6.5 % (0.0-3.0); HEMATOCRIT 43.2 % (36.0-47.0); HEMOGLOBIN 14.2 g/dl (12.0-15.5); LYMPH # 0.7 10^3/uL (1.5-5.0); LYMPH % 11.8 % (24.0-44.0); MEAN CORPUSCULAR HEMOGLOBIN 30.9 pg (27.0-33.0); MEAN CORPUSCULAR HGB CONC 32.9 g/dl (32.0-36.5); MEAN CORPUSCULAR VOLUME 93.9 fl (80.0-96.0); MONO # 0.4 10^3/uL (0.0-0.8); MONO % 5.6 % (2.0-8.0); NEUTROPHILS # 4.7 10^3/uL (1.5-8.5); NEUTROPHILS % 74.8 % (36.0-66.0); PLATELET COUNT, AUTOMATED 263 10^3/uL (150-450); WHITE BLOOD COUNT 6.3 10^3/uL (4.0-10.0)
[2022-06-07 17:45] LABS: ALBUMIN 3.8 GM/DL (3.2-5.2); ALT/SGPT 20 U/L (12-78); BILIRUBIN,DIRECT < 0.1 MG/DL (0.0-0.2); BILIRUBIN,TOTAL 0.5 MG/DL (0.2-1.0); BLOOD UREA NITROGEN 14 MG/DL (7-18); C REACTIVE PROTEIN QUANTITATIV 1.19 MG/DL (0.00-0.30); CARBON DIOXIDE LEVEL 24 MEQ/L (21-32); CHLORIDE LEVEL 106 MEQ/L (98-107); CREATININE FOR GFR 0.73 MG/DL (0.55-1.30); GLOMERULAR FILTRATION RATE > 60.0 (>51); GLUCOSE, FASTING 77 MG/DL (70-100); POTASSIUM SERUM 4.5 MEQ/L (3.5-5.1); SODIUM LEVEL 137 MEQ/L (136-145); TOTAL PROTEIN 7.7 GM/DL (6.4-8.2)
[2022-06-07 18:50] LABS: ERYTHROCYTE SEDIMENTATION RATE 12 mm/hr (0-30)
== END ==
LOC: M SFHCRHEU 12:54
PROVIDERS: ATTEND Internal Medicine
DX: L40.50 Arthropathic psoriasis, unspecified (principal)

== ENCOUNTER 2022-06-21 09:30 | Outpatient (CLI) | payer OTHER ==
[~2022-06-21] VITALS: Ht 167.6 cm; Wt 87.0 kg
[~2022-06-21 09:30] MED LIST changes: +ALBUTEROL SULFATE 2.5 MG/0.5 ML INH NEB SOLN INH PRN; +EPINEPHrine INJ 1 MG/ML 1ML AMP IM PRN; +diphenhydrAMINE 50MG/ML VIAL (J1200) IV PRN; +methylPREDNISolone 125MG 2ML VIAL IV PRN
[2022-06-21] MEDS ORDERED: INFLIXIMAB BIOSIMILAR 400 MG in NS 210 ML IV ONE (10:00)
[2022-06-21] MEDS ORDERED: diphenhydrAMINE 25MG PO PRIOR TO INFUSION PO ONE (10:00)
[2022-06-21] MEDS ORDERED: NS 1,000 ML IV SCH (10:00)
[2022-06-21] MEDS ORDERED: ACETAMINOPHEN 650MG PO PRIOR TO INFUSION PO ONE (10:00)
[2022-06-21 10:05] VITALS: BP 127/74
[2022-06-21 10:40] VITALS: BP 130/69
[2022-06-21 11:30] VITALS: BP 142/75
== END 2022-06-21 11:30 | disposition home or self-care (01) ==
LOC: M INFU 09:30
PROVIDERS: ATTEND Internal Medicine
DX: M06.9 Rheumatoid arthritis, unspecified (principal); Z88.5 Allergy status to narcotic agent; Z88.2 Allergy status to sulfonamides; Z88.8 Allergy status to other drugs, medicaments and biological substances
CPT/HCPCS: 96413; Q5103

== ENCOUNTER 2022-08-02 09:45 | Outpatient (CLI) | payer OTHER ==
[~2022-08-02] VITALS: Ht 165.1 cm; Wt 84.8 kg
[~2022-08-02 09:45] MED LIST changes: -ALBUTEROL SULFATE 2.5 MG/0.5 ML INH NEB SOLN INH PRN; -EPINEPHrine INJ 1 MG/ML 1ML AMP IM PRN; -diphenhydrAMINE 50MG/ML VIAL (J1200) IV PRN; -methylPREDNISolone 125MG 2ML VIAL IV PRN
[2022-08-02] MEDS ORDERED: diphenhydrAMINE 25MG PO PRIOR TO INFUSION PO ONE (10:00)
[2022-08-02] MEDS ORDERED: NS 1,000 ML IV SCH (10:00)
[2022-08-02] MEDS ORDERED: INFLIXIMAB BIOSIMILAR 400 MG in NS 210 ML IV ONE (10:00)
[2022-08-02] MEDS ORDERED: ACETAMINOPHEN 650MG PO PRIOR TO INFUSION PO ONE (10:00)
== END 2022-08-02 12:15 | disposition home or self-care (01) ==
LOC: M INFU 09:45
PROVIDERS: ATTEND Internal Medicine
DX: L40.50 Arthropathic psoriasis, unspecified (principal); Z88.5 Allergy status to narcotic agent; Z88.2 Allergy status to sulfonamides; Z88.8 Allergy status to other drugs, medicaments and biological substances
CPT/HCPCS: 96413; Q5103

== ENCOUNTER → 2022-09-06 | Outpatient (CLI) | payer OTHER ==
[~2022-09-06] MED LIST changes: +FLUT12AE2; +POTA1TAB14; +TACR0.1O
[2022-09-06 11:32] LABS: BASO # 0.1 10^3/uL (0.0-0.2); BASO % 1.1 % (0.0-1.0); EOS # 0.2 10^3/uL (0.0-0.5); EOS % 4.1 % (0.0-3.0); HEMATOCRIT 49.8 % (36.0-47.0); HEMOGLOBIN 16.2 g/dl (12.0-15.5); LYMPH # 1.1 10^3/uL (1.5-5.0); MEAN CORPUSCULAR HEMOGLOBIN 30.2 pg (27.0-33.0); MEAN CORPUSCULAR HGB CONC 32.5 g/dl (32.0-36.5); MEAN CORPUSCULAR VOLUME 92.9 fl (80.0-96.0); MONO # 0.3 10^3/uL (0.0-0.8); MONO % 7.2 % (2.0-8.0); NEUTROPHILS % 64.4 % (36.0-66.0); PLATELET COUNT, AUTOMATED 290 10^3/uL (150-450); RED BLOOD COUNT 5.36 10^6/uL (4.00-5.40); WHITE BLOOD COUNT 4.7 10^3/uL (4.0-10.0)
[2022-09-06 11:56] LABS: ALBUMIN 3.8 G/DL (3.2-5.2); ALKALINE PHOSPHATASE 127 U/L (46-116); ALT/SGPT 13 U/L (7.0-40); AST/SGOT 20 U/L (<34); BILIRUBIN,TOTAL 0.3 MG/DL (0.3-1.2); BLOOD UREA NITROGEN 18 MG/DL (9-23); CALCIUM LEVEL 9.8 MG/DL (8.5-10.1); CARBON DIOXIDE LEVEL 30 MMOL/L (20-31); CHLORIDE LEVEL 103 MMOL/L (98-107); CREATININE FOR GFR 0.71 MG/DL (0.55-1.30); GLOMERULAR FILTRATION RATE > 60.0 (>51); GLUCOSE, FASTING 92 MG/DL (60-100); POTASSIUM SERUM 4.1 MMOL/L (3.5-5.1); SODIUM LEVEL 139 MMOL/L (136-145); TOTAL PROTEIN 7.8 G/DL (5.7-8.2)
== END ==
LOC: M LAB 10:23
PROVIDERS: ATTEND Internal Medicine Medical Oncology
DX: Z08 Encounter for follow-up examination after completed treatment for malignant neoplasm (principal); Z85.41 Personal history of malignant neoplasm of cervix uteri

== ENCOUNTER 2022-09-13 09:40 | Outpatient (CLI) | payer OTHER ==
[~2022-09-13] VITALS: Ht 165.1 cm; Wt 85.0 kg
[~2022-09-13 09:40] MED LIST changes: +ALBUTEROL SULFATE 2.5MG/0.5ML INH NEB SOLN INH PRN; +EPINEPHrine INJ 1 MG/ML 1ML AMP IM PRN; +diphenhydrAMINE 50MG/ML VIAL IV PRN; +methylPREDNISolone 125MG 2ML VIAL IV PRN
[2022-09-13 09:56] VITALS: BP 119/63
[2022-09-13] MEDS ORDERED: NS 1,000 ML IV SCH (10:00)
[2022-09-13] MEDS ORDERED: INFLIXIMAB BIOSIMILAR 400 MG in NS 210 ML IV ONE (10:00)
[2022-09-13] MEDS ORDERED: ACETAMINOPHEN TAB 650MG DOSE (2X325MG) PO ONE (10:00)
[2022-09-13] MEDS ORDERED: diphenhydrAMINE 25MG PO PRIOR TO INFUSION PO ONE (10:00)
[2022-09-13 10:21] LABS: BASO # 0.1 10^3/uL (0.0-0.2); BASO % 1.3 % (0.0-1.0); EOS # 0.2 10^3/uL (0.0-0.5); HEMATOCRIT 46.2 % (36.0-47.0); HEMOGLOBIN 15.4 g/dl (12.0-15.5); LYMPH # 0.8 10^3/uL (1.5-5.0); LYMPH % 18.1 % (24.0-44.0); MEAN CORPUSCULAR HEMOGLOBIN 30.7 pg (27.0-33.0); MEAN CORPUSCULAR HGB CONC 33.3 g/dl (32.0-36.5); MONO # 0.4 10^3/uL (0.0-0.8); MONO % 8.4 % (2.0-8.0); NEUTROPHILS # 3.1 10^3/uL (1.5-8.5); PLATELET COUNT, AUTOMATED 283 10^3/uL (150-450); RED BLOOD COUNT 5.02 10^6/uL (4.00-5.40); WHITE BLOOD COUNT 4.6 10^3/uL (4.0-10.0)
[2022-09-13 10:49] LABS: ALBUMIN 3.5 G/DL (3.2-5.2); ALKALINE PHOSPHATASE 117 U/L (46-116); ALT/SGPT 15 U/L (7.0-40); AST/SGOT 19 U/L (<34); BILIRUBIN,DIRECT < 0.1 MG/DL (<0.4); BILIRUBIN,TOTAL 0.3 MG/DL (0.3-1.2); BLOOD UREA NITROGEN 24 MG/DL (9-23); CALCIUM LEVEL 9.5 MG/DL (8.5-10.1); CARBON DIOXIDE LEVEL 24 MMOL/L (20-31); CHLORIDE LEVEL 107 MMOL/L (98-107); CREATININE FOR GFR 0.75 MG/DL (0.55-1.30); GLOMERULAR FILTRATION RATE > 60.0 (>51); GLUCOSE, FASTING 105 MG/DL (60-100); POTASSIUM SERUM 3.9 MMOL/L (3.5-5.1); SODIUM LEVEL 138 MMOL/L (136-145); TOTAL PROTEIN 7.3 G/DL (5.7-8.2)
== END 2022-09-13 12:05 | disposition home or self-care (01) ==
LOC: M INFU 09:40
PROVIDERS: ATTEND Internal Medicine
DX: L40.50 Arthropathic psoriasis, unspecified (principal); Z88.5 Allergy status to narcotic agent; Z88.2 Allergy status to sulfonamides; Z88.8 Allergy status to other drugs, medicaments and biological substances
CPT/HCPCS: 80048; 80076; 85025; 86140; 96413; Q5103

== ENCOUNTER → 2022-09-13 | Outpatient (REF) | payer OTHER ==
[2022-09-19 01:06] LABS: CALPROTECTIN STOOL <16 ug/g (0-120); FATS NEUTRAL Normal (.); FATS TOTAL Normal (.); PANCREATIC ELASTASE STOOL 100 (>200)
== END ==
LOC: M LAB REF 10:00
PROVIDERS: ATTEND Physician Assistant Medical
DX: R19.7 Diarrhea, unspecified (principal)

== ENCOUNTER → 2022-09-18 | Outpatient (CLI) | payer OTHER ==
[~2022-09-18] MED LIST changes: -ALBUTEROL SULFATE 2.5MG/0.5ML INH NEB SOLN INH PRN; -EPINEPHrine INJ 1 MG/ML 1ML AMP IM PRN; +GASTROGRAFIN SOLUTION 30ML As Ordered ONE; +ISOVUE-370 76% 100ML VIAL As Ordered ONE; -diphenhydrAMINE 50MG/ML VIAL IV PRN; -methylPREDNISolone 125MG 2ML VIAL IV PRN
== END ==
LOC: M RAD 15:51
PROVIDERS: ATTEND Internal Medicine Medical Oncology
DX: C53.9 Malignant neoplasm of cervix uteri, unspecified (principal); R10.31 Right lower quadrant pain; Z90.710 Acquired absence of both cervix and uterus; R59.0 Localized enlarged lymph nodes; R91.8 Other nonspecific abnormal finding of lung field

== ENCOUNTER 2022-10-25 09:50 | Outpatient (CLI) | payer OTHER ==
[~2022-10-25] VITALS: Ht 166.4 cm; Wt 84.8 kg
[~2022-10-25 09:50] MED LIST changes: +ALBUTEROL SULFATE 2.5MG/0.5ML INH NEB SOLN INH PRN; +EPINEPHrine INJ 1 MG/ML 1ML AMP IM PRN; -GASTROGRAFIN SOLUTION 30ML As Ordered ONE; -ISOVUE-370 76% 100ML VIAL As Ordered ONE; +diphenhydrAMINE 50MG/ML VIAL IV PRN; +methylPREDNISolone 125MG 2ML VIAL IV PRN
[2022-10-25] MEDS ORDERED: diphenhydrAMINE 25MG PO PRIOR TO INFUSION PO ONE (10:00)
[2022-10-25] MEDS ORDERED: ACETAMINOPHEN 650MG PO PRIOR TO INFUSION PO ONE (10:00)
[2022-10-25] MEDS ORDERED: INFLIXIMAB BIOSIMILAR 400 MG in NS 210 ML IV ONE (10:00)
[2022-10-25] MEDS ORDERED: NS 1,000 ML IV SCH (10:00)
[2022-10-25 10:02] VITALS: BP 106/68
[2022-10-25 11:45] VITALS: BP 111/67
[2022-10-25 11:46] VITALS: BP 123/58
== END 2022-10-25 11:25 | disposition home or self-care (01) ==
LOC: M INFU 09:50
PROVIDERS: ATTEND Internal Medicine
DX: L40.52 Psoriatic arthritis mutilans (principal); Z88.5 Allergy status to narcotic agent; Z88.8 Allergy status to other drugs, medicaments and biological substances
CPT/HCPCS: 96413; Q5103

== ENCOUNTER 2022-12-06 09:09 | Outpatient (CLI) | payer OTHER ==
[~2022-12-06] VITALS: Ht 165.1 cm; Wt 85.0 kg
[2022-12-06 09:18] VITALS: BP 131/61
[2022-12-06] MEDS ORDERED: INFLIXIMAB BIOSIMILAR 400 MG in NS 210 ML IV ONE (10:00)
[2022-12-06] MEDS ORDERED: NS 1,000 ML IV SCH (10:00)
[2022-12-06] MEDS ORDERED: ACETAMINOPHEN 650MG PO PRIOR TO INFUSION PO ONE (10:00)
[2022-12-06] MEDS ORDERED: diphenhydrAMINE 25MG PO PRIOR TO INFUSION PO ONE (10:00)
[2022-12-06 11:00] VITALS: BP 111/59
== END 2022-12-06 11:00 | disposition home or self-care (01) ==
LOC: M INFU 09:09
PROVIDERS: ATTEND Internal Medicine
DX: L40.50 Arthropathic psoriasis, unspecified (principal); Z88.2 Allergy status to sulfonamides; Z88.5 Allergy status to narcotic agent; Z88.8 Allergy status to other drugs, medicaments and biological substances
CPT/HCPCS: 96365; Q5103

== ENCOUNTER → 2023-01-01 | Outpatient (CLI) | payer OTHER ==
[~2023-01-01] MED LIST changes: -ALBUTEROL SULFATE 2.5MG/0.5ML INH NEB SOLN INH PRN; -EPINEPHrine INJ 1 MG/ML 1ML AMP IM PRN; +POTA-298; +POTA-298 PO; -POTA1TAB14; -POTA1TAB14 PO; -diphenhydrAMINE 50MG/ML VIAL IV PRN; -methylPREDNISolone 125MG 2ML VIAL IV PRN
[2023-01-01 11:14] LABS: BASO # 0.1 10^3/uL (0.0-0.2); EOS # 0.1 10^3/uL (0.0-0.5); EOS % 2.8 % (0.0-3.0); HEMATOCRIT 45.8 % (36.0-47.0); HEMOGLOBIN 15.3 g/dl (12.0-15.5); LYMPH # 0.9 10^3/uL (1.5-5.0); LYMPH % 16.8 % (24.0-44.0); MEAN CORPUSCULAR HEMOGLOBIN 31.3 pg (27.0-33.0); MEAN CORPUSCULAR HGB CONC 33.4 g/dl (32.0-36.5); MEAN CORPUSCULAR VOLUME 93.7 fl (80.0-96.0); MONO # 0.4 10^3/uL (0.0-0.8); MONO % 8.7 % (2.0-8.0); NEUTROPHILS # 3.6 10^3/uL (1.5-8.5); NEUTROPHILS % 70.5 % (36.0-66.0); PLATELET COUNT, AUTOMATED 273 10^3/uL (150-450); RED BLOOD COUNT 4.89 10^6/uL (4.00-5.40); WHITE BLOOD COUNT 5.1 10^3/uL (4.0-10.0)
[2023-01-01 11:49] LABS: C REACTIVE PROTEIN QUANTITATIV < 0.40 MG/DL (<1.0)
[2023-01-01 11:57] LABS: ALBUMIN 3.4 G/DL (3.2-5.2); ALKALINE PHOSPHATASE 124 U/L (46-116); ALT/SGPT 14 U/L (7.0-40); AST/SGOT 16 U/L (<34); BILIRUBIN,DIRECT < 0.1 MG/DL (<0.4); BILIRUBIN,TOTAL 0.2 MG/DL (0.3-1.2); BLOOD UREA NITROGEN 20 MG/DL (9-23); CALCIUM LEVEL 9.1 MG/DL (8.5-10.1); CARBON DIOXIDE LEVEL 26 MMOL/L (20-31); CHLORIDE LEVEL 105 MMOL/L (98-107); CREATININE FOR GFR 0.73 MG/DL (0.55-1.30); GLOMERULAR FILTRATION RATE > 60.0 (>51); GLUCOSE, FASTING 94 MG/DL (60-100); POTASSIUM SERUM 4.1 MMOL/L (3.5-5.1); SODIUM LEVEL 140 MMOL/L (136-145); TOTAL PROTEIN 6.9 G/DL (5.7-8.2)
== END ==
LOC: M LAB 10:19
PROVIDERS: ATTEND Internal Medicine
DX: L40.50 Arthropathic psoriasis, unspecified (principal)

== ENCOUNTER → 2023-01-04 | Outpatient (REF) | payer OTHER ==
[~2023-01-04] MED LIST changes: +AMIL25TA; +ARNU1INH3; +CALCITRIOL; +DICY-61 PO; -DICY10CA13 PO; +MAGN400T2 PO; -ROPI0.253 PO; +ROPI5TAB19 PO
== END ==
LOC: M SFHCRHEU 11:14
PROVIDERS: ATTEND Internal Medicine
DX: L40.50 Arthropathic psoriasis, unspecified (principal)

== ENCOUNTER → 2023-01-22 | Outpatient (CLI) | payer OTHER ==
[~2023-01-22] MED LIST changes: -AMIL25TA; -ARNU1INH3; -CALCITRIOL; -DICY-61 PO; +DICY10CA13 PO; +GASTROGRAFIN SOLUTION 30ML As Ordered ONE; +ISOVUE-370 76% 100ML VIAL As Ordered ONE; -MAGN400T2 PO; +ROPI0.253 PO; -ROPI5TAB19 PO
== END ==
LOC: M RAD 12:06
PROVIDERS: ATTEND Nurse Practitioner
DX: C53.9 Malignant neoplasm of cervix uteri, unspecified (principal); K76.89 Other specified diseases of liver; Z90.710 Acquired absence of both cervix and uterus; R59.0 Localized enlarged lymph nodes; J43.9 Emphysema, unspecified
CPT/HCPCS: 71260; 74177; Q9963; Q9967

== ENCOUNTER 2023-02-28 09:24 | Outpatient (CLI) | payer OTHER ==
[~2023-02-28] VITALS: Ht 165.1 cm; Wt 88.5 kg
[~2023-02-28 09:24] MED LIST changes: +ALBUTEROL SULFATE 2.5MG/0.5ML INH NEB SOLN INH PRN; +AMIL25TA; +ARNU1INH3; +CALCITRIOL; +DICY-61 PO; -DICY10CA13 PO; +EPINEPHrine INJ 1 MG/ML 1ML AMP IM PRN; -GASTROGRAFIN SOLUTION 30ML As Ordered ONE; -ISOVUE-370 76% 100ML VIAL As Ordered ONE; +MAGN400T2 PO; -ROPI0.253 PO; +ROPI5TAB19 PO; +diphenhydrAMINE 50MG/ML VIAL IV PRN; +methylPREDNISolone 125MG 2ML VIAL IV PRN
[2023-02-28] MEDS ORDERED: diphenhydrAMINE 25MG PO PRIOR TO INFUSION PO ONE (10:00)
[2023-02-28] MEDS ORDERED: ACETAMINOPHEN 650MG ER TAB (TYLENOL ARTHRITIS) PO ONE (10:00)
[2023-02-28] MEDS ORDERED: INFLIXIMAB BIOSIMILAR 400 MG in NS 210 ML IV ONE (10:00)
[2023-02-28 10:05] VITALS: BP 121/66; O2SAT 95
[2023-02-28 12:08] VITALS: BP 107/59; O2SAT 94
== END 2023-02-28 12:10 | disposition home or self-care (01) ==
LOC: M INFU 09:24
PROVIDERS: ATTEND Internal Medicine
DX: L40.50 Arthropathic psoriasis, unspecified (principal); Z88.5 Allergy status to narcotic agent; Z88.8 Allergy status to other drugs, medicaments and biological substances; Z88.2 Allergy status to sulfonamides
CPT/HCPCS: 96413; Q5103

== ENCOUNTER → 2023-03-06 | Outpatient (CLI) | payer OTHER ==
[~2023-03-06] MED LIST changes: -ALBUTEROL SULFATE 2.5MG/0.5ML INH NEB SOLN INH PRN; -EPINEPHrine INJ 1 MG/ML 1ML AMP IM PRN; -diphenhydrAMINE 50MG/ML VIAL IV PRN; -methylPREDNISolone 125MG 2ML VIAL IV PRN
[2023-03-06 09:53] LABS: BASO % 0.4 % (0.0-1.0); EOS # 0.2 10^3/uL (0.0-0.5); EOS % 1.6 % (0.0-3.0); HEMOGLOBIN 15.1 g/dl (12.0-15.5); LYMPH # 1.2 10^3/uL (1.5-5.0); LYMPH % 12.6 % (24.0-44.0); MEAN CORPUSCULAR HGB CONC 32.8 g/dl (32.0-36.5); MEAN CORPUSCULAR VOLUME 94.5 fl (80.0-96.0); MONO # 0.8 10^3/uL (0.0-0.8); MONO % 8.9 % (2.0-8.0); NEUTROPHILS # 6.9 10^3/uL (1.5-8.5); NEUTROPHILS % 75.8 % (36.0-66.0); PLATELET COUNT, AUTOMATED 292 10^3/uL (150-450); RED BLOOD COUNT 4.87 10^6/uL (4.00-5.40); WHITE BLOOD COUNT 9.1 10^3/uL (4.0-10.0)
[2023-03-06 10:20] LABS: ALBUMIN 3.5 G/DL (3.2-5.2); ALKALINE PHOSPHATASE 141 U/L (46-116); ALT/SGPT 17 U/L (7.0-40); AST/SGOT < 8 U/L (<34); BILIRUBIN,DIRECT 0.1 MG/DL (<0.4); BILIRUBIN,TOTAL 0.3 MG/DL (0.3-1.2); BLOOD UREA NITROGEN 16 MG/DL (9-23); CALCIUM LEVEL 9.4 MG/DL (8.5-10.1); CARBON DIOXIDE LEVEL 26 MMOL/L (20-31); CHLORIDE LEVEL 103 MMOL/L (98-107); CREATININE FOR GFR 0.58 MG/DL (0.55-1.30); GLOMERULAR FILTRATION RATE > 60.0 (>51); GLUCOSE, FASTING 100 MG/DL (60-100); POTASSIUM SERUM 4.2 MMOL/L (3.5-5.1); SODIUM LEVEL 134 MMOL/L (136-145); TOTAL PROTEIN 7.6 G/DL (5.7-8.2)
== END ==
LOC: M LAB 09:23
PROVIDERS: ATTEND Internal Medicine
DX: L40.50 Arthropathic psoriasis, unspecified (principal)

== ENCOUNTER → 2023-03-25 | Outpatient (REF) | payer OTHER ==
[2023-03-25 12:31] LABS: HEMOGLOBIN A1c 5.7 % (4.0-6.0)
[2023-03-25 14:33] LABS: ALBUMIN 3.8 G/DL (3.2-5.2); ALKALINE PHOSPHATASE 120 U/L (46-116); ALT/SGPT 20 U/L (7.0-40); AST/SGOT 16 U/L (<34); BILIRUBIN,TOTAL 0.4 MG/DL (0.3-1.2); BLOOD UREA NITROGEN 16 MG/DL (9-23); CALCIUM LEVEL 9.4 MG/DL (8.5-10.1); CARBON DIOXIDE LEVEL 26 MMOL/L (20-31); CHLORIDE LEVEL 104 MMOL/L (98-107); CHOLESTEROL LEVEL 223 MG/DL (<200); CREATININE FOR GFR 0.71 MG/DL (0.55-1.30); GLOMERULAR FILTRATION RATE > 60.0 (>51); GLUCOSE, FASTING 93 MG/DL (60-100); HDL CHOLESTEROL 49.5 MG/DL (>40); LDL CHOLESTEROL 147.9 MG/DL (<100); NON-HDL-C 173.5 MG/DL; POTASSIUM SERUM 4.6 MMOL/L (3.5-5.1); SODIUM LEVEL 139 MMOL/L (136-145); THYROID STIMULATING HORMONE 1.845 uIU/ML (0.55-4.78); TOTAL PROTEIN 7.7 G/DL (5.7-8.2); TRIGLYCERIDES LEVEL 128 MG/DL (<150)
== END ==
LOC: M LAB REF 11:26
PROVIDERS: ATTEND Family Medicine Addiction Medicine
DX: E03.9 Hypothyroidism, unspecified (principal); R73.03 Prediabetes

== ENCOUNTER 2023-04-11 10:00 | Outpatient (CLI) | payer OTHER ==
[~2023-04-11] VITALS: Ht 166.4 cm; Wt 87.5 kg
[~2023-04-11 10:00] MED LIST changes: +ALBUTEROL SULFATE 2.5MG/0.5ML INH NEB SOLN INH PRN; +EPINEPHrine INJ 1 MG/ML 1ML AMP IM PRN; +diphenhydrAMINE 50MG/ML VIAL IV PRN; +methylPREDNISolone 125MG 2ML VIAL IV PRN
[2023-04-11 10:04] VITALS: BP 123/60; TEMP 97.4; O2SAT 97
[2023-04-11] MEDS ORDERED: diphenhydrAMINE 25MG PO PRIOR TO INFUSION PO ONE (10:10)
[2023-04-11] MEDS ORDERED: ACETAMINOPHEN 650MG ER TAB (TYLENOL ARTHRITIS) PO ONE (10:10)
[2023-04-11] MEDS ORDERED: INFLIXIMAB BIOSIMILAR 400 MG in NS 210 ML IV ONE (10:15)
[2023-04-11 11:00] VITALS: BP 113/62; TEMP 97.7; O2SAT 98
[2023-04-11 11:52] VITALS: BP 134/86; O2SAT 96
== END 2023-04-11 11:50 ==
LOC: M INFU 10:00
PROVIDERS: ATTEND Internal Medicine
DX: L40.50 Arthropathic psoriasis, unspecified (principal); Z88.5 Allergy status to narcotic agent; Z88.8 Allergy status to other drugs, medicaments and biological substances; Z88.2 Allergy status to sulfonamides
CPT/HCPCS: 96413; Q5103

== ENCOUNTER → 2023-04-16 | Outpatient (CLI) | payer OTHER ==
[~2023-04-16] MED LIST changes: -ALBUTEROL SULFATE 2.5MG/0.5ML INH NEB SOLN INH PRN; -EPINEPHrine INJ 1 MG/ML 1ML AMP IM PRN; -diphenhydrAMINE 50MG/ML VIAL IV PRN; -methylPREDNISolone 125MG 2ML VIAL IV PRN
== END ==
LOC: M WHC 09:56
PROVIDERS: ATTEND Family Medicine Addiction Medicine
DX: Z12.31 Encounter for screening mammogram for malignant neoplasm of breast (principal)

== ENCOUNTER → 2023-04-26 | Outpatient (REF) | payer OTHER | LOC: M SFHCRHEU 11:17 | PROVIDERS: ATTEND Internal Medicine | DX: Z53.9 Procedure and treatment not carried out, unspecified reason (principal) ==

== ENCOUNTER → 2023-04-29 | Outpatient (CLI) | payer OTHER | LOC: M LAB 09:58 | PROVIDERS: ATTEND Internal Medicine | DX: L40.50 Arthropathic psoriasis, unspecified (principal) ==

== ENCOUNTER 2023-05-23 10:00 | Outpatient (CLI) | payer OTHER ==
[~2023-05-23] VITALS: Ht 165.1 cm; Wt 89.0 kg
[~2023-05-23 10:00] MED LIST changes: +ACETAMINOPHEN 650MG ER TAB (TYLENOL ARTHRITIS) PO ONE; +ALBUTEROL SULFATE 2.5MG/0.5ML INH NEB SOLN INH PRN; +EPINEPHrine INJ 1 MG/ML 1ML AMP IM PRN; +diphenhydrAMINE 25MG CAP PO ONE; +diphenhydrAMINE 50MG/ML VIAL IV PRN; +methylPREDNISolone 125MG 2ML VIAL IV PRN
[2023-05-23 10:16] VITALS: BP 134/75; TEMP 98.4; O2SAT 100
[2023-05-23] MEDS ORDERED: INFLIXIMAB BIOSIMILAR 400 MG in NS 210 ML IV ONE (10:25)
[2023-05-23 11:20] VITALS: BP 116/64; TEMP 97.6; O2SAT 99
== END 2023-05-23 12:00 ==
LOC: M INFU 10:00
PROVIDERS: ATTEND Internal Medicine
DX: L40.50 Arthropathic psoriasis, unspecified (principal); Z88.2 Allergy status to sulfonamides; Z88.5 Allergy status to narcotic agent; Z88.8 Allergy status to other drugs, medicaments and biological substances
CPT/HCPCS: 96413; Q5103

== ENCOUNTER → 2023-06-04 | Outpatient (CLI) | payer OTHER ==
[~2023-06-04] MED LIST changes: -ACETAMINOPHEN 650MG ER TAB (TYLENOL ARTHRITIS) PO ONE; -ALBUTEROL SULFATE 2.5MG/0.5ML INH NEB SOLN INH PRN; -CEFD300C41 PO; +CEFD300C42 PO; -EPINEPHrine INJ 1 MG/ML 1ML AMP IM PRN; -diphenhydrAMINE 25MG CAP PO ONE; -diphenhydrAMINE 50MG/ML VIAL IV PRN; -methylPREDNISolone 125MG 2ML VIAL IV PRN
[2023-06-04 10:51] LABS: HEMATOCRIT 44.7 % (36.0-47.0); HEMOGLOBIN 14.8 g/dl (12.0-15.5); MEAN CORPUSCULAR HEMOGLOBIN 31.2 pg (27.0-33.0); MEAN CORPUSCULAR HGB CONC 33.1 g/dl (32.0-36.5); MEAN CORPUSCULAR VOLUME 94.3 fl (80.0-96.0); PLATELET COUNT, AUTOMATED 238 10^3/uL (150-450); RED BLOOD COUNT 4.74 10^6/uL (4.00-5.40); WHITE BLOOD COUNT 4.2 10^3/uL (4.0-10.0)
[2023-06-04 11:15] LABS: ALBUMIN 3.4 G/DL (3.2-5.2); ALKALINE PHOSPHATASE 117 U/L (46-116); ALT/SGPT 18 U/L (7.0-40); AST/SGOT 18 U/L (<34); BILIRUBIN,DIRECT < 0.1 MG/DL (<0.4); BILIRUBIN,TOTAL 0.2 MG/DL (0.3-1.2); BLOOD UREA NITROGEN 15 MG/DL (9-23); CALCIUM LEVEL 9.1 MG/DL (8.5-10.1); CARBON DIOXIDE LEVEL 26 MMOL/L (20-31); CHLORIDE LEVEL 106 MMOL/L (98-107); CREATININE FOR GFR 0.63 MG/DL (0.55-1.30); GLOMERULAR FILTRATION RATE > 60.0 (>51); GLUCOSE, FASTING 98 MG/DL (60-100); POTASSIUM SERUM 4.3 MMOL/L (3.5-5.1); SODIUM LEVEL 138 MMOL/L (136-145); TOTAL PROTEIN 6.6 G/DL (5.7-8.2)
[2023-06-04 11:23] LABS: ATYPICAL LYMPH 2 % (0-5); BASOPHILS 2 % (0-1); EOSINOPHILS 3 % (0-3); HYPOCHROMASIA 1+; LYMPHOCYTES 23 % (16-44); MONOCYTES 8 % (0-5); NEUTROPHILS 62 % (28-66)
[2023-06-04 11:24] LABS: PLATELET ESTIMATE NORMAL (NORMAL)
[2023-06-04 11:25] LABS: SCHISTOCYTES 1+
== END ==
LOC: M LAB 10:12
PROVIDERS: ATTEND Internal Medicine
DX: L40.50 Arthropathic psoriasis, unspecified (principal)

== ENCOUNTER 2023-06-12 09:58 | Outpatient (RCR) | payer OTHER | END 2023-06-18 | LOC: M PT 09:58 | PROVIDERS: ATTEND Nurse Practitioner | DX: M25.551 Pain in right hip (principal) ==

== ENCOUNTER 2023-07-04 09:37 | Outpatient (CLI) | payer OTHER ==
[~2023-07-04] VITALS: Ht 165.1 cm; Wt 89.0 kg
[2023-07-04 09:37] VITALS: BP 128/75; O2SAT 98
[~2023-07-04 09:37] MED LIST changes: +ALBUTEROL SULFATE 2.5MG/0.5ML INH NEB SOLN INH PRN; +EPINEPHrine INJ 1 MG/ML 1ML AMP IM PRN; +diphenhydrAMINE 50MG/ML VIAL IV PRN; +methylPREDNISolone 125MG 2ML VIAL IV PRN
[2023-07-04 09:38] VITALS: BP 128/75; TEMP 98.1; O2SAT 98
[2023-07-04] MEDS ORDERED: ACETAMINOPHEN 650MG ER TAB (TYLENOL ARTHRITIS) PO ONE (09:55)
[2023-07-04] MEDS ORDERED: INFLIXIMAB BIOSIMILAR 400 MG in NS 210 ML IV ONE (10:00)
[2023-07-04] MEDS ORDERED: diphenhydrAMINE 25MG PO PRIOR TO INFUSION PO ONE (10:00)
[2023-07-04 11:31] VITALS: BP 116/73; O2SAT 100
== END 2023-07-04 11:30 | disposition home or self-care (01) ==
LOC: M INFU 09:37
PROVIDERS: ATTEND Internal Medicine
DX: L40.50 Arthropathic psoriasis, unspecified (principal); Z88.5 Allergy status to narcotic agent; Z88.2 Allergy status to sulfonamides; Z88.8 Allergy status to other drugs, medicaments and biological substances
CPT/HCPCS: 96413; Q5103

== ENCOUNTER 2023-07-17 09:58 | Outpatient (RCR) | payer OTHER ==
[~2023-07-17 09:58] MED LIST changes: -ALBUTEROL SULFATE 2.5MG/0.5ML INH NEB SOLN INH PRN; -EPINEPHrine INJ 1 MG/ML 1ML AMP IM PRN; -diphenhydrAMINE 50MG/ML VIAL IV PRN; -methylPREDNISolone 125MG 2ML VIAL IV PRN
== END 2023-07-18 ==
LOC: M PT 09:58
PROVIDERS: ATTEND Nurse Practitioner
DX: M25.551 Pain in right hip (principal)

== ENCOUNTER 2023-07-22 10:02 | Outpatient (RCR) | payer OTHER ==
[~2023-07-22 10:02] MED LIST changes: +CEFD1CAP9 PO; -CEFD300C42 PO
== END 2023-08-18 ==
LOC: M PT 10:02
PROVIDERS: ATTEND Nurse Practitioner
DX: C53.9 Malignant neoplasm of cervix uteri, unspecified (principal)

== ENCOUNTER 2023-08-15 10:00 | Outpatient (CLI) | payer OTHER ==
[~2023-08-15] VITALS: Ht 167.6 cm; Wt 88.1 kg
[2023-08-15 10:00] VITALS: BP 135/79; O2SAT 98
[~2023-08-15 10:00] MED LIST changes: +ALBUTEROL SULFATE 2.5MG/0.5ML INH NEB SOLN INH PRN; +EPINEPHrine INJ 1 MG/ML 1ML AMP IM PRN; +diphenhydrAMINE 50MG/ML VIAL IV PRN; +methylPREDNISolone 125MG 2ML VIAL IV PRN
[2023-08-15] MEDS ORDERED: diphenhydrAMINE 25MG PO PRIOR TO INFUSION PO ONE (10:10)
[2023-08-15] MEDS ORDERED: ACETAMINOPHEN 650MG PO PRIOR TO INFUSION PO ONE (10:10)
[2023-08-15] MEDS ORDERED: INFLIXIMAB BIOSIMILAR 400 MG in NS 210 ML IV ONE (10:10)
[2023-08-15 11:37] VITALS: BP 125/76; O2SAT 95
== END 2023-08-15 11:38 | disposition home or self-care (01) ==
LOC: M INFU 10:00
PROVIDERS: ATTEND Internal Medicine
DX: L40.50 Arthropathic psoriasis, unspecified (principal); Z88.5 Allergy status to narcotic agent; Z88.8 Allergy status to other drugs, medicaments and biological substances
CPT/HCPCS: 96413; Q5103

== ENCOUNTER → 2023-08-27 | Outpatient (REF) | payer OTHER ==
[~2023-08-27] MED LIST changes: -ALBUTEROL SULFATE 2.5MG/0.5ML INH NEB SOLN INH PRN; -EPINEPHrine INJ 1 MG/ML 1ML AMP IM PRN; -diphenhydrAMINE 50MG/ML VIAL IV PRN; -methylPREDNISolone 125MG 2ML VIAL IV PRN
== END ==
LOC: M LAB REF 12:07
PROVIDERS: ATTEND Physician Assistant Medical
DX: R05.9 Cough, unspecified (principal)

== ENCOUNTER → 2023-09-02 | Outpatient (CLI) | payer OTHER ==
[2023-09-02 14:52] LABS: BASO # 0.1 10^3/uL (0.0-0.2); BASO % 0.9 % (0.0-1.0); EOS # 0.2 10^3/uL (0.0-0.5); HEMATOCRIT 44.3 % (36.0-47.0); HEMOGLOBIN 14.7 g/dl (12.0-15.5); LYMPH # 1.1 10^3/uL (1.5-5.0); LYMPH % 18.2 % (24.0-44.0); MEAN CORPUSCULAR HEMOGLOBIN 30.9 pg (27.0-33.0); MEAN CORPUSCULAR HGB CONC 33.2 g/dl (32.0-36.5); MEAN CORPUSCULAR VOLUME 93.3 fl (80.0-96.0); MONO # 0.5 10^3/uL (0.0-0.8); MONO % 8.7 % (2.0-8.0); NEUTROPHILS % 68.9 % (36.0-66.0); PLATELET COUNT, AUTOMATED 304 10^3/uL (150-450); RED BLOOD COUNT 4.75 10^6/uL (4.00-5.40); WHITE BLOOD COUNT 5.8 10^3/uL (4.0-10.0)
[2023-09-02 15:21] LABS: ALBUMIN 3.4 G/DL (3.2-5.2); ALKALINE PHOSPHATASE 103 U/L (46-116); ALT/SGPT 15 U/L (7.0-40); AST/SGOT 12 U/L (<34); BILIRUBIN,DIRECT < 0.1 MG/DL (<0.4); BILIRUBIN,TOTAL 0.2 MG/DL (0.3-1.2); BLOOD UREA NITROGEN 15 MG/DL (9-23); CARBON DIOXIDE LEVEL 28 MMOL/L (20-31); CHLORIDE LEVEL 106 MMOL/L (98-107); CREATININE FOR GFR 0.77 MG/DL (0.55-1.30); GLOMERULAR FILTRATION RATE > 60.0 (>51); GLUCOSE, FASTING 113 MG/DL (60-100); POTASSIUM SERUM 3.9 MMOL/L (3.5-5.1); SODIUM LEVEL 138 MMOL/L (136-145); TOTAL PROTEIN 6.9 G/DL (5.7-8.2)
== END ==
LOC: M LAB 14:24
PROVIDERS: ATTEND Internal Medicine
DX: L40.50 Arthropathic psoriasis, unspecified (principal)

== ENCOUNTER 2023-09-26 08:59 | Outpatient (CLI) | payer OTHER ==
[~2023-09-26] VITALS: Ht 167.6 cm; Wt 87.3 kg
[~2023-09-26 08:59] MED LIST changes: +ALBUTEROL SULFATE 2.5MG/0.5ML INH NEB SOLN INH PRN; +EPINEPHrine INJ 1 MG/ML 1ML AMP IM PRN; -LEFL1TAB4 PO; +LEFL20TA15 PO; +diphenhydrAMINE 50MG/ML VIAL IV PRN; +methylPREDNISolone 125MG 2ML VIAL IV PRN
[2023-09-26 10:04] VITALS: BP 118/70; TEMP 98.3; O2SAT 94
[2023-09-26] MEDS: INFLIXIMAB BIOSIMILAR 400 MG in NS 210 ML IV ONE (10:32)
[2023-09-26] MEDS: diphenhydrAMINE 25MG PO PRIOR TO INFUSION PO ONE (10:33)
[2023-09-26] MEDS: ACETAMINOPHEN 650MG PO PRIOR TO INFUSION PO ONE (10:33)
[2023-09-26 11:30] VITALS: BP 134/78; TEMP 98.7; O2SAT 99
== END 2023-09-26 11:32 ==
LOC: M INFU 08:59
PROVIDERS: ATTEND Internal Medicine
DX: L40.50 Arthropathic psoriasis, unspecified (principal); Z88.5 Allergy status to narcotic agent; Z88.8 Allergy status to other drugs, medicaments and biological substances; Z88.2 Allergy status to sulfonamides
CPT/HCPCS: 96413; Q5103

== ENCOUNTER 2023-11-07 09:30 | Outpatient (CLI) | payer OTHER ==
[2023-11-07 09:25] VITALS: BP 112/62; O2SAT 95
[~2023-11-07 09:30] MED LIST changes: +CALC0.0017 TOP; -CALC0.009 TOP
[2023-11-07] MEDS: diphenhydrAMINE 25MG PO PRIOR TO INFUSION PO ONE (09:36)
[2023-11-07] MEDS: ACETAMINOPHEN 650MG PO PRIOR TO INFUSION PO ONE (09:36)
[2023-11-07] MEDS: INFLIXIMAB BIOSIMILAR 400 MG in NS 210 ML IV ONE (10:30)
[2023-11-07 10:45] VITALS: BP 127/78; O2SAT 95
[2023-11-07 11:40] VITALS: BP 139/78; O2SAT 95
== END 2023-11-07 11:40 | disposition home or self-care (01) ==
LOC: M INFU 09:30
PROVIDERS: ATTEND Internal Medicine
DX: L40.50 Arthropathic psoriasis, unspecified (principal); Z88.5 Allergy status to narcotic agent; Z88.8 Allergy status to other drugs, medicaments and biological substances
CPT/HCPCS: 96413; Q5103

== ENCOUNTER → 2023-11-12 | Outpatient (REF) | payer OTHER ==
[~2023-11-12] MED LIST changes: -ALBUTEROL SULFATE 2.5MG/0.5ML INH NEB SOLN INH PRN; -EPINEPHrine INJ 1 MG/ML 1ML AMP IM PRN; -diphenhydrAMINE 50MG/ML VIAL IV PRN; -methylPREDNISolone 125MG 2ML VIAL IV PRN
[2023-11-12 13:27] LABS: ALBUMIN 3.7 G/DL (3.2-5.2); ALKALINE PHOSPHATASE 139 U/L (46-116); ALT/SGPT < 9 U/L (7.0-40); AST/SGOT 19 U/L (<34); BILIRUBIN,TOTAL 0.3 MG/DL (0.3-1.2); BLOOD UREA NITROGEN 22 MG/DL (9-23); CALCIUM LEVEL 9.2 MG/DL (8.5-10.1); CARBON DIOXIDE LEVEL 27 MMOL/L (20-31); CHLORIDE LEVEL 109 MMOL/L (98-107); CHOLESTEROL LEVEL 220 MG/DL (<200); CREATININE FOR GFR 0.72 MG/DL (0.55-1.30); GLOMERULAR FILTRATION RATE > 60.0 (>51); GLUCOSE, FASTING 107 MG/DL (60-100); HDL CHOLESTEROL 45.8 MG/DL (>40); LDL CHOLESTEROL 143.4 MG/DL (<100); NON-HDL-C 174.2 MG/DL; POTASSIUM SERUM 4.4 MMOL/L (3.5-5.1); SODIUM LEVEL 137 MMOL/L (136-145); TOTAL PROTEIN 7.3 G/DL (5.7-8.2); TRIGLYCERIDES LEVEL 154 MG/DL (<150)
[2023-11-12 13:28] LABS: THYROID STIMULATING HORMONE 2.707 uIU/ML (0.55-4.78)
== END ==
LOC: M LAB REF 12:30
PROVIDERS: ATTEND Family Medicine Addiction Medicine
DX: E03.9 Hypothyroidism, unspecified (principal)

== ENCOUNTER → 2023-12-06 | Outpatient (REF) | payer OTHER ==
[~2023-12-06] MED LIST changes: -MIRT-60 PO; +MIRT-89 PO
== END ==
LOC: M SFHCRHEU 15:19
PROVIDERS: ATTEND Internal Medicine
DX: L40.50 Arthropathic psoriasis, unspecified (principal); B99.9 Unspecified infectious disease; Z79.899 Other long term (current) drug therapy; R53.83 Other fatigue; Z53.9 Procedure and treatment not carried out, unspecified reason

== ENCOUNTER → 2023-12-11 | Outpatient (CLI) | payer OTHER ==
[2023-12-11 12:12] LABS: BASO # 0.1 10^3/uL (0.0-0.2); BASO % 0.9 % (0.0-1.0); EOS # 0.2 10^3/uL (0.0-0.5); EOS % 2.8 % (0.0-3.0); HEMATOCRIT 44.7 % (36.0-47.0); HEMOGLOBIN 14.9 g/dl (12.0-15.5); LYMPH # 0.9 10^3/uL (1.5-5.0); LYMPH % 16.4 % (24.0-44.0); MEAN CORPUSCULAR HEMOGLOBIN 30.9 pg (27.0-33.0); MEAN CORPUSCULAR HGB CONC 33.3 g/dl (32.0-36.5); MEAN CORPUSCULAR VOLUME 92.7 fl (80.0-96.0); MONO # 0.4 10^3/uL (0.0-0.8); MONO % 7.3 % (2.0-8.0); NEUTROPHILS # 4.1 10^3/uL (1.5-8.5); NEUTROPHILS % 72.1 % (36.0-66.0); PLATELET COUNT, AUTOMATED 276 10^3/uL (150-450); RED BLOOD COUNT 4.82 10^6/uL (4.00-5.40); WHITE BLOOD COUNT 5.6 10^3/uL (4.0-10.0)
[2023-12-11 12:17] LABS: ERYTHROCYTE SEDIMENTATION RATE 29 mm/hr (0-30)
[2023-12-11 12:50] LABS: ALBUMIN 3.4 G/DL (3.2-5.2); ALKALINE PHOSPHATASE 132 U/L (46-116); ALT/SGPT < 9 U/L (7.0-40); AST/SGOT 14 U/L (<34); BILIRUBIN,DIRECT 0.1 MG/DL (<0.4); BILIRUBIN,TOTAL 0.3 MG/DL (0.3-1.2); BLOOD UREA NITROGEN 19 MG/DL (9-23); CALCIUM LEVEL 9.4 MG/DL (8.5-10.1); CARBON DIOXIDE LEVEL 26 MMOL/L (20-31); CHLORIDE LEVEL 104 MMOL/L (98-107); COMPLEMENT C3 132.5 MG/DL (90.0-170.0); COMPLEMENT C4 27.8 MG/DL (12-36); CREATININE FOR GFR 0.71 MG/DL (0.55-1.30); FOLATE 7.91 NG/ML (>5.4); GLOMERULAR FILTRATION RATE > 60.0 (>51); GLUCOSE, FASTING 89 MG/DL (60-100); IMMUNOGLOBULIN A 370.3 MG/DL (40-350); IMMUNOGLOBULIN G 1346 MG/DL (650-1600); IRON (FE) 72 UG/DL (50-170); MAGNESIUM LEVEL 1.7 MG/DL (1.8-2.4); PERCENT SATURATION 28.8 % (13.2-45.0); PHOSPHORUS LEVEL 4.5 MG/DL (2.5-4.9); POTASSIUM SERUM 4.2 MMOL/L (3.5-5.1); SODIUM LEVEL 138 MMOL/L (136-145); TOTAL 25(OH) VITAMIN D 22.5 NG/ML (20.0-100.0); TOTAL IRON BINDING CAPACITY 250 UG/DL (250-425); VITAMIN B12 LEVEL 498 PG/ML (211-911)
[2023-12-23 19:07] LABS: COMPLEMENT TOTAL (CH50) > 60 U/mL (>41); NICOTINAMIDE 64.2 ng/mL (5.2-72.1); NICOTINIC ACID <5.0 ng/mL (0.0-5.0); VITAMIN B1 LEVEL WHOLE BLOOD 122.6 nmol/L (66.5-200.0); VITAMIN B2 (RIBOFLAVIN) 270 ug/L (137-370); VITAMIN B6,PYRIDOXAL PHOSPHATE 3.7 ug/L (3.4-65.2); VITAMIN B7 (BIOTIN) <0.05 ng/mL (0.05-0.83); VITAMIN C, ASCORBIC ACID <0.1 mg/dL (0.4-2.0)
== END ==
LOC: M LAB 10:10
PROVIDERS: ATTEND Internal Medicine
DX: B99.9 Unspecified infectious disease (principal); L40.50 Arthropathic psoriasis, unspecified; Z79.899 Other long term (current) drug therapy; R53.83 Other fatigue

== ENCOUNTER 2023-12-31 21:22 | Emergency (ER) | payer OTHER ==
[~2023-12-31] VITALS: Ht 167.6 cm; Wt 84.1 kg
[2023-12-31 21:23] VITALS: BP 141/81; TEMP 96.3; O2SAT 94
== END 2024-01-01 00:37 | disposition left against medical advice (07) ==
LOC: M ED 21:22
DX: Z53.21 Procedure and treatment not carried out due to patient leaving prior to being seen by health care provider (principal)

== ENCOUNTER 2024-01-09 06:29 | Emergency (ER) | payer OTHER ==
[~2024-01-09] VITALS: Ht 152.4 cm; Wt 84.5 kg
[~2024-01-09 06:29] MED LIST changes: +ONDA-282 PO; -ONDA4TAB6 PO
[2024-01-09 08:27] LABS: BASO # 0.1 10^3/uL (0.0-0.2); BASO % 0.7 % (0.0-1.0); EOS # 0.2 10^3/uL (0.0-0.5); EOS % 2.8 % (0.0-3.0); HEMATOCRIT 44.4 % (36.0-47.0); HEMOGLOBIN 15.1 g/dl (12.0-15.5); LYMPH # 0.9 10^3/uL (1.5-5.0); LYMPH % 13.6 % (24.0-44.0); MEAN CORPUSCULAR HEMOGLOBIN 31.4 pg (27.0-33.0); MEAN CORPUSCULAR VOLUME 92.3 fl (80.0-96.0); MONO # 0.6 10^3/uL (0.0-0.8); MONO % 8.2 % (2.0-8.0); NEUTROPHILS % 74.6 % (36.0-66.0); PLATELET COUNT, AUTOMATED 262 10^3/uL (150-450); RED BLOOD COUNT 4.81 10^6/uL (4.00-5.40); WHITE BLOOD COUNT 6.7 10^3/uL (4.0-10.0)
[2024-01-09 08:32] LABS: ERYTHROCYTE SEDIMENTATION RATE 21 mm/hr (0-30)
[2024-01-09 08:53] LABS: C REACTIVE PROTEIN QUANTITATIV < 0.40 MG/DL (<1.0)
[2024-01-09 08:54] LABS: ALBUMIN 3.6 G/DL (3.2-5.2); ALKALINE PHOSPHATASE 109 U/L (46-116); ALT/SGPT 20 U/L (7.0-40); AST/SGOT 23 U/L (<34); BILIRUBIN,DIRECT < 0.1 MG/DL (<0.4); BILIRUBIN,TOTAL 0.3 MG/DL (0.3-1.2); MAGNESIUM LEVEL 1.7 MG/DL (1.8-2.4)
[2024-01-09 08:56] LABS: THYROID STIMULATING HORMONE 1.728 uIU/ML (0.55-4.78)
[2024-01-09 08:57] LABS: FREE T4 1.15 NG/DL (0.89-1.76)
[2024-01-09] MEDS ORDERED: NS 1,000 ML IV ONE (09:15)
[2024-01-09] MEDS ORDERED: ACETAMINOPHEN *IV* 1,000 MG in IV 1 EA IV ONE (09:15)
[2024-01-09] MEDS ORDERED: METOCLOPRAMIDE INJ 10MG/2ML VIAL IV ONE (09:15)
[2024-01-09] MEDS ORDERED: diphenhydrAMINE 50MG/ML VIAL IV ONE (09:15)
[2024-01-09 09:31] LABS: APPEARANCE, URINE HAZY (CLEAR); BACTERIA, URINE AUTO NEGATIVE (NEGATIVE); BILIRUBIN, URINE AUTO NEGATIVE (NEGATIVE); BLOOD, URINE BLOOD NEGATIVE (NEGATIVE); COLOR, URINE YELLOW (YELLOW); GLUCOSE, URINE (UA) AUTO NEGATIVE (NEGATIVE); KETONE, URINE AUTO NEGATIVE (NEGATIVE); LEUKOCYTE ESTERASE, URINE AUTO NEGATIVE (NEGATIVE); MUCUS, URINE SMALL (NEGATIVE); NITRITE, URINE AUTO NEGATIVE (NEGATIVE); PROTEIN, URINE AUTO NEGATIVE (NEGATIVE); RBC, URINE AUTO 1 /HPF (0-3); SQUAMOUS EPITHELIAL CELL UR AU 0 /HPF (0-6); WBC, URINE AUTO 1 /HPF (0-3)
[2024-01-09] MEDS: DIVALPROEX 500 MG TAB PO ONE (09:32)
[2024-01-09] MEDS: methylPREDNISolone 125MG 2ML VIAL IV ONE (09:32)
[2024-01-09] MEDS: MAG SULF 1GM/100ML (MAG RUN) 1 GM in IV 1 EA IV ONE (09:33)
[2024-01-09 09:40] LABS: AMPHETAMINES LEVEL URINE NEGATIVE (NEGATIVE); BARBITURATES URINE NEGATIVE (NEGATIVE); BENZODIAZEPINES URINE NEGATIVE (NEGATIVE); CANNABINOIDS URINE NEGATIVE (NEGATIVE); COCAINE METABOLITE URINE NEGATIVE (NEGATIVE); METHADONE URINE NEGATIVE (NEGATIVE); OPIATES URINE NEGATIVE (NEGATIVE); PHENCYCLIDINE URINE NEGATIVE (NEGATIVE)
[2024-01-09] MEDS: LORATADINE 10 MG TAB PO ONE (12:28)
[2024-01-09] MEDS: diazePAM 2 MG TAB PO ONE (13:43)
[2024-01-09 17:37] VITALS: BP 182/80; TEMP 96; O2SAT 94
== END 2024-01-09 17:41 | disposition home or self-care (01) ==
LOC: M ED 06:29
DX: R51.9 Headache, unspecified (principal); F43.0 Acute stress reaction; I12.9 Hypertensive chronic kidney disease with stage 1 through stage 4 chronic kidney disease, or unspecified chronic kidney disease; J44.9 Chronic obstructive pulmonary disease, unspecified; F17.200 Nicotine dependence, unspecified, uncomplicated; L40.9 Psoriasis, unspecified; Z85.41 Personal history of malignant neoplasm of cervix uteri; Z79.899 Other long term (current) drug therapy; Z88.5 Allergy status to narcotic agent; Z88.2 Allergy status to sulfonamides; Z88.8 Allergy status to other drugs, medicaments and biological substances
CPT/HCPCS: 62270; 70450; 70486; 70551; 72125; 73030; 80047; 80076; 80307; 81001; 83735; 84439; 84443; 85025; 85652; 86140; 96365; 96366; 96375; 99284; J2919; J3475

== ENCOUNTER 2024-01-21 09:29 | Outpatient (RCR) | payer OTHER ==
[2024-02-05] MEDS ORDERED: FLUC150T9 PO (10:25)
== END 2024-02-16 ==
LOC: M PT 09:29
PROVIDERS: ATTEND Nurse Practitioner
DX: R10.813 Right lower quadrant abdominal tenderness (principal)

== ENCOUNTER → 2024-02-12 | Outpatient (REF) | payer OTHER ==
[~2024-02-12] MED LIST changes: +FLUC150T9 PO
[2024-02-12 19:10] LABS: ALKALINE PHOSPHATASE 102 U/L (46-116); ALT/SGPT 23 U/L (7.0-40); AST/SGOT 15 U/L (<34); BILIRUBIN,TOTAL 0.5 MG/DL (0.3-1.2); BLOOD UREA NITROGEN 20 MG/DL (9-23); CALCIUM LEVEL 9.3 MG/DL (8.5-10.1); CARBON DIOXIDE LEVEL 25 MMOL/L (20-31); CHLORIDE LEVEL 105 MMOL/L (98-107); CHOLESTEROL LEVEL 192 MG/DL (<200); CHOLESTEROL RISK RATIO 4.16 (<5); CREATININE FOR GFR 0.57 MG/DL (0.55-1.30); GLOMERULAR FILTRATION RATE > 60.0 (>51); GLUCOSE, FASTING 98 MG/DL (60-100); HDL CHOLESTEROL 46.1 MG/DL (>40); LDL CHOLESTEROL 127.3 MG/DL (<100); NON-HDL-C 145.9 MG/DL; POTASSIUM SERUM 4.9 MMOL/L (3.5-5.1); SODIUM LEVEL 137 MMOL/L (136-145); THYROID STIMULATING HORMONE 1.048 uIU/ML (0.55-4.78); TOTAL PROTEIN 7.3 G/DL (5.7-8.2); TRIGLYCERIDES LEVEL 93 MG/DL (<150)
== END ==
LOC: M LAB REF 16:35
PROVIDERS: ATTEND Family Medicine Addiction Medicine
DX: E03.9 Hypothyroidism, unspecified (principal)

== ENCOUNTER → 2024-02-13 | Outpatient (CLI) | payer OTHER ==
[~2024-02-13] MED LIST changes: +GASTROGRAFIN SOLUTION 30ML As Ordered ONE; +ISOVUE-370 76% 100ML VIAL As Ordered ONE
== END ==
LOC: M RAD 08:26
PROVIDERS: ATTEND Internal Medicine Medical Oncology
DX: C53.9 Malignant neoplasm of cervix uteri, unspecified (principal)
CPT/HCPCS: 71260; 74177; Q9963; Q9967

== ENCOUNTER 2024-08-24 14:24 | Day surgery (SDC) | payer OTHER ==
[~2024-08-24] VITALS: Ht 167.6 cm; Wt 80.6 kg
[~2024-08-24 14:24] MED LIST changes: -AMIL25TA; +AMIL25TA PO; +AZEL0.05; +BUDE180A2 INH; -BUDE180INH INH; +CALC1CAP31 PO; +ERGO500029 PO; +FLUTISP; -GASTROGRAFIN SOLUTION 30ML As Ordered ONE; -ISOVUE-370 76% 100ML VIAL As Ordered ONE; +LEVOTAB10 PO; +MIRT-11 PO; -POTA-298; +RISA150P
[2024-08-24] MEDS ORDERED: fentaNYL 100 MCG/2 ML INJECTION As Ordered ONE (16:30)
[2024-08-24] MEDS ORDERED: propofoL 200 MG/20 ML VIAL As Ordered ONE (16:31)
[2024-08-24] MEDS ORDERED: LIDOCAINE 2% 100MG/5ML SDV (FOR ANES.) As Ordered ONE (16:31)
[2024-08-24 17:20] VITALS: BP 134/87; O2SAT 95
== END 2024-08-24 17:27 | disposition home or self-care (01) ==
LOC: M OPP 14:24
PROVIDERS: ATTEND Internal Medicine Gastroenterology
DX: R10.13 Epigastric pain (principal); K44.9 Diaphragmatic hernia without obstruction or gangrene; K29.70 Gastritis, unspecified, without bleeding; G47.30 Sleep apnea, unspecified; Z88.2 Allergy status to sulfonamides; Z88.5 Allergy status to narcotic agent; Z88.8 Allergy status to other drugs, medicaments and biological substances; Z79.51 Long term (current) use of inhaled steroids; Z79.899 Other long term (current) drug therapy; F17.210 Nicotine dependence, cigarettes, uncomplicated; J44.9 Chronic obstructive pulmonary disease, unspecified
CPT/HCPCS: 43239; 88305; J3010

== ENCOUNTER → 2024-08-26 | Outpatient (REF) | payer OTHER, MEDICAID ==
[2024-08-26 14:17] LABS: ALBUMIN 3.5 G/DL (3.2-5.2); ALKALINE PHOSPHATASE 104 U/L (35-104); ALT/SGPT 23 U/L (7.0-40); AST/SGOT 36 U/L (<34); BILIRUBIN,TOTAL 0.3 MG/DL (0.3-1.2); BLOOD UREA NITROGEN 19 MG/DL (9-23); CALCIUM LEVEL 9.4 MG/DL (8.5-10.1); CARBON DIOXIDE LEVEL 31 MMOL/L (20-31); CHLORIDE LEVEL 103 MMOL/L (98-107); CHOLESTEROL LEVEL 217 MG/DL (<200); CHOLESTEROL RISK RATIO 4.84 (<5); CREATININE FOR GFR 0.67 MG/DL (0.55-1.30); GLOMERULAR FILTRATION RATE > 60.0 (>51); GLUCOSE, FASTING 97 MG/DL (60-100); HDL CHOLESTEROL 44.8 MG/DL (>40); LDL CHOLESTEROL 150.2 MG/DL (<100); NON-HDL-C 172.2 MG/DL; POTASSIUM SERUM 4.2 MMOL/L (3.5-5.1); SODIUM LEVEL 141 MMOL/L (136-145); THYROID STIMULATING HORMONE 3.348 uIU/ML (0.55-4.78); TOTAL PROTEIN 7.2 G/DL (5.7-8.2); TRIGLYCERIDES LEVEL 110 MG/DL (<150)
== END ==
LOC: M LAB REF 13:19
PROVIDERS: ATTEND Family Medicine Addiction Medicine
DX: E03.9 Hypothyroidism, unspecified (principal)

== ENCOUNTER → 2024-09-30 | Outpatient (CLI) | payer OTHER, MEDICAID ==
[2024-09-30 14:04] LABS: BASO % 0.4 % (0.0-1.0); EOS # 0.1 10^3/uL (0.0-0.5); EOS % 1.9 % (0.0-3.0); HEMATOCRIT 45.9 % (36.0-47.0); HEMOGLOBIN 15.3 g/dl (12.0-15.5); LYMPH # 0.8 10^3/uL (1.5-5.0); LYMPH % 15.7 % (24.0-44.0); MEAN CORPUSCULAR HGB CONC 33.3 g/dl (32.0-36.5); MEAN CORPUSCULAR VOLUME 93.1 fl (80.0-96.0); MONO # 0.3 10^3/uL (0.0-0.8); MONO % 5.6 % (2.0-8.0); NEUTROPHILS # 3.9 10^3/uL (1.5-8.5); NEUTROPHILS % 75.8 % (36.0-66.0); PLATELET COUNT, AUTOMATED 246 10^3/uL (150-450); RED BLOOD COUNT 4.93 10^6/uL (4.00-5.40); WHITE BLOOD COUNT 5.2 10^3/uL (4.0-10.0)
[2024-09-30 14:29] LABS: C REACTIVE PROTEIN QUANTITATIV 0.62 MG/DL (<1.0); TOTAL 25(OH) VITAMIN D 32.3 NG/ML (20.0-100.0)
[2024-09-30 14:30] LABS: ALBUMIN 3.2 G/DL (3.2-5.2); ALKALINE PHOSPHATASE 113 U/L (35-104); ALT/SGPT 17 U/L (7.0-40); AST/SGOT 16 U/L (<34); BILIRUBIN,DIRECT < 0.1 MG/DL (<0.4); BILIRUBIN,TOTAL 0.2 MG/DL (0.3-1.2); BLOOD UREA NITROGEN 13 MG/DL (9-23); CALCIUM LEVEL 8.7 MG/DL (8.5-10.1); CARBON DIOXIDE LEVEL 29 MMOL/L (20-31); CHLORIDE LEVEL 106 MMOL/L (98-107); GLOMERULAR FILTRATION RATE > 60.0 (>51); GLUCOSE, FASTING 93 MG/DL (60-100); MAGNESIUM LEVEL 1.7 MG/DL (1.8-2.4); POTASSIUM SERUM 3.9 MMOL/L (3.5-5.1); SODIUM LEVEL 142 MMOL/L (136-145); TOTAL PROTEIN 6.7 G/DL (5.7-8.2)
[2024-09-30 14:34] LABS: ERYTHROCYTE SEDIMENTATION RATE 24 mm/hr (0-30)
== END ==
LOC: M RAD 12:07
PROVIDERS: ATTEND Internal Medicine
DX: M54.9 Dorsalgia, unspecified (principal); L40.50 Arthropathic psoriasis, unspecified; E55.9 Vitamin D deficiency, unspecified; R79.89 Other specified abnormal findings of blood chemistry; R79.0 Abnormal level of blood mineral

== ENCOUNTER → 2025-04-13 | Outpatient (CLI) | payer OTHER ==
[~2025-04-13] MED LIST changes: +ISOVUE-370 76% 100 ML VIAL ONE; +KETO120S5 TOP; -KETO2SHA8 TOP; +STEL45IN; +TOPI-14 PO; +TOPI-257 PO; -TOPI100T9 PO; -TOPI200T7 PO
== END ==
LOC: M PLAIMG 15:01
PROVIDERS: ATTEND Internal Medicine Hematology & Oncology
DX: C53.9 Malignant neoplasm of cervix uteri, unspecified (principal); J43.9 Emphysema, unspecified; K76.89 Other specified diseases of liver; K76.0 Fatty (change of) liver, not elsewhere classified

== ENCOUNTER → 2025-05-06 | Outpatient (CLI) | payer OTHER ==
[~2025-05-06] MED LIST changes: -ISOVUE-370 76% 100 ML VIAL ONE
[2025-05-06 15:01] LABS: BASO # 0.0 10^3/uL (0.0-0.2); BASO % 0.7 % (0.0-1.0); EOS # 0.1 10^3/uL (0.0-0.5); EOS % 2.2 % (0.0-3.0); LYMPH # 0.8 10^3/uL (1.5-5.0); LYMPH % 13.8 % (24.0-44.0); MONO # 0.4 10^3/uL (0.0-0.8); MONO % 7.7 % (2.0-8.0); NEUTROPHILS # 4.2 10^3/uL (1.5-8.5); NEUTROPHILS % 75.2 % (36.0-66.0); PLATELET COUNT, AUTOMATED 208 10^3/uL (150-450)
[2025-05-06 15:05] LABS: ERYTHROCYTE SEDIMENTATION RATE 21 mm/hr (0-30)
[2025-05-06 15:08] LABS: C REACTIVE PROTEIN QUANTITATIV < 0.50 MG/DL (<1.0)
[2025-05-06 15:09] LABS: ALT/SGPT 17 U/L (7.0-40); AST/SGOT 20 U/L (<34); CALCIUM LEVEL 9.4 MG/DL (8.5-10.1); CARBON DIOXIDE LEVEL 30 MMOL/L (20-31); CHLORIDE LEVEL 105 MMOL/L (98-107); CREATININE FOR GFR 0.71 MG/DL (0.55-1.30); GLOMERULAR FILTRATION RATE > 90.0 (>51); MAGNESIUM LEVEL 1.7 MG/DL (1.8-2.4); POTASSIUM SERUM 4.0 MMOL/L (3.5-5.1); SODIUM LEVEL 137 MMOL/L (136-145)
== END ==
LOC: M LAB 14:11
PROVIDERS: ATTEND Internal Medicine
DX: L40.50 Arthropathic psoriasis, unspecified (principal); R79.0 Abnormal level of blood mineral; R79.89 Other specified abnormal findings of blood chemistry

== ENCOUNTER 2025-06-17 14:58 | Outpatient (RCR) | payer OTHER | END 2025-06-18 | LOC: M PT 14:58 | PROVIDERS: ATTEND Internal Medicine | DX: M47.814 Spondylosis without myelopathy or radiculopathy, thoracic region (principal) ==

== ENCOUNTER 2025-07-08 14:48 | Outpatient (RCR) | payer OTHER | END 2025-07-18 | LOC: M PT 14:48 | PROVIDERS: ATTEND Internal Medicine | DX: M47.814 Spondylosis without myelopathy or radiculopathy, thoracic region (principal) ==